=== PATIENT | male | born 1965 | race Caucasian/White ===

== ENCOUNTER → 2017-12-21 11:18 | Outpatient (CLI) | payer OTHER, SELFPAY ==
[2017-12-21 12:04] LABS: Hematocrit 49.9 % (40-54); Hemoglobin 17.1 g/dl (13.0-16.5); Mean Corp Hgb Conc 34.3 g/gl (32-36); Mean Corpuscular Volume 99.2 fL (80-94); Mean Platelet Vol. 9.4 fl (6.2-12.0); Platelet Count 270 K/mm3 (150-450); RBC Distribution Width CV 13.1 % (11.6-14.6); RBC Distribution Width SD 47.6 fl (35.1-43.9); Red Blood Count 5.03 M/mm3 (4.6-6.2)
[2017-12-21 12:05] LABS: Scan Indicated on CBC? Y/N NO
[2017-12-21 12:17] LABS: Anion Gap 12 (5-15); BUN 9 mg/dL (7-18); BUN/Creat Ratio 13.9 RATIO (10-20); Chloride 100 mmol/L (98-107); Creatinine, Serum 0.65 mg/dL (0.70-1.30); EST Glomerular Filtration Rate 137 mL/min (>60); Est Glom Filt Rate - Afr Amer 166 mL/min (>60); Glucose 64 mg/dL (74-106); Potassium 4.2 mmol/L (3.5-5.1); Sodium Level 135 mmol/L (136-145)
== END ==
PROVIDERS: Family Provider Family Medicine; PCP Family Medicine; Visit Provider Nurse Practitioner Adult Health
DX: Z01.818 Encounter for other preprocedural examination (principal)
CPT/HCPCS: 36415; 80048; 85027; 93005

== ENCOUNTER 2018-05-30 16:09 | Emergency (ER) | payer OTHER, SELFPAY ==
[2018-05-30 16:10] VITALS: BP 163/93; PULSE 99; RESP 18; TEMP 36.6; O2SAT 96; BMI 23.7
--- NOTE | 2018-05-30 16:21 | RAD_ITS ---
STUDY: X-RAY CHEST REASON FOR EXAM: Male, 52 years old. Short of breath. Cough. TECHNIQUE: Frontal and lateral views of the chest. COMPARISON: None. FINDINGS: The lungs are hyperexpanded. There are coarsened interstitial markings suggestive of mild chronic fibrosis. No gross focal infiltrates. No gross effusions. Normal size heart. Normal mediastinum and hussein. Normal visualized pulmonary arteries. Normal visualized aortic arch and descending thoracic aorta. Normal visualized thoracic spine. Normal visualized ribs, clavicles, and shoulders. There is no demonstrated abnormality of the visualized soft tissue structures of the upper abdomen. RAD/Chest PA and Lateral IMPRESSION: COPD. Probable mild fibrosis. No definite acute chest disease. Electronically Signed: Allen Lopez MD at 20:18 EST , Service support ,
--- NOTE | 2018-05-30 16:21 | EKG12_ITS ---
Test Reason : SOB Blood Pressure : / mmHG Vent. Rate : 096 BPM Atrial Rate : 096 BPM P-R Int : 134 ms QRS Dur : 092 ms QT Int : 358 ms P-R-T Axes : 068 076 068 degrees QTc Int : 452 ms Normal sinus rhythm Normal ECG Confirmed by DIONY LOWERY, HOLLY ([id number]), art editor ELIDA PALACIOS ([id number] on 06/02/2018 8:13:55 AM Referred By: PARAMJIT Confirmed By:HOLLY VORA MD
--- NOTE | 2018-05-30 16:25 | ED.VISSUMM ---
- ER Visit Summary Date of Service: 05/30/18 Chief Complaint: Shortness of breath and cough History of Present Illness: The patient is a 52 M who is shortness of breath and cough. Started 3 days ago. He states he is shortness of breath is worse with exertion and better with rest. He does not wear home oxygen. He has no history of COPD or asthma. His cough is nonproductive. He does smoke. He denies any chest pain or fevers. Is been trying Mucinex at home without any relief. Physical Examination: Vital signs reviewed. HEENT exam unremarkable. Heart is regular rate and rhythm. Lungs have diffuse expiratory wheezing with crackles bilaterally. Abdomen soft and nontender. Extremities reveal no edema. No skin rashes. Neurologic exam normal. Test Results: Patient was given a DuoNeb and 2 albuterol treatments. EKG was sinus rhythm with no ST changes. Heme globin 17.3. Sodium 130. Troponin normal. Chest x-ray per my interpretation reveals a right lower lobe infiltrate. Patient will be treated with a azithromycin and albuterol for home. He feels much better upon repeat evaluation. He will follow-up with his PCP Emergency Department Course and Treatment: [] Treatment Plan: [] Disposition: Discharge Impression: Community-acquired pneumonia This note was generated with [employer] dictation software. It may contain incorrect words, spelling, and punctuation that were not noted in review of the chart prior to signing ED Disposition - Plan for ED Patient: Chief Complaint: Shortness of Breath Referrals: Perry Page MD [Primary Care Provider] -
[2018-05-30] MEDS: Albuterol 2.5 MG/3 ML VIAL.NEB. INHALATION ×2 (16:26)
[2018-05-30] MEDS: Ipratropium/Albuterol Sulfate 3 ML AMPUL.NEB INHALATION (16:26)
[2018-05-30 16:30] VITALS: PULSE 99; RESP 22; O2SAT 95
[2018-05-30 16:37] VITALS: O2SAT 98
[2018-05-30 16:54] LABS: Absolute Lymphocyte Count 1.14 X10^3/ul (0.83-4.51); Absolute Neutrophil Count 6.6 X10^3/uL (2.0-7.7); Basophil# 0.01 X10^3/uL; Basophil% 0.1 % (0-1); Eosinophil# 0.08 X10^3/uL; Eosinophils% 0.9 % (0-5); Hematocrit 50.6 % (40-54); Hemoglobin 17.3 g/dl (13.0-16.5); Lymphocyte # 1.14 X10^3/ul (4.0); Lymphocyte % 13.1 % (19-41); Mean Corp Hgb Conc 34.2 g/gl (32-36); Mean Corpuscular Hgb 33.3 pg (27.0-32.0); Mean Corpuscular Volume 97.5 fL (80-94); Mean Platelet Vol. 9.7 fl (6.2-12.0); Monocyte# 0.85 X10^3/uL; Monocyte% 9.7 % (0-10); Neutrophil # 6.63 X10^3/uL (2.7-7.7); Neutrophil % 76.1 % (47-70); Platelet Count 217 K/mm3 (150-450); RBC Distribution Width CV 13.3 % (11.6-14.6); RBC Distribution Width SD 47.7 fl (35.1-43.9); Red Blood Count 5.19 M/mm3 (4.6-6.2); White Blood Count 8.7 K/mm3 (4.4-11.0)
[2018-05-30 17:09] LABS: Anion Gap 7 (5-15); BUN 7 mg/dL (7-18); BUN/Creat Ratio 11.2 RATIO (10-20); Calcium,Total 8.1 mg/dL (8.5-10.1); Chloride 97 mmol/L (98-107); Creatinine, Serum 0.62 mg/dL (0.70-1.30); EST Glomerular Filtration Rate 142 mL/min (>60); Est Glom Filt Rate - Afr Amer 172 mL/min (>60); Estimated Creatinine Clearance 140.64 ml/min; Glucose 92 mg/dL (74-106); Potassium 3.8 mmol/L (3.5-5.1); Sodium Level 130 mmol/L (136-145)
[2018-05-30 17:10] LABS: POSITIVE COUNT NO; POSITIVE DIFFERENTIAL NO; POSITIVE MORPHOLOGY NO
--- NOTE | 2018-05-30 18:03 | ED.DEP ---
ED Disposition - Plan for ED Patient: Disposition: Home or Assisted Living Chief Complaint: Shortness of Breath Instructions: ED Pneumonia Adult Prescriptions: Albuterol Inhaler [Ventolin Hfa] 1 - 2 puff INHALATION Q4H PRN PRN #1 inhaler PRN Reason: Wheezing Azithromycin [Zithromax] 250 mg PO DAILY #4 tab Referrals: Perry Page MD [Primary Care Provider] -
[2018-05-30 18:07] VITALS: BP 132/76; PULSE 99; RESP 18; O2SAT 96
[2018-05-30 18:10] VITALS: RESP 16
[2018-05-30] MEDS: Azithromycin 250 MG Tablet 500 MG PO (18:10)
== END 2018-05-30 18:14 | disposition home or self-care (01) ==
PROVIDERS: Emergency Provider Emergency Medicine; Family Provider Family Medicine; PCP Family Medicine
DX: J18.9 Pneumonia, unspecified organism (principal); F17.200 Nicotine dependence, unspecified, uncomplicated
CPT/HCPCS: 71046; 80048; 84484; 85025; 93005; 94640; 99284

== ENCOUNTER 2023-03-23 09:51 | Emergency (ER) | payer OTHER, SELFPAY ==
[2023-03-23 09:52] VITALS: BP 160/76; PULSE 54; RESP 18; TEMP 36.6; O2SAT 98; BMI 23.2
--- NOTE | 2023-03-23 10:01 | EDS_ITS ---
HPI History of Present Illness Chief Complaint: Lower Extremity Injury Informant: patient Occured/Mechanism Mechanism/Context: Yes fall Onset/Context/Timing Onset: Yesterday Narrative Narrative: Patient present secondary left ankle injury. Patient states he was walking on uneven ground yesterday with some new shoes when he fell injuring his left ankle. He was able to get in his home to his chair last evening. He states last evening he was able to flex and extend both ankles but today is not able to move his left ankle and cannot bear weight. He denies pain in the knee or hip. He is not on blood thinners. He denies any other injury. [facility] Medical History (Updated 03/23/23 @ 11:[address] Prabha Mckeon MD) Neuropathy Home Medications hydrocodone-acetaminophen 5-325mg 5mg-325mg 1 tab PO Q6H PRN PRN Pain 3 days #10 TABLETS 03/23/23 [Rx Last Taken Unknown] Allergy/AdvReac Type Severity Reaction Status Date / Time No Known Allergies Allergy Verified 03/23/23 09:52 Surgical History (Updated 03/23/23 @ 10:[address] Prabha Mckeon MD) History of appendectomy History of hydrocelectomy Social History Smoking Status: Current every day smoker tobacco type: cigarettes ROS ROS ED Constitutional Constitutional ED: Denies chills or fever(s) Eyes Eyes: Denies discharge from eye(s) ENT ENT ED: Denies discharge from eye(s), rhinorrhea or sore throat Cardiovascular Cardiovascular: Denies chest pain or palpitations Respiratory/Chest Respiratory/Chest: Denies cough or dyspnea Gastrointestinal Gastrointestinal: Denies abdominal pain, nausea or vomiting Genitourinary Genitourinary ED: Denies dysuria Musculoskeletal Musculoskeletal: Reports extremity pain; Denies back pain Integumentary Denies Abrasions or rash Neurologic Neurologic: Reports paresthesias and other Details: Chronic neuropathy bilateral lower extremities. ; Denies headache(s) or weakness Psychiatric Psychiatric: Denies anxiety or depression Allergic/Immunologic Allergic/Immunologic ED: Denies lip swelling or urticaria EXAM Physical Exam Const Vital Signs: 03/23/23 09:52 03/23/23 10:52 03/23/23 11:00 Temperature 97.9 F Temperature Source Temporal Pulse Rate 54 L 83 Pulse Rate [1 (Initial Baseline)] 86 Pulse Rate [2] 85 Respiratory Rate 18 16 Respiratory Rate [1 (Initial Baseline)] 18 Respiratory Rate [2] 22 H Blood Pressure 160/76 H 160/78 H Blood Pressure [1 (Initial Baseline)] 163/87 H Blood Pressure [2] 143/75 H Blood Pressure Mean 104 Pulse Ox 98 100 Oxygen Delivery Method Nasal Cannula Oxygen Delivery Method [1 (Initial Baseline)] Nasal Cannula Oxygen Delivery Method [2] Nasal Cannula Oxygen Flow Rate (L/min) 2 Oxygen Flow Rate (L/min) [1 (Initial Baseline)] 2 Oxygen Flow Rate (L/min) [2] 4 03/23/23 11:20 Temperature Temperature Source Pulse Rate Pulse Rate [1 (Initial Baseline)] Pulse Rate [2] Respiratory Rate Respiratory Rate [1 (Initial Baseline)] Respiratory Rate [2] Blood Pressure Blood Pressure [1 (Initial Baseline)] Blood Pressure [2] Blood Pressure Mean Pulse Ox Oxygen Delivery Method Room Air Oxygen Delivery Method [1 (Initial Baseline)] Oxygen Delivery Method [2] Oxygen Flow Rate (L/min) Oxygen Flow Rate (L/min) [1 (Initial Baseline)] Oxygen Flow Rate (L/min) [2] Positive well nourished and well developed General Appearance ED: well developed HEENT Reports moist mucous membranes Chest Wall inspection of chest normal and palpation of chest normal Resp normal respiratory effort and clear to auscultation bilaterally Cardio regular rate and regular rhythm GI non-tender Extremity Extremity Narrative: Edema with mild ecchymosis noted to the left ankle. Good distal pulses. Good sensation with light touch. No open wounds noted. Neuro oriented x3 Neuro Narrative: Decreased range of motion left ankle secondary to pain/edema. Psych mental status grossly normal MDM MDM MDM Narrative Medical decision making narrative: Patient did take ibuprofen this morning and admits to 3 alcoholic beverages. He denies any other injury. Left ankle x-rays will be obtained to evaluate for fracture, dislocation. Ankle x-rays reveal distal fibula fracture with dislocation per my interpretation. Radiology interpretation reviewed. Patient consented for procedural sedation. I did discuss with him that given his significant degree of swelling I am unsure that we will get much of a reduction. Patient received 50 mg of IV propofol with good sedation. Traction was performed and patient placed in a posterior splint with sugar-tong. Following splint application he has good sensation and cap refill distally. Repeat ankle x-rays per my interpretation reveal some improvement in positioning. Radiology interpretation is reviewed and agrees. Patient discussed with Dr. Da Silva, on-call for foot and ankle. He wishes to see the patient in the office this afternoon to discuss surgical repair. Patient be given a prescription for Oark and crutches and/or walker. Patient does feel that he can get around okay at home. Return instructions provided. Radiography Diagnostic Testing: Clinical Impression(s) from Imaging Studies Ankle X-Ray 03/23/23 10:05 IMPRESSION: Oblique fracture of the distal fibula, with up to 1.1 cm lateral displacement. Avulsion fractures of the distal tip of the medial malleolus, with lateral displacement of the osseous fragments. Approximately 1.2 cm lateral subluxation of the talus with respect to the distal tibia. Soft tissue swelling around the ankle. Electronically Signed: Daniel Bae MD at 10:17 EST Reading Location ID and State: [id number] / [employer] , Service support , Ankle X-Ray 03/23/23 11:13 IMPRESSION: New fiberglass cast, status post reduction. Oblique fracture of the distal fibula, now with up to 0.7 cm lateral displacement (previously 1.1 cm lateral displacement). Persistent avulsion fractures of the distal tip of the medial malleolus, with lateral displacement of the osseous fragments. Now approximately 0.7 cm lateral subluxation of the talus with respect to the distal tibia (previously 1.2 cm). Electronically Signed: Daniel Bae MD at 11:30 EST , Procedures Procedural Sedation 1 (Initial Baseline): Consent Signed: Yes Any Problems With Anesthesia: No You/Your family experience fever (hyperthermia) w/anesthesia: No Sedation medication: Propofol Dose: 50 Route: IV Total Moderate Sedation Units: 10 Maliampati Score: Class I ASA Classification: II Discharge Plan Triage Chief Complaint: Lower Extremity Injury ED Provider: Prabha Mckeon Dx/Rx/DC Orders Clinical Impression: Ankle fracture, left Instructions: ED Ankle Fracture Prescriptions: New hydrocodone-acetaminophen 5-325 mg tablet 1 tab PO Q6H PRN PRN (Reason: Pain) 3 Days Qty: 10 0RF Primary Care Provider: Perry Page Referrals: Haroon Da Silva DPM [Med Staff - Active Staff] - 1 Day Perry Page MD [Primary Care Provider] - Activity Restrictions/Additional Instructions: Dr. Da Silva would like to see you in the office this afternoon. Please call his office when you leave here for an appointment time. Disposition Disposition: Home, Self Care
--- NOTE | 2023-03-23 10:05 | RAD_ITS ---
STUDY: X-RAY - LEFT ANKLE REASON FOR EXAM: Male, 57 years old. Injury. TECHNIQUE: 3 views of the left ankle. COMPARISON: None. FINDINGS: There is an oblique fracture of the distal fibula, with up to 1.1 cm lateral displacement. There are avulsion fractures of the distal tip of the medial malleolus, with lateral displacement of the osseous fragments. There is approximately 1.2 cm lateral subluxation of the talus with respect to the distal tibia. Normal visualized talus and calcaneus. There is an os trigonum. The visualized subtalar, talonavicular, calcaneocuboid and tarsal articulations are normal. There is soft tissue swelling around the ankle. RAD/Ankle min 3 Views IMPRESSION: Oblique fracture of the distal fibula, with up to 1.1 cm lateral displacement. Avulsion fractures of the distal tip of the medial malleolus, with lateral displacement of the osseous fragments. Approximately 1.2 cm lateral subluxation of the talus with respect to the distal tibia. Soft tissue swelling around the ankle. Electronically Signed: Daniel Bae MD at 10:17 EST ,
[2023-03-23 10:52] VITALS: BP 160/78; PULSE 83; RESP 16; O2SAT 100
[2023-03-23 11:00] VITALS: BP 143/75; BP 163/87; PULSE 85; PULSE 86; RESP 18; RESP 22; O2SAT 100
[2023-03-23 11:10] VITALS: BP 137/104; O2SAT 100
[2023-03-23] MEDS: Propofol 200 MG/20 ML Vial IV BOLUS (11:12)
--- NOTE | 2023-03-23 11:13 | RAD_ITS ---
STUDY: X-RAY - LEFT ANKLE, 03/23/2023, 11:15 AM REASON FOR EXAM: Male, 57 years old. Post reduction. TECHNIQUE: 3 views of the left ankle. COMPARISON: Left ankle radiographs dated 03/23/2023, 10:04 AM. FINDINGS: There is a new fiberglass cast surrounding the left ankle. Again seen is an oblique fracture of the distal fibula, now with up to 0.7 cm lateral displacement (previously 1.1 cm lateral displacement). There are persistent avulsion fractures of the distal tip of the medial malleolus, with lateral displacement of the osseous fragments. There is now approximately 0.7 cm lateral subluxation of the talus with respect to the distal tibia (previously 1.2 cm). Normal visualized talus and calcaneus. There is an os trigonum. The visualized subtalar, talonavicular, calcaneocuboid and tarsal articulations are normal. There is persistent soft tissue swelling around the ankle. RAD/Ankle min 3 Views IMPRESSION: New fiberglass cast, status post reduction. Oblique fracture of the distal fibula, now with up to 0.7 cm lateral displacement (previously 1.1 cm lateral displacement). Persistent avulsion fractures of the distal tip of the medial malleolus, with lateral displacement of the osseous fragments. Now approximately 0.7 cm lateral subluxation of the talus with respect to the distal tibia (previously 1.2 cm). Electronically Signed: Daniel Bae MD at 11:30 EST ,
[2023-03-23 11:15] VITALS: BP 152/84; O2SAT 100
[2023-03-23 11:20] VITALS: BP 151/80; O2SAT 100
== END 2023-03-23 12:21 | disposition home or self-care (01) ==
PROVIDERS: Emergency Provider Emergency Medicine; PCP Family Medicine; Visit Provider Emergency Medicine
DX: S82.62XA Displaced fracture of lateral malleolus of left fibula, initial encounter for closed fracture (principal); Y93.01 Activity, walking, marching and hiking; W19.XXXA Unspecified fall, initial encounter; F17.210 Nicotine dependence, cigarettes, uncomplicated
CPT/HCPCS: 27788; 73610; 99152; 99285; A4216

== ENCOUNTER → 2023-03-26 | Outpatient (CLI) | payer OTHER, SELFPAY ==
--- NOTE | 2023-03-26 16:29 | RAD_ITS ---
INDICATION: pre-op screening EXAMINATION/TECHNIQUE: X-RAY - XR Chest 2 Views COMPARISON: FINDINGS: LINES/DEVICES: None. LUNGS: No consolidation, edema or effusion. No pneumothorax. MEDIASTINUM AND CARDIOVASCULAR STRUCTURES: Cardiac silhouette not enlarged. Central airways and mediastinal contour are unremarkable. BONES AND SOFT TISSUES: Unremarkable. RAD/Chest PA and Lateral IMPRESSION: No radiographic evidence of acute cardiopulmonary disease. Electronically Signed: Smooth Mccall DO at 20:10 EST Reading Location ID and State: [facility] / [place] Tel [phone], Service support ,
[2023-03-26 17:28] LABS: Absolute Lymphocyte Count 1.65 X10^3/uL (0.83-4.51); Basophil# 0.07 X10^3/uL; Basophil% 0.9 % (0-1); Eosinophil# 0.17 X10^3/uL; Eosinophils% 2.2 % (0-5); Hematocrit 47.9 % (40-54); Hemoglobin 16.5 g/dL (13.0-16.5); Lymphocyte # 1.65 X10^3/ul (0.83-4.51); Lymphocyte % 21.7 % (19-41); Mean Corp Hgb Conc 34.4 g/dL (32-36); Mean Corpuscular Hgb 33.7 pg (27.0-32.0); Mean Platelet Vol. 9.5 fl (6.2-12.0); Monocyte# 0.68 X10^3/uL; Monocyte% 8.9 % (0-10); NRBC Flagged by Analyzer 0 % (0-5); Neutrophil # 5.02 X10^3/uL (2.7-7.7); Platelet Count 296 K/mm3 (150-450); RBC Distribution Width SD 46.5 fl (35.1-43.9); Red Blood Count 4.89 M/mm3 (4.6-6.2); White Blood Count 7.6 K/mm3 (4.4-11.0)
[2023-03-26 17:36] LABS: ALB/GLOB Ratio 0.6 RATIO (0.9-2.4); AST(SGOT) 22 U/L (15-37); Alanine Aminotransfer ALT/SGPT 21 U/L (16-61); Albumin, Serum 3.1 g/dL (3.2-5.0); Alkaline Phosphatase 89 U/L (45-117); Anion Gap 8 (5-15); BUN 7 mg/dL (7-18); BUN/Creat Ratio 10.7 RATIO (10-20); Calcium,Total 8.5 mg/dL (8.5-10.1); Chloride 98 mmol/L (98-107); Creatinine, Serum 0.65 mg/dL (0.70-1.30); EST Glomerular Filtration Rate 133 mL/min (>60); Est Glom Filt Rate - Afr Amer 161 mL/min (>60); Glucose 71 mg/dL (74-106); Potassium 4.2 mmol/L (3.5-5.1); Protein, Total 8.1 g/dL (6.4-8.2); Sodium Level 132 mmol/L (136-145)
== END | disposition home or self-care (01) ==
PROVIDERS: PCP Family Medicine; Referring Provider Family Medicine; Visit Provider Family Medicine
DX: Z01.818 Encounter for other preprocedural examination (principal)
CPT/HCPCS: 36415; 71046; 80053; 85025

== ENCOUNTER 2023-04-01 11:24 | Day surgery (SDC) | payer OTHER, SELFPAY ==
[2023-04-01] MEDS: Lactated Ringers 1,000 ML 15 ML IV (11:55)
[2023-04-01 11:57] VITALS: BP 160/79; PULSE 86; RESP 18; TEMP 36.3; O2SAT 100; BMI 19.8
[2023-04-01] MEDS: Cefazolin 2 GM in 0.9% Normal Saline (100mL Bag) 100 ML IV (13:31)
--- NOTE | 2023-04-01 13:56 | RAD_ITS ---
PROCEDURE: ORIF of the lateral malleolar fracture. DATE OF EXAMINATION: April 01, 2023. INDICATION: Male, 57 years old. ORIF of lateral malleolar fracture. FLUOROSCOPY TIME (if supplied): (94.9 seconds) minutes/seconds. 3.72 mGy. 5 fluoroscopic images were obtained. RAD/Ankle min 3 Views IMPRESSION: Intraoperative imaging provided for ORIF of the distal fibular fracture. There is good alignment. Electronically Signed: Luisito Taylor MD at 15:34 EST ,
[2023-04-01 15:45] VITALS: BP 114/58; BP 160/79; PULSE 77; RESP 18; TEMP 36.4; O2SAT 96
[2023-04-01 15:59] VITALS: BP 142/71; BP 160/79; PULSE 70; RESP 18; O2SAT 98
--- NOTE | 2023-04-01 16:05 | OP.PCM_ITS ---
Problems Associated Problem List Diagnoses (1) Displaced fracture of lateral malleolus of left fibula: (2) Non-pressure chronic ulcer of other part of left foot with fat layer exposed: Report of Operation Date of Procedure: 04/01/23 Pre-Operative Diagnosis: 1) Left lateral malleolus fracture, closed, displaced 2) left full-thickness foot foot wound secondary to hemorrhagic fracture bullous Post-Operative Diagnosis: Same Surgery/Procedure Performed:: 1) open reduction internal fixation left distal fibular fracture 2) left dorsal foot wound debridement and wound bed preparation for graft 3) left foot skin substitute application 4) application of splint left lower EXTR Surgeon: Haroon Da Silva product representative: None (Eloina CotoPVonda, PGY 3) Type of Anesthesia: General Special Medications: Patient preoperatively received popliteal block Specimen's removed: No specimens Drains: None Estimated Blood Loss (mL): Minimal Description of Procedure: Patient brought back the operating room placed complete in supine position on operating room table. Patient induced under general anesthesia. Well-padded left thigh tourniquet applied. Left lower extremity positioned to knock out any external rotation of the hip bump on blankets. Left lower extremity was then scrubbed prepped and draped using typical aseptic fashion. Procedure #1 open reduction internal fixation left distal fibular fracture: Using palpation fluoroscopic imaging the distal fibula was identified and a incision was marked along the central aspect of the fibula was made full- thickness down to level of bone linearly using a #15 blade without incident any bleeders were identified and cauterized. All neurovascular structures were identified and protected with blunt retraction. Deep fascia and periosteum was identified at this time along with the oblique distal fibular fracture running from distal anterior proximal posterior. Deep fascial periosteal incision made linearly with a 15 blade and the periosteum deep fascia was debrided off of the fracture sites using combination of sharp dissection with pickups 15 blade and a leroy periosteal elevator. The fracture site was then curetted to remove any interpositional tissue and hematoma and then flushed with copious amounts normal sterile saline. And then reduced with a bone reduction forcep reduction was confirmed using AP and lateral imaging fluoroscopically. Next a 3 5 solid screw was placed using AO technique from proximal to distal across the fracture site using a lag technique. Bone reduction forceps were then released and fluoroscopic imaging taken to confirm adequate reduction and placement of screw. Next a lateral locking plate was applied over the distal fibula to allow for additional stabilization rotational forces. Combination of 3 5 locking and nonlocking screws were placed along the distal and proximal holes using manufactures guidelines. Again fluoroscopic imaging was used throughout the case to confirm adequate reduction. Site was flushed with copious amounts normal sterile saline tourniquet was let down total tourniquet time was noted to be 67 minutes. Deep periosteal closure was performed using running interlocking 2-0 Vicryl. Subcutaneous closure performed with simple interrupted buried 3-0 Vicryl. Skin closure performed with stephanie. Procedure #2 wound bed preparation for graft application left dorsal foot: There is noted to be a full-thickness fracture bolus to the dorsal left foot. Predebridement debridement this measured approximately 4.4 x 5.6 cm. The bullous was debrided with combination of pickups 15 blade as well as bone curette. Postdebridement the wound demonstrated clean 100% granular base measuring approximately 4.5 x 5.8 x 0.3 cm. This wound was full-thickness. Wound was flushed with copious amount of sterile saline and prepped prepared for graft application. Procedure #3 application of skin substitute graft to left dorsal foot: A 4 x 4 centimeter BioSkin graft was applied to the dorsal left foot wound and dressed with Adaptic and Steri-Strips to stabilize the wound: The lateral ankle incision was dressed with Betadine Adaptic and then overlying 4 x 4's Kerlix. Procedure #4 application of AO splint to left lower extremity: 2 layers of cast padding were wrapped over the dry sterile dressing from the base of the metatarsal heads to proximal otherwise portion of the calf followed by two 4 inch Ru bandages with 50% overlap from the basement the digits to proximal calf. Followed by additional cast padding followed by an AO splint with 3 layers of 5 x 30 splint material wrapped in a U fashion followed by a sugar-tong 3 layer 5 x 30 plaster splint. Overlying 6 inch Ru was applied. Patient was then transferred to PACU vital signs stable and vascular status intact all digits for further monitoring prior to discharge. Patient tolerated procedure and anesthesia well in apparent satisfactory condition. No complications Findings dorsal foot wound which was debrided and had graft applied no sign of infection. There is anatomic reduction of the distal fibular fracture with intact mortise post-ORIF. Admit VTE Documentation VTE Present on Admission: Yes VTE Pharm Prophylaxis ordered?: Yes
[2023-04-01 16:15] VITALS: BP 134/69; BP 160/79; PULSE 88; RESP 18; TEMP 36.6; O2SAT 100
[2023-04-01 16:47] VITALS: BP 160/79
== END 2023-04-01 17:14 | disposition home or self-care (01) ==
LOC: SDC 11:26 → AC 11:27
PROVIDERS: PCP Family Medicine; Referring Provider Podiatrist; Visit Provider Podiatrist
PROC: (CPT 27792; principal; 2023-04-01 12:40)
DX: S82.62XA Displaced fracture of lateral malleolus of left fibula, initial encounter for closed fracture (principal); L97.522 Non-pressure chronic ulcer of other part of left foot with fat layer exposed; L13.9 Bullous disorder, unspecified; J45.909 Unspecified asthma, uncomplicated; M10.9 Gout, unspecified; F17.210 Nicotine dependence, cigarettes, uncomplicated; Z79.82 Long term (current) use of aspirin; Z79.899 Other long term (current) drug therapy
CPT/HCPCS: 27792; 11012; 15271; 64445; 01480; 73610; 76000; C1713; J7120; J2405

== ENCOUNTER 2023-04-16 12:50 | Outpatient (CLI) | payer OTHER, SELFPAY | END 2023-04-16 23:59 | disposition home or self-care (01) | PROVIDERS: PCP Family Medicine; Referring Provider Podiatrist; Visit Provider Podiatrist | DX: L97.323 Non-pressure chronic ulcer of left ankle with necrosis of muscle (principal) | CPT/HCPCS: 87070; 87075; 87077; 87186; 87205 ==

== ENCOUNTER → 2023-05-12 | Outpatient (CLI) | payer OTHER, SELFPAY ==
--- NOTE | 2023-05-12 07:56 | ART_ITS ---
Reason For Study: PVD Procedure A bilateral lower extremity continuous wave Doppler with analog waveform analysis,segmental pressures,and ankle brachial indexes without exercise. Left Segmental Pressures Left brachial= 157mmHg. Left thigh = 207mmHg. Left calf = 149mmHg. Left posterior tibial artery = 143mmHg. Left dorsalis pedis artery = 156mmHg. Left digit = 41 mmHg. The left posterior tibial artery waveforms are biphasic. The left dorsalis pedis waveforms are biphasic. Right Segmental Pressures Right brachial= 170mmHg. Right thigh = 154mmHg. Right calf = 157mmHg. Right posterior tibial artery = 157mmHg. Right dorsalis pedis artery = 145mmHg. Right digit = 93 mmHg. The right posterior tibial artery waveforms are triphasic. The right dorsalis pedis waveforms are triphasic. Indices The right ankle brachial index by the posterior tibial artery is 0.92. The right ankle brachial index by the dorsalis pedis is 0.85. The right digital-brachial index is 0.55. The left ankle brachial index by the posterior tibial artery is 0.84. The left ankle brachial index by the dorsalis pedis is 0.92. The left digital-brachial index is 0.24. VL/Lower Ext Art Exam w/o Exercis Interpretation Summary Right LIZET 0.92, mild arterial insufficiency. Doppler/PVR waveforms and segmenta l pressures reveal [id number] femoral disease Left LIZET 0.92, mild arterial insufficiency. Doppler/PVR waveforms and segmental pressures reveal distal SFA/popliteal disease Ordering Physician: Haroon Da Silva Referring Physician: Franck Page Performed By: Michael Peres RVT
== END | disposition home or self-care (01) ==
PROVIDERS: PCP Family Medicine; Referring Provider Podiatrist; Visit Provider Podiatrist
DX: I73.9 Peripheral vascular disease, unspecified (principal)
CPT/HCPCS: 93923

== ENCOUNTER → 2023-05-18 | Outpatient (CLI) | payer OTHER, SELFPAY ==
--- NOTE | 2023-05-18 11:07 | RAD_ITS ---
STUDY: X-RAY - LEFT ANKLE REASON FOR EXAM: Male, 57 years old. Left lateral leg ulcer TECHNIQUE: 3 view(s) of the ankle. COMPARISON: Comparison is made with prior study in March 23, 2023. FINDINGS: The patient is status post open reduction and internal fixation of the distal fibular fracture. There is good alignment of the fracture. The fracture is healed. Old avulsion fracture of the medial malleolus. Asymmetry of the ankle mortise. Normal visualized talus and calcaneus. The visualized subtalar, talonavicular, calcaneocuboid and tarsal articulations are normal. There is evidence of a soft tissue defect overlying the lateral malleolus most likely representing an ulceration. RAD/Ankle min 3 Views IMPRESSION: Status post ORIF of the distal fibular fracture with healing. Persistent asymmetry of the ankle mortise and the most fractured medial malleolus. Soft tissue ulceration overlying the lateral malleolus. Electronically Signed: Luisito Taylor MD at 15:01 EST ,
== END | disposition home or self-care (01) ==
LOC: MTRAD 10:57
PROVIDERS: PCP Family Medicine; Referring Provider Podiatrist; Visit Provider Podiatrist
DX: L97.322 Non-pressure chronic ulcer of left ankle with fat layer exposed (principal)
CPT/HCPCS: 73610

== ENCOUNTER 2023-06-01 09:30 | Outpatient (RCR) | payer OTHER, SELFPAY ==
[2023-05-18 09:37] VITALS: BP 159/73; PULSE 91; RESP 18; TEMP 36.6
--- NOTE | 2023-05-18 10:13 | PCM.WC.PN ---
History of Present Illness Date of Service: 05/18/23 History of Wound: Patient presents follow-up left lateral ankle wound. Patient had ORIF of left ankle fracture on 04/01/2023 subsequently developed a surgical site infection with wound dehiscence. Patient denies constitutional symptoms and is off antibiotics and notes improvement with wound VAC therapy via home health care. patient has no other complaints. Objective Data Objective Data Vital Signs: Vital Signs Temp Pulse Resp BP O2 Del Method 97.8 F 91 18 159/73 H Room Air 05/18/23 09:37 05/18/23 09:37 05/18/23 09:37 05/18/23 09:37 05/18/23 09:37 Oxygen Delivery Method Room Air Physical Exam Narrative Neurovascular status unchanged Full-thickness wound left lateral ankle stable clean granular base no signs of infection. No deep probing undermining. Pre and postdebridement measurements documented nursing notes. Clean skin edges noted. No exposed tendon bone or hardware. Ankle joint range of motion full to left lower extremity, no deformity. Muscular strength full to bilateral lower extremity compartments. Const alert and oriented x3 Debridement Note Debridement Note Post-Debridement Measurements and Additional Note: Post-Debridement Measurements/Treatment WC - Nurse 1 - General Ulcer Assessment Start: 05/18/23 09:35 Freq: Status: Active Protocol: LISA Activity Type Activity Date Activity User E-sign Co-sign Detail Recorded Client Recorded Date Recorded By Document 05/18/23 09:37 MT Desktop 05/18/23 09:53 MT 05/18/23 09:37 WC - Today's Visit Information Type of service Initial Visit Arrival Mode Ambulatory Safety Precautions NA Vital Signs Temperature (97.8 F-99.1 F) 97.8 F Temperature Source Temporal Pulse Rate (60-100) 91 Pulse Location Monitor Respiratory Rate (12-18) 18 Respiratory rate source Observation Oxygen Delivery Method Room Air Blood Pressure (90/60-120/80) 159/73 H Blood Pressure Mean (mm Hg) 101 Source Monitor Position Sitting Blood Pressure Location Left Arm History Since Last Visit- (Skip if this is Patient's initial visit) Left Footwear Custom Shoe Right Footwear Regular Shoe Pain Scale: 0-10 Numeric Is Patient Pain Free? No - Nurse 1 - General Ulcer Measurement Start: 05/18/23 09:35 Freq: Status: Active Protocol: Activity Type Activity Date Activity User E-sign Co-sign Detail Recorded Client Recorded Date Recorded By Document 05/18/23 09:37 MT Desktop 05/18/23 09:53 MT 05/18/23 09:37 Wound Center Nurse 1 #1 Left lateral Ankle -Current Size (cm) - Length 8.5 -Current Size (cm) - Width 1.9 -Current Size (cm) - Depth 0.2 -Total Square Cm 16.15 -Date of Last Picture (Recall this 05/18/23 field) -Photo Taken Yes -Epithelialization Medium 34-66% -Tunneling No -Undermining/Tunneling No -Circular Undermining No -Exudate Amt Medium -Exudate Type Serosanguineous -Wound Margin Flat & Intact -Granulation Amt Large (67-100%) -Granulation Quality Red -Slough/Fibrin No -Texture (Venessa-wound Skin Appearance) Assessed -Moisture (Venessa-wound Skin Appearance) Assessed -Color (Venessa-wound Skin Appearance) Assessed -Temperature (Venessa-wound Skin No Abnormality Appearance) (Pt Warm) -Tenderness on Palpation (Venessa-wound No Skin Appearance) -Ulcer Cleansing Soap and Water -Foul Odor after Cleansing No -Anesthetic Used 4% Lidocaine Solution Lower Limb Edema Present NA WC - Nurse 2 - General Ulcer CM Notes Start: 05/18/23 09:35 Freq: Status: Active Protocol: Activity Type Activity Date Activity User E-sign Co-sign Detail Recorded Client Recorded Date Recorded By Document 05/18/23 10:07 Laptop 05/18/23 10:12 05/18/23 10:07 Wound Center Nurse 2 #1 Left lateral Ankle -Time 10:08 -Correct Patient Yes -Correct Side, Site, Position Yes -Correct Procedure Yes -Procedure Performed Yes -Type of Procedure Debridement -Clinical Debridement Subcutaneous -Tissue Removed Subcutaneous -Post Debridement (cm) - Length 8.3 -Post Debridement (cm) - Width 3.0 -Post Debridement (cm) - Depth 0.2 -Total Square (Post) (cm) 24.90 -Area of Debridement (cm) - Length 8.3 -Area of Debridement (cm) - Width 3.0 -Total Square (Area) (cm) 24.90 -Tunneling No -Undermining/Tunneling No -Circular Undermining No -Wound/Ulcer Outcome Not Healed -Ulcer Cleansing Rinsed/ Irrigated with Saline -Foul Odor after Cleansing No -Bioengineered Tissue No -Bleeding Controlled with Pressure -Treatment Response Procedure Tolerated Well -Offloading No -Debridement - Subq, 1st 20sq cm Yes -Debridement, SubQ, ea addt'l 20sq cm 1 or part thereof Pain Scale: 0-10 Numeric Is Patient Pain Free? Yes Assessment/Plan Assessment/Plan (1) Non-pressure chronic ulcer of left ankle with fat layer exposed: CODE(S): L97.322 - Non-pressure chronic ulcer of left ankle with fat layer exposed PLAN: Exam performed Patient has alcoholic neuropathy, smokes pack per day with peripheral arterial disease -patient has something smoking cessation and alcohol cessation. Recommended community support through AA. Patient underwent ORIF left ankle fracture on 04/01/2023, developed surgical site dehiscence and infection. Patient was treated with p.o. antibiotics and infection resolved. Wound is improving today with wound VAC application and offloading via walker and a cast boot. Today left lower extremity wound was debrided excisionally down to including level of subcutaneous tissue of all nonviable tissue using a 5 mm dermal curette. Was flushed with copious amounts normal sterile saline. Hemostasis obtained with light compression. No anesthesia due to neuropathy. Patient tolerated procedure well. Pre and postdebridement measurements documented nursing notes. Patient will continue wound VAC dressing changes 2-3 times per week. Soap and water wash will be performed to left lateral ankle wound with dressing changes. Arterial studies were reviewed. Mild PAD with regards to LIZET bilaterally. Left TBI was 0.24. Will refer to vascular surgery for additional opinion; however, patient's wound is significantly improved at this time. follow-up in 1 week. Will plan for epifix grafting. (2) Displaced fracture of lateral malleolus of left fibula: CODE(S): S82.62XA - Displaced fracture of lateral malleolus of left fibula, initial encounter for closed fracture QUALIFIERS: Encounter type: sequela Fracture type: closed Qualified Code(s): S82.62XS - Displaced fracture of lateral malleolus of left fibula, sequela (3) Peripheral vascular disease, unspecified: CODE(S): I73.9 - Peripheral vascular disease, unspecified
[2023-05-25 09:41] VITALS: BP 150/90; PULSE 86; RESP 18; TEMP 35.4
--- NOTE | 2023-05-25 09:52 | PCM.WC.PN ---
History of Present Illness Date of Service: 05/25/23 History of Wound: Patient presents follow-up left lateral ankle wound. Patient had ORIF of left ankle fracture on 04/01/2023 subsequently developed a surgical site infection with wound dehiscence. Patient denies constitutional symptoms and is off antibiotics and notes improvement with wound VAC therapy via home health care. patient has no other complaints. Objective Data Objective Data Vital Signs: Vital Signs Temp Pulse Resp BP O2 Del Method 95.7 F L 86 18 150/90 H Room Air 05/25/23 09:41 05/25/23 09:41 05/25/23 09:41 05/25/23 09:41 05/18/23 09:37 Oxygen Delivery Method Room Air Physical Exam Narrative Neurovascular status unchanged Full-thickness wound left lateral ankle stable clean granular base no signs of infection. No deep probing undermining. Pre and postdebridement measurements documented nursing notes. Clean skin edges noted. No exposed tendon bone or hardware. Ankle joint range of motion full to left lower extremity, no deformity. Muscular strength full to bilateral lower extremity compartments. 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 ) Arrival Mode Ambulatory Ambulatory Patient Identification Verified (Name & Yes ) Patient Requires Transmission-Based No Precautions Safety Precautions NA Vital Signs Temperature (97.8 F-99.1 F) 97.8 F 95.7 F L Temperature Source Temporal Temporal Pulse Rate (60-100) 91 86 Pulse Location Monitor Monitor Respiratory Rate (12-18) 18 18 Respiratory rate source Observation Observation Oxygen Delivery Method Room Air Blood Pressure (90/60-120/80) 159/73 H 150/90 H Blood Pressure Mean (mm Hg) 101 110 Source Monitor Monitor Position Sitting Semi-Fowlers Blood Pressure Location Left Arm Left Arm History Since Last Visit- (Skip if this is Patient's initial visit) Have you changed medications since your No last visit? Any new allergies or adverse reactions No Had a fall/change in ADL's that may No increase risk of falls Signs or symptoms of abuse and/or No neglect since last visit Have you been in the hospital since your No last visit? Has dressing in place as prescribed Yes Has compression in place as prescribed Yes Has offloadiing in place as prescribed N/A Experienced any changes in pain level or No management Left Footwear Custom Shoe Surgical Shoe with pressure relief insole Right Footwear Regular Shoe Regular Shoe Pain Scale: 0-10 Numeric Is Patient Pain Free? No Yes WC - Nurse 1 - General Ulcer Measurement Start: 05/18/23 09:35 Freq: Status: Active Protocol: Activity Type Activity Date Activity User E-sign Co-sign Detail Recorded Client Recorded Date Recorded By Document 05/18/23 09:37 [place] Desktop 05/18/23 09:53 MT Document 05/25/23 09:41 Laptop 05/25/23 09:43 05/18/23 05/25/23 09:37 09:41 Wound Center Nurse 1 #1 Left lateral Ankle -Combined with other wound No -Current Size (cm) - Length 8.5 7.7 -Current Size (cm) - Width 1.9 1.4 -Current Size (cm) - Depth 0.2 0.2 -Total Square Cm 16.15 10.78 -Date of Last Picture (Recall this 05/18/23 field) -Photo Taken Yes No -Epithelialization Medium 34-66% Medium 34-66% -Tunneling No No -Undermining/Tunneling No No -Circular Undermining No No -Exudate Amt Medium Medium -Exudate Type Serosanguineous Serosanguineous -Wound Margin Flat & Intact Flat & Intact -Granulation Amt Large (67-100%) Large (67-100%) -Granulation Quality Red Red -Slough/Fibrin No Yes -Necrosis Amt Small (1-33%) -Necrotic Tissue Type Adherent Slough -Structure Exposed N/A -Texture (Venessa-wound Skin Appearance) Assessed Assessed, Localized Edema ,Scarring -Moisture (Venessa-wound Skin Appearance) Assessed Assessed,Dry/ Scaly -Color (Venessa-wound Skin Appearance) Assessed Assessed -Temperature (Venessa-wound Skin No Abnormality No Abnormality Appearance) (Pt Warm) (Pt Warm) -Tenderness on Palpation (Venessa-wound No No Skin Appearance) -Ulcer Cleansing Soap and Water Wound Cleanser -Foul Odor after Cleansing No No -Anesthetic Used 4% Lidocaine Solution Lower Limb Edema Present NA Yes Left Calf (cm) 41 Left Ankle (cm) 26.5 - Nurse 2 - General Ulcer CM Notes Start: 05/18/23 09:35 Freq: Status: Active Protocol: Activity Type Activity Date Activity User E-sign Co-sign Detail Recorded Client Recorded Date Recorded By Document 05/18/23 10:07 Laptop 05/18/23 10:12 Document 05/25/23 09:47 Laptop 05/25/23 09:52 05/18/23 05/25/23 10:07 09:47 Wound Center Nurse 2 #1 Left lateral Ankle -Time 10:08 09:51 -Correct Patient Yes Yes -Correct Side, Site, Position Yes Yes -Correct Procedure Yes Yes -Procedure Performed Yes Yes -Type of Procedure Debridement Debridement -Clinical Debridement Subcutaneous Subcutaneous -Tissue Removed Subcutaneous Subcutaneous -Post Debridement (cm) - Length 8.3 7.8 -Post Debridement (cm) - Width 3.0 1.5 -Post Debridement (cm) - Depth 0.2 0.2 -Total Square (Post) (cm) 24.90 11.70 -Area of Debridement (cm) - Length 8.3 7.8 -Area of Debridement (cm) - Width 3.0 1.5 -Total Square (Area) (cm) 24.90 11.70 -Tunneling No No -Undermining/Tunneling No No -Circular Undermining No No -Wound/Ulcer Outcome Not Healed Not Healed -Ulcer Cleansing Rinsed/ Rinsed/ Irrigated with Irrigated with Saline Saline -Foul Odor after Cleansing No No -Bioengineered Tissue No No -Bleeding Controlled with Pressure Pressure -Treatment Response Procedure Procedure Tolerated Well Tolerated Well -Offloading No Yes -Type of Offloading Total Contact Cast (TCC) - Left ($) -Debridement - Subq, 1st 20sq cm Yes Yes -Debridement, SubQ, ea addt'l 20sq cm 1 or part thereof Pain Scale: 0-10 Numeric Is Patient Pain Free? Yes Yes - Nurse 3 - General Ulcer D/C NN Start: 05/18/23 09:35 Freq: Status: Active Protocol: Activity Type Activity Date Activity User E-sign Co-sign Detail Recorded Client Recorded Date Recorded By Document 05/18/23 10:23 RB Desktop 05/18/23 10:24 RB 05/18/23 10:23 Wound Care Center Nurse 3 #1 Left lateral Ankle -Negative Pressure Wound Therapy Continue -Setting (mmHg) 125 -Negative Pressure is Continuous -NPWT Application Charge NPWT & Debridement (nc ) Treatment Response Procedure Tolerated Well Pain Scale: 0-10 Numeric Is Patient Pain Free? Yes WC - Visit Discharge Discharge Condition Stable Ambulatory Status Ambulatory, Walker Transportation Private Auto Medication Reconcilliation completed & No provided to patient/care provider Clinical Summary of Care Provided Yes Assessment/Plan Assessment/Plan (1) Non-pressure chronic ulcer of left ankle with fat layer exposed: CODE(S): L97.322 - Non-pressure chronic ulcer of left ankle with fat layer exposed PLAN: Exam performed Patient has alcoholic neuropathy, smokes pack per day with peripheral arterial disease -patient has something smoking cessation and alcohol cessation. Recommended community support through . Patient underwent ORIF left ankle fracture on 04/01/2023, developed surgical site dehiscence and infection. Patient was treated with p.o. antibiotics and infection resolved. Wound is improving today with wound VAC application and offloading via walker and a cast boot assisted by walker Today radiographs were reviewed and demonstrate some syndesmotic widening with medial clear space noted. Due to current wound complication, arterial status. No surgical plan at current. Will plan for more aggressive offloading. Will plan for AFO upon healing if required. There appears to be syndesmotic instability at this time. Will plan for total contact cast currently. Due to patient's offloading and home status patient was transition to partial weightbearing in cast boot assisted by walker. Will consider fixing there is reestablished blood flow to the area and for return to function upon wound healing. Again due to patient's risk factors though, and AFO would likely be indicated. Left ankle wound was debrided excisionally down to including level of subcutaneous tissue of all nonviable tissue using a 5 mm dermal curette. Was flushed with copious amounts normal sterile saline. Hemostasis obtained with light compression. No anesthesia due to neuropathy. Patient tolerated procedure well. Pre and postdebridement measurements documented nursing notes. 2-day left lower extremity EpiFix 4 x 4.5 cm, 11 billing units, graft was applied directly to the wound site. Entire graft used, no waste. Graft was stabilized with overlying Adaptic and Steri-Strips. Today total contact cast applied to left lower extremity to offload lower extremity. Follow-up weekly. (2) Displaced fracture of lateral malleolus of left fibula: CODE(S): S82.62XA - Displaced fracture of lateral malleolus of left fibula, initial encounter for closed fracture QUALIFIERS: Encounter type: sequela Fracture type: closed Qualified Code(s): S82.62XS - Displaced fracture of lateral malleolus of left fibula, sequela (3) Peripheral vascular disease, unspecified: CODE(S): I73.9 - Peripheral vascular disease, unspecified
[2023-06-01 09:45] VITALS: BP 183/73; PULSE 117; RESP 18; TEMP 35.9
--- NOTE | 2023-06-01 09:50 | PN.PCM_ITS ---
History of Present Illness Date of Service: 06/01/23 History of Wound: Patient presents follow-up left lateral ankle wound. Patient had ORIF of left ankle fracture on 04/01/2023 subsequently developed a surgical site infection with wound dehiscence. Patient denies constitutional symptoms and is off antibiotics and notes improvement with wound VAC therapy via home health care. patient has no other complaints. Subjective Subjective No GH today. Wound improving. Patient compliant with care. Patient attempting smoking cessation. Patient attempting alcohol cessation. Awaiting vascular surgery evaluation. No other complaints. N Objective Data Objective Data Vital Signs: Vital Signs Temp Pulse Resp BP O2 Del Method 96.7 F L 117 H 18 183/73 H Room Air 06/01/23 09:45 06/01/23 09:45 06/01/23 09:45 06/01/23 09:45 05/18/23 09:37 Oxygen Delivery Method Room Air Physical Exam Narrative Neurovascular status unchanged Full-thickness wound left lateral ankle stable clean granular base no signs of infection. No deep probing undermining. Pre and postdebridement measurements documented nursing notes. Clean skin edges noted. No exposed tendon bone or hardware. Ankle joint range of motion full to left lower extremity, no deformity. Muscular strength full to bilateral lower extremity compartments. Const alert and oriented x3 Debridement Note Debridement Note Post-Debridement Measurements and Additional Note: Post-Debridement Measurements/Treatment - Nurse 1 - General Ulcer Assessment Start: 05/18/23 09:35 Freq: Status: Active Protocol: .LOWEXT Activity Type Activity Date Activity User E-sign Co-sign Detail Recorded Client Recorded Date Recorded By Document 05/18/23 09:37 TX Desktop 05/18/23 09:53 MT Document 05/25/23 09:41 Laptop 05/25/23 09:43 Document 06/01/23 09:45 RB Desktop 06/01/23 09:48 RB 05/18/23 05/25/23 06/01/23 09:37 09:41 09:45 - Today's Visit Information Type of service Initial Visit Follow-up Visit Follow-up Visit (Physician/NIGHT TIME BABYSITTER (Physician/NIGHT TIME BABYSITTER ) ) Arrival Mode Ambulatory Ambulatory Ambulatory Transfer Assistance None Patient Identification Verified (Name & Yes Yes ) Patient Requires Transmission-Based No No Precautions Safety Precautions NA Vital Signs Temperature (97.8 F-99.1 F) 97.8 F 95.7 F L 96.7 F L Temperature Source Temporal Temporal Temporal Pulse Rate (60-100) 91 86 117 H Pulse Location Monitor Monitor Monitor Respiratory Rate (12-18) 18 18 18 Respiratory rate source Observation Observation Observation Oxygen Delivery Method Room Air Blood Pressure (90/60-120/80) 159/73 H 150/90 H 183/73 H Blood Pressure Mean (mm Hg) 101 110 109 Source Monitor Monitor Monitor Position Sitting Semi-Fowlers Semi-Fowlers Blood Pressure Location Left Arm Left Arm Left Arm History Since Last Visit- (Skip if this is Patient's initial visit) Have you changed medications since your No No last visit? Any new allergies or adverse reactions No No Had a fall/change in ADL's that may No No increase risk of falls Signs or symptoms of abuse and/or No No neglect since last visit Have you been in the hospital since your No No last visit? Has dressing in place as prescribed Yes Yes Has compression in place as prescribed Yes No Has offloadiing in place as prescribed N/A Yes Experienced any changes in pain level or No No management Left Footwear Custom Shoe Surgical Shoe with pressure relief insole Right Footwear Regular Shoe Regular Shoe Pain Scale: 0-10 Numeric Is Patient Pain Free? No Yes Yes WC - Nurse 1 - General Ulcer Measurement Start: 05/18/23 09:35 Freq: Status: Active Protocol: Activity Type Activity Date Activity User E-sign Co-sign Detail Recorded Client Recorded Date Recorded By Document 05/18/23 09:37 MT Desktop 05/18/23 09:53 TX Document 05/25/23 09:41 JF Laptop 05/25/23 09:43 Document 06/01/23 09:45 RB Desktop 06/01/23 09:48 RB 05/18/23 05/25/23 06/01/23 09:37 09:41 09:45 Wound Center Nurse 1 #1 Left lateral Ankle -Combined with other wound No No -Current Size (cm) - Length 8.5 7.7 7 -Current Size (cm) - Width 1.9 1.4 1.4 -Current Size (cm) - Depth 0.2 0.2 0.4 -Total Square Cm 16.15 10.78 9.8 -Date of Last Picture (Recall this 05/18/23 field) -Photo Taken Yes No -Epithelialization Medium 34-66% Medium 34-66% -Tunneling No No No -Undermining/Tunneling No No No -Circular Undermining No No No -Exudate Amt Medium Medium Medium -Exudate Type Serosanguineous Serosanguineous Serosanguineous -Wound Margin Flat & Intact Flat & Intact Thickened & Rolled Under -Granulation Amt Large (67-100%) Large (67-100%) Large (67-100%) -Granulation Quality [facility] -Slough/Fibrin No Yes Yes -Necrosis Amt Small (1-33%) Medium (34-66%) -Necrotic Tissue Type Adherent Slough Adherent Slough -Structure Exposed N/A N/A -Texture (Venessa-wound Skin Appearance) Assessed Assessed, Assessed Localized Edema ,Scarring -Moisture (Venessa-wound Skin Appearance) Assessed Assessed,Dry/ Assessed Scaly -Color (Venessa-wound Skin Appearance) Assessed Assessed Assessed -Temperature (Venessa-wound Skin No Abnormality No Abnormality No Abnormality Appearance) (Pt Warm) (Pt Warm) (Pt Warm) -Tenderness on Palpation (Venessa-wound No No No Skin Appearance) -Ulcer Cleansing Soap and Water Wound Cleanser Wound Cleanser -Foul Odor after Cleansing No No No -Anesthetic Used 4% Lidocaine 5% Lidocaine Solution Gel Lower Limb Edema Present NA Yes Yes Left Calf (cm) 41 38 Left Ankle (cm) 26.5 28.5 WC - Nurse 2 - General Ulcer CM Notes Start: 05/18/23 09:35 Freq: Status: Active Protocol: Activity Type Activity Date Activity User E-sign Co-sign Detail Recorded Client Recorded Date Recorded By Document 05/18/23 10:07 Laptop 05/18/23 10:12 Document 05/25/23 09:47 Laptop 05/25/23 09:52 Edit Result 05/25/23 09:47 (1) [id number] 05/25/23 10:42 (1) #1 Left lateral Ankle - Bioengineered Tissue No => Yes - Type of Bioengineered Tissue => Epifix Mesh - Expiration Date => 01/02/28 - Product Lot Number => [id number] - Percent Used => 100 - Lot number of Saline Used => [id number] - Debridement - Subq, 1st 20sq cm Yes => No - Apply Skin Sub - 1st 25 sq cm - Legs => 1 - Epifix Mesh (per sq cm) => 11 05/18/23 05/25/23 10:07 09:47 Wound Center Nurse 2 #1 Left lateral Ankle -Time 10:08 09:51 -Correct Patient Yes Yes -Correct Side, Site, Position Yes Yes -Correct Procedure Yes Yes -Procedure Performed Yes Yes -Type of Procedure Debridement Debridement -Clinical Debridement Subcutaneous Subcutaneous -Tissue Removed Subcutaneous Subcutaneous -Post Debridement (cm) - Length 8.3 7.8 -Post Debridement (cm) - Width 3.0 1.5 -Post Debridement (cm) - Depth 0.2 0.2 -Total Square (Post) (cm) 24.90 11.70 -Area of Debridement (cm) - Length 8.3 7.8 -Area of Debridement (cm) - Width 3.0 1.5 -Total Square (Area) (cm) 24.90 11.70 -Tunneling No No -Undermining/Tunneling No No -Circular Undermining No No -Wound/Ulcer Outcome Not Healed Not Healed -Ulcer Cleansing Rinsed/ Rinsed/ Irrigated with Irrigated with Saline Saline -Foul Odor after Cleansing No No -Bioengineered Tissue No Yes -Type of Bioengineered Tissue Epifix Mesh -Expiration Date 01/02/28 -Product Lot Number [id number] -Percent Used 100 -Lot number of Saline Used [id number] -Bleeding Controlled with Pressure Pressure -Treatment Response Procedure Procedure Tolerated Well Tolerated Well -Offloading No Yes -Type of Offloading Total Contact Cast (TCC) - Left ($) -Debridement - Subq, 1st 20sq cm Yes No -Debridement, SubQ, ea addt'l 20sq cm 1 or part thereof -Apply Skin Sub - 1st 25 sq cm - Legs 1 -Epifix Mesh (per sq cm) 11 Pain Scale: 0-10 Numeric Is Patient Pain Free? Yes Yes WC - Nurse 3 - General Ulcer D/C NN Start: 05/18/23 09:35 Freq: Status: Active Protocol: Activity Type Activity Date Activity User E-sign Co-sign Detail Recorded Client Recorded Date Recorded By Document 05/18/23 10:23 RB Desktop 05/18/23 10:24 RB Document 05/25/23 10:18 RB Desktop 05/25/23 10:20 RB 05/18/23 05/25/23 10:23 10:18 Wound Care Center Nurse 3 #1 Left lateral Ankle -Negative Pressure Wound Therapy Continue -Setting (mmHg) 125 -Negative Pressure is Continuous -Primary Dressing Applied Optilok 6.5x10 -Other Dressing primary TCC applied -NPWT Application Charge NPWT & Debridement (nc ) -Optilok 6.5x10 1 Treatment Response Procedure Procedure Tolerated Well Tolerated Well Pain Scale: 0-10 Numeric Is Patient Pain Free? Yes Yes Teaching: Wound Center Offload: Mattress, Cushion, Reposition -Person Taught Patient -Teaching Method Discussion -Response to teaching Verbalize understanding WC - Visit Discharge Discharge Condition Stable Stable Ambulatory Status Ambulatory, Ambulatory Walker Transportation Private Auto Private Auto Medication Reconcilliation completed & No No provided to patient/care provider Clinical Summary of Care Provided Yes Yes Assessment/Plan Assessment/Plan (1) Non-pressure chronic ulcer of left ankle with fat layer exposed: CODE(S): L97.322 - Non-pressure chronic ulcer of left ankle with fat layer exposed PLAN: Exam performed Patient has alcoholic neuropathy, smokes pack per day with peripheral arterial disease -patient has something smoking cessation and alcohol cessation. Recommended community support through . Patient underwent ORIF left ankle fracture on 04/01/2023, developed surgical site dehiscence and infection. Patient was treated with p.o. antibiotics and infection resolved. Wound is improving today with wound VAC application and offloading via walker and a cast boot assisted by walker radiographs were reviewed and demonstrate some syndesmotic widening with medial clear space noted. Due to current wound complication, arterial status. No surgical plan at current. Will plan for AFO upon healing if required. There appears to be syndesmotic instability at this time. Will plan for total contact cast currently. Due to patient's offloading and home status patient was transition to partial weightbearing in cast boot assisted by walker. Will consider fixing if there is re-established blood flow to the area and for return to function upon wound healing and poor return to function in custom AFO. Again due to patient's risk factors though, and AFO would likely be indicated. Left ankle wound was debrided excisionally down to including level of subcutaneous tissue of all nonviable tissue using a 5 mm dermal curette. Was flushed with copious amounts normal sterile saline. Hemostasis obtained with light compression. No anesthesia due to neuropathy. Patient tolerated procedure well. Pre and postdebridement measurements documented nursing notes. left lower extremity lateral ankle wound - an EpiFix graft was applied (4 x 4.5 cm), 11 billing units, graft was applied directly to the wound site. Entire graft used, no waste. Graft was stabilized with overlying Adaptic and Steri- Strips. Today total contact cast applied to left lower extremity to offload lower extremity. Follow-up weekly. (2) Displaced fracture of lateral malleolus of left fibula: CODE(S): S82.62XA - Displaced fracture of lateral malleolus of left fibula, initial encounter for closed fracture QUALIFIERS: Encounter type: sequela Fracture type: closed Qualified Code(s): S82.62XS - Displaced fracture of lateral malleolus of left fibula, sequela (3) Peripheral vascular disease, unspecified: CODE(S): I73.9 - Peripheral vascular disease, unspecified
== END 2023-06-02 23:59 | disposition home or self-care (01) ==
LOC: WC 09:30
PROVIDERS: PCP Family Medicine; Referring Provider Podiatrist; Visit Provider Podiatrist
DX: L97.322 Non-pressure chronic ulcer of left ankle with fat layer exposed (principal); I73.9 Peripheral vascular disease, unspecified; T81.31XA Disruption of external operation (surgical) wound, not elsewhere classified, initial encounter; Y83.8 Other surgical procedures as the cause of abnormal reaction of the patient, or of later complication, without mention of misadventure at the time of the procedure; S82.62XS Displaced fracture of lateral malleolus of left fibula, sequela; Z79.82 Long term (current) use of aspirin; Z79.899 Other long term (current) drug therapy
CPT/HCPCS: 11042; 11045; 15271; 29445; 99214; Q4186; G0463

== ENCOUNTER 2023-06-29 09:30 | Outpatient (RCR) | payer OTHER, SELFPAY ==
[2023-06-03 00:57] VITALS: BP 183/73; PULSE 117; RESP 18; TEMP 35.9
[2023-06-08 09:33] VITALS: BP 159/84; PULSE 95; RESP 20; TEMP 35.9
--- NOTE | 2023-06-08 10:09 | PCM.WC.PN ---
History of Present Illness Date of Service: 06/08/23 History of Wound: Patient presents follow-up left lateral ankle wound. Patient had ORIF of left ankle fracture on 04/01/2023 subsequently developed a surgical site infection with wound dehiscence. Patient denies constitutional symptoms and is off antibiotics and notes improvement with wound VAC therapy via home health care. patient has no other complaints. Objective Data Objective Data Vital Signs: Vital Signs Temp Pulse Resp BP 96.6 F L 95 20 H 159/84 H 06/08/23 09:33 06/08/23 09:33 06/08/23 09:33 06/08/23 09:33 Physical Exam Narrative Neurovascular status unchanged Full-thickness wound left lateral ankle stable clean granular base no signs of infection. No deep probing undermining. Pre and postdebridement measurements documented nursing notes. Clean skin edges noted. No exposed tendon bone or hardware. Ankle joint range of motion full to left lower extremity, no deformity. Muscular strength full to bilateral lower extremity compartments. Const alert and oriented x3 Debridement Note Debridement Note Post-Debridement Measurements and Additional Note: Post-Debridement Measurements/Treatment - Nurse 1 - General Ulcer Assessment Start: 06/08/23 09:33 Freq: Status: Active Protocol: WC.LOWEXT Activity Type Activity Date Activity User E-sign Co-sign Detail Recorded Client Recorded Date Recorded By Document 06/08/23 09:33 Desktop 06/08/23 09:44 DL 06/08/23 09:33 - Today's Visit Information Type of service Follow-up Visit (Physician/SEED CLEANING MANAGER ) Arrival Mode Ambulatory Transfer Assistance None Patient Identification Verified (Name & Yes ) Patient Requires Transmission-Based No Precautions Vital Signs Temperature (97.8 F-99.1 F) 96.6 F L Temperature Source Temporal Pulse Rate (60-100) 95 Pulse Location Monitor Respiratory Rate (12-18) 20 H Respiratory rate source Observation Blood Pressure (90/60-120/80) 159/84 H Blood Pressure Mean (mm Hg) 109 Source Monitor History Since Last Visit- (Skip if this is Patient's initial visit) Have you changed medications since your No last visit? Any new allergies or adverse reactions No Signs or symptoms of abuse and/or No neglect since last visit Have you been in the hospital since your No last visit? Has dressing in place as prescribed Yes Has compression in place as prescribed N/A Has offloadiing in place as prescribed Yes Experienced any changes in pain level or No management Left Footwear Total Contact Cast Pain Scale: 0-10 Numeric Is Patient Pain Free? Yes - Nurse 1 - General Ulcer Measurement Start: 06/08/23 09:33 Freq: Status: Active Protocol: Activity Type Activity Date Activity User E-sign Co-sign Detail Recorded Client Recorded Date Recorded By Document 06/08/23 09:33 DL Desktop 06/08/23 09:44 DL 06/08/23 09:33 Wound Center Nurse 1 #1 Left lateral Ankle -Current Size (cm) - Length 6.1 -Current Size (cm) - Width 1 -Current Size (cm) - Depth 0.1 -Total Square Cm 6.1 -Exudate Amt Medium -Exudate Type Serosanguineous -Wound Margin Distinct, Outline Attached -Granulation Amt Medium (34-66%) -Granulation Quality Red -Necrosis Amt Small (1-33%) -Structure Exposed N/A -Texture (Venessa-wound Skin Appearance) Scarring -Moisture (Venessa-wound Skin Appearance) No Abnormality -Color (Venessa-wound Skin Appearance) Hemosiderin Staining -Temperature (Venessa-wound Skin No Abnormality Appearance) (Pt Warm) -Tenderness on Palpation (Venessa-wound No Skin Appearance) -Ulcer Cleansing Soap and Water -Foul Odor after Cleansing No -Anesthetic Used 5% Lidocaine Gel - Nurse 2 - General Ulcer CM Notes Start: 06/08/23 09:33 Freq: Status: Active Protocol: Activity Type Activity Date Activity User E-sign Co-sign Detail Recorded Client Recorded Date Recorded By Document 06/08/23 10:03 Laptop 06/08/23 10:07 06/08/23 10:03 Wound Center Nurse 2 -Time 10:05 -Correct Patient Yes -Correct Side, Site, Position Yes -Correct Procedure Yes -Procedure Performed Yes -Type of Procedure Debridement -Clinical Debridement Subcutaneous -Tissue Removed Subcutaneous -Post Debridement (cm) - Length 7.0 -Post Debridement (cm) - Width 0.8 -Post Debridement (cm) - Depth 0.4 -Total Square (Post) (cm) 5.60 -Area of Debridement (cm) - Length 7.0 -Area of Debridement (cm) - Width 0.8 -Total Square (Area) (cm) 5.60 -Tunneling No -Undermining/Tunneling No -Circular Undermining No -Wound/Ulcer Outcome Not Healed -Ulcer Cleansing Rinsed/ Irrigated with Saline -Foul Odor after Cleansing No -Bioengineered Tissue Yes -Type of Bioengineered Tissue Epifix Mesh -Expiration Date 01/02/28 -Product Lot Number [id number] -Percent Used 100 -Lot number of Saline Used [id number] -Bleeding Controlled with Pressure -Treatment Response Procedure Tolerated Well -Offloading Yes -Type of Offloading Total Contact Cast (TCC) - Left ($) -Debridement - Subq, 1st 20sq cm No -Apply Skin Sub - 1st 25 sq cm - Legs 1 -Epifix Mesh (per sq cm) 11 Pain Scale: 0-10 Numeric Is Patient Pain Free? Yes Assessment/Plan Assessment/Plan (1) Non-pressure chronic ulcer of left ankle with fat layer exposed: CODE(S): L97.322 - Non-pressure chronic ulcer of left ankle with fat layer exposed PLAN: Exam performed Patient has alcoholic neuropathy, smokes pack per day with peripheral arterial disease -patient has something smoking cessation and alcohol cessation. Recommended community support through . Patient underwent ORIF left ankle fracture on 04/01/2023, developed surgical site dehiscence and infection. Patient was treated with p.o. antibiotics and infection resolved. Wound is improving today with wound VAC application and offloading via walker and a cast boot assisted by walker radiographs demonstrate some syndesmotic widening with medial clear space noted. Due to current wound complication, arterial status. No surgical plan at current. Will plan for AFO upon healing if required. There appears to be syndesmotic instability at this time. Will plan for total contact cast currently. Due to patient's offloading and home status patient was transition to partial weightbearing in cast boot assisted by walker. Will consider fixing if there is re-established blood flow to the area and for return to function upon wound healing and poor return to function in custom AFO. Again due to patient's risk factors though, and AFO would likely be indicated. Left ankle wound was debrided excisionally down to including level of subcutaneous tissue of all nonviable tissue using a 5 mm dermal curette. Was flushed with copious amounts normal sterile saline. Hemostasis obtained with light compression. No anesthesia due to neuropathy. Patient tolerated procedure well. Pre and postdebridement measurements documented nursing notes. left lower extremity lateral ankle wound - an EpiFix graft was applied (4 x 4.5 cm), 11 billing units, graft was applied directly to the wound site. Entire graft used, no waste. Graft was stabilized with overlying Adaptic and Steri-Strips. Today total contact cast applied to left lower extremity to offload lower extremity. Follow-up weekly. (2) Displaced fracture of lateral malleolus of left fibula: CODE(S): S82.62XA - Displaced fracture of lateral malleolus of left fibula, initial encounter for closed fracture QUALIFIERS: Encounter type: sequela Fracture type: closed Qualified Code(s): S82.62XS - Displaced fracture of lateral malleolus of left fibula, sequela (3) Peripheral vascular disease, unspecified: CODE(S): I73.9 - Peripheral vascular disease, unspecified
[2023-06-15 09:27] VITALS: BP 150/76; PULSE 88; RESP 16
--- NOTE | 2023-06-15 10:22 | PN.PCM_ITS ---
History of Present Illness Date of Service: 06/15/23 History of Wound: Patient presents follow-up left lateral ankle wound. Patient had ORIF of left ankle fracture on 04/01/2023 subsequently developed a surgical site infection with wound dehiscence. Patient denies constitutional symptoms and is off antibiotics and notes improvement with wound VAC therapy via home health care. patient has no other complaints. Objective Data Objective Data Vital Signs: Vital Signs Temp Pulse Resp BP O2 Del Method 96.6 F L 88 16 150/76 H Room Air 06/08/23 09:33 06/15/23 09:27 06/15/23 09:27 06/15/23 09:27 06/15/23 09:27 Oxygen Delivery Method Room Air Physical Exam Narrative Neurovascular status unchanged Full-thickness wound left lateral ankle stable clean granular base no signs of infection. No deep probing undermining. Pre and postdebridement measurements documented nursing notes. Clean skin edges noted. No exposed tendon bone or hardware. Ankle joint range of motion full to left lower extremity, no deformity. Muscular strength full to bilateral lower extremity compartments. Const alert and oriented x3 Debridement Note Debridement Note Post-Debridement Measurements and Additional Note: Post-Debridement Measurements/Treatment - Nurse 1 - General Ulcer Assessment Start: 06/08/23 09:33 Freq: Status: Active Protocol: LISA Activity Type Activity Date Activity User E-sign Co-sign Detail Recorded Client Recorded Date Recorded By Document 06/08/23 09:33 DL Desktop 06/08/23 09:44 DL Document 06/15/23 09:27 BMF Desktop 06/15/23 09:40 BMF 06/08/23 06/15/23 09:33 09:27 - Today's Visit Information Type of service Follow-up Visit Follow-up Visit (Physician/MACHINE CLOTH MEASURER (Physician/MACHINE CLOTH MEASURER ) ) Arrival Mode Ambulatory Ambulatory Transfer Assistance None None Patient Identification Verified (Name & Yes Yes ) Patient Requires Transmission-Based No No Precautions Vital Signs Temperature (97.8 F-99.1 F) 96.6 F L Temperature Source Temporal Pulse Rate (60-100) 95 88 Pulse Location Monitor Monitor Respiratory Rate (12-18) 20 H 16 Respiratory rate source Observation Observation Oxygen Delivery Method Room Air Blood Pressure (90/60-120/80) 159/84 H 150/76 H Blood Pressure Mean (mm Hg) 109 100 Source Monitor Monitor Position Sitting Blood Pressure Location Left Arm History Since Last Visit- (Skip if this is Patient's initial visit) Have you changed medications since your No No last visit? Any new allergies or adverse reactions No No Had a fall/change in ADL's that may No increase risk of falls Signs or symptoms of abuse and/or No No neglect since last visit Have you been in the hospital since your No No last visit? Has dressing in place as prescribed Yes Yes Has compression in place as prescribed N/A Has offloadiing in place as prescribed Yes Yes Experienced any changes in pain level or No No management Left Footwear Total Contact Total Contact Cast Cast Right Footwear Regular Shoe Pain Scale: 0-10 Numeric Is Patient Pain Free? Yes Yes WC - Nurse 1 - General Ulcer Measurement Start: 06/08/23 09:33 Freq: Status: Active Protocol: Activity Type Activity Date Activity User E-sign Co-sign Detail Recorded Client Recorded Date Recorded By Document 06/08/23 09:33 DL Desktop 06/08/23 09:44 DL Document 06/15/23 09:27 BMF Desktop 06/15/23 09:40 BMF 06/08/23 06/15/23 09:33 09:27 Wound Center Nurse 1 #1 Left lateral Ankle -Combined with other wound No -Current Size (cm) - Length 6.1 6.6 -Current Size (cm) - Width 1 1 -Current Size (cm) - Depth 0.1 0.7 -Total Square Cm 6.1 6.6 -Date of Last Picture (Recall this 06/15/23 field) -Photo Taken Yes -Epithelialization None Present -Tunneling No -Undermining/Tunneling No -Circular Undermining No -Exudate Amt Medium Medium -Exudate Type Serosanguineous Serosanguineous -Wound Margin Distinct, Thickened Outline Attached -Granulation Amt Medium (34-66%) Small (1-33%) -Granulation Quality Red Red -Slough/Fibrin Yes -Necrosis Amt Small (1-33%) Large (67-100%) -Necrotic Tissue Type Adherent Slough -Structure Exposed N/A -Texture (Venessa-wound Skin Appearance) Scarring Assessed, Scarring -Moisture (Venessa-wound Skin Appearance) No Abnormality Assessed -Color (Venessa-wound Skin Appearance) Hemosiderin Assessed Staining -Temperature (Venessa-wound Skin No Abnormality No Abnormality Appearance) (Pt Warm) (Pt Warm) -Tenderness on Palpation (Venessa-wound No No Skin Appearance) -Ulcer Cleansing Soap and Water Soap and Water -Foul Odor after Cleansing No No -Anesthetic Used 5% Lidocaine 4% Lidocaine Gel Solution Left Calf (cm) 39 Left Ankle (cm) 26.8 WC - Nurse 2 - General Ulcer CM Notes Start: 06/08/23 09:33 Freq: Status: Active Protocol: Activity Type Activity Date Activity User E-sign Co-sign Detail Recorded Client Recorded Date Recorded By Document 06/08/23 10:03 Laptop 06/08/23 10:07 Document 06/15/23 09:57 Laptop 06/15/23 10:06 06/08/23 06/15/23 10:03 09:57 Wound Center Nurse 2 #1 Left lateral Ankle -Time 10:05 10:01 -Correct Patient Yes Yes -Correct Side, Site, Position Yes Yes -Correct Procedure Yes Yes -Procedure Performed Yes Yes -Type of Procedure Debridement Debridement -Clinical Debridement Subcutaneous Subcutaneous -Tissue Removed Subcutaneous Subcutaneous -Post Debridement (cm) - Length 7.0 6.6 -Post Debridement (cm) - Width 0.8 1.1 -Post Debridement (cm) - Depth 0.4 0.7 -Total Square (Post) (cm) 5.60 7.26 -Area of Debridement (cm) - Length 7.0 6.6 -Area of Debridement (cm) - Width 0.8 1.1 -Total Square (Area) (cm) 5.60 7.26 -Tunneling No No -Undermining/Tunneling No No -Circular Undermining No No -Wound/Ulcer Outcome Not Healed Not Healed -Ulcer Cleansing Rinsed/ Rinsed/ Irrigated with Irrigated with Saline Saline -Foul Odor after Cleansing No No -Bioengineered Tissue Yes Yes -Type of Bioengineered Tissue Epifix Mesh Epifix Mesh -Expiration Date 01/02/28 01/02/28 -Product Lot Number [id number] -Percent Used 100 100 -Lot number of Saline Used [id number] -Bleeding Controlled with Pressure Pressure -Treatment Response Procedure Procedure Tolerated Well Tolerated Well -Offloading Yes No -Type of Offloading Total Contact Cast (TCC) - Left ($) -Debridement - Subq, 1st 20sq cm No No -Apply Skin Sub - 1st 25 sq cm - Legs 1 1 -Epifix Mesh (per sq cm) 11 11 Pain Scale: 0-10 Numeric Is Patient Pain Free? Yes Yes - Nurse 3 - General Ulcer D/C NN Start: 06/08/23 09:33 Freq: Status: Active Protocol: Activity Type Activity Date Activity User E-sign Co-sign Detail Recorded Client Recorded Date Recorded By Document 06/08/23 10:44 DL [id number] 06/08/23 10:47 DL Document 06/15/23 10:15 BMF Desktop 06/15/23 10:16 BMF 06/08/23 06/15/23 10:44 10:15 Wound Care Center Nurse 3 #1 Left lateral Ankle -Primary Dressing Applied Optilok 8x12 -Other Dressing Epimesh EPI -Primary Dressing Covered/Secured with Dry Gauze & Roll Gauze, Secured with Tape -Other Covering TCC ABD -Optilok 8x12 1 Left -Multi-Layered Wrap Application Multi-Layer Comp - Left ($) Treatment Response Procedure Procedure Tolerated Well Tolerated Well Pain Scale: 0-10 Numeric Is Patient Pain Free? Yes Yes WC - Visit Discharge Discharge Condition Stable Stable Ambulatory Status Ambulatory Ambulatory Transportation Private Auto Private Auto Notes: Epimesh applied per TCC casting system applied, Cast applied per Assessment/Plan Assessment/Plan (1) Non-pressure chronic ulcer of left ankle with fat layer exposed: CODE(S): L97.322 - Non-pressure chronic ulcer of left ankle with fat layer exposed PLAN: Exam performed Patient has alcoholic neuropathy, smokes pack per day with peripheral arterial disease -patient has something smoking cessation and alcohol cessation. Recommended community support through . Patient underwent ORIF left ankle fracture on 04/01/2023, developed surgical site dehiscence and infection. Patient was treated with p.o. antibiotics and infection resolved. Wound is improving today with wound VAC application and offloading via walker and a cast boot assisted by walker radiographs demonstrate some syndesmotic widening with medial clear space noted . Due to current wound complication, arterial status. No surgical plan at current. Will plan for AFO upon healing if required. There appears to be syndesmotic instability at this time. Will plan for total contact cast currently. Due to patient's offloading and home status patient was transition to partial weightbearing in cast boot assisted by walker. Will consider fixing if there is re-established blood flow to the area and for return to function upon wound healing and poor return to function in custom AFO. Again due to patient's risk factors though, and AFO would likely be indicated. Left ankle wound was debrided excisionally down to including level of subcutaneous tissue of all nonviable tissue using a 5 mm dermal curette. Was flushed with copious amounts normal sterile saline. Hemostasis obtained with light compression. No anesthesia due to neuropathy. Patient tolerated procedure well. Pre and postdebridement measurements documented nursing notes. left lower extremity lateral ankle wound - an EpiFix graft was applied (4 x 4.5 cm), 11 billing units, graft was applied directly to the wound site. Entire graft used, no waste. Graft was stabilized with overlying Adaptic and Steri- Strips. Today total contact cast applied to left lower extremity to offload lower extremity. Follow-up weekly. (2) Displaced fracture of lateral malleolus of left fibula: CODE(S): S82.62XA - Displaced fracture of lateral malleolus of left fibula, initial encounter for closed fracture QUALIFIERS: Encounter type: sequela Fracture type: closed Quali fied Code(s): S82.62XS - Displaced fracture of lateral malleolus of left fibula, sequela (3) Peripheral vascular disease, unspecified: CODE(S): I73.9 - Peripheral vascular disease, unspecified
[2023-06-22 09:31] VITALS: BP 166/80; PULSE 90; RESP 20; TEMP 35.9
--- NOTE | 2023-06-22 09:50 | PN.PCM_ITS ---
History of Present Illness Date of Service: 06/22/23 History of Wound: Patient presents follow-up left lateral ankle wound. Patient had ORIF of left ankle fracture on 04/01/2023 subsequently developed a surgical site infection with wound dehiscence. Patient denies constitutional symptoms and is off antibiotics and notes improvement with wound VAC therapy via home health care. patient has no other complaints. Objective Data Objective Data Vital Signs: Vital Signs Temp Pulse Resp BP O2 Del Method 96.7 F L 90 20 H 166/80 H Room Air 06/22/23 09:31 06/22/23 09:31 06/22/23 09:31 06/22/23 09:31 06/15/23 09:27 Oxygen Delivery Method Room Air Physical Exam Narrative Neurovascular status unchanged Full-thickness wound left lateral ankle stable clean granular base no signs of infection. No deep probing undermining. Pre and postdebridement measurements documented nursing notes. Clean skin edges noted. No exposed tendon bone or hardware. Ankle joint range of motion full to left lower extremity, no deformity. Muscular strength full to bilateral lower extremity compartments. Const alert and oriented x3 Debridement Note Debridement Note Post-Debridement Measurements and Additional Note: Post-Debridement Measurements/Treatment - Nurse 1 - General Ulcer Assessment Start: 06/08/23 09:33 Freq: Status: Active Protocol: LISA Activity Type Activity Date Activity User E-sign Co-sign Detail Recorded Client Recorded Date Recorded By Document 06/08/23 09:33 DL Desktop 06/08/23 09:44 DL Document 06/15/23 09:27 BMF Desktop 06/15/23 09:40 BMF Document 06/22/23 09:31 DL Desktop 06/22/23 09:36 DL 06/08/23 06/15/23 06/22/23 09:33 09:27 09:31 - Today's Visit Information Type of service Follow-up Visit Follow-up Visit Follow-up Visit (Physician/X RAY INSPECTOR (Physician/X RAY INSPECTOR (Physician/X RAY INSPECTOR ) ) ) Arrival Mode Ambulatory Ambulatory Ambulatory Transfer Assistance None None None Patient Identification Verified (Name & Yes Yes Yes ) Patient Requires Transmission-Based No No No Precautions Vital Signs Temperature (97.8 F-99.1 F) 96.6 F L 96.7 F L Temperature Source Temporal Temporal Pulse Rate (60-100) 95 88 90 Pulse Location Monitor Monitor Monitor Respiratory Rate (12-18) 20 H 16 20 H Respiratory rate source Observation Observation Observation Oxygen Delivery Method Room Air Blood Pressure (90/60-120/80) 159/84 H 150/76 H 166/80 H Blood Pressure Mean (mm Hg) 109 100 108 Source Monitor Monitor Monitor Position Sitting Blood Pressure Location Left Arm History Since Last Visit- (Skip if this is Patient's initial visit) Have you changed medications since your No No No last visit? Any new allergies or adverse reactions No No No Had a fall/change in ADL's that may No No increase risk of falls Signs or symptoms of abuse and/or No No No neglect since last visit Have you been in the hospital since your No No No last visit? Has dressing in place as prescribed Yes Yes Yes Has compression in place as prescribed N/A Yes Has offloadiing in place as prescribed Yes Yes Yes Experienced any changes in pain level or No No No management Left Footwear Total Contact Total Contact Surgical Shoe Cast Cast with pressure relief insole Right Footwear Regular Shoe Regular Shoe Pain Scale: 0-10 Numeric Is Patient Pain Free? Yes Yes Yes WC - Nurse 1 - General Ulcer Measurement Start: 06/08/23 09:33 Freq: Status: Active Protocol: Activity Type Activity Date Activity User E-sign Co-sign Detail Recorded Client Recorded Date Recorded By Document 06/08/23 09:33 DL Desktop 06/08/23 09:44 DL Document 06/15/23 09:27 [facility] Desktop 06/15/23 09:40 BMF Document 06/22/23 09:31 DL Desktop 06/22/23 09:36 DL 06/08/23 06/15/23 06/22/23 09:33 09:27 09:31 Wound Center Nurse 1 #1 Left lateral Ankle -Combined with other wound No -Current Size (cm) - Length 6.1 6.6 5.5 -Current Size (cm) - Width 1 1 1 -Current Size (cm) - Depth 0.1 0.7 0.2 -Total Square Cm 6.1 6.6 5.5 -Date of Last Picture (Recall this 06/15/23 field) -Photo Taken Yes -Epithelialization None Present -Tunneling No -Undermining/Tunneling No -Circular Undermining No -Exudate Amt Medium Medium Medium -Exudate Type Serosanguineous Serosanguineous Serosanguineous -Wound Margin Distinct, Thickened Distinct, Outline Outline Attached Attached -Granulation Amt Medium (34-66%) Small (1-33%) Medium (34-66%) -Granulation Quality [place] -Slough/Fibrin Yes -Necrosis Amt Small (1-33%) Large (67-100%) Medium (34-66%) -Necrotic Tissue Type Adherent Slough Adherent Slough -Structure Exposed N/A N/A -Texture (Venessa-wound Skin Appearance) Scarring Assessed, Localized Edema Scarring ,Scarring -Moisture (Venessa-wound Skin Appearance) No Abnormality Assessed Dry/Scaly -Color (Venessa-wound Skin Appearance) Hemosiderin Assessed Hemosiderin Staining Staining -Temperature (Venessa-wound Skin No Abnormality No Abnormality No Abnormality Appearance) (Pt Warm) (Pt Warm) (Pt Warm) -Tenderness on Palpation (Venessa-wound No No No Skin Appearance) -Ulcer Cleansing Soap and Water Soap and Water Soap and Water -Foul Odor after Cleansing No No No -Anesthetic Used 5% Lidocaine 4% Lidocaine 5% Lidocaine Gel Solution Gel Lower Limb Edema Present Yes Left Calf (cm) 39 35.5 Left Ankle (cm) 26.8 25.6 WC - Nurse 2 - General Ulcer CM Notes Start: 06/08/23 09:33 Freq: Status: Active Protocol: Activity Type Activity Date Activity User E-sign Co-sign Detail Recorded Client Recorded Date Recorded By Document 06/08/23 10:03 Laptop 06/08/23 10:07 Document 06/15/23 09:57 Laptop 06/15/23 10:06 Document 06/22/23 09:48 Laptop 06/22/23 09:49 06/08/23 06/15/23 06/22/23 10:03 09:57 09:48 Wound Center Nurse 2 #1 Left lateral Ankle -Time 10:05 10:01 09:48 -Correct Patient Yes Yes Yes -Correct Side, Site, Position Yes Yes Yes -Correct Procedure Yes Yes Yes -Procedure Performed Yes Yes Yes -Type of Procedure Debridement Debridement Debridement -Clinical Debridement Subcutaneous Subcutaneous Subcutaneous -Tissue Removed Subcutaneous Subcutaneous Subcutaneous -Post Debridement (cm) - Length 7.0 6.6 6.1 -Post Debridement (cm) - Width 0.8 1.1 0.5 -Post Debridement (cm) - Depth 0.4 0.7 0.3 -Total Square (Post) (cm) 5.60 7.26 3.05 -Area of Debridement (cm) - Length 7.0 6.6 6.1 -Area of Debridement (cm) - Width 0.8 1.1 0.5 -Total Square (Area) (cm) 5.60 7.26 3.05 -Tunneling No No No -Undermining/Tunneling No No No -Circular Undermining No No No -Wound/Ulcer Outcome Not Healed Not Healed Not Healed -Ulcer Cleansing Rinsed/ Rinsed/ Rinsed/ Irrigated with Irrigated with Irrigated with Saline Saline Saline -Foul Odor after Cleansing No No No -Bioengineered Tissue Yes Yes Yes -Type of Bioengineered Tissue Epifix Mesh Epifix Mesh Epifix Mesh -Expiration Date 01/02/28 01/02/28 02/01/28 -Product Lot Number [id number] -Percent Used 100 100 100 -Lot number of Saline Used [id number] -Bleeding Controlled with Pressure Pressure Pressure -Treatment Response Procedure Procedure Procedure Tolerated Well Tolerated Well Tolerated Well -Offloading Yes No No -Type of Offloading Total Contact Cast (TCC) - Left ($) -Debridement - Subq, 1st 20sq cm No No No -Apply Skin Sub - 1st 25 sq cm - Legs 1 1 1 -Epifix Mesh (per sq cm) 11 11 11 Pain Scale: 0-10 Numeric Is Patient Pain Free? Yes Yes Yes WC - Nurse 3 - General Ulcer D/C NN Start: 06/08/23 09:33 Freq: Status: Active Protocol: Activity Type Activity Date Activity User E-sign Co-sign Detail Recorded Client Recorded Date Recorded By Document 06/08/23 10:44 DL [id number] 06/08/23 10:47 DL Document 06/15/23 10:15 [facility] Desktop 06/15/23 10:16 [facility] 06/08/23 06/15/23 10:44 10:15 Wound Care Center Nurse 3 #1 Left lateral Ankle -Primary Dressing Applied Optilok 8x12 -Other Dressing Epimesh EPI -Primary Dressing Covered/Secured with Dry Gauze & Roll Gauze, Secured with Tape -Other Covering TCC ABD -Optilok 8x12 1 Left -Multi-Layered Wrap Application Multi-Layer Comp - Left ($) Treatment Response Procedure Procedure Tolerated Well Tolerated Well Pain Scale: 0-10 Numeric Is Patient Pain Free? Yes Yes WC - Visit Discharge Discharge Condition Stable Stable Ambulatory Status Ambulatory Ambulatory Transportation Private Auto Private Auto Notes: Epimesh applied per TCC casting system applied, Cast applied per Assessment/Plan Assessment/Plan (1) Non-pressure chronic ulcer of left ankle with fat layer exposed: CODE(S): L97.322 - Non-pressure chronic ulcer of left ankle with fat layer exposed PLAN: Exam performed Patient has alcoholic neuropathy, smokes pack per day with peripheral arterial disease -patient has something smoking cessation and alcohol cessation. Recommended community support through . Patient underwent ORIF left ankle fracture on 04/01/2023, developed surgical sit e dehiscence and infection. Patient was treated with p.o. antibiotics and infection resolved. Wound is improving today with wound VAC application and offloading via walker and a cast boot assisted by walker radiographs demonstrate some syndesmotic widening with medial clear space noted . Due to current wound complication, arterial status. No surgical plan at current. Will plan for AFO upon wound healing. There appears to be syndesmotic instability at this time. Consider surgical intervention to restabilize ankle if there is further instability, bracing failure and re- established blood flow. Patient following with vascular surgery - awaiting CTA Left ankle wound was debrided excisionally down to including level of subcutaneous tissue of all nonviable tissue using a 5 mm dermal curette. Was flushed with copious amounts normal sterile saline. Hemostasis obtained with light compression. No anesthesia due to neuropathy. Patient tolerated procedure well. Pre and postdebridement measurements documented nursing notes. left lower extremity lateral ankle wound - an EpiFix graft was applied (4 x 4.5 cm), 11 billing units, graft was applied directly to the wound site. Entire graft used, no waste. Graft was stabilized with overlying Adaptic and Steri- Strips. Follow-up weekly. Wound improved today (06/22/23) (2) Displaced fracture of lateral malleolus of left fibula: CODE(S): S82.62XA - Displaced fracture of lateral malleolus of left fibula, initial encounter for closed fracture QUALIFIERS: Encounter type: sequela Fracture type: closed Qualified Code(s): S82.62XS - Displaced fracture of lateral malleolus of left fibula, sequela (3) Peripheral vascular disease, unspecified: CODE(S): I73.9 - Peripheral vascular disease, unspecified
[2023-06-29 09:27] VITALS: BP 147/63; PULSE 94; RESP 18; TEMP 36.1
--- NOTE | 2023-06-29 09:48 | PN.PCM_ITS ---
History of Present Illness Date of Service: 06/29/23 History of Wound: Patient presents follow-up left lateral ankle wound. Patient had ORIF of left ankle fracture on 04/01/2023 subsequently developed a surgical site infection with wound dehiscence. Patient denies constitutional symptoms and is off antibiotics and notes improvement with wound VAC therapy via home health care. patient has no other complaints. Objective Data Objective Data Vital Signs: Vital Signs Temp Pulse Resp BP O2 Del Method 96.9 F L 94 18 147/63 H Room Air 06/29/23 09:27 06/29/23 09:27 06/29/23 09:27 06/29/23 09:27 06/29/23 09:27 Oxygen Delivery Method Room Air Physical Exam Narrative Neurovascular status unchanged Full-thickness wound left lateral ankle stable clean granular base no signs of infection. No deep probing undermining. Pre and postdebridement measurements documented nursing notes. Clean skin edges noted. No exposed tendon bone or hardware. Ankle joint range of motion full to left lower extremity, no deformity. Muscular strength full to bilateral lower extremity compartments. Const alert and oriented x3 Debridement Note Debridement Note Post-Debridement Measurements and Additional Note: Post-Debridement Measurements/Treatment - Nurse 1 - General Ulcer Assessment Start: 06/08/23 09:33 Freq: Status: Active Protocol: [email or web address] Activity Type Activity Date Activity User E-sign Co-sign Detail Recorded Client Recorded Date Recorded By Document 06/08/23 09:33 DL Desktop 06/08/23 09:44 DL Document 06/15/23 09:27 [facility] Desktop 06/15/23 09:40 F Document 06/22/23 09:31 DL Desktop 06/22/23 09:36 DL Document 06/29/23 09:27 DL Desktop 06/29/23 09:33 DL 06/08/23 06/15/23 06/22/23 09:33 09:27 09:31 - Today's Visit Information Type of service Follow-up Visit Follow-up Visit Follow-up Visit (Physician/FIELD RADIO TECHNICIAN (Physician/FIELD RADIO TECHNICIAN (Physician/FIELD RADIO TECHNICIAN ) ) ) Arrival Mode Ambulatory Ambulatory Ambulatory Transfer Assistance None None None Patient Identification Verified (Name & Yes Yes Yes ) Patient Requires Transmission-Based No No No Precautions Vital Signs Temperature (97.8 F-99.1 F) 96.6 F L 96.7 F L Temperature Source Temporal Temporal Pulse Rate (60-100) 95 88 90 Pulse Location Monitor Monitor Monitor Respiratory Rate (12-18) 20 H 16 20 H Respiratory rate source Observation Observation Observation Oxygen Delivery Method Room Air Blood Pressure (90/60-120/80) 159/84 H 150/76 H 166/80 H Blood Pressure Mean (mm Hg) 109 100 108 Source Monitor Monitor Monitor Position Sitting Blood Pressure Location Left Arm History Since Last Visit- (Skip if this is Patient's initial visit) Have you changed medications since your No No No last visit? Any new allergies or adverse reactions No No No Had a fall/change in ADL's that may No No increase risk of falls Signs or symptoms of abuse and/or No No No neglect since last visit Have you been in the hospital since your No No No last visit? Has dressing in place as prescribed Yes Yes Yes Has compression in place as prescribed N/A Yes Has offloadiing in place as prescribed Yes Yes Yes Experienced any changes in pain level or No No No management Left Footwear Total Contact Total Contact Surgical Shoe Cast Cast with pressure relief insole Right Footwear Regular Shoe Regular Shoe Pain Scale: 0-10 Numeric Is Patient Pain Free? Yes Yes Yes 06/29/23 09:27 WC - Today's Visit Information Type of service Follow-up Visit (Physician/FIELD RADIO TECHNICIAN ) Arrival Mode Ambulatory Transfer Assistance Patient Identification Verified (Name & Yes ) Patient Requires Transmission-Based Precautions Vital Signs Temperature (97.8 F-99.1 F) 96.9 F L Temperature Source Temporal Pulse Rate (60-100) 94 Pulse Location Monitor Respiratory Rate (12-18) 18 Respiratory rate source Observation Oxygen Delivery Method Room Air Blood Pressure (90/60-120/80) 147/63 H Blood Pressure Mean (mm Hg) 91 Source Monitor Position Semi-Fowlers Blood Pressure Location Left Arm History Since Last Visit- (Skip if this is Patient's initial visit) Have you changed medications since your No last visit? Any new allergies or adverse reactions No Had a fall/change in ADL's that may No increase risk of falls Signs or symptoms of abuse and/or No neglect since last visit Have you been in the hospital since your No last visit? Has dressing in place as prescribed Yes Has compression in place as prescribed Yes Has offloadiing in place as prescribed N/A Experienced any changes in pain level or No management Left Footwear Regular Shoe Right Footwear Regular Shoe Pain Scale: 0-10 Numeric Is Patient Pain Free? Yes WC - Nurse 1 - General Ulcer Measurement Start: 06/08/23 09:33 Freq: Status: Active Protocol: Activity Type Activity Date Activity User E-sign Co-sign Detail Recorded Client Recorded Date Recorded By Document 06/08/23 09:33 DL Desktop 06/08/23 09:44 DL Document 06/15/23 09:27 [facility] Desktop 06/15/23 09:40 [facility] Document 06/22/23 09:31 DL Desktop 06/22/23 09:36 DL Document 06/29/23 09:27 DL Desktop 06/29/23 09:33 DL 06/08/23 06/15/23 06/22/23 09:33 09:27 09:31 Wound Center Nurse 1 #1 Left lateral Ankle -Combined with other wound No -Current Size (cm) - Length 6.1 6.6 5.5 -Current Size (cm) - Width 1 1 1 -Current Size (cm) - Depth 0.1 0.7 0.2 -Total Square Cm 6.1 6.6 5.5 -Date of Last Picture (Recall this 06/15/23 field) -Photo Taken Yes -Epithelialization None Present -Tunneling No -Undermining/Tunneling No -Circular Undermining No -Exudate Amt Medium Medium Medium -Exudate Type Serosanguineous Serosanguineous Serosanguineous -Wound Margin Distinct, Thickened Distinct, Outline Outline Attached Attached -Granulation Amt Medium (34-66%) Small (1-33%) Medium (34-66%) -Granulation Quality Red Red [place] -Slough/Fibrin Yes -Necrosis Amt Small (1-33%) Large (67-100%) Medium (34-66%) -Necrotic Tissue Type Adherent Slough Adherent Slough -Structure Exposed N/A N/A -Texture (Venessa-wound Skin Appearance) Scarring Assessed, Localized Edema Scarring ,Scarring -Moisture (Venessa-wound Skin Appearance) No Abnormality Assessed Dry/Scaly -Color (Venessa-wound Skin Appearance) Hemosiderin Assessed Hemosiderin Staining Staining -Temperature (Venessa-wound Skin No Abnormality No Abnormality No Abnormality Appearance) (Pt Warm) (Pt Warm) (Pt Warm) -Tenderness on Palpation (Venessa-wound No No No Skin Appearance) -Ulcer Cleansing Soap and Water Soap and Water Soap and Water -Foul Odor after Cleansing No No No -Anesthetic Used 5% Lidocaine 4% Lidocaine 5% Lidocaine Gel Solution Gel Lower Limb Edema Present Yes Left Calf (cm) 39 35.5 Left Ankle (cm) 26.8 25.6 06/29/23 09:27 Wound Center Nurse 1 #1 Left lateral Ankle -Combined with other wound -Current Size (cm) - Length 4 -Current Size (cm) - Width 0.2 -Current Size (cm) - Depth 0.1 -Total Square Cm 0.8 -Date of Last Picture (Recall this field) -Photo Taken -Epithelialization -Tunneling -Undermining/Tunneling -Circular Undermining -Exudate Amt Small -Exudate Type Serosanguineous -Wound Margin Distinct, Outline Attached -Granulation Amt Large (67-100%) -Granulation Quality Red -Slough/Fibrin -Necrosis Amt -Necrotic Tissue Type -Structure Exposed -Texture (Venessa-wound Skin Appearance) Assessed -Moisture (Venessa-wound Skin Appearance) Assessed -Color (Venessa-wound Skin Appearance) Assessed -Temperature (Venessa-wound Skin No Abnormality Appearance) (Pt Warm) -Tenderness on Palpation (Venessa-wound Skin Appearance) -Ulcer Cleansing Soap and Water -Foul Odor after Cleansing No -Anesthetic Used 5% Lidocaine Gel Lower Limb Edema Present Left Calf (cm) Left Ankle (cm) WC - Nurse 2 - General Ulcer CM Notes Start: 06/08/23 09:33 Freq: Status: Active Protocol: Activity Type Activity Date Activity User E-sign Co-sign Detail Recorded Client Recorded Date Recorded By Document 06/08/23 10:03 Laptop 06/08/23 10:07 Document 06/15/23 09:57 Laptop 06/15/23 10:06 Document 06/22/23 09:48 Laptop 06/22/23 09:49 Document 06/29/23 09:44 Laptop 06/29/23 09:46 06/08/23 06/15/23 06/22/23 10:03 09:57 09:48 Wound Center Nurse 2 #1 Left lateral Ankle -Time 10:05 10:01 09:48 -Correct Patient Yes Yes Yes -Correct Side, Site, Position Yes Yes Yes -Correct Procedure Yes Yes Yes -Procedure Performed Yes Yes Yes -Type of Procedure Debridement Debridement Debridement -Clinical Debridement Subcutaneous Subcutaneous Subcutaneous -Tissue Removed Subcutaneous Subcutaneous Subcutaneous -Post Debridement (cm) - Length 7.0 6.6 6.1 -Post Debridement (cm) - Width 0.8 1.1 0.5 -Post Debridement (cm) - Depth 0.4 0.7 0.3 -Total Square (Post) (cm) 5.60 7.26 3.05 -Area of Debridement (cm) - Length 7.0 6.6 6.1 -Area of Debridement (cm) - Width 0.8 1.1 0.5 -Total Square (Area) (cm) 5.60 7.26 3.05 -Tunneling No No No -Undermining/Tunneling No No No -Circular Undermining No No No -Wound/Ulcer Outcome Not Healed Not Healed Not Healed -Ulcer Cleansing Rinsed/ Rinsed/ Rinsed/ Irrigated with Irrigated with Irrigated with Saline Saline Saline -Foul Odor after Cleansing No No No -Bioengineered Tissue Yes Yes Yes -Type of Bioengineered Tissue Epifix Mesh Epifix Mesh Epifix Mesh -Expiration Date 01/02/28 01/02/28 02/01/28 -Product Lot Number [id number] -Percent Used 100 100 100 -Lot number of Saline Used [id number] -Bleeding Controlled with Pressure Pressure Pressure -Treatment Response Procedure Procedure Procedure Tolerated Well Tolerated Well Tolerated Well -Offloading Yes No No -Type of Offloading Total Contact Cast (TCC) - Left ($) -Debridement - Subq, 1st 20sq cm No No No -Apply Skin Sub - 1st 25 sq cm - Legs 1 1 1 -Epifix (per sq cm) -Epifix Mesh (per sq cm) 11 11 11 Pain Scale: 0-10 Numeric Is Patient Pain Free? Yes Yes Yes 06/29/23 09:44 Wound Center Nurse 2 #1 Left lateral Ankle -Time -Correct Patient Yes -Correct Side, Site, Position Yes -Correct Procedure Yes -Procedure Performed Yes -Type of Procedure Debridement -Clinical Debridement Subcutaneous -Tissue Removed Subcutaneous -Post Debridement (cm) - Length 5.0 -Post Debridement (cm) - Width 0.4 -Post Debridement (cm) - Depth 0.3 -Total Square (Post) (cm) 2.00 -Area of Debridement (cm) - Length 5.0 -Area of Debridement (cm) - Width 0.4 -Total Square (Area) (cm) 2.00 -Tunneling No -Undermining/Tunneling No -Circular Undermining No -Wound/Ulcer Outcome Not Healed -Ulcer Cleansing Rinsed/ Irrigated with Saline -Foul Odor after Cleansing No -Bioengineered Tissue Yes -Type of Bioengineered Tissue Epifix -Expiration Date 03/03/28 -Product Lot Number [id number] -Percent Used 100 -Lot number of Saline Used [id number] -Bleeding Controlled with Pressure -Treatment Response Procedure Tolerated Well -Offloading No -Type of Offloading -Debridement - Subq, 1st 20sq cm No -Apply Skin Sub - 1st 25 sq cm - Legs 1 -Epifix (per sq cm) 4 -Epifix Mesh (per sq cm) Pain Scale: 0-10 Numeric Is Patient Pain Free? Yes WC - Nurse 3 - General Ulcer D/C NN Start: 06/08/23 09:33 Freq: Status: Active Protocol: Activity Type Activity Date Activity User E-sign Co-sign Detail Recorded Client Recorded Date Recorded By Document 06/08/23 10:44 DL [id number] 06/08/23 10:47 DL Document 06/15/23 10:15 F Desktop 06/15/23 10:16 [facility] Document 06/22/23 09:52 DL Desktop 06/22/23 09:59 DL 06/08/23 06/15/23 06/22/23 10:44 10:15 09:52 Wound Care Center Nurse 3 #1 Left lateral Ankle -Foul Odor after Cleansing No -Primary Dressing Applied Optilok 8x12 Optilok 6.5x10 -Other Dressing Epimesh EPI epimesh -Primary Dressing Covered/Secured with Dry Gauze & Dry Gauze & Roll Gauze, Roll Gauze, Secured with Secured with Tape Tape -Other Covering TCC ABD -Optilok 6.5x10 1 -Optilok 8x12 1 Left -Multi-Layered Wrap Application Multi-Layer Multi-Layer Comp - Left ($) Comp - Left ($) Treatment Response Procedure Procedure Procedure Tolerated Well Tolerated Well Tolerated Well Pain Scale: 0-10 Numeric Is Patient Pain Free? Yes Yes Yes WC - Visit Discharge Discharge Condition Stable Stable Stable Ambulatory Status Ambulatory Ambulatory Ambulatory Transportation Private Auto Private Auto Private Auto Notes: Epimesh applied per TCC casting system applied, Cast applied per Assessment/Plan Assessment/Plan (1) Non-pressure chronic ulcer of left ankle with fat layer exposed: CODE(S): L97.322 - Non-pressure chronic ulcer of left ankle with fat layer exposed PLAN: Exam performed Patient has alcoholic neuropathy, smokes pack per day with peripheral arterial disease -patient has something smoking cessation and alcohol cessation. Recommended community support through . Patient underwent ORIF left ankle fracture on 04/01/2023, developed surgical site dehiscence and infection. Patient was treated with p.o. antibiotics and infection resolved. Wound is improving today with wound VAC application and offloading via walker and a cast boot assisted by walker radiographs demonstrate some syndesmotic widening with medial clear space noted . Due to current wound complication, arterial status. No surgical plan at current. Will plan for AFO upon wound healing. Patient following with vascular surgery - awaiting CTA Left ankle wound was debrided excisionally down to including level of subcutaneous tissue of all nonviable tissue using a 5 mm dermal curette. Was flushed with copious amounts normal sterile saline. Hemostasis obtained with light compression. No anesthesia due to neuropathy. Patient tolerated procedure well. Pre and postdebridement measurements documented nursing notes. left lower extremity lateral ankle wound - an EpiFix graft was applied (4 x 4.5 cm), 11 billing units, graft was applied directly to the wound site. Entire graft used, no waste. Graft was stabilized with overlying Adaptic and Steri- Strips. Follow-up weekly. Wound improved today (06/29/23 - nearly healed) (2) Displaced fracture of lateral malleolus of left fibula: CODE(S): S82.62XA - Displaced fracture of lateral malleolus of left fibula, initial encounter for closed fracture QUALIFIERS: Encounter type: sequela Fracture type: closed Qualified Code(s): S82.62XS - Displaced fracture of lateral malleolus of left fibula, sequela (3) Peripheral vascular disease, unspecified: CODE(S): I73.9 - Peripheral vascular disease, unspecified
--- NOTE | 2023-07-09 12:21 | WC ---
2.13.24 LT LAT ANKLE
== END 2023-07-01 23:59 | disposition home or self-care (01) ==
LOC: WC 09:30
PROVIDERS: PCP Family Medicine; Referring Provider Podiatrist; Visit Provider Podiatrist
DX: L97.322 Non-pressure chronic ulcer of left ankle with fat layer exposed (principal); G62.1 Alcoholic polyneuropathy; I73.9 Peripheral vascular disease, unspecified; T81.31XA Disruption of external operation (surgical) wound, not elsewhere classified, initial encounter; Y83.8 Other surgical procedures as the cause of abnormal reaction of the patient, or of later complication, without mention of misadventure at the time of the procedure; S82.62XS Displaced fracture of lateral malleolus of left fibula, sequela; F17.200 Nicotine dependence, unspecified, uncomplicated; Z79.899 Other long term (current) drug therapy
CPT/HCPCS: 15271; 29445; 29581; Q4186

== ENCOUNTER → 2023-07-08 | Outpatient (CLI) | payer OTHER, SELFPAY ==
--- NOTE | 2023-07-08 08:17 | CT_ITS ---
HISTORY: PAD. Nonhealing wound LLE. TECHNIQUE: Axial CT angiography multi-detector data acquisition was obtained from the abdomen and pelvis to the bilateral lower extremities following intravenous administration of 100 mL Isovue-370. Axial images and MIP images were reconstructed from the axial data set. Post-processing of the angiographic images was performed, with multiplanar reformation and 3D reconstruction. Individualized dose optimization techniques were used for this CT. 1200 images. COMPARISON: None. Descriptors of Narrowing: None (0%) Mild (< 50%) Moderate (50-70%) Severe (70-90%) Subtotal/Total Occlusion (90-100%) Non-Evaluable (technically non-diagnostic) FINDINGS: LOWER CHEST: Lung bases clear. 2.2 x 5.4 cm sebaceous cyst in the right lower anterior chest wall. BOWEL: Bowel nondilated. Appendectomy. No pericolonic inflammation. PERITONEUM: No significant ascites. LIVER: No enhancing mass. GALLBLADDER: Gallbladder present. SPLEEN: Nonenlarged. Calcified granuloma. PANCREAS/KIDNEYS/ADRENAL GLANDS: No focal lesions. PELVIC ORGANS: Unremarkable. OSSEOUS STRUCTURES: Degenerative change. ABDOMINAL AORTA: Mild atherosclerosis without aneurysm or dissection flap. CELIAC AXIS: Mild atherosclerosis without significant stenosis. SUPERIOR MESENTERIC ARTERY: No demonstrated narrowing. INFERIOR MESENTERIC ARTERY: No occlusion. RENAL ARTERIES: Mild calcified plaque at the origin of the single right renal artery. Patent single left renal artery. COMMON ILIAC ARTERIES: Mild calcified plaque bilaterally. EXTERNAL ILIAC ARTERIES: No significant stenosis of the left or right external iliac artery. INTERNAL ILIAC ARTERIES: Moderate calcified plaque bilaterally. RIGHT LOWER EXTREMITY: Degenerative changes of the osseous structures. Mild soft tissue swelling of the ankle extending into the foot. RIGHT COMMON/DEEP FEMORAL ARTERIES: No significant stenosis. RIGHT SUPERFICIAL FEMORAL ARTERY: Calcified plaque with 50-60% stenosis mid. RIGHT POPLITEAL ARTERY: 60-70% stenosis. RIGHT 3 VESSEL RUNOFF: Calcified plaque at the tibioperoneal trunk. Patent anterior tibial, posterior tibial, and peroneal arteries with flow into the ankle and foot. LEFT LOWER EXTREMITY: Cortical plate and screw fixation of the distal fibula. Postoperative, posttraumatic, and degenerative changes of the ankle. Moderate subcutaneous edema of the ankle extending into the foot without rim-enhancing fluid collection. LEFT COMMON/DEEP FEMORAL ARTERIES: Mild calcified plaque without significant stenosis. LEFT SUPERFICIAL FEMORAL ARTERY: Calcified plaque with less than 50% stenosis. LEFT POPLITEAL ARTERY: Mild calcified plaque with less than 50% stenosis. LEFT 3 VESSEL RUNOFF: Calcified plaque at the tibioperoneal trunk and origin of the peroneal artery. Patent anterior tibial artery with flow into the ankle and foot. Mild calcified plaque in the proximal posterior tibial artery. Patent proximal to distal posterior tibial artery with moderate narrowing and diminished flow at the ankle but reconstitution of flow in the foot. Patent peroneal artery. CT/CTA Abd w/Runoff W/WO Contrast IMPRESSION: Moderate stenosis of the right superficial femoral and popliteal arteries. Patent right three-vessel runoff. Moderate narrowing and diminished flow of the left posterior tibial artery at the ankle with reconstitution of flow in the foot. Subcutaneous edema of the ankle and foot, left greater than right. Postoperative, posttraumatic, degenerative changes of the right ankle. Electronically Signed: Wendy Paez MD at 9:20 EST ,
--- OUTSIDE RECORDS SUMMARY | 2023-07-08 08:39 | XMS RPT_ITS | CCD ---
Author Name Unknown Address [address] [place] [address] Organization [facility] Care Team Providers Care Healthcare Or Medical Name Role Phone Perry Page MD Primary Care Provider [phone] Medications Completed/Discontinued Medications Medication Drug Class(es) Dates Sig (Normalized) Sig (Original) [id number] 200 actuat albuterol 0.09 mg/actuat metered dose inhaler (2 sources) beta2-Adrenergic Agonist Start: 04-02-2021 take 1-2 puff(s) by inhalation every four hours as needed VENTOLIN HFA 90 mcg/actuation inhaler INHALE 1-2 puffs EVERY 4 HOURS NEEDED 18 g 4 04/02/2021 Active Problems Active Problems Problem Classification Problem Date Documented Da te Episodic/Chronic Chronic obstructive pulmonary disease and bronchiectasis (2 sources) Chronic obstructive lung disease; Translations: [Chronic obstructive pulmonary disease, unspecified] Onset: 05-01-2021 05-01-2021 Chronic Other male genital disorders (2 sources) Male erectile dysfunction, unspecified; Translations: [Impotence of organic origin] Onset: 06-18-2017 12-17-2017 Chronic Substance-related disorders (2 sources) Smoker; Translations: [Nicotine dependence, unspecified, uncomplicated] Onset: 05-20-2016 04-12-2019 Chronic Past or Other Problems Problem Classification Problem Date Documented Date Episodic/Chronic Genitourinary symptoms and ill-defined conditions (2 sources) Microscopic hematuria; Translations: [Other microscopic hematuria] Onset: 06-22-2017 06-22-2017 Episodic Malaise and fatigue (2 sources) Asthenia; Translations: [Weakness] Onset: 05-20-2016 05-20-2016 Episodic Other acquired deformities (2 sources) Deformity of foot; Translations: [Unspecified acquired deformity of right lower leg] Onset: 05-20-2016 12-17-2017 Episodic Other connective tissue disease (2 sources) Muscle atrophy; Translations: [Muscle wasting and atrophy, not elsewhere classified, multiple sites] Onset: 05-20-2016 12-17-2017 Episodic Other connective tissue disease (2 sources) H/O: gout; Translations: [Personal history of other diseases of the musculoskeletal system and connective tissue] Onset: 06-18-2017 12-17-2017 Episodic Other male genital disorders (2 sources) Disorder of male genital organ; Translations: [Hydrocele, unspecified] Onset: 06-22-2017 12-17-2017 Episodic Other male genital disorders (2 sources) Spermatocele; Translations: [Spermatocele of epididymis, unspecified] Onset: 06-22-2017 12-17-2017 Episodic Other screening for suspected conditions (not mental disorders or infectious disease) (4 sources) Patient encounter status; Translations: [Encounter for screening for diabetes mellitus] Onset: 12-17-2017 12-17-2017 Episodic Screening and history of mental health and substance abuse codes (2 sources) Current drinker; Translations: [Encounter for screening examination for other mental health and behavioral disorders] Onset: 05-20-2016 05-20-2016 Episodic Encounters Encounter Date Encounter Type Care Provider Facility Start: 03-29-2023 Chart abstracting Perry walsh MD Work Phone: [facility] [place] Procedures Date Procedure Procedure Detail Performing Clinician Start: 12-17-2017 Colonoscopy Perry walsh MD Work Phone: Start: 06-18-2017 Adult depression scr eening assessment Perry Page MD Work Phone: Start: 05-20-2016 Lipid 1996 panel - S laura or Plasma Perry Page MD Work Phone: Plan of Treatment Date Care Activity Detail Author Start: 12-18-2027 Urine microalbumin profile [facility] Start: 05-03-2022 Depression Assessment Depression Ass essment [facility] Start: 05-01-2022 ANNUAL PCP TEAM LIQUID LOADER ROB DISEASE VISIT ANNUAL PCP TEAM CHRONIC DISEASE VISIT [facility] Start: 05-30-2021 DIABETES SCREEN DIABETES SCREEN [facility] Start: 05-30-2021 Diabetes Screening Diabetes Screenin g [facility] Start: 05-20-2021 Lipid 1996 panel - S laura or Plasma Lipid Screening [facility] Start: 05-20-2021 LIPID SCREEN LIPID SCREEN [facility] Start: 12-17-2018 Colonoscopy COLONOSCOPY [facility] Start: 12-17-2018 COLORECTAL CANCER SCREENING COLORECTAL CANCER SCREENING [facility] Start: 08-06-2018 PROSTATE CANCER SCRE ENING DISCUSSION PROSTATE CANCER SCREENING DISCUSSION [facility] Start: 06-18-2018 Adult depression scr eening assessment DEPRESSION SCREENING [facility] Start: 08-06-2013 SHINGRIX VACCINE (1 of 2) SHINGRIX V ACCINE (1 of 2) [facility] Start: 08-06-2008 COLOGUARD (FIT-DNA) COLOGUARD (FIT-D NA) [facility] Start: 08-06-[address] COLONOGRAPHY [facility] Start: 08-06-2008 FECAL OCCULT BLOOD FECAL OCCULT BLOO D [facility] Start: 08-06-2008 SIGMOIDOSCOPY SIGMOIDOSCOPY [facility] Start: 08-06-1993 Zoledronic acid therapy Alpha- 1 Antitrypsin Deficiency Screening [facility] Start: 08-06-1981 HEPATITIS C SCREENING HEPATITIS C SC REENING [facility] Start: 08-06-1969 PNEUMOCOCCAL (1 - PCV) PNEUMOCOCCAL (1 - PCV) [facility] Start: 08-06-1969 Pneumococcal vaccination Pneum ococcal Vaccine (1 - PCV) [facility] Start: 02-06-1964 COVID-19 VACCINE (#1) COVID-19 VACCI NE (#1) [facility] Immunizations Immunization Date Immunization Notes Care Provider Fa jayyty 12-17-2017 tetanus toxoid, redu moraima diphtheria toxoid, and acellular pertussis vaccine, adsorbed Perry Page MD Work Phone: [facility] Social History Date Type Detail Facility Start: 05-20-2016 End: 06-18-2017 Tobacco smoking status NHIS Smokes tobacco daily [facility] Work Phone: History of tobacco use Cigarette Smoker C [facility] Work Phone: Start: 05-20-2016 End: 04-07-2020 Cigarettes smoked current (pack per day) - Reported 0.3 [facility] Start: 05-20-2016 End: 06-18-2017 Tobacco use and exposure Smokeless tobacco non-user [facility] Work Phone: Start: 05-01-2021 Alcohol intake Current drinke r of alcohol (finding) [facility] Start: 05-20-2016 History SDOH Alcohol Comment at supper daily; sometimes more on social events [facility] Start: 1965 Sex Assigned At Not on file [facility] Start: 04-07-2020 End: 05-01-2021 Tobacco use panel [facility] National Score (1-10 0), lower number is lower risk Not on file [facility] Progress note 05-19-2023 Note Date & Type Note Facility 05-19-2023 Note HNO ID: [id number] Author: KENDRA CASTRO LPN Service: ? Author Type: LICENSED NURSE Type: Progress Notes Filed: 05/19/2023 09:33 Note Text: Scan on 05/18/2023 3:10 PM by Amauri Jamison PA-C: X-ray [facility] Progress note 05-12-2023 Note Date & Type Note Facility 05-12-2023 Note HNO ID: [id number] Author: KENDRA CASTRO LPN Service: ? Author Type: LICENSED NURSE Type: Progress Notes Filed: 05/12/2023 13:47 Note Text: Scan on 05/12/2023 12:34 PM by Amauri Jamison PA-C: Ultrasound [facility] Progress note 04-19-2023 Note Date & Type Note Facility 04-19-2023 Note HNO ID: [id number] Author: Rafia Camargo LPN Service: ? Author Type: ? Type: Progress Notes Filed: 04/19/2023 4:31 PM Note Text: Scan on 04/18/2023 10:08 AM by Amauri Jamison PA-C: Microbiology Scan on 04/18/2023 7:11 AM by Amauri Jamison PA-C: Microbiology Scan on 04/17/2023 3:07 PM by Amauri Jamison PA-C: Microbiology Scan on 04/17/2023 10:35 AM by Amauri Jamison PA-C: Microbiology [facility] Progress note 04-02-2023 Note Date & Type Note Facility 04-02-2023 Note HNO ID: [id number] Author: Kendra Castro LPN Service: ? Author Type: ? Type: Progress Notes Filed: 04/02/2023 5:09 PM Note Text: Scan on 04/01/2023 3:56 PM by ProviderAmauri PA-C: X-ray Scan on 04/01/2023 4:20 PM by ProviderAmauri PA-C: Miscellaneous Procedures [facility] Progress note 03-29-2023 Note Date & Type Note Facility 03-29-2023 Note HNO ID: [id number] Author: Rafia Camargo LPN Service: ? Author Type: ? Type: Progress Notes Filed: 03/29/2023 11:20 AM Note Text: Scan on 03/26/2023 6:12 PM by ProviderAmauri PA-C: Chemistry Scan on 03/26/2023 5:38 PM by ProviderAmauri PA-C: Hematology Scan on 03/26/2023 8:13 PM by Provider External, PA-C: X-ray [facility] History of Present illness Narrative 03-29-2023 Rafia Camargo LPN - 03/29/2023 11:20 AM EST Note Date & Type Note Facility 03-29-2023 History of Presen t illness Narrative Scan on 03/26/2023 6:12 PM by ProviderAmauri PAJerryC: Chemistry Scan on 03/26/2023 5:38 PM by ProviderAmauri PA-C: Hematology Scan on 03/26/2023 8:13 PM by ProviderAmauri PA-C: X-ray documented in this encounter [facility] Note 11-04-2021 Telephone Encounter - Shanon Montesinos Pss - 11/04/2021 3:37 PM EDTTelephone Encounter - Allyssa Tadeo - 10/31/2021 9:38 AM EDTTelephone Encounter - Urban Olsen - 10/30/2021 8:35 AM EDT Note Date & Type Note Facility 11-04-2021 Miscellaneous Notes 2nd attempt left VM Patient was at work will need to call on a Wednesday, Patient also needs a 6 mo follow up scheduled with Dr. Page or Dixon Tadeo PSS Patient due for screening colonoscopy . Patient is not appropriate for open access. Please schedule office consult Urban Olsen documented in this encounter [facility] Summary Purpose Family History No Family History Records Found Advance Directives No Advanced Directives Records Found Additional Source Comments Source Comments (unrecognize d section and content) In the event this informatio n is protected by the Federal Confidentiality of Alcohol and Drug Abuse Patient Records regulations: The Federal rules restrict any use of the information to criminally investigate or prosecute any alcohol or drug abuse patient.[facility] the event this information is protected by the Federal Confidentiality of Alcohol and Drug Abuse Patient Records regulations: The Federal rules restrict any use of the information to criminally investigate or prosecute any alcohol or drug abuse patient.[facility] Reason for Visit (unrecogniz ed section and content) Reason Comments Outside [id number] Ordered Care Teams (unrecognized sec tion and content) Healthcare Or Medical Relationship Specialty Start Date End Date Perry Page MD [address] [place] [address] PCP - General Family Medicine 06/18/17 (unrecognized sect ion and content) No Status Records Found INFORMATION SOURCE (unrecogn ized section and content) FOR RECORDS PERTAINING TO PATIENTS WHO ARE OR HAVE BEEN ENROLLED IN A CHEMICAL DEPENDENCY/SUBSTANCEABUSE PROGRAM, SOME INFORMATION MAY BE OMITTED. This clinical summary was aggregated from multiple sources. Caution should be exercised in using it in the provision of clinical care. This summary normalizes information from multiple sources, and as a consequence, information in this document may materially change the coding, format and clinical context of patient data. In addition, data may be omitted in some cases. CLINICAL DECISIONS SHOULD BE BASED ON THE PRIMARY CLINICAL RECORDS. [email or web address] provides no warranty or guarantee of the accuracy or completeness of information in this document.
== END | disposition home or self-care (01) ==
LOC: CT 08:17
PROVIDERS: PCP Family Medicine; Referring Provider Physician Assistant; Visit Provider Physician Assistant
DX: I73.9 Peripheral vascular disease, unspecified (principal); L97.322 Non-pressure chronic ulcer of left ankle with fat layer exposed; S82.62XA Displaced fracture of lateral malleolus of left fibula, initial encounter for closed fracture; X58.XXXA Exposure to other specified factors, initial encounter
CPT/HCPCS: 75635; Q9967

== ENCOUNTER → 2023-07-09 | Outpatient (CLI) | payer OTHER, SELFPAY ==
--- NOTE | 2023-07-09 10:30 | RAD_ITS ---
STUDY: X-RAY - LEFT ANKLE REASON FOR EXAM: Male, 57 years old. ULCER TECHNIQUE: 3 view(s) of the ankle. COMPARISON: None. FINDINGS: Bony structures are diffusely demineralized for stated age which may be consistent with disuse atrophy. Normal visualized distal tibia. Postop change status post open reduction internal fixation of distal fibular fracture with indwelling orthopedic hardware. There is asymmetric widening of the tibiotalar joint with small joint mice. There is narrowing of the lateral compartment of the tibiotalar joint Normal visualized talus. Probable old posttraumatic changes of the calcaneus and degenerative changes of the talocalcaneal joint The visualized subtalar, talonavicular, calcaneocuboid and tarsal articulations are normal. Diffuse soft tissue swelling overlying the lateral malleolus. RAD/Ankle min 3 Views IMPRESSION: Old posttraumatic and surgical changes. Soft tissue swelling overlying the lateral malleolus. No definitive evidence for acute osteomyelitis This may be further assessed with MRI or three-phase bone scan if clinically warranted Electronically Signed: Perry Martinez MD at 16:23 EST ,
--- OUTSIDE RECORDS SUMMARY | 2023-07-09 10:53 | XMS RPT_ITS | CCD ---
Author Name Unknown Address [address] [place] [address] Organization [facility] Care Team Providers Care Office Machine Mechanic Name Role Phone Perry Page MD Primary Care Provider [phone] Medications Completed/Discontinued Medications Medication Drug Class(es) Dates Sig (Normalized) Sig (Original) [id number] 200 actuat albuterol 0.09 mg/actuat metered dose [...] Perry walsh MD Work Phone: [facility] [place] Procedures Date Procedure Procedure Detail Performing Clinician Start: 12-17-2017 Colonoscopy Perry walsh MD Work Phone: Start: 06-18-2017 Adult depression scr eening assessment Perry Page MD Work Phone: Start: 05-20-2016 Lipid 1996 panel - S laura or Plasma Perry Page MD Work Phone: Plan of Treatment Date Care Activity Detail Author Start: 12-18-2027 Urine microalbumin profile [facility] Start: 05-03-2022 Depression Assessment Depression Ass essment [facility] Start: 05-01-2022 ANNUAL PCP TEAM MAINTENANCE ENGINEER ROB DISEASE VISIT ANNUAL PCP TEAM CHRONIC DISEASE VISIT [facility] Start: 05-30-2021 DIABETES SCREEN DIABETES SCREEN [facility] Start: 05-30-2021 Diabetes Screening Diabetes Screenin g [facility] Start: 05-20-2021 Lipid 1996 panel - S laura or Plasma Lipid Screening [facility] Start: 05-20-2021 LIPID SCREEN LIPID SCREEN [facility] Start: 12-17-2018 Colonoscopy COLONOSCOPY [facility] Start: 12-17-2018 COLORECTAL CANCER SCREENING COLORECTAL CANCER SCREENING [facility] Start: 08-06-2018 PROSTATE CANCER SCRE ENING DISCUSSION PROSTATE CANCER SCREENING DISCUSSION [facility] Start: 06-18-2018 Adult depression scr eening assessment DEPRESSION SCREENING [facility] Start: 08-06-2013 SHINGRIX VACCINE (1 of 2) SHINGRIX V ACCINE (1 of 2) [facility] Start: 08-06-2008 COLOGUARD (FIT-DNA) COLOGUARD (FIT-D NA) [facility] Start: 08-06-[address] COLONOGRAPHY [facility] Start: 08-06-2008 FECAL OCCULT BLOOD FECAL OCCULT BLOO D [facility] Start: 08-06-2008 SIGMOIDOSCOPY SIGMOIDOSCOPY [facility] Start: 08-06-1993 Zoledronic acid therapy Alpha- 1 Antitrypsin Deficiency Screening [facility] Start: 08-06-1981 HEPATITIS C SCREENING HEPATITIS C SC REENING [facility] Start: 08-06-1969 PNEUMOCOCCAL (1 - PCV) PNEUMOCOCCAL (1 - PCV) [facility] Start: 08-06-1969 Pneumococcal vaccination Pneum ococcal Vaccine (1 - PCV) [facility] Start: 02-06-1964 COVID-19 VACCINE (#1) COVID-19 VACCI NE (#1) [facility] Immunizations Immunization Date Immunization Notes Care Provider Fa jayyty 12-17-2017 tetanus toxoid, redu moraima diphtheria toxoid, and acellular pertussis vaccine, adsorbed Perry Page MD Work Phone: [facility] Social History Date Type Detail Facility Start: 05-20-2016 End: 06-18-2017 Tobacco smoking status NHIS Smokes tobacco daily [facility] Work Phone: History of tobacco use Cigarette Smoker C [facility] Work Phone: Start: 05-20-2016 End: 04-07-2020 Cigarettes smoked current (pack per day) - Reported 0.3 [facility] Start: 05-20-2016 End: 06-18-2017 Tobacco use and exposure Smokeless tobacco non-user [facility] Work Phone: Start: 05-01-2021 Alcohol intake Current drinke r of alcohol (finding) [facility] Start: 05-20-2016 History SDOH Alcohol Comment at supper daily; sometimes more on social events [facility] Start: 1965 Sex Assigned At Not on file [facility] Start: 04-07-2020 End: 05-01-2021 Tobacco use panel [facility] National Score (1-10 0), lower number is lower risk Not on file [facility] Progress note 05-19-2023 Note Date & Type Note Facility 05-19-2023 Note HNO ID: [id number] Author: KENDRA CASTRO LPN Service: ? Author Type: LICENSED NURSE Type: Progress Notes Filed: 05/19/2023 09:33 Note Text: Scan on 05/18/2023 3:10 PM by Amauri Jamison PA-C: X-ray [facility] Progress note 05-12-2023 Note Date & Type Note Facility 05-12-2023 Note HNO ID: [id number] Author: KENDRA CASTRO LPN Service: ? Author Type: LICENSED NURSE Type: Progress Notes Filed: 05/12/2023 13:47 Note Text: Scan on 05/12/2023 12:34 PM by Amauri Jamison PA-C: Ultrasound [facility] Progress note 04-19-2023 Note Date & Type Note Facility 04-19-2023 Note HNO ID: [id number] Author: Rafia Camargo LPN Service: ? Author Type: ? Type: Progress Notes Filed: 04/19/2023 4:31 PM Note Text: Scan on 04/18/2023 10:08 AM by Amauri Jamison PA-C: Microbiology Scan on 04/18/2023 7:11 AM by Amauri Jamison PA-C: Microbiology Scan on 04/17/2023 3:07 PM by Amauri Jamison PA-C: Microbiology Scan on 04/17/2023 10:35 AM by Amauri Jamison PA-C: Microbiology [facility] Progress note 04-02-2023 Note Date & Type Note Facility 04-02-2023 Note HNO ID: [id number] Author: Kendra Castro LPN Service: ? Author Type: ? Type: Progress Notes Filed: 04/02/2023 5:09 PM Note Text: Scan on 04/01/2023 3:56 PM by ProviderAmauri PA-C: X-ray Scan on 04/01/2023 4:20 PM by ProviderAmauri PA-C: Miscellaneous Procedures [facility] Progress note 03-29-2023 Note Date & Type Note Facility 03-29-2023 Note HNO ID: [id number] Author: Rafia Camargo LPN Service: ? Author Type: ? Type: Progress Notes Filed: 03/29/2023 11:20 AM Note Text: Scan on 03/26/2023 6:12 PM by ProviderAmauri PA-C: Chemistry Scan on 03/26/2023 5:38 PM by ProviderAmauri PA-C: Hematology Scan on 03/26/2023 8:13 PM by Provider External, PA-C: X-ray [facility] History of Present illness Narrative 03-29-2023 Rafia Camargo LPN - 03/29/2023 11:20 AM EST Note Date & Type Note Facility 03-29-2023 History of Presen t illness Narrative Scan on 03/26/2023 6:12 PM by ProviderAmauri PAJerryC: Chemistry Scan on 03/26/2023 5:38 PM by ProviderAmauri PA-C: Hematology Scan on 03/26/2023 8:13 PM by ProviderAmauri PA-C: X-ray documented in this encounter [facility] Note 11-04-2021 Telephone Encounter - Shanon Montesinos [...] consult Urban Olsen documented in this encounter [facility] Summary Purpose Family History No Family History [...] or prosecute any alcohol or drug abuse patient.[facility] the event this information is protected by the Federal Confidentiality of Alcohol and Drug Abuse Patient Records regulations: The Federal rules restrict any use of the information to criminally investigate or prosecute any alcohol or drug abuse patient.[facility] Reason for Visit (unrecogniz ed section and content) Reason Comments Outside [id number] Ordered Care Teams (unrecognized sec tion and content) Office Machine Mechanic Relationship Specialty Start Date End Date Perry Page MD [address] [place] [address] PCP - General Family Medicine 06/18/17 (unrecognized [...] BE BASED ON THE PRIMARY CLINICAL RECORDS. [employer] provides no warranty or guarantee of the accuracy or completeness of information in this document.
== END | disposition home or self-care (01) ==
LOC: MTRAD 10:27
PROVIDERS: PCP Family Medicine; Referring Provider Podiatrist; Visit Provider Podiatrist
DX: L97.322 Non-pressure chronic ulcer of left ankle with fat layer exposed (principal)
CPT/HCPCS: 73610

== ENCOUNTER 2023-07-16 10:44 | Emergency (ER) | payer OTHER, SELFPAY ==
[2023-07-16 10:45] VITALS: BP 171/75; PULSE 100; RESP 18; TEMP 35.4; O2SAT 100; BMI 26.9
--- NOTE | 2023-07-16 11:35 | EX.ED.DYSGE1 ---
HPI History of Present Illness Chief Complaint: Abn Labs Narrative Narrative: 57-year-old male presenting for dilation of outpatient duplex and positive DVT. Patient is unsure where his DVT is. He states he was sent to the ER from ultrasound due to the DVT. Patient has recent history of surgery on the left ankle and foot by Dr. Da Silva. Patient recently had displaced fracture of the lateral malleolus. Patient has had debridement of this as well. [facility] Medical History Alcohol use Arthritis Asthma Chronic cough History of edema Lung infection Neuropathy Smoker Walker as ambulation aid Home Medications ibuprofen 400 mg tablet 400 mg PO DAILY 06/16/23 [History Last Taken Unknown] apixaban 5 mg (74 tabs) tablets in a dose pack (EliquSportsBeep DVT-PE Treat 30D Start) 5 mg PO BID #74 tabs 07/16/23 [Rx Last Taken Unknown] omeprazole 40 mg capsule,delayed release 40 mg PO DAILY #60 caps 07/16/23 [Rx Last Taken Unknown] Allergy/AdvReac Type Severity Reaction Status Date / Time No Known Allergies Allergy Verified 07/16/23 10:47 Family History Other Asthma COPD (chronic obstructive pulmonary disease) CVA (cerebral vascular accident) Diabetes Hypertension Myocardial infarction Surgical History History of appendectomy History of hydrocelectomy Social History Smoking Status: Current every day smoker tobacco type: cigarettes ROS ROS ED Constitutional Constitutional ED: Denies chills, fever(s) or sweats Eyes Eyes: Denies blurry vision or change in vision ENT ENT ED: Denies ear pain or sore throat Cardiovascular Cardiovascular: Denies chest pain, palpitations or racing heartbeat Respiratory/Chest Respiratory/Chest: Denies cough, dyspnea or sputum Gastrointestinal Gastrointestinal: Denies abdominal pain, constipation, diarrhea, nausea or vomiting Genitourinary Genitourinary ED: Denies dysuria, hematuria or urinary frequency Musculoskeletal Musculoskeletal: Reports other Details: Left leg swelling ; Denies arthralgias, myalgias or neck pain Integumentary Denies abscess, Abrasions or rash Neurologic Neurologic: Denies headache(s), paresthesias or weakness Psychiatric Psychiatric: Denies anxiety, depression, suicidal ideation or suicidal thoughts Endocrine Endocrinology: Denies polydipsia or polyuria EXAM Physical Exam Const Vital Signs: 07/16/23 10:45 07/16/23 10:54 07/16/23 12:45 Temperature 95.7 F L Temperature Source Temporal Pulse Rate 100 100 Respiratory Rate 18 16 Respiratory Effort Normal Respiratory Pattern Normal Blood Pressure 171/75 H 170/68 H Blood Pressure Mean 107 102 Pulse Ox 100 98 Oxygen Delivery Method Room Air Room Air Positive well nourished General Appearance ED: NAD HEENT Reports moist mucous membranes Eyes PERRL and EOMs intact bilaterally Resp normal respiratory effort Cardio regular rate and regular rhythm Extremity Extremity Narrative: Walking boot in place. Dressings clean dry and intact. Mild lower extremity edema. Neuro oriented x3 Psych mental status grossly normal MDM MDM MDM Narrative Medical decision making narrative: Patient presenting with DVT. This is in the solea's region. No other DVT is identified. Physical exam notable for some swelling. Patient has recent surgery and nonhealing pressure ulcer. He follows with Dr. Omalley and Dr. Da Silva. Discussed the case with Dr. Pablo who is on-call he recommended patient placed on Eliquis for DVT. We also discussed that the patient is admittedly an alcoholic and drinks regularly. We discussed precautions for this as well. I spoke with the patient at length regarding his alcoholism and the risk for GI bleed on Eliquis if he continues to drink. He also was counseled against NSAIDs while he is on Eliquis. Patient was given all precautions necessary. He states he will take the Eliquis.. Patient will limit his alcohol, tobacco use. Patient will be put on omeprazole 40 mg p.o. daily as well. Return precautions discussed. Impression: 1. Left soleal DVT 2. history of EtOH abuse Lab Data Attestation: I reviewed the patient's lab results. Discharge Plan Triage Chief Complaint: Abn Labs ED Provider: Matt Loyola Dx/Rx/DC Orders Clinical Impression: DVT (deep venous thrombosis) Instructions: ED Deep Vein Thrombosis (DVT) Prescriptions: New omeprazole 40 mg capsule,delayed release(DR/EC) 40 mg PO DAILY Qty: 60 0RF Eliquis DVT-PE Treat 30D Start 5 mg (74 tabs) tablets,dose pack 5 mg PO BID Qty: 74 0RF Rx Instructions: 10 mg p.o. twice daily x 1 week then 5 mg p.o. twice daily Primary Care Provider: Perry Page Referrals: Haroon Da Silva DPM [Med Staff - Active Staff] - 3-5 Days Pasquale Omalley MD [Med Staff - Active Staff] - 3-5 Days Perry Page MD [Primary Care Provider] - Disposition Disposition: Home, Self Care
[2023-07-16 12:45] VITALS: BP 170/68; PULSE 100; RESP 16; O2SAT 98
[2023-07-16] MEDS: APIXABAN 5 MG TABLET 10 MG PO (12:55)
[2023-07-16 12:57] VITALS: BP 170/68; PULSE 100; RESP 118; TEMP 36.6; O2SAT 98
--- OUTSIDE RECORDS SUMMARY | 2023-07-16 15:19 | XMS RPT_ITS | CCD ---
Author Name Unknown Address [address] [place] [address] Organization [facility] Care Team Providers Care Agricultural Service Technician Name Role Phone Perry Page MD Primary Care Provider [phone] Medications Completed/Discontinued Medications Medication Drug Class(es) Dates Sig (Normalized) Sig (Original) [id number] 200 actuat albuterol 0.09 mg/actuat metered dose inhaler (4 sources) beta2-Adrenergic Agonist Start: 04-02-2021 take 1-2 puff(s) by inhalation every four hours as needed VENTOLIN HFA 90 mcg/actuation inhaler INHALE 1-2 puffs EVERY 4 HOURS NEEDED 18 g 4 04/02/2021 Active Problems Active Problems Problem Classification Problem Date Documented Da te Episodic/Chronic Chronic obstructive pulmonary disease and bronchiectasis (4 sources) Chronic obstructive lung disease; Translations: [Chronic obstructive pulmonary disease, unspecified] Onset: 05-01-2021 05-01-2021 Chronic Other male genital disorders (4 sources) Male erectile dysfunction, unspecified; Translations: [Impotence of organic origin] Onset: 06-18-2017 12-17-2017 Chronic Substance-related disorders (4 sources) Smoker; Translations: [Nicotine dependence, unspecified, uncomplicated] Onset: 05-20-2016 04-12-2019 Chronic Past or Other Problems Problem Classification Problem Date Documented Date Episodic/Chronic Genitourinary symptoms and ill-defined conditions (4 sources) Microscopic hematuria; Translations: [Other microscopic hematuria] Onset: 06-22-2017 06-22-2017 Episodic Malaise and fatigue (4 sources) Asthenia; Translations: [Weakness] Onset: 05-20-2016 05-20-2016 Episodic Other acquired deformities (4 sources) Deformity of foot; Translations: [Unspecified acquired deformity of right lower leg] Onset: 05-20-2016 12-17-2017 Episodic Other connective tissue disease (4 sources) Muscle atrophy; Translations: [Muscle wasting and atrophy, not elsewhere classified, multiple sites] Onset: 05-20-2016 12-17-2017 Episodic Other connective tissue disease (4 sources) H/O: gout; Translations: [Personal history of other diseases of the musculoskeletal system and connective tissue] Onset: 06-18-2017 12-17-2017 Episodic Other male genital disorders (4 sources) Disorder of male genital organ; Translations: [Hydrocele, unspecified] Onset: 06-22-2017 12-17-2017 Episodic Other male genital disorders (4 sources) Spermatocele; Translations: [Spermatocele of epididymis, unspecified] Onset: 06-22-2017 12-17-2017 Episodic Other screening for suspected conditions (not mental disorders or infectious disease) (8 sources) Patient encounter status; Translations: [Encounter for screening for diabetes mellitus] Onset: 12-17-2017 12-17-2017 Episodic Screening and history of mental health and substance abuse codes (4 sources) Current drinker; Translations: [Encounter for screening examination for other mental health and behavioral disorders] Onset: 05-20-2016 05-20-2016 Episodic Encounters Encounter Date Encounter Type Care Provider Facility Start: 07-13-2023 Chart abstracting Perry walsh MD Work Phone: [facility] Procedures Date Procedure Procedure Detail Performing Clinician Start: 12-17-2017 Colonoscopy Perry walsh MD Work Phone: Start: 06-18-2017 Adult depression scr eening assessment Perry Page MD Work Phone: Start: 05-20-2016 Lipid 1996 panel - S laura or Plasma Perry Page MD Work Phone: Plan of Treatment Date Care Activity Detail Author Start: 12-18-2027 Urine microalbumin profile [facility] Start: 05-03-2023 Depression Assessment Depression Ass essment [facility] Start: 01-01-2023 Covid-19 Vaccine ( season) Covid-19 Vaccine () [facility] Start: 05-03-2022 Depression Assessment Depression Ass essment [facility] Start: 05-01-2022 ANNUAL PCP TEAM FUR BLENDER ROB DISEASE VISIT ANNUAL PCP TEAM CHRONIC DISEASE VISIT [facility] Start: 05-30-2021 [facility]CRE[facility] Start: 05-30-2021 Diabetes Screening Diabetes Screenin g [facility] Start: 05-20-2021 Lipid 1996 panel - S laura or Plasma Lipid Screening [facility] Start: 05-20-2021 Lipid panel Lipid Screening [facility] Start: 05-20-2021 LIPID SCREEN LIPID SCREEN [facility] Start: 12-17-2018 Colonoscopy COLONOSCOPY [facility] Start: 12-17-2018 COLORECTAL CANCER SCREENING COLORECTAL CANCER SCREENING [facility] Start: 12-17-2018 Screening for malign ant neoplasm of colon [facility] Start: 08-06-2018 PROSTATE CANCER SCRE ENING DISCUSSION PROSTATE CANCER SCREENING DISCUSSION [facility] Start: 08-06-2018 Prostate specific an tigen measurement Prostate Cancer Screening Discussion [facility] Start: 06-18-2018 Adult depression scr eening assessment DEPRESSION SCREENING [facility] Start: 08-06-2013 SHINGRIX VACCINE (1 of 2) SHINGRIX V ACCINE (1 of 2) [facility] Start: 08-06-2008 COLOGUARD (FIT-DNA) COLOGUARD (FIT-D NA) [facility] Start: 08-06-[address] COLONOGRAPHY [facility] Start: 08-06-2008 FECAL OCCULT BLOOD FECAL OCCULT BLOO D [facility] Start: 08-06-2008 Screening for malign ant neoplasm of colon [facility] Start: 08-06-2008 SIGMOIDOSCOPY SIGMOIDOSCOPY [facility] Start: 08-06-1993 Zoledronic acid therapy Alpha- 1 Antitrypsin Deficiency Screening [facility] Start: 08-06-1981 HEPATITIS C SCREENING HEPATITIS C [facility] Start: 08-06-1981 Hepatitis C screening Hepatitis C [facility] Start: 08-06-1969 PNEUMOCOCCAL (1 - PCV) PNEUMOCOCCAL (1 - PCV) [facility] Start: 08-06-1969 Pneumococcal vaccination [facility] Start: 02-06-1964 COVID-19 VACCINE (#1) COVID-19 VACCI NE (#1) [facility] Immunizations Immunization Date Immunization Notes Care Provider Fa oliver 12-17-2017 tetanus toxoid, redu moraima diphtheria toxoid, and acellular pertussis vaccine, adsorbed Perry Page MD Work Phone: [facility] Social History Date Type Detail Facility Start: 05-20-2016 End: 06-18-2017 Tobacco smoking status NHIS Smokes tobacco daily [facility] Work Phone: History of tobacco use Cigarette Smoker C [facility] Work Phone: Start: 05-20-2016 End: 04-07-2020 Cigarettes smoked current (pack per day) - Reported 0.3 [facility] Start: 05-20-2016 End: 06-18-2017 Tobacco use and exposure Smokeless tobacco non-user [facility] Work Phone: Start: 05-01-2021 Alcohol intake Current drinke r of alcohol (finding) [facility] Start: 05-20-2016 History SDOH Alcohol Comment at supper daily; sometimes more on social events [facility] Start: 1965 Sex Assigned At Not on file [facility] Start: 04-07-2020 End: 05-01-2021 Tobacco use panel [facility] National Score (1-10 0), lower number is lower risk Not on file [facility] Clinical Notes 11-04-2021 to 07-13-2023 Sonny Camargo LPN - 07/13/2023 2:41 PM Kendra Gunter LPN - 07/09/2023 12:12 PM Sonny Greenberg LPN - 03/29/2023 11:20 AM ESTTelephone Encounter - Shanon Montesinos [facility] - 11/04/2021 3:37 PM EDT Note Date & Type Note Facility 07-13-2023 Note HNO ID: [id number] Author: SONNY CAMARGO LPN Service: ? Author Type: LICENSED NURSE Type: Progress Notes Filed: 07/13/2023 14:41 Note Text: Scan on 07/10/2023 4:27 PM by ProviderAmauri PA-C: X-ray [facility] 07-13-2023 History of Presen t illness Narrative Scan on 07/10/2023 4:27 PM by ProviderAmauri PA-C: X-ray documented in this encounter [facility] 07-09-2023 Note HNO ID: [id number] Author: KENDRA CASTRO LPN Service: ? Author Type: LICENSED NURSE Type: Progress Notes Filed: 07/09/2023 12:14 Note Text: Scan on 07/09/2023 9:25 AM by Amauri Jamison PA-C: CT Scan [facility] 07-09-2023 History of Presen t illness Narrative Scan on 07/09/2023 9:25 AM by Amauri Jamison PA-C: CT Scan documented in this encounter [facility] 05-19-2023 Note HNO ID: [id number] Author: KENDRA CASTRO LPN Service: ? Author Type: LICENSED NURSE Type: Progress Notes Filed: 05/19/2023 09:33 Note Text: Scan on 05/18/2023 3:10 PM by Amauri Jamison PA-C: X-ray [facility] 05-12-2023 Note HNO ID: [id number] Author: KENDRA CASTRO LPN Service: ? Author Type: LICENSED NURSE Type: Progress Notes Filed: 05/12/2023 13:47 Note Text: Scan on 05/12/2023 12:34 PM by Amauri Jamison PA-C: Ultrasound [facility] 04-19-2023 Note HNO ID: [id number] Author: Sonny Camargo LPN Service: ? Author Type: ? Type: Progress Notes Filed: 04/19/2023 4:31 PM Note Text: Scan on 04/18/2023 10:08 AM by Amauri Jamison PA-C: Microbiology Scan on 04/18/2023 7:11 AM by Amauri Jamison PAJerryC: Microbiology Scan on 04/17/2023 3:07 PM by Amauri Jamison PA-C: Microbiology Scan on 04/17/2023 10:35 AM by Amauri Jamison PA-C: Microbiology [facility] 04-02-2023 Note HNO ID: [id number] Author: Kendra Castro LPN Service: ? Author Type: ? Type: Progress Notes Filed: 04/02/2023 5:09 PM Note Text: Scan on 04/01/2023 3:56 PM by Provider, External, PA-C: X-ray Scan on 04/01/2023 4:20 PM by Provider, External, PA-C: Miscellaneous Procedures [facility] 03-29-2023 Note HNO ID: [id number] Author: Sonny Camargo LPN Service: ? Author Type: ? Type: Progress Notes Filed: 03/29/2023 11:20 AM Note Text: Scan on 03/26/2023 6:12 PM by Provider, External, PA-C: Chemistry Scan on 03/26/2023 5:38 PM by Provider, External, PA-C: Hematology Scan on 03/26/2023 8:13 PM by Provider, External, PA-C: X-ray [facility] 03-29-2023 History of Presen t illness Narrative Scan on 03/26/2023 6:12 PM by Provider, External, PA-C: Chemistry Scan on 03/26/2023 5:38 PM by Provider, External, PA-C: Hematology Scan on 03/26/2023 8:13 PM by Provider, External, PA-C: X-ray documented in this encounter [facility] 11-04-2021 Miscellaneous Notes 2nd attempt left VM Patient was at work will need to call on a Wednesday, Patient also needs a 6 mo follow up scheduled with Dr. Page or Dixon Tadeo PSS Patient due for screening colonoscopy . Patient is not appropriate for open access. Please schedule office consult Urban Olsen documented in this encounter [facility] Summary Purpose Family History No Family [...] or prosecute any alcohol or drug abuse patient.[facility] the event this information is protected by the Federal Confidentiality of Alcohol and Drug Abuse Patient Records regulations: The Federal rules restrict any use of the information to criminally investigate or prosecute any alcohol or drug abuse patient.[facility] the event this information is protected by the Federal Confidentiality of Alcohol and Drug Abuse Patient Records regulations: The Federal rules restrict any use of the information to criminally investigate or prosecute any alcohol or drug abuse patient.[facility] the event this information is protected by the Federal Confidentiality of Alcohol and Drug Abuse Patient Records regulations: The Federal rules restrict any use of the information to criminally investigate or prosecute any alcohol or drug abuse patient.[facility] Reason for Visit (unrecogniz ed section and content) Reason Comments Outside [id number] Ordered Reason Comments Outside Imaging Reason Comments outside imaging Care Teams (unrecognized sec tion and content) Agricultural Service Technician Relationship Specialty Start Date End Date Perry Page MD [address] [place] [address] PCP - General Family Medicine 06/18/17 (unrecognized [...] BE BASED ON THE PRIMARY CLINICAL RECORDS. [facility]. provides no warranty or guarantee of the accuracy or completeness of information in this document.
== END 2023-07-16 12:58 | disposition home or self-care (01) ==
PROVIDERS: Emergency Provider Student in an Organized Health Care Education/Training Program; PCP Family Medicine; Visit Provider Student in an Organized Health Care Education/Training Program
DX: I82.462 Acute embolism and thrombosis of left calf muscular vein (principal); F10.20 Alcohol dependence, uncomplicated; F17.210 Nicotine dependence, cigarettes, uncomplicated; Y90.9 Presence of alcohol in blood, level not specified
CPT/HCPCS: 99282

== ENCOUNTER 2023-07-27 09:30 | Outpatient (RCR) | payer OTHER, SELFPAY ==
[2023-07-02 00:19] VITALS: BP 147/63; PULSE 94; RESP 18; TEMP 36.1
[2023-07-06 09:38] VITALS: BP 156/84; PULSE 86; RESP 18; TEMP 36.1
--- NOTE | 2023-07-06 10:11 | PN.PCM_ITS ---
History of Present Illness Date of Service: 07/06/23 History of Wound: Patient presents follow-up left lateral ankle wound. Patient had ORIF of left ankle fracture on 04/01/2023 subsequently developed a surgical site infection with wound dehiscence. Patient denies constitutional symptoms and is off antibiotics and notes improvement with wound VAC therapy via home health care. patient has no other complaints. Objective Data Objective Data Vital Signs: Vital Signs Temp Pulse Resp BP O2 Del Method 96.9 F L 86 18 156/84 H Room Air 07/06/23 09:38 07/06/23 09:38 07/06/23 09:38 07/06/23 09:38 07/06/23 09:38 Oxygen Delivery Method Room Air Physical Exam Narrative Neurovascular status unchanged Full-thickness wound left lateral ankle stable clean granular base no signs of infection. No deep probing undermining. Pre and postdebridement measurements documented nursing notes. Clean skin edges noted. No exposed tendon bone or hardware. Ankle joint range of motion full to left lower extremity, no deformity. Muscular strength full to bilateral lower extremity compartments. Const alert and oriented x3 Debridement Note Debridement Note Post-Debridement Measurements and Additional Note: Post-Debridement Measurements/Treatment - Nurse 1 - General Ulcer Assessment Start: 07/06/23 09:38 Freq: Status: Active Protocol: LISA Activity Type Activity Date Activity User E-sign Co-sign Detail Recorded Client Recorded Date Recorded By Document 07/06/23 09:38 KW Desktop 07/06/23 09:47 KW 07/06/23 09:38 - Today's Visit Information Type of service Initial Visit Arrival Mode Ambulatory Patient Identification Verified (Name & Yes ) Vital Signs Temperature (97.8 F-99.1 F) 96.9 F L Temperature Source Temporal Pulse Rate (60-100) 86 Pulse Location Monitor Respiratory Rate (12-18) 18 Respiratory rate source Observation Oxygen Delivery Method Room Air Blood Pressure (90/60-120/80) 156/84 H Blood Pressure Mean (mm Hg) 108 Source Monitor Position Semi-Fowlers Blood Pressure Location Left Arm History Since Last Visit- (Skip if this is Patient's initial visit) Have you changed medications since your No last visit? Any new allergies or adverse reactions No Had a fall/change in ADL's that may No increase risk of falls Signs or symptoms of abuse and/or No neglect since last visit Have you been in the hospital since your No last visit? Has dressing in place as prescribed Yes Has compression in place as prescribed Yes Has offloadiing in place as prescribed N/A Experienced any changes in pain level or No management Left Footwear Regular Shoe Right Footwear Regular Shoe Pain Scale: 0-10 Numeric Is Patient Pain Free? Yes - Nurse 1 - General Ulcer Measurement Start: 07/06/23 09:38 Freq: Status: Active Protocol: Activity Type Activity Date Activity User E-sign Co-sign Detail Recorded Client Recorded Date Recorded By Document 07/06/23 09:38 KW Desktop 07/06/23 09:47 KW 07/06/23 09:38 Wound Center Nurse 1 #1 Left lateral Ankle -Current Size (cm) - Length 4.1 -Current Size (cm) - Width 0.5 -Current Size (cm) - Depth 0.2 -Total Square Cm 2.05 -Exudate Amt Small -Exudate Type Serosanguineous -Wound Margin Thickened & Rolled Under -Texture (Venessa-wound Skin Appearance) Assessed, Scarring -Moisture (Venessa-wound Skin Appearance) Assessed,Dry/ Scaly -Color (Venessa-wound Skin Appearance) Assessed -Temperature (Venessa-wound Skin No Abnormality Appearance) (Pt Warm) -Ulcer Cleansing Soap and Water -Anesthetic Used 5% Lidocaine Gel -Wound Comment(s) SCABBED Left Calf (cm) 34.5 Left Ankle (cm) 24.5 - Nurse 2 - General Ulcer CM Notes Start: 07/06/23 09:38 Freq: Status: Active Protocol: Activity Type Activity Date Activity User E-sign Co-sign Detail Recorded Client Recorded Date Recorded By Document 07/06/23 10:09 Laptop 07/06/23 10:11 07/06/23 10:09 Wound Center Nurse 2 #1 Left lateral Ankle -Time 10:09 -Correct Patient Yes -Correct Side, Site, Position Yes -Correct Procedure Yes -Procedure Performed Yes -Type of Procedure Debridement -Clinical Debridement Subcutaneous -Tissue Removed Subcutaneous -Post Debridement (cm) - Length 0.9 -Post Debridement (cm) - Width 0.3 -Post Debridement (cm) - Depth 0.2 -Total Square (Post) (cm) 0.27 -Area of Debridement (cm) - Length 0.9 -Area of Debridement (cm) - Width 0.3 -Total Square (Area) (cm) 0.27 -Tunneling No -Undermining/Tunneling No -Circular Undermining No -Wound/Ulcer Outcome Not Healed -Ulcer Cleansing Rinsed/ Irrigated with Saline -Foul Odor after Cleansing No -Bioengineered Tissue No -Bleeding Controlled with Pressure -Treatment Response Procedure Tolerated Well -Offloading Yes -Type of Offloading Camwalker -Debridement - Subq, 1st 20sq cm Yes Pain Scale: 0-10 Numeric Is Patient Pain Free? Yes Assessment/Plan Assessment/Plan (1) Non-pressure chronic ulcer of left ankle with fat layer exposed: CODE(S): L97.322 - Non-pressure chronic ulcer of left ankle with fat layer exposed PLAN: Exam performed Patient has alcoholic neuropathy, smokes pack per day with peripheral arterial disease -patient has something smoking cessation and alcohol cessation. Recommended community support through . Patient underwent ORIF left ankle fracture on 04/01/2023, developed surgical site dehiscence and infection. Patient was treated with p.o. antibiotics and infection resolved. Wound is improving today with wound VAC application and offloading via walker and a cast boot assisted by walker radiographs demonstrate some syndesmotic widening with medial clear space noted . Patient following with vascular surgery - awaiting CTA on of this week. 07/08/2023. Left ankle wound was debrided exciPatient has 2 long-term options moving forward. Due to instability of left ankle. Patient either requires additional surgery to restabilize syndesmosis to left ankle. Otherwise patient defers surgery or arterial status is not restored we will plan for long-term custom ankle-foot orthoses. Left lateral ankle wound was excisionally debrided down to and including level of subcutaneous tissue of all nonviable tissue using a 5 mm dermal curette. Was flushed with copious amounts normal sterile saline. Hemostasis obtained with light compression. No anesthesia due to neuropathy. Patient tolerated procedure well. Pre and postdebridement measurements documented nursing notes. Wound improved today. Will discontinue EpiFix grafting. Switch to hydrogel and daily dressing with Tubigrip application. Follow-up in 1 week. (2) Displaced fracture of lateral malleolus of left fibula: CODE(S): S82.62XA - Displaced fracture of lateral malleolus of left f ibula, initial encounter for closed fracture QUALIFIERS: Encounter type: sequela Fracture type: closed Qualified Code(s): S82.62XS - Displaced fracture of lateral malleolus of left fibula, sequela (3) Peripheral vascular disease, unspecified: CODE(S): I73.9 - Peripheral vascular disease, unspecified
[2023-07-13 09:33] VITALS: BP 174/70; PULSE 89; RESP 18; TEMP 36.1
--- NOTE | 2023-07-13 09:55 | PCM.WC.PN ---
History of Present Illness Date of Service: 07/13/23 History of Wound: Patient presents follow-up left lateral ankle wound. Patient had ORIF of left ankle fracture on 04/01/2023 subsequently developed a surgical site infection with wound dehiscence. Patient denies constitutional symptoms and is off antibiotics and notes improvement with wound VAC therapy via home health care. patient has no other complaints. Objective Data Objective Data Vital Signs: Vital Signs Temp Pulse Resp BP O2 Del Method 96.9 F L 89 18 174/70 H Room Air 07/13/23 09:33 07/13/23 09:33 07/13/23 09:33 07/13/23 09:33 07/13/23 09:33 Oxygen Delivery Method Room Air Physical Exam Narrative Neurovascular status unchanged Full-thickness wound left lateral ankle stable clean granular base no signs of infection. No deep probing undermining. Pre and postdebridement measurements documented nursing notes. Clean skin edges noted. No exposed tendon bone or hardware. Ankle joint range of motion full to left lower extremity, no deformity. Muscular strength full to bilateral lower extremity compartments. Const alert and oriented x3 Debridement Note Debridement Note Post-Debridement Measurements and Additional Note: Post-Debridement Measurements/Treatment - Nurse 1 - General Ulcer Assessment Start: 07/06/23 09:38 Freq: Status: Active Protocol: LISA Activity Type Activity Date Activity User E-sign Co-sign Detail Recorded Client Recorded Date Recorded By Document 07/06/23 09:38 KW Desktop 07/06/23 09:47 KW Document 07/13/23 09:33 KW Desktop 07/13/23 09:43 KW 07/06/23 07/13/23 09:38 09:33 - Today's Visit Information Type of service Initial Visit Follow-up Visit (Physician/[employer] ) Arrival Mode Ambulatory Ambulatory Patient Identification Verified (Name & Yes Yes ) Vital Signs Temperature (97.8 F-99.1 F) 96.9 F L 96.9 F L Temperature Source Temporal Temporal Pulse Rate (60-100) 86 89 Pulse Location Monitor Monitor Respiratory Rate (12-18) 18 18 Respiratory rate source Observation Observation Oxygen Delivery Method Room Air Room Air Blood Pressure (90/60-120/80) 156/84 H 174/70 H Blood Pressure Mean (mm Hg) 108 104 Source Monitor Monitor Position Semi-Fowlers Semi-Fowlers Blood Pressure Location Left Arm Left Arm History Since Last Visit- (Skip if this is Patient's initial visit) Have you changed medications since your No No last visit? Any new allergies or adverse reactions No No Had a fall/change in ADL's that may No No increase risk of falls Signs or symptoms of abuse and/or No No neglect since last visit Have you been in the hospital since your No No last visit? Has dressing in place as prescribed Yes Yes Has compression in place as prescribed Yes Yes Has offloadiing in place as prescribed N/A Yes Experienced any changes in pain level or No No management Left Footwear Regular Shoe Surgical Shoe with pressure relief insole Right Footwear Regular Shoe Regular Shoe Pain Scale: 0-10 Numeric Is Patient Pain Free? Yes Yes WC - Nurse 1 - General Ulcer Measurement Start: 07/06/23 09:38 Freq: Status: Active Protocol: Activity Type Activity Date Activity User E-sign Co-sign Detail Recorded Client Recorded Date Recorded By Document 07/06/23 09:38 KW [employer] 07/06/23 09:47 KW Document 07/13/23 09:33 KW Desktop 07/13/23 09:43 KW 07/06/23 07/13/23 09:38 09:33 Wound Center Nurse 1 #1 Left lateral Ankle -Combined with other wound No -Current Size (cm) - Length 4.1 4.7 -Current Size (cm) - Width 0.5 0.2 -Current Size (cm) - Depth 0.2 0.2 -Total Square Cm 2.05 0.94 -Tunneling No -Undermining/Tunneling No -Exudate Amt Small Medium -Exudate Type Serosanguineous Serosanguineous -Wound Margin Thickened & Distinct, Rolled Under Outline Attached -Granulation Amt Medium (34-66%) -Granulation Quality Carlin -Slough/Fibrin Yes -Necrosis Amt Medium (34-66%) -Necrotic Tissue Type Adherent Slough -Structure Exposed N/A -Texture (Venessa-wound Skin Appearance) Assessed, Assessed, Scarring Scarring -Moisture (Venessa-wound Skin Appearance) Assessed,Dry/ Assessed Scaly -Color (Venessa-wound Skin Appearance) Assessed Assessed -Temperature (Venessa-wound Skin No Abnormality No Abnormality Appearance) (Pt Warm) (Pt Warm) -Tenderness on Palpation (Venessa-wound No Skin Appearance) -Ulcer Cleansing Soap and Water Wound Cleanser -Foul Odor after Cleansing No -Anesthetic Used 5% Lidocaine 5% Lidocaine Gel Gel -Wound Comment(s) SCABBED Lower Limb Edema Present Yes Left Calf (cm) 34.5 38.1 Left Ankle (cm) 24.5 28.2 - Nurse 2 - General Ulcer CM Notes Start: 07/06/23 09:38 Freq: Status: Active Protocol: Activity Type Activity Date Activity User E-sign Co-sign Detail Recorded Client Recorded Date Recorded By Document 07/06/23 10:09 Laptop 07/06/23 10:11 Document 07/13/23 09:49 Laptop 07/13/23 09:53 07/06/23 07/13/23 10:09 09:49 Wound Center Nurse 2 #1 Left lateral Ankle -Time 10:09 09:49 -Correct Patient Yes Yes -Correct Side, Site, Position Yes Yes -Correct Procedure Yes Yes -Procedure Performed Yes Yes -Type of Procedure Debridement Debridement -Clinical Debridement Subcutaneous Subcutaneous -Tissue Removed Subcutaneous Subcutaneous -Post Debridement (cm) - Length 0.9 0.7 -Post Debridement (cm) - Width 0.3 0.4 -Post Debridement (cm) - Depth 0.2 0.1 -Total Square (Post) (cm) 0.27 0.28 -Area of Debridement (cm) - Length 0.9 0.7 -Area of Debridement (cm) - Width 0.3 0.4 -Total Square (Area) (cm) 0.27 0.28 -Tunneling No No -Undermining/Tunneling No No -Circular Undermining No No -Wound/Ulcer Outcome Not Healed Not Healed -Ulcer Cleansing Rinsed/ Rinsed/ Irrigated with Irrigated with Saline Saline -Foul Odor after Cleansing No No -Bioengineered Tissue No No -Bleeding Controlled with Pressure Pressure -Treatment Response Procedure Procedure Tolerated Well Tolerated Well -Offloading Yes Yes -Type of Offloading Camwalker Camwalker -Debridement - Subq, 1st 20sq cm Yes Yes Pain Scale: 0-10 Numeric Is Patient Pain Free? Yes Yes - Nurse 3 - General Ulcer D/C NN Start: 07/06/23 09:38 Freq: Status: Active Protocol: Activity Type Activity Date Activity User E-sign Co-sign Detail Recorded Client Recorded Date Recorded By Document 07/06/23 10:18 Laptop 07/06/23 10:19 07/06/23 10:18 Wound Care Center Nurse 3 #1 Left lateral Ankle -Ulcer Cleansing Rinsed/ Irrigated with Saline -Foul Odor after Cleansing No -Primary Dressing Applied C Hydrogel ($) -Primary Dressing Covered/Secured with Dry Gauze, Secured with Tape Left -Tubular Bandage Double Layer -Size of Tubigrip Used Size E -Size E ($) 2 Pain Scale: 0-10 Numeric Is Patient Pain Free? Yes WC - Visit Discharge Discharge Condition Stable Ambulatory Status Ambulatory Transportation Private Auto Medication Reconcilliation completed & Yes provided to patient/care provider Clinical Summary of Care Provided Yes Assessment/Plan Assessment/Plan (1) Non-pressure chronic ulcer of left ankle with fat layer exposed: CODE(S): L97.322 - Non-pressure chronic ulcer of left ankle with fat layer exposed PLAN: Exam performed Patient has alcoholic neuropathy, smokes pack per day with peripheral arterial disease -patient has something smoking cessation and alcohol cessation. Recommended community support through . Patient underwent ORIF left ankle fracture on 04/01/2023, developed surgical site dehiscence and infection. Patient was treated with p.o. antibiotics and infection resolved. radiographs demonstrate some syndesmotic widening with medial clear space noted. Planning surgical stabilization. CTA performed, awaiting consultation with Dr. Omalley, will plan for surgical stabilization of distal tibiofibular syndesmosis Left lateral ankle wound was excisionally debrided down to and including level of subcutaneous tissue of all nonviable tissue using a 5 mm dermal curette. Was flushed with copious amounts normal sterile saline. Hemostasis obtained with light compression. No anesthesia due to neuropathy. Patient tolerated procedure well. Pre and postdebridement measurements documented nursing notes. Will plan to dispensed Jose-Co brace for left side continue hydrogel and daily dressing with Tubigrip application. Follow-up in 1 week. (2) Displaced fracture of lateral malleolus of left fibula: CODE(S): S82.62XA - Displaced fracture of lateral malleolus of left fibula, initial encounter for closed fracture QUALIFIERS: Encounter type: sequela Fracture type: closed Qualified Code(s): S82.62XS - Displaced fracture of lateral malleolus of left fibula, sequela (3) Peripheral vascular disease, unspecified: CODE(S): I73.9 - Peripheral vascular disease, unspecified
--- NOTE | 2023-07-16 08:10 | VDLE_ITS ---
Reason For Study: Left leg ulcer RIGHT LEFT CFV is compressible, spontaneous, phasic, CFV is compressible, spontaneous, phasic, competent and demonstrates normal competent, and demonstrates normal augmentation. augmentation. FV is compressible, spontaneous, phasic, FV is compressible, spontaneous, phasic, competent and demonstrates normal competent and demonstrates normal augmentation. augmentation. POP V is compressible, spontaneous, phasic, POP V is compressible, spontaneous, phasic, competent and demonstrates normal competent and demonstrates normal augmentation. augmentation. T/P Trunk is compressible. T/P Trunk is compressible. PTV is compressible. PTV is compressible. RT PerV is compressible. LT PerV is compressible. SFJ is INCOMPETENT and measures 0.67 x 0.69 Acute deep vein thrombosis is noted in the cm. Soleus V. It is dilated and NONCOMPRESSIBLE. GSV proximal thigh measures 0.29 x 0.28 cm. SFJ is INCOMPETENT and measures 0.77 x 0.72 GSV at knee measures 0.17 x 0.17 cm. cm. GSV INCOMPETENT throughout for greater than GSV proximal thigh measures 0.42 x 0.43 cm. 0.5 seconds. GSV above knee is INCOMPETENT for greater SSV proximal calf is competent and measures than 0.5 seconds. 0.17 x 0.17 cm. GSV at knee measures 0.37 x 0.34 cm. Procedure GSV below knee is competent. This is a venous duplex using B-mode, color SSV proximal calf is competent and measures flow and spectral Doppler. 0.37 x 0.40 cm. Exam performed in department. Patient was scanned in reverse Trendelenburg position during reflux assessment. A preliminary report was called and/or faxed to Dr. Da Silva and Glendy DOLL @ [place]. VL/Venous Duplex US - John Extrem Interpretation Summary Acute deep vein thrombosis is noted in the left soleus vein. Deep veins of the right lower extremity are patent and compressible segmentally . There is no evidence of right lower extremity deep vein thrombosis. The bilateral great sap henous veins appear patent and compressible segmentally. Positive for reflux in the right saphenofemoral junction, great saphenous vein throughout. Positive for reflux in the left saphenofemoral junction, great saphenous vein a yuridia the knee. Ordering Physician: Haroon Da Silva Referring Physician: Doris Conner M.D. Performed By: Ann Carpenter RVT
[2023-07-20 09:32] VITALS: BP 177/84; PULSE 87; RESP 18; TEMP 35.6
--- NOTE | 2023-07-20 10:42 | PN_ITS ---
Subjective Subjective Patient treated for deep acute DVT after receiving duplex ultrasound of positive for soleal vein DVT. Patient now on Eliquis. Patient denies constitutional symptoms. Patient denies pain. No other new complaints. Objective Data Objective Data Vital Signs: Vital Signs Temp Pulse Resp BP O2 Del Method 96.1 F L 87 18 177/84 H Room Air 07/20/23 09:32 07/20/23 09:32 07/20/23 09:32 07/20/23 09:32 07/20/23 09:32 Oxygen Delivery Method Room Air Radiography Diagnostic Testing: Radiology Impression Venous Doppler Study 07/16/23 08:10 Interpretation Summary Acute deep vein thrombosis is noted in the left soleus vein. Deep veins of the right lower extremity are patent and compressible segmentally. There is no evidence of right lower extremity deep vein thrombosis. The bilateral great saphenous veins appear patent and compressible segmentally. Positive for reflux in the right saphenofemoral junction, great saphenous vein throughout. Positive for reflux in the left saphenofemoral junction, great saphenous vein above the knee. Ordering Physician: Haroon Da Silva Referring Physician: Doris Conner M.D. Performed By: Ann Carpenter RVT Physical Exam Narrative Neurovascular status unchanged Full-thickness wound left lateral ankle stable clean granular base no signs of infection. No deep probing undermining. Pre and postdebridement measurements documented nursing notes. Clean skin edges noted. No exposed tendon bone or hardware. Ankle joint range of motion full to left lower extremity, some valgus ankle deformity. Muscular strength full to bilateral lower extremity compartments. Const alert and oriented x3 Assessment & Plan Assessment/Plan (1) Non-pressure chronic ulcer of left ankle with fat layer exposed: PLAN: Exam performed Patient on Eliquis for acute DVT. Patient has alcoholic neuropathy, smokes pack per day with peripheral arterial disease -patient has something smoking cessation and alcohol cessation. Recommended community support through . Patient underwent ORIF left ankle fracture on 04/01/2023, developed surgical site dehiscence and infection. Patient was treated with p.o. antibiotics and infection resolved. radiographs demonstrate some syndesmotic widening with medial clear space noted . Planning surgical stabilization. CTA performed, awaiting consultation with Dr. Omalley, will plan for surgical stabilization of distal tibiofibular syndesmosis Left lateral ankle wound was excisionally debrided down to and including level of subcutaneous tissue of all nonviable tissue using a 5 mm dermal curette. Was flushed with copious amounts normal sterile saline. Hemostasis obtained with light compression. No anesthesia due to neuropathy. Patient tolerated procedure well. Pre and postdebridement measurements documented nursing notes. Will plan to dispense Jose-Co brace for left side -still awaiting authorization in our office continue hydrogel and daily dressing with Tubigrip application. Follow-up in 1 week. (2) Displaced fracture of lateral malleolus of left fibula: QUALIFIERS: Encounter type: sequela Fracture type: closed Qualified Code(s): S82.62XS - Displaced fracture of lateral malleolus of left fibula, sequela (3) Peripheral vascular disease, unspecified:
[2023-07-27 09:27] VITALS: BP 170/83; PULSE 88; RESP 16; TEMP 35.6
--- NOTE | 2023-07-27 09:58 | PCM.WC.PN ---
History of Present Illness Date of Service: 07/27/23 History of Wound: Patient presents follow-up left lateral ankle wound. Patient had ORIF of left ankle fracture on 04/01/2023 subsequently developed a surgical site infection with wound dehiscence. Patient denies constitutional symptoms and is off antibiotics. No new complaints. Patient still smoking/drinking. Objective Data Objective Data Vital Signs: Vital Signs Temp Pulse Resp BP O2 Del Method 96.1 F L 88 16 170/83 H Room Air 07/27/23 09:27 07/27/23 09:27 07/27/23 09:27 07/27/23 09:27 07/27/23 09:27 Oxygen Delivery Method Room Air Physical Exam Narrative Neurovascular status unchanged Full-thickness wound left lateral ankle healed. Ankle joint range of motion full to left lower extremity, some valgus ankle deformity. Muscular strength full to bilateral lower extremity compartments. Const alert and oriented x3 Debridement Note Debridement Note Post-Debridement Measurements and Additional Note: Post-Debridement Measurements/Treatment - Nurse 1 - General Ulcer Assessment Start: 07/06/23 09:38 Freq: Status: Active Protocol: LISA Activity Type Activity Date Activity User E-sign Co-sign Detail Recorded Client Recorded Date Recorded By Document 07/06/23 09:38 KW Desktop 07/06/23 09:47 KW Document 07/13/23 09:33 KW Desktop 07/13/23 09:43 KW Document 07/20/23 09:32 KW Desktop 07/20/23 09:38 KW Document 07/27/23 09:27 KW Desktop 07/27/23 09:36 KW 07/06/23 07/13/23 07/20/23 09:38 09:33 09:32 - Today's Visit Information Type of service Initial Visit Follow-up Visit Follow-up Visit (Physician/PEST CONTROL WORKER HELPER (Physician/PEST CONTROL WORKER HELPER ) ) Arrival Mode Ambulatory Ambulatory Ambulatory Patient Identification Verified (Name & Yes Yes Yes ) Vital Signs Temperature (97.8 F-99.1 F) 96.9 F L 96.9 F L 96.1 F L Temperature Source Temporal Temporal Temporal Pulse Rate (60-100) 86 89 87 Pulse Location Monitor Monitor Monitor Respiratory Rate (12-18) 18 18 18 Respiratory rate source Observation Observation Observation Oxygen Delivery Method Room Air Room Air Room Air Blood Pressure (90/60-120/80) 156/84 H 174/70 H 177/84 H Blood Pressure Mean (mm Hg) 108 104 115 Source Monitor Monitor Monitor Position Semi-Fowlers Semi-Fowlers Semi-Fowlers Blood Pressure Location Left Arm Left Arm Left Arm History Since Last Visit- (Skip if this is Patient's initial visit) Have you changed medications since your No No No last visit? Any new allergies or adverse reactions No No No Had a fall/change in ADL's that may No No No increase risk of falls Signs or symptoms of abuse and/or No No No neglect since last visit Have you been in the hospital since your No No last visit? Has dressing in place as prescribed Yes Yes Yes Has compression in place as prescribed Yes Yes Yes Has offloadiing in place as prescribed N/A Yes Yes Experienced any changes in pain level or No No No management Left Footwear Regular Shoe Surgical Shoe Removable Cast with pressure Walker/Walking relief insole Boot Right Footwear Regular Shoe Regular Shoe Regular Shoe Pain Scale: 0-10 Numeric Is Patient Pain Free? Yes Yes Yes 07/27/23 09:27 WC - Today's Visit Information Type of service Follow-up Visit (Physician/PEST CONTROL WORKER HELPER ) Arrival Mode Ambulatory Patient Identification Verified (Name & No ) Vital Signs Temperature (97.8 F-99.1 F) 96.1 F L Temperature Source Temporal Pulse Rate (60-100) 88 Pulse Location Monitor Respiratory Rate (12-18) 16 Respiratory rate source Observation Oxygen Delivery Method Room Air Blood Pressure (90/60-120/80) 170/83 H Blood Pressure Mean (mm Hg) 112 Source Monitor Position Semi-Fowlers Blood Pressure Location Left Arm History Since Last Visit- (Skip if this is Patient's initial visit) Have you changed medications since your No last visit? Any new allergies or adverse reactions No Had a fall/change in ADL's that may No increase risk of falls Signs or symptoms of abuse and/or No neglect since last visit Have you been in the hospital since your No last visit? Has dressing in place as prescribed Yes Has compression in place as prescribed Yes Has offloadiing in place as prescribed Yes Experienced any changes in pain level or No management Left Footwear Surgical Shoe with pressure relief insole Right Footwear Regular Shoe Pain Scale: 0-10 Numeric Is Patient Pain Free? Yes - Nurse 1 - General Ulcer Measurement Start: 07/06/23 09:38 Freq: Status: Active Protocol: Activity Type Activity Date Activity User E-sign Co-sign Detail Recorded Client Recorded Date Recorded By Document 07/06/23 09:38 KW Desktop 07/06/23 09:47 KW Document 07/13/23 09:33 KW Desktop 07/13/23 09:43 KW Document 07/20/23 09:32 KW Desktop 07/20/23 09:38 KW Document 07/27/23 09:27 KW Desktop 07/27/23 09:36 KW 07/06/23 07/13/23 07/20/23 09:38 09:33 09:32 Wound Center Nurse 1 #1 Left lateral Ankle -Combined with other wound No -Current Size (cm) - Length 4.1 4.7 3 -Current Size (cm) - Width 0.5 0.2 0.3 -Current Size (cm) - Depth 0.2 0.2 0.2 -Total Square Cm 2.05 0.94 0.9 -Date of Last Picture (Recall this field) -Photo Taken -Epithelialization Large 67-100% -Tunneling No -Undermining/Tunneling No -Exudate Amt Small Medium Small -Exudate Type Serosanguineous Serosanguineous Serosanguineous -Wound Margin Thickened & Distinct, Distinct, Rolled Under Outline Outline Attached Attached -Granulation Amt Medium (34-66%) -Granulation Quality [place] -Slough/Fibrin Yes -Necrosis Amt Medium (34-66%) -Necrotic Tissue Type Adherent Slough -Structure Exposed N/A -Texture (Venessa-wound Skin Appearance) Assessed, Assessed, Assessed Scarring Scarring -Moisture (Venessa-wound Skin Appearance) Assessed,Dry/ Assessed Assessed Scaly -Color (Venessa-wound Skin Appearance) Assessed Assessed Assessed -Temperature (Venessa-wound Skin No Abnormality No Abnormality No Abnormality Appearance) (Pt Warm) (Pt Warm) (Pt Warm) -Tenderness on Palpation (Venessa-wound No Skin Appearance) -Ulcer Cleansing Soap and Water Wound Cleanser Rinsed/ Irrigated with Saline -Foul Odor after Cleansing No No -Anesthetic Used 5% Lidocaine 5% Lidocaine 5% Lidocaine Gel Gel Gel -Wound Comment(s) SCABBED Lower Limb Edema Present Yes Left Calf (cm) 34.5 38.1 Left Ankle (cm) 24.5 28.2 07/27/23 09:27 Wound Center Nurse 1 #1 Left lateral Ankle -Combined with other wound -Current Size (cm) - Length 0.1 -Current Size (cm) - Width 0.1 -Current Size (cm) - Depth 0.1 -Total Square Cm 0.01 -Date of Last Picture (Recall this 07/27/23 field) -Photo Taken Yes -Epithelialization Large 67-100% -Tunneling -Undermining/Tunneling -Exudate Amt -Exudate Type -Wound Margin -Granulation Amt -Granulation Quality -Slough/Fibrin -Necrosis Amt -Necrotic Tissue Type -Structure Exposed -Texture (Venessa-wound Skin Appearance) Assessed -Moisture (Venessa-wound Skin Appearance) Assessed -Color (Venessa-wound Skin Appearance) Assessed -Temperature (Venessa-wound Skin No Abnormality Appearance) (Pt Warm) -Tenderness on Palpation (Venessa-wound No Skin Appearance) -Ulcer Cleansing Soap and Water -Foul Odor after Cleansing -Anesthetic Used 5% Lidocaine Gel -Wound Comment(s) scabbed Lower Limb Edema Present Left Calf (cm) 35.5 Left Ankle (cm) 25 - Nurse 2 - General Ulcer CM Notes Start: 07/06/23 09:38 Freq: Status: Active Protocol: Activity Type Activity Date Activity User E-sign Co-sign Detail Recorded Client Recorded Date Recorded By Document 07/06/23 10:09 [email or web address] Laptop 07/06/23 10:11 Document 07/13/23 09:49 Laptop 07/13/23 09:53 Document 07/20/23 09:52 Laptop 07/20/23 09:56 Document 07/27/23 09:52 Desktop 07/27/23 09:54 MW 07/06/23 07/13/23 07/20/23 10:09 09:49 09:52 Wound Center Nurse 2 #1 Left lateral Ankle -Time 10:09 09:49 09:54 -Correct Patient Yes Yes Yes -Correct Side, Site, Position Yes Yes Yes -Correct Procedure Yes Yes Yes -Procedure Performed Yes Yes Yes -Type of Procedure Debridement Debridement Debridement -Clinical Debridement Subcutaneous Subcutaneous Subcutaneous -Tissue Removed Subcutaneous Subcutaneous Subcutaneous -Post Debridement (cm) - Length 0.9 0.7 6.0 -Post Debridement (cm) - Width 0.3 0.4 0.3 -Post Debridement (cm) - Depth 0.2 0.1 0.2 -Total Square (Post) (cm) 0.27 0.28 1.80 -Area of Debridement (cm) - Length 0.9 0.7 6.0 -Area of Debridement (cm) - Width 0.3 0.4 0.3 -Total Square (Area) (cm) 0.27 0.28 1.80 -Tunneling No No No -Undermining/Tunneling No No No -Circular Undermining No No No -Wound/Ulcer Outcome Not Healed Not Healed Not Healed -Ulcer Cleansing Rinsed/ Rinsed/ Rinsed/ Irrigated with Irrigated with Irrigated with Saline Saline Saline -Foul Odor after Cleansing No No No -Bioengineered Tissue No No No -Bleeding Controlled with Pressure Pressure Pressure -Treatment Response Procedure Procedure Procedure Tolerated Well Tolerated Well Tolerated Well -Offloading Yes Yes Yes -Type of Offloading Camwalker Camwalker Camwalker -Debridement - Subq, 1st 20sq cm Yes Yes Yes Pain Scale: 0-10 Numeric Is Patient Pain Free? Yes Yes Yes 07/27/23 09:52 Wound Center Nurse 2 #1 Left lateral Ankle -Time 09:52 -Correct Patient Yes -Correct Side, Site, Position Yes -Correct Procedure Yes -Procedure Performed No -Type of Procedure -Clinical Debridement -Tissue Removed -Post Debridement (cm) - Length 0 -Post Debridement (cm) - Width 0 -Post Debridement (cm) - Depth 0 -Total Square (Post) (cm) 0 -Area of Debridement (cm) - Length -Area of Debridement (cm) - Width -Total Square (Area) (cm) -Tunneling -Undermining/Tunneling -Circular Undermining -Wound/Ulcer Outcome Healed- Epithelialized -Ulcer Cleansing -Foul Odor after Cleansing -Bioengineered Tissue -Bleeding Controlled with -Treatment Response -Offloading -Type of Offloading -Debridement - Subq, 1st 20sq cm Pain Scale: 0-10 Numeric Is Patient Pain Free? Yes - Nurse 3 - General Ulcer D/C NN Start: 07/06/23 09:38 Freq: Status: Active Protocol: Activity Type Activity Date Activity User E-sign Co-sign Detail Recorded Client Recorded Date Recorded By Document 07/06/23 10:18 JF Laptop 07/06/23 10:19 JF Document 07/13/23 10:13 RB Desktop 07/13/23 10:14 RB Document 07/20/23 10:06 KW Desktop 07/20/23 10:07 KW 07/06/23 07/13/23 07/20/23 10:18 10:13 10:06 Wound Care Center Nurse 3 #1 Left lateral Ankle -Ulcer Cleansing Rinsed/ Irrigated with Saline -Foul Odor after Cleansing No -Primary Dressing Applied C Hydrogel ($) NonAdherent Contact Layer -Other Dressing hydrogel foam border -Primary Dressing Covered/Secured with Dry Gauze, Dry Gauze Secured with Tape Left -Multi-Layered Wrap Application Multi-Layer Comp - Left ($) -Tubular Bandage Double Layer Double Layer -Size of Tubigrip Used Size E Size E -Size E ($) 2 2 Treatment Response Procedure Tolerated Well Pain Scale: 0-10 Numeric Is Patient Pain Free? Yes Yes Yes WC - Visit Discharge Discharge Condition Stable Stable Stable Ambulatory Status Ambulatory Ambulatory Ambulatory Transportation Private Auto Private Auto Private Auto Medication Reconcilliation completed & Yes No No provided to patient/care provider Clinical Summary of Care Provided Yes Yes Yes Assessment/Plan Assessment/Plan (1) Non-pressure chronic ulcer of left ankle with fat layer exposed: CODE(S): L97.322 - Non-pressure chronic ulcer of left ankle with fat layer exposed PLAN: Exam performed Patient on Eliquis for acute DVT. Patient has alcoholic neuropathy, smokes pack per day with peripheral arterial disease -patient has something smoking cessation and alcohol cessation. Recommended community support through . Left lateral ankle wound is healed at current. Per vascular surgery patient is cleared for stabilization of left ankle syndesmosis, will plan for reconstruction at current. Patient will follow-up outpatient basis in my office as his wound is healed today. (2) Displaced fracture of lateral malleolus of left fibula: CODE(S): S82.62XA - Displaced fracture of lateral malleolus of left fibula, initial encounter for closed fracture QUALIFIERS: Encounter type: sequela Fracture type: closed Qualified Code(s): S82.62XS - Displaced fracture of lateral malleolus of left fibula, sequela (3) Peripheral vascular disease, unspecified: CODE(S): I73.9 - Peripheral vascular disease, unspecified
== END 2023-07-27 16:15 | disposition home or self-care (01) ==
LOC: WC 09:30
PROVIDERS: PCP Family Medicine; Referring Provider Podiatrist; Visit Provider Podiatrist
DX: T81.31XA Disruption of external operation (surgical) wound, not elsewhere classified, initial encounter (principal); L97.322 Non-pressure chronic ulcer of left ankle with fat layer exposed; I82.462 Acute embolism and thrombosis of left calf muscular vein; S82.62XS Displaced fracture of lateral malleolus of left fibula, sequela; Y83.8 Other surgical procedures as the cause of abnormal reaction of the patient, or of later complication, without mention of misadventure at the time of the procedure; I73.9 Peripheral vascular disease, unspecified; Z79.01 Long term (current) use of anticoagulants; Z79.899 Other long term (current) drug therapy
CPT/HCPCS: 11042; 29581; 93970; 99213; G0463

== ENCOUNTER → 2023-07-29 | Outpatient (CLI) | payer OTHER, SELFPAY ==
[2023-07-29 09:59] LABS: Hematocrit 45.8 % (40-54); Hemoglobin 15.6 g/dL (13.0-16.5); Mean Corp Hgb Conc 34.1 g/dL (32-36); Mean Corpuscular Hgb 32.8 pg (27.0-32.0); Mean Corpuscular Volume 96.2 fL (80-94); Mean Platelet Vol. 9.3 fl (6.2-12.0); Platelet Count 320 K/mm3 (150-450); RBC Distribution Width CV 13.5 % (11.6-14.6); RBC Distribution Width SD 48.4 fl (35.1-43.9); Red Blood Count 4.76 M/mm3 (4.6-6.2); White Blood Count 7.6 K/mm3 (4.4-11.0)
[2023-07-29 10:32] LABS: ALB/GLOB Ratio 0.5 RATIO (0.9-2.4); AST(SGOT) 17 U/L (15-37); Alanine Aminotransfer ALT/SGPT 16 U/L (16-61); Albumin, Serum 2.8 g/dL (3.2-5.0); Alkaline Phosphatase 89 U/L (45-117); Anion Gap 7 (5-15); BUN 6 mg/dL (7-18); BUN/Creat Ratio 8.8 RATIO (10-20); Calcium,Total 8.8 mg/dL (8.5-10.1); Chloride 102 mmol/L (98-107); Creatinine, Serum 0.68 mg/dL (0.70-1.30); EST Glomerular Filtration Rate 126 mL/min (>60); Est Glom Filt Rate - Afr Amer 153 mL/min (>60); Globulin 5.1 g/dL (2.2-4.2); Glucose 74 mg/dL (74-106); Potassium 3.9 mmol/L (3.5-5.1); Protein, Total 7.9 g/dL (6.4-8.2); Sodium Level 133 mmol/L (136-145)
== END | disposition home or self-care (01) ==
LOC: MFPLAB 08:38
PROVIDERS: Family Medicine; PCP Family Medicine; Visit Provider Family Medicine
DX: I82.409 Acute embolism and thrombosis of unspecified deep veins of unspecified lower extremity (principal); F10.20 Alcohol dependence, uncomplicated
CPT/HCPCS: 36415; 80053; 85027

== ENCOUNTER 2023-08-13 08:03 | Day surgery (SDC) | payer OTHER, SELFPAY ==
--- NOTE | 2023-08-13 08:30 | RAD_ITS ---
HISTORY: PAIN COMPARISON: July 09, 2023 TECHNIQUE: A total of 6 fluoroscopic images were saved without a radiologist present. FINDINGS: Images demonstrate progressive syndesmosis fixation. Total fluoroscopy time: 99.9 seconds Cumulative air kerma: [5.9 mGy RAD/Ankle 2 Views IMPRESSION: Fluoroscopic assistance for tibiofibular syndesmosis fixation. Please see operative report for additional information. Electronically Signed: Yonathan Elizadle MD at 18:05 EDT ,
[2023-08-13 08:41] VITALS: BP 169/81; PULSE 87; RESP 16; TEMP 36.8; O2SAT 100; BMI 26.6
[2023-08-13] MEDS: Lactated Ringers 1,000 ML 15 ML IV (08:50)
[2023-08-13] MEDS: Cefazolin 2 GM in 0.9% Normal Saline (100mL Bag) 100 ML IV (09:52)
[2023-08-13] MEDS: Bupivacaine Mpf 0.5% 30 ML VIAL (11:21)
[2023-08-13 11:47] VITALS: BP 145/98; BP 169/81; PULSE 81; RESP 14; TEMP 36.3; O2SAT 100
--- NOTE | 2023-08-13 11:54 | PCM.OPRPT ---
Problems Associated Problem List Diagnoses (1) Fracture of lateral malleolus of left fibula at syndesmosis: (2) Syndesmotic disruption of left ankle: (3) Painful orthopaedic hardware: Report of Operation Date of Procedure: 08/13/23 Pre-Operative Diagnosis: 1) Left Ankle Syndesmosis Disruptions 2) retained left ankle hardware Post-Operative Diagnosis: Same Surgery/Procedure Performed:: Removal left ankle screws x 2 from fibular plate Stabilization left ankle syndesmosis with application of [employer] cinch fix Application of splint left lower extremity Description of Surgical Findings:: Patient had isolated fibular fracture Andrade B ORIF in March of this year. Patient ambulated on site and due to valgus foot deformity, peripheral arterial disease, peripheral neuropathy secondary to alcoholism, noncompliance in the postoperative period patient continued to ambulate on site which caused overload of the deltoid ligament leading to ultimate rupture and rupture and failure of the tibiofibular syndesmosis with lateral displacement of the fibula relative to the tibia. Due to this decision was made to stabilize the tibia back to the fibula to allow for stable leg for ambulation. Surgeon: Haroon Da Silva thermoforming machine operator: None (glory noriega DPM) Type of Anesthesia: General Special Medications: 30cc 0.5% marcaine plain Specimen's removed: none Drains: none Estimated Blood Loss (mL): minimal Fluids Replaced: none Description of Procedure: Patient brought back the operating placed comfortably on supine position on the operating room table. Patient induced under general anesthesia. Left lower extremity had a tourniquet thigh tourniquet applied to it well-padded. Left lower extremity was scrubbed prepped and draped using typical aseptic fashion. Once cleared by anesthesia left lower extremity was elevated exsanguinated. Using fluoroscopic guidance and 6 2 of the fibula lateral fibular plate screws were identified fluoroscopically at the level of the tibiofibular syndesmosis just proximal to it. A 3 cm incision was made directly lateral to the fibular plate full-thickness down to the plate. Screws were removed x 2 to allow for application of [employer] cinch fix. The fibula and tibia were close down using [id number] bone reduction forceps. This allowed for adequate reduction of the tibiofibular syndesmosis. 2 [employer] cinch fix suture button devices were applied from lateral to medial using manufactures technique. [id number] bone reduction forceps were released and reduction was noted to be maintained. There is better alignment of the ankle mortise. Upon valgus stressing of the deltoid there is some continued deltoid insufficiency noted. Due to healing problems with initial surgery my intention was to limit any open exposure and the amount of surgical procedures done to avoid any further complications. I felt that stabilizing the tibia back to the fibula will allow the patient a stable leg to ambulate on given his neuropathy. Incisional sites were flushed with copious amounts of normal sterile saline. Incisional sites were flushed with copious amounts normal sterile saline. Tourniquet was let down. Total tourniquet time was noted to be 70 minutes. Digital sites were closed with buried interrupted 2-0 Monocryl. Skin closure performed with stephanie and nylon with a horizontal mattress technique. Incisional sites dressed with Betadine Adaptic 4 x 4's Kerlix. Well-padded AO splint with the foot and ankle held in a rectus position was applied. Patient was transported to PACU vital signs stable and vascular status intact all digits for further monitoring prior to discharge. Patient tolerated procedure and anesthesia well in apparent satisfactory condition. No complications Adequate reduction of the tibiofibular syndesmosis noted. Upon valgus stressing some deltoid insufficiency noted. If this continues to be a problem postoperatively will plan for long-term bracing as patient has significant arterial disease neuropathy smoking history alcoholism and noncompliance. Complications None Admit VTE Documentation VTE Present on Admission: Yes VTE Pharm Prophylaxis ordered?: Yes
[2023-08-13 11:55] VITALS: BP 150/74; BP 169/81; PULSE 78; RESP 16; O2SAT 99
--- NOTE | 2023-08-13 11:57 | RAD_ITS ---
STUDY: X-RAY - LEFT ANKLE REASON FOR EXAM: Male, 58 years old. Post op TECHNIQUE: 3 view(s) of the ankle. COMPARISON: Comparison is made with prior study July 09, 2023. FINDINGS: Stable appearance of the ORIF of the distal fibula. The patient is status post syndesmotic stabilization. Normal medial and lateral malleoli. Normal tibiotalar articulation and ankle mortise. Normal visualized talus and calcaneus. The visualized subtalar, talonavicular, calcaneocuboid and tarsal articulations are normal. Postoperative soft tissue changes. RAD/Ankle min 3 Views IMPRESSION: Status post syndesmotic stabilization. Postoperative soft tissue changes. Electronically Signed: Luisito Taylor MD at 12:11 EDT ,
[2023-08-13 12:00] VITALS: BP 154/82; BP 169/81; PULSE 80; RESP 16; O2SAT 98
[2023-08-13] MEDS: Ketorolac 30 MG/ML Syringe IV (12:08)
[2023-08-13 12:10] VITALS: BP 166/83; BP 169/81; PULSE 81; RESP 16; TEMP 36.8; O2SAT 99
[2023-08-13 12:34] VITALS: BP 169/81
== END 2023-08-13 12:56 | disposition home or self-care (01) ==
LOC: SDC 08:05 → AC 08:06
PROVIDERS: PCP Family Medicine; Referring Provider Podiatrist; Visit Provider Podiatrist
PROC: (CPT 27792; principal; 2023-08-13 09:15)
DX: T84.84XA Pain due to internal orthopedic prosthetic devices, implants and grafts, initial encounter (principal); I82.409 Acute embolism and thrombosis of unspecified deep veins of unspecified lower extremity; F10.20 Alcohol dependence, uncomplicated; S82.62XA Displaced fracture of lateral malleolus of left fibula, initial encounter for closed fracture; G62.9 Polyneuropathy, unspecified; Z79.01 Long term (current) use of anticoagulants; Z79.899 Other long term (current) drug therapy; F17.210 Nicotine dependence, cigarettes, uncomplicated; E87.1 Hypo-osmolality and hyponatremia; M21.00 Valgus deformity, not elsewhere classified, unspecified site; Z91.198 Patient's noncompliance with other medical treatment and regimen for other reason; Y79.2 Prosthetic and other implants, materials and accessory orthopedic devices associated with adverse incidents
CPT/HCPCS: 27792; 20690; 01480; 73600; 73610; 76000; J7120; J2405

== ENCOUNTER → 2023-08-20 | Outpatient (CLI) | payer OTHER, SELFPAY ==
--- NOTE | 2023-08-20 13:30 | RAD_ITS ---
STUDY: XR Ankle Min 3 Views REASON FOR EXAM: Male, 58 years old. ANKLE PAIN TECHNIQUE: XR Ankle Min 3 Views RIGHT COMPARISON: None. FINDINGS: Normal visualized distal tibia and fibula. Normal medial and lateral malleoli. Normal tibiotalar articulation and ankle mortise. Degenerative changes of the tarsometatarsal joints. The visualized subtalar, talonavicular, calcaneocuboid and tarsal articulations are normal. There is a plantar calcaneal spur. There is soft tissue swelling around the ankle. RAD/Ankle min 3 Views IMPRESSION: There is soft tissue swelling. Electronically Signed: Martin Del Valle MD at 17:00 EDT ,
--- NOTE | 2023-08-20 13:30 | RAD_ITS ---
INDICATION: pain EXAMINATION/TECHNIQUE: X-RAY - LEFT XR Ankle Min 3 Views 3 VIEWS COMPARISON: Prior studies dated: 05/18/2023 and 08/13/2023 FINDINGS: SOFT TISSUES: The ankle is in cast obscuring the soft tissue details. Soft tissue swelling laterally. BONES/JOINTS: Status post ORIF for fracture of the distal fibula with sideplate and screws. Skin stephanie are seen in the medial aspect of the ankle. Asymmetric widening of the medial aspect of the ankle mortise unchanged. RAD/Ankle min 3 Views IMPRESSION: No significant change since previous exam. Electronically Signed: Shayne Sage MD at 14:14 EDT ,
== END | disposition home or self-care (01) ==
LOC: MTRAD 13:26
PROVIDERS: PCP Family Medicine; Referring Provider Podiatrist; Visit Provider Podiatrist
DX: L97.322 Non-pressure chronic ulcer of left ankle with fat layer exposed (principal)
CPT/HCPCS: 73610

== ENCOUNTER 2023-08-31 09:45 | Outpatient (RCR) | payer OTHER, SELFPAY ==
[2023-08-17 09:17] VITALS: BP 164/77; PULSE 89; RESP 18; TEMP 36.6
--- NOTE | 2023-08-17 09:47 | PCM.WC.PN ---
History of Present Illness Date of Service: 08/17/23 History of Wound: Patient presents for follow-up after left ankle syndesmotic stabilization with hardware removal performed on 08/12/2014. Patient denies any fever chills chest pain calf pain shortness of breath today. Patient denies any other complaints. Patient had an AO splint with a overlying cast boot to his left lower extremity. Objective Data Objective Data Vital Signs: Vital Signs Temp Pulse Resp BP 97.9 F 89 18 164/77 H 08/17/23 09:17 08/17/23 09:17 08/17/23 09:17 08/17/23 09:17 Physical Exam Narrative Neurovascular status unchanged. Incisions to medial ankle intact and well-approximated with intact dimple. Small dehiscence noted to the lateral ankle incisional site. Dimple were removed from the site to this issue. No acute signs of infection noted. Pre and postdebridement measurements documented nursing notes. There is diffuse scarring to the venessa-incisional area as this is previous site of incisional breakdown. Some pitting edema noted to bilateral lower extremity. Deferred range of motion stressing left ankle due to 1 week postop. Const alert and oriented x3 Debridement Note Debridement Note Post-Debridement Measurements and Additional Note: Post-Debridement Measurements/Treatment WC - Nurse 1 - General Ulcer Assessment Start: 08/17/23 09:17 Freq: Status: Active Protocol: [email or web address] Activity Type Activity Date Activity User E-sign Co-sign Detail Recorded Client Recorded Date Recorded By Document 08/17/23 09:17 Desktop 08/17/23 09:38 RB 08/17/23 09:17 - Today's Visit Information Type of service Follow-up Visit (Physician/BRIM STRETCHER ) Arrival Mode Ambulatory Transfer Assistance None Patient Identification Verified (Name & Yes ) Patient Requires Transmission-Based No Precautions Vital Signs Temperature (97.8 F-99.1 F) 97.9 F Temperature Source Temporal Pulse Rate (60-100) 89 Pulse Location Monitor Respiratory Rate (12-18) 18 Respiratory rate source Observation Blood Pressure (90/60-120/80) 164/77 H Blood Pressure Mean (mm Hg) 106 Source Monitor Position Sitting Blood Pressure Location Left Arm History Since Last Visit- (Skip if this is Patient's initial visit) Have you changed medications since your Yes last visit? Any new allergies or adverse reactions No Had a fall/change in ADL's that may No increase risk of falls Signs or symptoms of abuse and/or No neglect since last visit Have you been in the hospital since your Yes last visit? Has dressing in place as prescribed Yes Has compression in place as prescribed Yes Has offloadiing in place as prescribed Yes Experienced any changes in pain level or No management Left Footwear Surgical Shoe with pressure relief insole Right Footwear Regular Shoe Pain Scale: 0-10 Numeric Is Patient Pain Free? Yes WC - Nurse 1 - General Ulcer Measurement Start: 08/17/23 09:17 Freq: Status: Active Protocol: Activity Type Activity Date Activity User E-sign Co-sign Detail Recorded Client Recorded Date Recorded By Document 08/17/23 09:17 RB Desktop 08/17/23 09:38 RB 08/17/23 09:17 Wound Center Nurse 1 3. LLE medial ankle -Combined with other wound No -Current Size (cm) - Length 0.1 -Current Size (cm) - Width 0.1 -Current Size (cm) - Depth 0.1 -Total Square Cm 0.01 -Photo Taken Yes -Tunneling No -Undermining/Tunneling No -Circular Undermining No -Exudate Amt Large -Exudate Type Serosanguineous -Wound Margin Distinct, Outline Attached -Granulation Amt Large (67-100%) -Granulation Quality [place] -Slough/Fibrin No -Necrosis Amt None Present (0 %) -Structure Exposed N/A -Texture (Venessa-wound Skin Appearance) Assessed -Moisture (Venessa-wound Skin Appearance) Assessed -Color (Venessa-wound Skin Appearance) Assessed -Temperature (Venessa-wound Skin No Abnormality Appearance) (Pt Warm) -Tenderness on Palpation (Venessa-wound No Skin Appearance) -Ulcer Cleansing Wound Cleanser -Wound Comment(s) 11 dimple intact and incision well approximated 2. LLE lateral ankle -Combined with other wound No -Current Size (cm) - Length 0.1 -Current Size (cm) - Width 0.1 -Current Size (cm) - Depth 0.1 -Total Square Cm 0.01 -Photo Taken Yes -Tunneling No -Undermining/Tunneling No -Circular Undermining No -Exudate Amt Large -Exudate Type Serosanguineous -Wound Margin Distinct, Outline Attached -Granulation Amt Large (67-100%) -Granulation Quality [place] -Slough/Fibrin No -Structure Exposed N/A -Texture (Venessa-wound Skin Appearance) Assessed -Moisture (Venessa-wound Skin Appearance) Assessed -Color (Venessa-wound Skin Appearance) Assessed -Temperature (Venessa-wound Skin No Abnormality Appearance) (Pt Warm) -Tenderness on Palpation (Venessa-wound No Skin Appearance) -Ulcer Cleansing Wound Cleanser -Foul Odor after Cleansing No -Wound Comment(s) 7 dimple, 2 sutures intact . incision well appproximated WC - Nurse 2 - General Ulcer CM Notes Start: 08/17/23 09:17 Freq: Status: Active Protocol: Activity Type Activity Date Activity User E-sign Co-sign Detail Recorded Client Recorded Date Recorded By Document 08/17/23 09:44 Laptop 08/17/23 09:47 08/17/23 09:44 Wound Center Nurse 2 3. LLE medial ankle -Time 09:44 -Correct Patient No -Correct Side, Site, Position No -Post Debridement (cm) - Length 1.7 -Post Debridement (cm) - Width 0.3 -Post Debridement (cm) - Depth 0.2 -Total Square (Post) (cm) 0.51 -Area of Debridement (cm) - Length 1.7 -Area of Debridement (cm) - Width 0.3 -Total Square (Area) (cm) 0.51 -Tunneling No -Undermining/Tunneling No -Circular Undermining No -Wound/Ulcer Outcome Not Healed -Ulcer Cleansing Rinsed/ Irrigated with Saline -Foul Odor after Cleansing No -Bioengineered Tissue No -Bleeding Controlled with Pressure -Treatment Response Procedure Tolerated Well -Offloading Yes -Type of Offloading Total Contact Cast (TCC) - Left ($) -Debridement - Subq, 1st 20sq cm Yes 2. LLE lateral ankle -Correct Patient Yes -Correct Side, Site, Position Yes -Correct Procedure Yes -Procedure Performed Yes -Type of Procedure Debridement -Clinical Debridement Subcutaneous -Tissue Removed Subcutaneous -Post Debridement (cm) - Length 1.7 -Post Debridement (cm) - Width 0.3 -Post Debridement (cm) - Depth 0.2 -Total Square (Post) (cm) 0.51 -Area of Debridement (cm) - Length 1.7 -Area of Debridement (cm) - Width 0.3 -Total Square (Area) (cm) 0.51 -Tunneling No -Undermining/Tunneling No -Circular Undermining No -Wound/Ulcer Outcome Not Healed -Ulcer Cleansing Rinsed/ Irrigated with Saline -Foul Odor after Cleansing No -Bioengineered Tissue No -Bleeding Controlled with Pressure -Treatment Response Procedure Tolerated Well -Offloading Yes -Type of Offloading Total Contact Cast (TCC) - Left ($) -Debridement - Subq, 1st 20sq cm Yes Pain Scale: 0-10 Numeric Is Patient Pain Free? Yes Assessment/Plan Assessment/Plan (1) Painful orthopaedic hardware: CODE(S): T84.84XA - Pain due to internal orthopedic prosthetic devices, implants and grafts, initial encounter PLAN: Exam performed. Radiographs ordered. Incisional site was debrided excisionally down to including level of subcutaneous tissue of all nonviable tissue using a 5 mm dermal curette. Patient tolerated procedure well. No anesthesia due to neuropathy. Pre and postdebridement measurements documented nursing notes. Hemostasis obtained with light compression. Dressed incisional sites with Betadine and Adaptic and dressed wound site with silver alginate. Total contact cast with left lower extremity held in a rectus position applied. Patient will maintain protected weightbearing total contact cast in cast boot assisted by walker. Patient is taking 5 mg Eliquis daily for acute DVT left lower extremity Patient will follow-up in 1 week. 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
--- NOTE | 2023-08-23 09:53 | WC ---
08/17/2023 LLE/LATERAL ANKLE
--- NOTE | 2023-08-23 09:54 | WC ---
08/17/2023 LLE MEDIAL ANKLE
[2023-08-24 09:34] VITALS: BP 179/99; PULSE 86; RESP 18; TEMP 36.3
--- NOTE | 2023-08-24 10:25 | PCM.WC.PN ---
History of Present Illness Date of Service: 08/24/23 History of Wound: Patient presents for follow-up after left ankle syndesmotic stabilization with hardware removal performed on 08/12/2014. Patient denies any fever chills chest pain calf pain shortness of breath today. Patient denies any other complaints. Patient had an AO splint with a overlying cast boot to his left lower extremity. Objective Data Objective Data Vital Signs: Vital Signs Temp Pulse Resp BP O2 Del Method 97.4 F L 86 18 179/99 H Room Air 08/24/23 09:34 08/24/23 09:34 08/24/23 09:34 08/24/23 09:34 08/24/23 09:34 Oxygen Delivery Method Room Air Physical Exam Narrative Neurovascular status unchanged. Incisions to medial ankle intact and well-approximated with intact dimple. Small dehiscence noted to the lateral ankle incisional site. Dimple were removed from the site to this issue. No acute signs of infection noted. Pre and postdebridement measurements documented nursing notes. There is diffuse scarring to the venessa-incisional area as this is previous site of incisional breakdown. Some pitting edema noted to bilateral lower extremity. Deferred range of motion stressing left ankle due to 1 week postop. Const alert and oriented x3 Debridement Note Debridement Note Post-Debridement Measurements and Additional Note: Post-Debridement Measurements/Treatment - Nurse 1 - General Ulcer Assessment Start: 08/17/23 09:17 Freq: Status: Active Protocol: WC.LOWEXT Activity Type Activity Date Activity User E-sign Co-sign Detail Recorded Client Recorded Date Recorded By Document 08/17/23 09:17 RB Desktop 08/17/23 09:38 RB Document 08/24/23 09:34 KW Desktop 08/24/23 09:46 KW 08/17/23 08/24/23 09:17 09:34 - Today's Visit Information Type of service Follow-up Visit Follow-up Visit (Physician/AMPOULE WASHING MACHINE OPERATOR (Physician/AMPOULE WASHING MACHINE OPERATOR ) ) Arrival Mode Ambulatory Ambulatory Transfer Assistance None Patient Identification Verified (Name & Yes Yes ) Patient Requires Transmission-Based No Precautions Vital Signs Temperature (97.8 F-99.1 F) 97.9 F 97.4 F L Temperature Source Temporal Temporal Pulse Rate (60-100) 89 86 Pulse Location Monitor Monitor Respiratory Rate (12-18) 18 18 Respiratory rate source Observation Observation Oxygen Delivery Method Room Air Blood Pressure (90/60-120/80) 164/77 H 179/99 H Blood Pressure Mean (mm Hg) 106 125 Source Monitor Monitor Position Sitting Semi-Fowlers Blood Pressure Location Left Arm Left Arm History Since Last Visit- (Skip if this is Patient's initial visit) Have you changed medications since your Yes Yes last visit? Any new allergies or adverse reactions No No Had a fall/change in ADL's that may No No increase risk of falls Signs or symptoms of abuse and/or No No neglect since last visit Have you been in the hospital since your Yes No last visit? Has dressing in place as prescribed Yes Yes Has compression in place as prescribed Yes N/A Has offloadiing in place as prescribed Yes Yes Experienced any changes in pain level or No No management Left Footwear Surgical Shoe Total Contact with pressure Cast relief insole Right Footwear Regular Shoe Regular Shoe Pain Scale: 0-10 Numeric Is Patient Pain Free? Yes Yes WC - Nurse 1 - General Ulcer Measurement Start: 08/17/23 09:17 Freq: Status: Active Protocol: Activity Type Activity Date Activity User E-sign Co-sign Detail Recorded Client Recorded Date Recorded By Document 08/17/23 09:17 RB Desktop 08/17/23 09:38 RB Document 08/24/23 09:34 KW Desktop 08/24/23 09:46 KW 08/17/23 08/24/23 09:17 09:34 Wound Center Nurse 1 3. LLE medial ankle -Combined with other wound No -Current Size (cm) - Length 0.1 -Current Size (cm) - Width 0.1 -Current Size (cm) - Depth 0.1 -Total Square Cm 0.01 -Photo Taken Yes -Tunneling No -Undermining/Tunneling No -Circular Undermining No -Exudate Amt Large Medium -Exudate Type Serosanguineous Serosanguineous -Wound Margin Distinct, Outline Attached -Granulation Amt Large (67-100%) -Granulation Quality [place] -Slough/Fibrin No -Necrosis Amt None Present (0 %) -Structure Exposed N/A -Texture (Venessa-wound Skin Appearance) Assessed Assessed -Moisture (Venessa-wound Skin Appearance) Assessed Assessed -Color (Venessa-wound Skin Appearance) Assessed Assessed -Temperature (Venessa-wound Skin No Abnormality No Abnormality Appearance) (Pt Warm) (Pt Warm) -Tenderness on Palpation (Venessa-wound No No Skin Appearance) -Ulcer Cleansing Wound Cleanser Soap and Water -Foul Odor after Cleansing No -Wound Comment(s) 11 dimple INTACT SUTURES intact and AND DIMPLE incision well approximated 2. LLE lateral ankle -Combined with other wound No -Current Size (cm) - Length 0.1 -Current Size (cm) - Width 0.1 -Current Size (cm) - Depth 0.1 -Total Square Cm 0.01 -Photo Taken Yes -Tunneling No -Undermining/Tunneling No -Circular Undermining No -Exudate Amt Large Small -Exudate Type Serosanguineous Serosanguineous -Wound Margin Distinct, Outline Attached -Granulation Amt Large (67-100%) -Granulation Quality [place] -Slough/Fibrin No -Structure Exposed N/A -Texture (Venessa-wound Skin Appearance) Assessed Assessed -Moisture (Venessa-wound Skin Appearance) Assessed Assessed -Color (Venessa-wound Skin Appearance) Assessed Assessed -Temperature (Venessa-wound Skin No Abnormality No Abnormality Appearance) (Pt Warm) (Pt Warm) -Tenderness on Palpation (Venessa-wound No No Skin Appearance) -Ulcer Cleansing Wound Cleanser Soap and Water -Foul Odor after Cleansing No No -Wound Comment(s) 7 dimple, 2 INTACT SUTURES sutures intact AND DIMPLE . incision well appproximated Left Calf (cm) 37 Left Ankle (cm) 26 WC - Nurse 2 - General Ulcer CM Notes Start: 08/17/23 09:17 Freq: Status: Active Protocol: Activity Type Activity Date Activity User E-sign Co-sign Detail Recorded Client Recorded Date Recorded By Document 08/17/23 09:44 Laptop 08/17/23 09:47 Edit Result 08/17/23 09:44 JF (1) Laptop 08/17/23 10:09 JF Document 08/24/23 10:05 JF Laptop 08/24/23 10:07 GRACIELA (1) 3. LLE medial ankle - Correct Procedure => No - Procedure Performed => No - Post Debridement (cm) - Length 1.7 => - Post Debridement (cm) - Width 0.3 => - Post Debridement (cm) - Depth 0.2 => - Total Square (Post) (cm) 0.51 => - Area of Debridement (cm) - Length 1.7 => - Area of Debridement (cm) - Width 0.3 => - Total Square (Area) (cm) 0.51 => - Offloading Yes => No - Type of Offloading Total Contact Cast => (TCC) - Left ($) => - Debridement - Subq, 1st 20sq cm Yes => 08/17/23 08/24/23 09:44 10:05 Wound Center Nurse 2 3. LLE medial ankle -Time 09:44 -Correct Patient No No -Correct Side, Site, Position No No -Correct Procedure No No -Procedure Performed No No -Post Debridement (cm) - Length 0 -Post Debridement (cm) - Width 0 -Post Debridement (cm) - Depth 0 -Total Square (Post) (cm) 0 -Area of Debridement (cm) - Length 0 -Area of Debridement (cm) - Width 0 -Total Square (Area) (cm) 0 -Tunneling No -Undermining/Tunneling No -Circular Undermining No -Wound/Ulcer Outcome Not Healed Healed- Epithelialized -Ulcer Cleansing Rinsed/ Irrigated with Saline -Foul Odor after Cleansing No -Bioengineered Tissue No -Bleeding Controlled with Pressure -Treatment Response Procedure Tolerated Well -Offloading No 2. LLE lateral ankle -Time 10:07 -Correct Patient Yes Yes -Correct Side, Site, Position Yes Yes -Correct Procedure Yes Yes -Procedure Performed Yes Yes -Type of Procedure Debridement Debridement -Clinical Debridement Subcutaneous Subcutaneous -Tissue Removed Subcutaneous Subcutaneous -Post Debridement (cm) - Length 1.7 4.0 -Post Debridement (cm) - Width 0.3 0.4 -Post Debridement (cm) - Depth 0.2 0.5 -Total Square (Post) (cm) 0.51 1.60 -Area of Debridement (cm) - Length 1.7 4.0 -Area of Debridement (cm) - Width 0.3 0.4 -Total Square (Area) (cm) 0.51 1.60 -Tunneling No No -Undermining/Tunneling No No -Circular Undermining No No -Wound/Ulcer Outcome Not Healed Not Healed -Ulcer Cleansing Rinsed/ Rinsed/ Irrigated with Irrigated with Saline Saline -Foul Odor after Cleansing No No -Bioengineered Tissue No No -Bleeding Controlled with Pressure Pressure -Treatment Response Procedure Procedure Tolerated Well Tolerated Well -Offloading Yes Yes -Type of Offloading Total Contact Total Contact Cast (TCC) - Cast (TCC) - Left ($) Left ($) -Debridement - Subq, 1st 20sq cm Yes Yes Pain Scale: 0-10 Numeric Is Patient Pain Free? Yes Yes - Nurse 3 - General Ulcer D/C NN Start: 08/17/23 09:17 Freq: Status: Active Protocol: Activity Type Activity Date Activity User E-sign Co-sign Detail Recorded Client Recorded Date Recorded By Document 08/17/23 10:26 DL Desktop 08/17/23 10:28 DL 08/17/23 10:26 Wound Care Center Nurse 3 3. LLE medial ankle -Ulcer Cleansing Soap and Water -Foul Odor after Cleansing No -Primary Dressing Applied Optilok 6.5x10, Silvercel -Other Dressing Betadine -Primary Dressing Covered/Secured with Dry Gauze & Roll Gauze -Optilok 6.5x10 1 -Silver[place] 1 2. LLE lateral ankle -Ulcer Cleansing Soap and Water -Other Dressing silvercell/ betadine/ABD -Primary Dressing Covered/Secured with Dry Gauze & Roll Gauze Left -Other TCC Treatment Response Procedure Tolerated Well Pain Scale: 0-10 Numeric Is Patient Pain Free? Yes - Visit Discharge Discharge Condition Stable Ambulatory Status Ambulatory Transportation Private Auto Notes: TCC applied to LLE today Assessment/Plan Assessment/Plan (1) Painful orthopaedic hardware: CODE(S): T84.84XA - Pain due to internal orthopedic prosthetic devices, implants and grafts, initial encounter PLAN: Exam performed. Radiographs reviewed. Some residual diastases tibiofibular joint. Deltoid insufficiency noted. Will plan for custom bracing for long-term stability and reserve TTC fusion as a salvage procedure if required. Will avoid aggressive management at current due to alcoholism, smoking status, arterial disease, compliance. Dimple removed. Medial incisions healed. Some lateral ankle incisional dehiscence noted. Incisional site was debrided excisionally down to including level of subcutaneous tissue of all nonviable tissue using a 5 mm dermal curette. Patient tolerated procedure well. No anesthesia due to neuropathy. Pre and postdebridement measurements documented nursing notes. Hemostasis obtained with light compression. Dressed incisional sites with Betadine and Adaptic and dressed wound site with silver alginate. Total contact cast with left lower extremity held in a rectus position applied. Patient will maintain protected weightbearing total contact cast in cast boot assisted by walker. Patient is taking 5 mg Eliquis daily for acute DVT left lower extremity Patient will follow-up in 1 week. 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
[2023-08-31 09:35] VITALS: BP 172/77; PULSE 85; TEMP 36.1
--- NOTE | 2023-08-31 10:27 | PN.PCM_ITS ---
History of Present Illness Date of Service: 08/31/23 History of Wound: Patient presents for follow-up after left ankle syndesmotic stabilization with hardware removal performed on 08/12/2014. Patient denies any fever chills chest pain calf pain shortness of breath today. Patient denies any other complaints. Patient had an AO splint with a overlying cast boot to his left lower extremity. Objective Data Objective Data Vital Signs: Vital Signs Temp Pulse Resp BP O2 Del Method 96.9 F L 85 18 172/77 H Room Air 08/31/23 09:35 08/31/23 09:35 08/24/23 09:34 08/31/23 09:35 08/24/23 09:34 Oxygen Delivery Method Room Air Physical Exam Narrative Neurovascular status unchanged. Incisions to medial ankle intact and well-approximated with intact dimple. Small dehiscence noted to the lateral ankle incisional site. Dimple were removed from the site to this issue. No acute signs of infection noted. Pre and postdebridement measurements documented nursing notes. There is diffuse sc arring to the venessa-incisional area as this is previous site of incisional breakdown. Some pitting edema noted to bilateral lower extremity. Deferred range of motion stressing left ankle due to 1 week postop. Const alert and oriented x3 Debridement Note Debridement Note Post-Debridement Measurements and Additional Note: Post-Debridement Measurements/Treatment - Nurse 1 - General Ulcer Assessment Start: 08/17/23 09:17 Freq: Status: Active Protocol: WC.LOWEXT Activity Type Activity Date Activity User E-sign Co-sign Detail Recorded Client Recorded Date Recorded By Document 08/17/23 09:17 RB Desktop 08/17/23 09:38 RB Document 08/24/23 09:34 KW Desktop 08/24/23 09:46 KW Document 08/31/23 09:35 DL Desktop 08/31/23 09:49 DL 08/17/23 08/24/23 08/31/23 09:17 09:34 09:35 - Today's Visit Information Type of service Follow-up Visit Follow-up Visit Follow-up Visit (Physician/LINK AND LINK KNITTING MACHINE OPERATOR (Physician/LINK AND LINK KNITTING MACHINE OPERATOR (Physician/LINK AND LINK KNITTING MACHINE OPERATOR ) ) ) Arrival Mode Ambulatory Ambulatory Ambulatory Transfer Assistance None Patient Identification Verified (Name & Yes Yes Yes ) Patient Requires Transmission-Based No Precautions Safety Precautions NA Vital Signs Temperature (97.8 F-99.1 F) 97.9 F 97.4 F L 96.9 F L Temperature Source Temporal Temporal Temporal Pulse Rate (60-100) 89 86 85 Pulse Location Monitor Monitor Monitor Respiratory Rate (12-18) 18 18 Respiratory rate source Observation Observation Oxygen Delivery Method Room Air Blood Pressure (90/60-120/80) 164/77 H 179/99 H 172/77 H Blood Pressure Mean (mm Hg) 106 125 108 Source Monitor Monitor Monitor Position Sitting Semi-Fowlers Sitting Blood Pressure Location Left Arm Left Arm Right Arm History Since Last Visit- (Skip if this is Patient's initial visit) Have you changed medications since your Yes Yes No last visit? Any new allergies or adverse reactions No No No Had a fall/change in ADL's that may No No No increase risk of falls Signs or symptoms of abuse and/or No No No neglect since last visit Have you been in the hospital since your Yes No No last visit? Has dressing in place as prescribed Yes Yes Yes Has compression in place as prescribed Yes N/A N/A Has offloadiing in place as prescribed Yes Yes Yes Experienced any changes in pain level or No No Yes management Left Footwear Surgical Shoe Total Contact Total Contact with pressure Cast Cast relief insole Right Footwear Regular Shoe Regular Shoe Regular Shoe Pain Scale: 0-10 Numeric Is Patient Pain Free? Yes Yes Yes WC - Nurse 1 - General Ulcer Measurement Start: 08/17/23 09:17 Freq: Status: Active Protocol: Activity Type Activity Date Activity User E-sign Co-sign Detail Recorded Client Recorded Date Recorded By Document 08/17/23 09:17 RB Desktop 08/17/23 09:38 RB Document 08/24/23 09:34 KW Desktop 08/24/23 09:46 KW Document 08/31/23 09:35 DL Desktop 08/31/23 09:49 DL 08/17/23 08/24/23 08/31/23 09:17 09:34 09:35 Wound Center Nurse 1 3. LLE medial ankle -Combined with other wound No -Current Size (cm) - Length 0.1 2 -Current Size (cm) - Width 0.1 1.1 -Current Size (cm) - Depth 0.1 0.1 -Total Square Cm 0.01 2.2 -Photo Taken Yes No -Tunneling No No -Undermining/Tunneling No No -Circular Undermining No No -Exudate Amt Large Medium Medium -Exudate Type Serosanguineous Serosanguineous Serosanguineous -Wound Margin Distinct, Distinct, Outline Outline Attached Attached -Granulation Amt Large (67-100%) Medium (34-66%) -Granulation Quality [place] -Slough/Fibrin No Yes -Necrosis Amt None Present (0 Medium (34-66%) %) -Necrotic Tissue Type Adherent Slough -Structure Exposed N/A -Texture (Venessa-wound Skin Appearance) Assessed Assessed Assessed, Localized Edema -Moisture (Venessa-wound Skin Appearance) Assessed Assessed Assessed,Dry/ Scaly -Color (Venessa-wound Skin Appearance) Assessed Assessed Assessed, Erythema -Temperature (Venessa-wound Skin No Abnormality No Abnormality No Abnormality Appearance) (Pt Warm) (Pt Warm) (Pt Warm) -Tenderness on Palpation (Venessa-wound No No Yes Skin Appearance) -Ulcer Cleansing Wound Cleanser Soap and Water Soap and Water -Foul Odor after Cleansing No -Anesthetic Used 5% Lidocaine Gel -Wound Comment(s) 11 dimple INTACT SUTURES intact and AND DIMPLE incision well approximated 2. LLE lateral ankle -Combined with other wound No -Current Size (cm) - Length 0.1 4.2 -Current Size (cm) - Width 0.1 0.4 -Current Size (cm) - Depth 0.1 0.4 -Total Square Cm 0.01 1.68 -Photo Taken Yes No -Tunneling No No -Undermining/Tunneling No -Circular Undermining No No -Exudate Amt Large Small Medium -Exudate Type Serosanguineous Serosanguineous Serosanguineous -Wound Margin Distinct, Distinct, Outline Outline Attached Attached -Granulation Amt Large (67-100%) Small (1-33%) -Granulation Quality [place] -Slough/Fibrin No -Necrosis Amt Large (67-100%) -Necrotic Tissue Type Adherent Slough -Structure Exposed N/A Bone -Texture (Venessa-wound Skin Appearance) Assessed Assessed Assessed, Scarring -Moisture (Venessa-wound Skin Appearance) Assessed Assessed Assessed,Dry/ Scaly -Color (Venessa-wound Skin Appearance) Assessed Assessed Assessed, Erythema -Temperature (Venessa-wound Skin No Abnormality No Abnormality No Abnormality Appearance) (Pt Warm) (Pt Warm) (Pt Warm) -Tenderness on Palpation (Venessa-wound No No Yes Skin Appearance) -Ulcer Cleansing Wound Cleanser Soap and Water Soap and Water -Foul Odor after Cleansing No No No -Anesthetic Used 5% Lidocaine Gel -Wound Comment(s) 7 dimple, 2 INTACT SUTURES sutures intact AND DIMPLE . incision well appproximated Left Calf (cm) 37 Left Ankle (cm) 26 WC - Nurse 2 - General Ulcer CM Notes Start: 08/17/23 09:17 Freq: Status: Active Protocol: Activity Type Activity Date Activity User E-sign Co-sign Detail Recorded Client Recorded Date Recorded By Document 08/17/23 09:44 Laptop 08/17/23 09:47 Edit Result 08/17/23 09:44 (1) Laptop 08/17/23 10:09 Document 08/24/23 10:05 Laptop 08/24/23 10:07 Document 08/31/23 10:23 Laptop 08/31/23 10:24 (1) 3. LLE medial ankle - Correct Procedure => No - Procedure Performed => No - Post Debridement (cm) - Length 1.7 => - Post Debridement (cm) - Width 0.3 => - Post Debridement (cm) - Depth 0.2 => - Total Square (Post) (cm) 0.51 => - Area of Debridement (cm) - Length 1.7 => - Area of Debridement (cm) - Width 0.3 => - Total Square (Area) (cm) 0.51 => - Offloading Yes => No - Type of Offloading Total Contact Cast => (TCC) - Left ($) => - Debridement - Subq, 1st 20sq cm Yes => 08/17/23 08/24/23 08/31/23 09:44 10:05 10:23 Wound Center Nurse 2 3. LLE medial ankle -Time 09:44 -Correct Patient No No No -Correct Side, Site, Position No No No -Correct Procedure No No No -Procedure Performed No No No -Post Debridement (cm) - Length 0 -Post Debridement (cm) - Width 0 -Post Debridement (cm) - Depth 0 -Total Square (Post) (cm) 0 -Area of Debridement (cm) - Length 0 -Area of Debridement (cm) - Width 0 -Total Square (Area) (cm) 0 -Tunneling No -Undermining/Tunneling No -Circular Undermining No -Wound/Ulcer Outcome Not Healed Healed- Not Healed Epithelialized -Ulcer Cleansing Rinsed/ Irrigated with Saline -Foul Odor after Cleansing No -Bioengineered Tissue No -Bleeding Controlled with Pressure -Treatment Response Procedure Tolerated Well -Offloading No 2. LLE lateral ankle -Time 10:07 10:24 -Correct Patient Yes Yes Yes -Correct Side, Site, Position Yes Yes Yes -Correct Procedure Yes Yes Yes -Procedure Performed Yes Yes Yes -Type of Procedure Debridement Debridement Debridement -Clinical Debridement Subcutaneous Subcutaneous Subcutaneous -Tissue Removed Subcutaneous Subcutaneous Subcutaneous -Post Debridement (cm) - Length 1.7 4.0 4.0 -Post Debridement (cm) - Width 0.3 0.4 0.6 -Post Debridement (cm) - Depth 0.2 0.5 0.5 -Total Square (Post) (cm) 0.51 1.60 2.40 -Area of Debridement (cm) - Length 1.7 4.0 4.0 -Area of Debridement (cm) - Width 0.3 0.4 0.6 -Total Square (Area) (cm) 0.51 1.60 2.40 -Tunneling No No No -Undermining/Tunneling No No No -Circular Undermining No No No -Wound/Ulcer Outcome Not Healed Not Healed Not Healed -Ulcer Cleansing Rinsed/ Rinsed/ Rinsed/ Irrigated with Irrigated with Irrigated with Saline Saline Saline -Foul Odor after Cleansing No No No -Bioengineered Tissue No No No -Bleeding Controlled with Pressure Pressure Pressure -Treatment Response Procedure Procedure Procedure Tolerated Well Tolerated Well Tolerated Well -Offloading Yes Yes No -Type of Offloading Total Contact Total Contact Cast (TCC) - Cast (TCC) - Left ($) Left ($) -Debridement - Subq, 1st 20sq cm Yes Yes Yes Pain Scale: 0-10 Numeric Is Patient Pain Free? Yes Yes Yes WC - Nurse 3 - General Ulcer D/C NN Start: 08/17/23 09:17 Freq: Status: Active Protocol: Activity Type Activity Date Activity User E-sign Co-sign Detail Recorded Client Recorded Date Recorded By Document 08/17/23 10:26 DL Desktop 08/17/23 10:28 DL Document 08/24/23 10:26 RB Desktop 08/24/23 10:28 RB 08/17/23 08/24/23 10:26 10:26 Wound Care Center Nurse 3 3. LLE medial ankle -Ulcer Cleansing Soap and Water -Foul Odor after Cleansing No -Primary Dressing Applied Optilok 6.5x10, Silvercel -Other Dressing Betadine -Primary Dressing Covered/Secured with Dry Gauze & Roll Gauze -Optilok 6.5x10 1 -Silvercel 1 2. LLE lateral ankle -Ulcer Cleansing Soap and Water Rinsed/ Irrigated with Saline -Primary Dressing Applied Optilok 6.5x10, Silvercel -Other Dressing silvercell/ betadine/ABD -Primary Dressing Covered/Secured with Dry Gauze & Roll Gauze -Optilok 6.5x10 1 -Silvercel 1 Left -Other TCC primary layer of TCC applied Treatment Response Procedure Procedure Tolerated Well Tolerated Well Pain Scale: 0-10 Numeric Is Patient Pain Free? Yes Yes WC - Visit Discharge Discharge Condition Stable Stable Ambulatory Status Ambulatory Ambulatory Transportation Private Auto Private Auto Medication Reconcilliation completed & No provided to patient/care provider Clinical Summary of Care Provided Yes Notes: TCC applied to LLE today Assessment/Plan Assessment/Plan (1) Painful orthopaedic hardware: CODE(S): T84.84XA - Pain due to internal orthopedic prosthetic devices, i mplants and grafts, initial encounter PLAN: Exam performed. Radiographs of left ankle re-ordered wound to left lateral ankle excisionally debrided using 3mm curette of all non- viable tissue without incident down to and including level of subcutaneous tissue. No anesthesia due to neuropathy. Hemostasis with light compression. patient tolerated procedure well. pre/post debridement measurements noted. dressed with silver alginate to lateral left ankle and 3M wrap offload with boot on left rx for short-articulated AFO ordered for left follow up in 1 week (2) Syndesmotic disruption of left ankle: CODE(S): S93.432A - Sprain of tibiofibular ligament of left ankle, initial encounter QUALIFIERS: Encounter type: subsequent encounter Qualified Code(s): S93.432D - Sprain of tibiofibular ligament of left ankle, subsequent encounter (3) Non-pressure chronic ulcer of left ankle with fat layer exposed: CODE(S): L97.322 - Non-pressure chronic ulcer of left ankle with fat layer exposed (4) Other hereditary and idiopathic neuropathies: CODE(S): G60.8 - Other hereditary and idiopathic neuropathies (5) Other specified peripheral vascular diseases: CODE(S): I73.89 - Other specified peripheral vascular diseases
== END 2023-08-31 23:59 | disposition home or self-care (01) ==
LOC: WC 09:45
PROVIDERS: PCP Family Medicine; Visit Provider Podiatrist
DX: T81.31XA Disruption of external operation (surgical) wound, not elsewhere classified, initial encounter (principal); L97.322 Non-pressure chronic ulcer of left ankle with fat layer exposed; Y83.8 Other surgical procedures as the cause of abnormal reaction of the patient, or of later complication, without mention of misadventure at the time of the procedure; S93.432S Sprain of tibiofibular ligament of left ankle, sequela; T84.84XS Pain due to internal orthopedic prosthetic devices, implants and grafts, sequela; G60.8 Other hereditary and idiopathic neuropathies; I73.89 Other specified peripheral vascular diseases; Z79.01 Long term (current) use of anticoagulants; Z79.899 Other long term (current) drug therapy
CPT/HCPCS: 11042; 29445; 29581

== ENCOUNTER → 2023-09-03 | Outpatient (CLI) | payer OTHER, SELFPAY ==
--- NOTE | 2023-09-03 15:52 | RAD_ITS ---
HISTORY: ULCER. TECHNIQUE: XR Ankle Min 3 Views. COMPARISON: 08/20/2023. FINDINGS: BONES : No acute fracture identified. Generalized osteopenia. Cortical plate and screw fixation of the distal fibula. Hardware at the medial aspect of the distal tibia. Chronic fragment at the medial malleolus. JOINTS: Chronic subluxation and asymmetric widening of the ankle mortise medially. SOFT TISSUES: Diffuse soft tissue swelling. RAD/Ankle min 3 Views IMPRESSION: No significant interval change in appearance of the left ankle. Electronically Signed: Wendy Paez MD at 13:54 EDT ,
== END | disposition home or self-care (01) ==
LOC: MTRAD 15:51
PROVIDERS: PCP Family Medicine; Referring Provider Podiatrist; Visit Provider Podiatrist
DX: L97.322 Non-pressure chronic ulcer of left ankle with fat layer exposed (principal)
CPT/HCPCS: 73610

== ENCOUNTER 2023-09-28 09:30 | Outpatient (RCR) | payer OTHER, SELFPAY ==
[2023-09-01 00:56] VITALS: BP 172/77; PULSE 85; RESP 18; TEMP 36.1
[2023-09-07 09:33] VITALS: BP 144/77; PULSE 78; RESP 18; TEMP 35.9
--- NOTE | 2023-09-07 10:33 | PCM.WC.PN ---
History of Present Illness Date of Service: 09/07/23 History of Wound: Patient presents for follow-up after left ankle syndesmotic stabilization with hardware removal performed on 08/12/2014. Patient denies any fever chills chest pain calf pain shortness of breath today. Patient denies any other complaints. Patient had an AO splint with a overlying cast boot to his left lower extremity. Objective Data Objective Data Vital Signs: Vital Signs Temp Pulse Resp BP O2 Del Method 96.7 F L 78 18 144/77 H Room Air 09/07/23 09:33 09/07/23 09:33 09/07/23 09:33 09/07/23 09:33 09/07/23 09:33 Oxygen Delivery Method Room Air Physical Exam Narrative Neurovascular status unchanged. Incisions to medial ankle intact and well-approximated with intact stephanie. Small dehiscence noted to the lateral ankle incisional site. [place] were removed from the site to this issue. No acute signs of infection noted. Pre and postdebridement measurements documented nursing notes. There is diffuse scarring to the clement-incisional area as this is previous site of incisional breakdown. Some pitting edema noted to bilateral lower extremity. Deferred range of motion stressing left ankle due to 1 week postop. Const alert and oriented x3 Debridement Note Debridement Note Post-Debridement Measurements and Additional Note: Post-Debridement Measurements/Treatment - Nurse 1 - General Ulcer Assessment Start: 09/07/23 09:33 Freq: Status: Active Protocol: WC.LOWEXT Activity Type Activity Date Activity User E-sign Co-sign Detail Recorded Client Recorded Date Recorded By Document 09/07/23 09:33 KW Desktop 09/07/23 09:42 KW 09/07/23 09:33 - Today's Visit Information Type of service Follow-up Visit (Physician/TAIL SAWYER ) Arrival Mode Ambulatory Patient Identification Verified (Name & Yes ) Vital Signs Temperature (97.8 F-99.1 F) 96.7 F L Temperature Source Temporal Pulse Rate (60-100) 78 Pulse Location Monitor Respiratory Rate (12-18) 18 Respiratory rate source Observation Oxygen Delivery Method Room Air Blood Pressure (90/60-120/80) 144/77 H Blood Pressure Mean (mm Hg) 99 Source Monitor Position Semi-Fowlers Blood Pressure Location Left Arm History Since Last Visit- (Skip if this is Patient's initial visit) Have you changed medications since your No last visit? Any new allergies or adverse reactions No Had a fall/change in ADL's that may No increase risk of falls Signs or symptoms of abuse and/or No neglect since last visit Have you been in the hospital since your No last visit? Has dressing in place as prescribed Yes Has compression in place as prescribed Yes Has offloadiing in place as prescribed N/A Experienced any changes in pain level or No management Left Footwear Regular Shoe Right Footwear Regular Shoe Pain Scale: 0-10 Numeric Is Patient Pain Free? Yes WC - Nurse 1 - General Ulcer Measurement Start: 09/07/23 09:33 Freq: Status: Active Protocol: Activity Type Activity Date Activity User E-sign Co-sign Detail Recorded Client Recorded Date Recorded By Document 09/07/23 09:33 KW Desktop 09/07/23 09:42 KW 09/07/23 09:33 Wound Center Nurse 1 3. LLE medial ankle -Current Size (cm) - Length 0.1 -Current Size (cm) - Width 0.1 -Current Size (cm) - Depth 0.1 -Total Square Cm 0.01 -Texture (Clement-wound Skin Appearance) Assessed -Moisture (Clement-wound Skin Appearance) Assessed -Color (Clement-wound Skin Appearance) Assessed -Ulcer Cleansing Soap and Water -Anesthetic Used 5% Lidocaine Gel -Wound Comment(s) SCABBED 2. LLE lateral ankle -Current Size (cm) - Length 3.2 -Current Size (cm) - Width 0.2 -Current Size (cm) - Depth 0.2 -Total Square Cm 0.64 -Wound Margin Thickened & Rolled Under -Granulation Quality Pale,[place] -Texture (Clement-wound Skin Appearance) Assessed -Moisture (Clement-wound Skin Appearance) Assessed, Maceration -Color (Clement-wound Skin Appearance) Assessed -Temperature (Clement-wound Skin No Abnormality Appearance) (Pt Warm) -Ulcer Cleansing Soap and Water -Foul Odor after Cleansing No -Anesthetic Used 5% Lidocaine Gel Right Calf (cm) 36 Right Ankle (cm) 24.5 WC - Nurse 2 - General Ulcer CM Notes Start: 09/07/23 09:33 Freq: Status: Active Protocol: Activity Type Activity Date Activity User E-sign Co-sign Detail Recorded Client Recorded Date Recorded By Document 09/07/23 10:02 JF Laptop 09/07/23 10:05 JF 09/07/23 10:02 Wound Center Nurse 2 3. LLE medial ankle -Time 10:02 -Correct Patient No -Correct Side, Site, Position No -Correct Procedure No -Procedure Performed No -Tunneling No -Undermining/Tunneling No -Circular Undermining No -Wound/Ulcer Outcome Healed- Epithelialized -Ulcer Cleansing Rinsed/ Irrigated with Saline -Foul Odor after Cleansing No -Bioengineered Tissue No -Bleeding Controlled with Pressure -Treatment Response Procedure Tolerated Well -Offloading No -Debridement - Subq, 1st 20sq cm Yes 2. LLE lateral ankle -Time 10:04 -Correct Patient Yes -Correct Side, Site, Position Yes -Correct Procedure Yes -Procedure Performed Yes -Type of Procedure Debridement -Clinical Debridement Subcutaneous -Tissue Removed Subcutaneous -Post Debridement (cm) - Length 4.0 -Post Debridement (cm) - Width 0.4 -Post Debridement (cm) - Depth 0.4 -Total Square (Post) (cm) 1.60 -Area of Debridement (cm) - Length 4.0 -Area of Debridement (cm) - Width 0.4 -Total Square (Area) (cm) 1.60 -Tunneling No -Undermining/Tunneling No -Circular Undermining No -Wound/Ulcer Outcome Not Healed -Ulcer Cleansing Rinsed/ Irrigated with Saline -Foul Odor after Cleansing No -Bioengineered Tissue No -Bleeding Controlled with Pressure -Treatment Response Procedure Tolerated Well -Offloading No -Debridement - Subq, 1st 20sq cm Yes Pain Scale: 0-10 Numeric Is Patient Pain Free? Yes WC - Nurse 3 - General Ulcer D/C NN Start: 09/07/23 09:33 Freq: Status: Active Protocol: Activity Type Activity Date Activity User E-sign Co-sign Detail Recorded Client Recorded Date Recorded By Document 09/07/23 10:10 KW Desktop 09/07/23 10:11 KW 09/07/23 10:10 Wound Care Center Nurse 3 2. LLE lateral ankle -Primary Dressing Applied Silvercel -Primary Dressing Covered/Secured with Dry Gauze & Roll Gauze, Secured with Tape -Silvercel 1 Right -Tubular Bandage Double Layer -Size of Tubigrip Used Size F -Size F ($) 2 -Other USED HCS BRAND Pain Scale: 0-10 Numeric Is Patient Pain Free? Yes WC - Visit Discharge Discharge Condition Stable Ambulatory Status Ambulatory Transportation Private Auto Medication Reconcilliation completed & No provided to patient/care provider Clinical Summary of Care Provided Yes Assessment/Plan Assessment/Plan (1) Painful orthopaedic hardware: CODE(S): T84.84XA - Pain due to internal orthopedic prosthetic devices, implants and grafts, initial encounter PLAN: Exam performed. Radiographs reviewed with patient. Patient has no pain has been ambulating in a cast boot at current. I have ordered patient a short articulated AFO for which she gets fitted next week. wound to left lateral ankle excisionally debrided using 3mm curette of all non-viable tissue without incident down to and including level of subcutaneous tissue. No anesthesia due to neuropathy. Hemostasis with light compression. patient tolerated procedure well. pre/post debridement measurements noted. dressed with silver alginate and Tubigrip. Patient will perform self dressing changes. follow up in 1 week Due to residual deformity and neuropathy status patient will require long-term bracing. If there is any additional breakdown or concern for brace ability of the ankle will plan for TTC fusion via intramedullary nailing. 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
[2023-09-14 09:37] VITALS: BP 183/90; PULSE 87; RESP 16; TEMP 35.9
--- NOTE | 2023-09-14 10:20 | PCM.PROGNOTE ---
Subjective Subjective patient presents today with increased swelling he is taking his eliquis but states he has been inconsistent with use of his tubigrip and elevating limb denies chest pain, calf pain or shortness of breath Objective Data Objective Data Vital Signs: Vital Signs Temp Pulse Resp BP O2 Del Method 96.6 F L 87 16 183/90 H Room Air 09/14/23 09:37 09/14/23 09:37 09/14/23 09:37 09/14/23 09:37 09/07/23 09:33 Oxygen Delivery Method Room Air Physical Exam Narrative Neurovascular status unchanged. Incisions to medial ankle intact and well-approximated with intact stephanie. Small dehiscence noted to the lateral ankle incisional site. [place] were removed from the site to this issue. No acute signs of infection noted. Pre and postdebridement measurements documented nursing notes. There is diffuse scarring to the clement-incisional area as this is previous site of incisional breakdown. Some pitting edema noted to bilateral lower extremity. Deferred range of motion stressing left ankle due to 1 week postop. Const alert and oriented x3 Assessment & Plan Assessment/Plan (1) Painful orthopaedic hardware: PLAN: Exam performed. Radiographs reviewed with patient. Patient has no pain has been ambulating in a cast boot at current. I have ordered patient a short articulated AFO for which she gets fitted next week. wound to left lateral ankle excisionally debrided using 3mm curette of all non-viable tissue without incident down to and including level of subcutaneous tissue. No anesthesia due to neuropathy. Hemostasis with light compression. patient tolerated procedure well. pre/post debridement measurements noted. dressed with silver alginate and Tubigrip. Patient will perform self dressing changes. follow up in 1 week Due to residual deformity and neuropathy status patient will require long-term bracing. If there is any additional breakdown or concern for brace ability of the ankle will plan for TTC fusion via intramedullary nailing. (2) Syndesmotic disruption of left ankle: QUALIFIERS: Encounter type: subsequent encounter Qualified Code(s): S93.432D - Sprain of tibiofibular ligament of left ankle, subsequent encounter (3) Non-pressure chronic ulcer of left ankle with fat layer exposed: (4) Other hereditary and idiopathic neuropathies: (5) Other specified peripheral vascular diseases:
[2023-09-28 09:40] VITALS: BP 156/75; PULSE 77; RESP 18; TEMP 36.1
--- NOTE | 2023-09-28 09:56 | PCM.WC.PN ---
History of Present Illness Date of Service: 09/28/23 History of Wound: Patient presents for follow-up after left ankle syndesmotic stabilization with hardware removal performed on 08/12/2014. Patient denies any fever chills chest pain calf pain shortness of breath today. Patient denies any other complaints. Patient had an AO splint with a overlying cast boot to his left lower extremity. Objective Data Objective Data Vital Signs: Vital Signs Temp Pulse Resp BP O2 Del Method 96.9 F L 77 18 156/75 H Room Air 09/28/23 09:40 09/28/23 09:40 09/28/23 09:40 09/28/23 09:40 09/28/23 09:40 Oxygen Delivery Method Room Air Physical Exam Narrative Neurovascular status unchanged. Incisions to medial ankle intact and well-approximated with intact dimple. Small dehiscence noted to the lateral ankle incisional site. Dimple were removed from the site to this issue. No acute signs of infection noted. Pre and postdebridement measurements documented nursing notes. There is diffuse scarring to the venessa-incisional area as this is previous site of incisional breakdown. Some pitting edema noted to bilateral lower extremity. Deferred range of motion stressing left ankle due to 1 week postop. Const alert and oriented x3 Debridement Note Debridement Note Post-Debridement Measurements and Additional Note: Post-Debridement Measurements/Treatment - Nurse 1 - General Ulcer Assessment Start: 09/07/23 09:33 Freq: Status: Active Protocol: WC.LOWEXT Activity Type Activity Date Activity User E-sign Co-sign Detail Recorded Client Recorded Date Recorded By Document 09/07/23 09:33 KW Desktop 09/07/23 09:42 KW Document 09/14/23 09:37 [id number] 09/14/23 09:41 JF Document 09/28/23 09:40 KW wound center 09/28/23 09:46 KW 09/07/23 09/14/23 09/28/23 09:33 09:37 09:40 - Today's Visit Information Type of service Follow-up Visit Follow-up Visit Follow-up Visit (Physician/WELDING ESTIMATOR (Physician/WELDING ESTIMATOR (Physician/WELDING ESTIMATOR ) ) ) Arrival Mode Ambulatory Ambulatory Ambulatory Patient Identification Verified (Name & Yes Yes ) Patient Requires Transmission-Based No Precautions Vital Signs Temperature (97.8 F-99.1 F) 96.7 F L 96.6 F L 96.9 F L Temperature Source Temporal Temporal Temporal Pulse Rate (60-100) 78 87 77 Pulse Location Monitor Monitor Monitor Respiratory Rate (12-18) 18 16 18 Respiratory rate source Observation Observation Observation Oxygen Delivery Method Room Air Room Air Blood Pressure (90/60-120/80) 144/77 H 183/90 H 156/75 H Blood Pressure Mean (mm Hg) 99 121 102 Source Monitor Monitor Monitor Position Semi-Fowlers Sitting Semi-Fowlers Blood Pressure Location Left Arm Right Arm Left Arm History Since Last Visit- (Skip if this is Patient's initial visit) Have you changed medications since your No No No last visit? Any new allergies or adverse reactions No No No Had a fall/change in ADL's that may No No No increase risk of falls Signs or symptoms of abuse and/or No No No neglect since last visit Have you been in the hospital since your No No No last visit? Has dressing in place as prescribed Yes Yes Yes Has compression in place as prescribed Yes No Yes Has offloadiing in place as prescribed N/A N/A Experienced any changes in pain level or No No management Left Footwear Regular Shoe Regular Shoe Regular Shoe Right Footwear Regular Shoe Regular Shoe Regular Shoe Pain Scale: 0-10 Numeric Is Patient Pain Free? Yes Yes Yes WC - Nurse 1 - General Ulcer Measurement Start: 09/07/23 09:33 Freq: Status: Active Protocol: Activity Type Activity Date Activity User E-sign Co-sign Detail Recorded Client Recorded Date Recorded By Document 09/07/23 09:33 KW Desktop 09/07/23 09:42 KW Document 09/14/23 09:37 [id number] 09/14/23 09:41 Document 09/28/23 09:40 KW wound center 09/28/23 09:46 KW 09/07/23 09/14/23 09/28/23 09:33 09:37 09:40 Wound Center Nurse 1 3. LLE medial ankle -Current Size (cm) - Length 0.1 -Current Size (cm) - Width 0.1 -Current Size (cm) - Depth 0.1 -Total Square Cm 0.01 -Texture (Venessa-wound Skin Appearance) Assessed -Moisture (Venessa-wound Skin Appearance) Assessed -Color (Venessa-wound Skin Appearance) Assessed -Ulcer Cleansing Soap and Water -Anesthetic Used 5% Lidocaine Gel -Wound Comment(s) SCABBED 2. LLE lateral ankle -Current Size (cm) - Length 3.2 3.4 4 -Current Size (cm) - Width 0.2 0.3 0.4 -Current Size (cm) - Depth 0.2 0.4 -Total Square Cm 0.64 1.02 1.6 -Photo Taken No -Exudate Amt Small Medium -Exudate Type Serosanguineous Yellow/Green -Wound Margin Thickened & Distinct, Thickened Rolled Under Outline Attached -Granulation Amt Small (1-33%) -Granulation Quality Pale,[place] Red [place] -Slough/Fibrin Yes -Necrosis Amt Large (67-100%) Large (67-100%) -Necrotic Tissue Type Adherent Slough Adherent Slough -Texture (Venessa-wound Skin Appearance) Assessed Assessed, Assessed Localized Edema -Moisture (Venessa-wound Skin Appearance) Assessed, Assessed Assessed, Maceration Maceration -Color (Venessa-wound Skin Appearance) Assessed Assessed Assessed -Temperature (Venessa-wound Skin No Abnormality No Abnormality No Abnormality Appearance) (Pt Warm) (Pt Warm) (Pt Warm) -Tenderness on Palpation (Venessa-wound No No Skin Appearance) -Ulcer Cleansing Soap and Water Rinsed/ Soap and Water Irrigated with Saline -Foul Odor after Cleansing No No -Anesthetic Used 5% Lidocaine 5% Lidocaine 5% Lidocaine Gel Gel Gel Right Calf (cm) 36 Right Ankle (cm) 24.5 Left Calf (cm) 36.8 39 Left Ankle (cm) 31.7 30 WC - Nurse 2 - General Ulcer CM Notes Start: 09/07/23 09:33 Freq: Status: Active Protocol: Activity Type Activity Date Activity User E-sign Co-sign Detail Recorded Client Recorded Date Recorded By Document 09/07/23 10:02 GRACIELA Laptop 09/07/23 10:05 JF Edit Result 09/07/23 10:02 GRACIELA (1) [id number] 09/13/23 08:04 JF Document 09/14/23 09:45 [place] [id number] 09/14/23 09:47 DS Document 09/28/23 09:50 JF [id number] 09/28/23 09:56 GRACIELA (1) 3. LLE medial ankle - Debridement - Subq, 1st 20sq cm Yes => No 09/07/23 09/14/23 09/28/23 10:02 09:45 09:50 Wound Center Nurse 2 3. LLE medial ankle -Time 10:02 -Correct Patient No -Correct Side, Site, Position No -Correct Procedure No -Procedure Performed No -Tunneling No -Undermining/Tunneling No -Circular Undermining No -Wound/Ulcer Outcome Healed- Epithelialized -Ulcer Cleansing Rinsed/ Irrigated with Saline -Foul Odor after Cleansing No -Bioengineered Tissue No -Bleeding Controlled with Pressure -Treatment Response Procedure Tolerated Well -Offloading No -Debridement - Subq, 1st 20sq cm No 2. LLE lateral ankle -Time 10:04 09:45 09:50 -Correct Patient Yes Yes Yes -Correct Side, Site, Position Yes Yes Yes -Correct Procedure Yes Yes Yes -Procedure Performed Yes Yes Yes -Type of Procedure Debridement Debridement Debridement -Clinical Debridement Subcutaneous Subcutaneous Subcutaneous -Tissue Removed Subcutaneous Subcutaneous Subcutaneous -Post Debridement (cm) - Length 4.0 3.5 3.1 -Post Debridement (cm) - Width 0.4 0.4 0.4 -Post Debridement (cm) - Depth 0.4 0.4 0.4 -Total Square (Post) (cm) 1.60 1.40 1.24 -Area of Debridement (cm) - Length 4.0 3.1 -Area of Debridement (cm) - Width 0.4 0.4 0.4 -Total Square (Area) (cm) 1.60 1.24 -Tunneling No No No -Undermining/Tunneling No No No -Circular Undermining No No No -Wound/Ulcer Outcome Not Healed Not Healed Not Healed -Ulcer Cleansing Rinsed/ Rinsed/ Rinsed/ Irrigated with Irrigated with Irrigated with Saline Saline Saline -Foul Odor after Cleansing No No -Bioengineered Tissue No No -Bleeding Controlled with Pressure Pressure Pressure -Treatment Response Procedure Procedure Procedure Tolerated Well Tolerated Well Tolerated Well -Offloading No No -Debridement - Subq, 1st 20sq cm Yes Yes Yes Pain Scale: 0-10 Numeric Is Patient Pain Free? Yes Yes Yes WC - Nurse 3 - General Ulcer D/C NN Start: 09/07/23 09:33 Freq: Status: Active Protocol: Activity Type Activity Date Activity User E-sign Co-sign Detail Recorded Client Recorded Date Recorded By Document 09/07/23 10:10 KW Desktop 09/07/23 10:11 KW Document 09/14/23 09:54 KW [id number] 09/14/23 09:57 KW 09/07/23 09/14/23 10:10 09:54 Wound Care Center Nurse 3 2. LLE lateral ankle -Ulcer Cleansing Rinsed/ Irrigated with Saline -Primary Dressing Applied Silvercel Aquacel AG 4x4 -Primary Dressing Covered/Secured with Dry Gauze & Dry Gauze Roll Gauze, Secured with Tape -Aquacel AG 4x4 1 -Silvercel 1 Left -Multi-Layered Wrap Application Multi-Layer Comp - Left ($) -Tubular Bandage Double Layer -Size of Tubigrip Used Size E -Size E ($) 2 -Other TUBIGRIP DOUBLE FOR LATER IN WEEK Right -Tubular Bandage Double Layer -Size of Tubigrip Used Size F -Size F ($) 2 -Other USED HCS BRAND Treatment Response Procedure Tolerated Well Pain Scale: 0-10 Numeric Is Patient Pain Free? Yes Yes WC - Visit Discharge Discharge Condition Stable Stable Ambulatory Status Ambulatory Ambulatory Transportation Private Auto Private Auto Medication Reconcilliation completed & No No provided to patient/care provider Clinical Summary of Care Provided Yes Yes Assessment/Plan Assessment/Plan (1) Painful orthopaedic hardware: CODE(S): T84.84XA - Pain due to internal orthopedic prosthetic devices, implants and grafts, initial encounter PLAN: Exam performed. Radiographs reviewed with patient. Patient has no pain has been ambulating in a cast boot at current. I have ordered patient a short articulated AFO for which she gets fitted next week. wound to left lateral ankle excisionally debrided using 3mm curette of all non-viable tissue without incident down to and including level of subcutaneous tissue. No anesthesia due to neuropathy. Hemostasis with light compression. patient tolerated procedure well. pre/post debridement measurements noted. dressed with silver alginate and Tubigrip. Patient will perform self dressing changes. follow up in 1 week wound cultured today, due to increased drainage Due to residual deformity and neuropathy status patient will require long-term bracing. If there is any additional breakdown or concern for brace ability of the ankle will plan for TTC fusion via intramedullary nailing. 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
== END 2023-10-01 23:59 | disposition home or self-care (01) ==
LOC: WC 09:30
PROVIDERS: PCP Family Medicine; Referring Provider Family Medicine; Visit Provider Podiatrist
DX: T81.31XA Disruption of external operation (surgical) wound, not elsewhere classified, initial encounter (principal); L97.322 Non-pressure chronic ulcer of left ankle with fat layer exposed; T84.84XA Pain due to internal orthopedic prosthetic devices, implants and grafts, initial encounter; Y79.2 Prosthetic and other implants, materials and accessory orthopedic devices associated with adverse incidents; R60.9 Edema, unspecified; S93.432S Sprain of tibiofibular ligament of left ankle, sequela; G60.8 Other hereditary and idiopathic neuropathies; I73.89 Other specified peripheral vascular diseases
CPT/HCPCS: 11042; 29581; 87070; 87075; 87077; 87186; 87205

== ENCOUNTER → 2023-10-12 | Outpatient (CLI) | payer OTHER, SELFPAY ==
--- NOTE | 2023-10-12 15:57 | RAD_ITS ---
INDICATION: ULCER, PAIN EXAMINATION/TECHNIQUE: X-RAY - LEFT XR Ankle Min 3 Views 3 VIEWS COMPARISON: Prior study dated: 09/03/2023 FINDINGS: SOFT TISSUES: Circumferential soft tissue swelling. No radiopaque foreign body. BONES/JOINTS: Fracture line not currently visualized. Ossification seen adjacent to the medial malleolus, unchanged.. Persistent widening of the medial clear space of the ankle mortise. Preservation of the joint space.. No sclerotic or destructive changes observed. RAD/Ankle min 3 Views IMPRESSION: Soft tissue swelling. No osseous erosion. Electronically Signed: Aidan Garnica MD at 4:47 EDT ,
== END | disposition home or self-care (01) ==
LOC: MTRAD 15:56
PROVIDERS: PCP Family Medicine; Referring Provider Podiatrist; Visit Provider Podiatrist
DX: L97.322 Non-pressure chronic ulcer of left ankle with fat layer exposed (principal)
CPT/HCPCS: 73610

== ENCOUNTER 2023-10-19 09:00 | Outpatient (RCR) | payer OTHER, SELFPAY ==
[2023-10-02 02:29] VITALS: BP 172/77; PULSE 85; RESP 18; TEMP 36.1
[2023-10-05 09:07] VITALS: BP 164/134; PULSE 76; RESP 18
--- NOTE | 2023-10-05 09:39 | PCM.WC.PN ---
History of Present Illness Date of Service: 10/05/23 History of Wound: Patient presents for follow-up after left ankle syndesmotic stabilization with hardware removal performed on 08/12/2022. Patient denies any fever chills chest pain calf pain shortness of breath today. Patient denies any other complaints. denies chest pain, calf pain, shortness of breath. no other complaints. Objective Data Objective Data Vital Signs: Vital Signs Temp Pulse Resp BP O2 Del Method 96.9 F L 76 18 164/134 H Room Air 10/02/23 02:29 10/05/23 09:07 10/05/23 09:07 10/05/23 09:07 10/05/23 09:07 Oxygen Delivery Method Room Air Physical Exam Narrative Neurovascular status unchanged. Incisions to medial ankle intact and well-approximated with intact dimple. Small dehiscence noted to the lateral ankle incisional site. Dimple were removed from the site to this issue. No acute signs of infection noted. Pre and postdebridement measurements documented nursing notes. There is diffuse scarring to the venessa-incisional area as this is previous site of incisional breakdown. Some pitting edema noted to bilateral lower extremity. Deferred range of motion stressing left ankle due to 1 week postop. Const alert and oriented x3 Debridement Note Debridement Note Post-Debridement Measurements and Additional Note: Post-Debridement Measurements/Treatment - Nurse 1 - General Ulcer Assessment Start: 10/05/23 09:06 Freq: Status: Active Protocol: WC.LOWEXT Activity Type Activity Date Activity User E-sign Co-sign Detail Recorded Client Recorded Date Recorded By Document 10/05/23 09:07 wound center 10/05/23 09:13 10/05/23 09:07 - Today's Visit Information Type of service Follow-up Visit (Physician/SUPERVISOR SHUTTLE PREPARATION ) Arrival Mode Ambulatory Patient Identification Verified (Name & Yes ) Vital Signs Pulse Rate (60-100) 76 Pulse Location Monitor Respiratory Rate (12-18) 18 Respiratory rate source Observation Oxygen Delivery Method Room Air Blood Pressure (90/60-120/80) 164/134 H Blood Pressure Mean (mm Hg) 144 Source Monitor Position Semi-Fowlers Blood Pressure Location Left Arm History Since Last Visit- (Skip if this is Patient's initial visit) Have you changed medications since your No last visit? Any new allergies or adverse reactions No Had a fall/change in ADL's that may No increase risk of falls Signs or symptoms of abuse and/or No neglect since last visit Have you been in the hospital since your No last visit? Has dressing in place as prescribed Yes Has compression in place as prescribed Yes Has offloadiing in place as prescribed N/A Experienced any changes in pain level or No management Left Footwear Regular Shoe Right Footwear Regular Shoe Pain Scale: 0-10 Numeric Is Patient Pain Free? Yes - Nurse 1 - General Ulcer Measurement Start: 10/05/23 09:06 Freq: Status: Active Protocol: Activity Type Activity Date Activity User E-sign Co-sign Detail Recorded Client Recorded Date Recorded By Document 10/05/23 09:07 KW wound center 10/05/23 09:13 10/05/23 09:07 Wound Center Nurse 1 2. LLE lateral ankle -Current Size (cm) - Length 2.8 -Current Size (cm) - Width 0.2 -Current Size (cm) - Depth 0.3 -Total Square Cm 0.56 -Exudate Amt Small -Exudate Type Serosanguineous -Wound Margin Distinct, Outline Attached -Granulation Amt Large (67-100%) -Granulation Quality [place] -Necrosis Amt Small (1-33%) -Necrotic Tissue Type Adherent Slough -Texture (Venessa-wound Skin Appearance) Assessed, Localized Edema ,Scarring -Moisture (Venessa-wound Skin Appearance) Assessed -Color (Venessa-wound Skin Appearance) Assessed -Temperature (Venessa-wound Skin No Abnormality Appearance) (Pt Warm) -Tenderness on Palpation (Venessa-wound No Skin Appearance) -Ulcer Cleansing Soap and Water -Foul Odor after Cleansing No -Anesthetic Used 5% Lidocaine Gel Left Calf (cm) 34 Left Ankle (cm) 21 - Nurse 2 - General Ulcer CM Notes Start: 10/05/23 09:06 Freq: Status: Active Protocol: Activity Type Activity Date Activity User E-sign Co-sign Detail Recorded Client Recorded Date Recorded By Document 10/05/23 09:23 JF [id number] 10/05/23 09:25 10/05/23 09:23 Wound Center Nurse 2 2. LLE lateral ankle -Time 09:23 -Correct Patient Yes -Correct Side, Site, Position Yes -Correct Procedure Yes -Procedure Performed Yes -Type of Procedure Debridement -Clinical Debridement Subcutaneous -Tissue Removed Subcutaneous -Post Debridement (cm) - Length 3.5 -Post Debridement (cm) - Width 0.4 -Post Debridement (cm) - Depth 0.1 -Total Square (Post) (cm) 1.40 -Area of Debridement (cm) - Length 3.5 -Area of Debridement (cm) - Width 0.4 -Total Square (Area) (cm) 1.40 -Tunneling No -Undermining/Tunneling No -Circular Undermining No -Wound/Ulcer Outcome Not Healed -Ulcer Cleansing Rinsed/ Irrigated with Saline -Foul Odor after Cleansing No -Bioengineered Tissue No -Bleeding Controlled with Pressure -Treatment Response Procedure Tolerated Well -Offloading No -Debridement - Subq, 1st 20sq cm Yes Pain Scale: 0-10 Numeric Is Patient Pain Free? Yes - Nurse 3 - General Ulcer D/C NN Start: 10/05/23 09:06 Freq: Status: Active Protocol: Activity Type Activity Date Activity User E-sign Co-sign Detail Recorded Client Recorded Date Recorded By Document 10/05/23 09:30 wound center 10/05/23 09:33 10/05/23 09:30 Wound Care Center Nurse 3 2. LLE lateral ankle -Ulcer Cleansing Rinsed/ Irrigated with Saline -Primary Dressing Applied Silvercel -Other Dressing ABD -Primary Dressing Covered/Secured with Dry Gauze & Roll Gauze, Secured with Tape -Silvercel 1 Left -Multi-Layered Wrap Application Multi-Layer Comp - Left ($) Pain Scale: 0-10 Numeric Is Patient Pain Free? Yes - Visit Discharge Discharge Condition Stable Ambulatory Status Ambulatory Transportation Private Auto Medication Reconcilliation completed & No provided to patient/care provider Clinical Summary of Care Provided Yes Notes: Alexia Agrawal assisted with dressing change Assessment/Plan Assessment/Plan (1) Painful orthopaedic hardware: CODE(S): T84.84XA - Pain due to internal orthopedic prosthetic devices, implants and grafts, initial encounter PLAN: Exam performed. Radiographs reviewed with patient. Patient has no pain has been ambulating in a cast boot at current. I have ordered patient a short articulated AFO for which she gets fitted next week. wound to left lateral ankle excisionally debrided using 3mm curette of all non-viable tissue without incident down to and including level of subcutaneous tissue. No anesthesia due to neuropathy. Hemostasis with light compression. patient tolerated procedure well. pre/post debridement measurements noted. dressed with silver alginate and Tubigrip. Patient will perform self dressing changes. follow up in 1 week wound cultured today, due to increased drainage Due to residual deformity and neuropathy status patient will require long-term bracing. If there is any additional breakdown or concern for brace ability of the ankle will plan for TTC fusion via intramedullary nailing. 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
[2023-10-12 09:12] VITALS: BP 164/81; PULSE 77; RESP 16; TEMP 36.3
--- NOTE | 2023-10-12 09:34 | PCM.WC.PN ---
History of Present Illness Date of Service: 10/12/23 History of Wound: Patient presents for follow-up after left ankle syndesmotic stabilization with hardware removal performed on 08/12/2022. Patient denies any fever chills chest pain calf pain shortness of breath today. Patient denies any other complaints. denies chest pain, calf pain, shortness of breath. no other complaints. Objective Data Objective Data Vital Signs: Vital Signs Temp Pulse Resp BP O2 Del Method 97.3 F L 77 16 164/81 H Room Air 10/12/23 09:12 10/12/23 09:12 10/12/23 09:12 10/12/23 09:12 10/12/23 09:12 Oxygen Delivery Method Room Air Physical Exam Narrative Neurovascular status unchanged. Incisions to medial ankle intact and well-approximated with intact stephanie. Small dehiscence noted to the lateral ankle incisional site. No acute signs of infection noted. Pre and postdebridement measurements documented nursing notes. There is diffuse scarring to the venessa-incisional area as this is previous site of incisional breakdown. Residual valgus deformity left ankle, mild. Full left ankle range of motion. Minimal subtalar joint range of motion. No pain to surgical sites due to neuropathy. Muscular strength full to bilateral lower extremity compartments. No gross instability noted to deltoid or lateral ankle ligaments at current. Const alert and oriented x3 Debridement Note Debridement Note Post-Debridement Measurements and Additional Note: Post-Debridement Measurements/Treatment - Nurse 1 - General Ulcer Assessment Start: 10/05/23 09:06 Freq: Status: Active Protocol: JOLIE.[email or web address] Activity Type Activity Date Activity User E-sign Co-sign Detail Recorded Client Recorded Date Recorded By Document 10/05/23 09:07 KW wound center 10/05/23 09:13 KW Document 10/12/23 09:12 KW wound center 10/12/23 09:18 KW 10/05/23 10/12/23 09:07 09:12 - Today's Visit Information Type of service Follow-up Visit Follow-up Visit (Physician/LADIES LOCKER ROOM ATTENDANT (Physician/LADIES LOCKER ROOM ATTENDANT ) ) Arrival Mode Ambulatory Ambulatory Patient Identification Verified (Name & Yes Yes ) Vital Signs Temperature (97.8 F-99.1 F) 97.3 F L Temperature Source Temporal Pulse Rate (60-100) 76 77 Pulse Location Monitor Monitor Respiratory Rate (12-18) 18 16 Respiratory rate source Observation Observation Oxygen Delivery Method Room Air Room Air Blood Pressure (90/60-120/80) 164/134 H 164/81 H Blood Pressure Mean (mm Hg) 144 108 Source Monitor Monitor Position Semi-Fowlers Semi-Fowlers Blood Pressure Location Left Arm Left Arm History Since Last Visit- (Skip if this is Patient's initial visit) Have you changed medications since your No No last visit? Any new allergies or adverse reactions No No Had a fall/change in ADL's that may No No increase risk of falls Signs or symptoms of abuse and/or No No neglect since last visit Have you been in the hospital since your No No last visit? Has dressing in place as prescribed Yes Yes Has compression in place as prescribed Yes Yes Has offloadiing in place as prescribed N/A N/A Experienced any changes in pain level or No No management Left Footwear Regular Shoe Regular Shoe Right Footwear Regular Shoe Regular Shoe Pain Scale: 0-10 Numeric Is Patient Pain Free? Yes Yes WC - Nurse 1 - General Ulcer Measurement Start: 10/05/23 09:06 Freq: Status: Active Protocol: Activity Type Activity Date Activity User E-sign Co-sign Detail Recorded Client Recorded Date Recorded By Document 10/05/23 09:07 wound center 10/05/23 09:13 KW Document 10/12/23 09:12 wound center 10/12/23 09:18 KW 10/05/23 10/12/23 09:07 09:12 Wound Center Nurse 1 2. LLE lateral ankle -Current Size (cm) - Length 2.8 4 -Current Size (cm) - Width 0.2 0.2 -Current Size (cm) - Depth 0.3 0.3 -Total Square Cm 0.56 0.8 -Exudate Amt Small Small -Exudate Type Serosanguineous Serosanguineous -Wound Margin Distinct, Thickened & Outline Rolled Under Attached -Granulation Amt Large (67-100%) Large (67-100%) -Granulation Quality Conrad Red -Necrosis Amt Small (1-33%) Small (1-33%) -Necrotic Tissue Type Adherent Slough Adherent Slough -Texture (Venessa-wound Skin Appearance) Assessed, Assessed Localized Edema ,Scarring -Moisture (Venessa-wound Skin Appearance) Assessed -Color (Venessa-wound Skin Appearance) Assessed No Abnormality, Assessed -Temperature (Venessa-wound Skin No Abnormality No Abnormality Appearance) (Pt Warm) (Pt Warm) -Tenderness on Palpation (Venessa-wound No No Skin Appearance) -Ulcer Cleansing Soap and Water Soap and Water -Foul Odor after Cleansing No No -Anesthetic Used 5% Lidocaine 5% Lidocaine Gel Gel Left Calf (cm) 34 33 Left Ankle (cm) 21 26.5 WC - Nurse 2 - General Ulcer CM Notes Start: 10/05/23 09:06 Freq: Status: Active Protocol: Activity Type Activity Date Activity User E-sign Co-sign Detail Recorded Client Recorded Date Recorded By Document 10/05/23 09:23 JF [id number] 10/05/23 09:25 JF Document 10/12/23 09:25 [id number] [id number] 10/12/23 09:28 10/05/23 10/12/23 09:23 09:25 Wound Center Nurse 2 2. LLE lateral ankle -Time 09: 09:27 -Correct Patient Yes Yes -Correct Side, Site, Position Yes Yes -Correct Procedure Yes Yes -Procedure Performed Yes Yes -Type of Procedure Debridement Debridement -Clinical Debridement Subcutaneous Subcutaneous -Tissue Removed Subcutaneous Subcutaneous -Post Debridement (cm) - Length 3.5 3.1 -Post Debridement (cm) - Width 0.4 0.3 -Post Debridement (cm) - Depth 0.1 0.2 -Total Square (Post) (cm) 1.40 0.93 -Area of Debridement (cm) - Length 3.5 3.1 -Area of Debridement (cm) - Width 0.4 0.3 -Total Square (Area) (cm) 1.40 0.93 -Tunneling No No -Undermining/Tunneling No No -Circular Undermining No No -Wound/Ulcer Outcome Not Healed Not Healed -Ulcer Cleansing Rinsed/ Rinsed/ Irrigated with Irrigated with Saline Saline -Foul Odor after Cleansing No No -Bioengineered Tissue No No -Bleeding Controlled with Pressure Pressure -Treatment Response Procedure Procedure Tolerated Well Tolerated Well -Offloading No No -Debridement - Subq, 1st 20sq cm Yes Yes Pain Scale: 0-10 Numeric Is Patient Pain Free? Yes Yes WC - Nurse 3 - General Ulcer D/C NN Start: 10/05/23 09:06 Freq: Status: Active Protocol: Activity Type Activity Date Activity User E-sign Co-sign Detail Recorded Client Recorded Date Recorded By Document 10/05/23 09:30 KW wound center 10/05/23 09:33 KW 10/05/23 09:30 Wound Care Center Nurse 3 2. LLE lateral ankle -Ulcer Cleansing Rinsed/ Irrigated with Saline -Primary Dressing Applied Silvercel -Other Dressing ABD -Primary Dressing Covered/Secured with Dry Gauze & Roll Gauze, Secured with Tape -Silvercel 1 Left -Multi-Layered Wrap Application Multi-Layer Comp - Left ($) Pain Scale: 0-10 Numeric Is Patient Pain Free? Yes WC - Visit Discharge Discharge Condition Stable Ambulatory Status Ambulatory Transportation Private Auto Medication Reconcilliation completed & No provided to patient/care provider Clinical Summary of Care Provided Yes Notes: Alexia Agrawal assisted with dressing change Assessment/Plan Assessment/Plan (1) Painful orthopaedic hardware: CODE(S): T84.84XA - Pain due to internal orthopedic prosthetic devices, implants and grafts, initial encounter PLAN: Exam performed. Patient awaiting new radiographs of the left ankle, did not receive last week. Patient states he just did not get in to get the x-rays done. Patient has no pain and has been ambulating in a cast boot at current. I have ordered patient a short articulated AFO - patient fitted, awaiting dispensing patient has returned to work in normal shoe gear without functional limitation wound to left lateral ankle excisionally debrided using 3mm curette of all non-viable tissue without incident down to and including level of subcutaneous tissue. No anesthesia due to neuropathy. Hemostasis with light compression. patient tolerated procedure well. pre/post debridement measurements documented nursing notes. dressed with silver alginate, dry sterile dressing and 3M compression wrap. Due to residual deformity and alcoholic neuropathy status - patient will require long-term bracing. If there is any additional breakdown or concern for brace ability of the ankle will plan for TTC fusion via intramedullary nailing. 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
[2023-10-19 09:00] VITALS: BP 170/90; PULSE 76; RESP 18
--- NOTE | 2023-10-19 09:31 | PN.PCM_ITS ---
History of Present Illness Date of Service: 10/19/23 History of Wound: Patient presents for follow-up after left ankle syndesmotic stabilization with hardware removal performed on 08/12/2022. Patient denies any fever chills chest pain calf pain shortness of breath today. Patient denies any other complaints. denies chest pain, calf pain, shortness of breath. no other complaints. Objective Data Objective Data Vital Signs: Vital Signs Temp Pulse Resp BP O2 Del Method 97.3 F L 76 18 170/90 H Room Air 10/12/23 09:12 10/19/23 09:00 10/19/23 09:00 10/19/23 09:00 10/19/23 09:00 Oxygen Delivery Method Room Air Physical Exam Narrative Neurovascular status unchanged. Lateral ankle and dehiscence healed today. Residual valgus deformity left ankle. This correlates with the contralateral limb. Full left ankle range of motion to dorsiflexion and plantarflexion without pain. Some crepitus noted with range of motion. Full left ankle range of motion. Minimal subtalar joint range of motion. No pain to surgical sites due to neuropathy. Muscular strength full to bilateral lower extremity compartments. No gross instability noted to deltoid or lateral ankle ligaments at current. Const alert and oriented x3 Debridement Note Debridement Note Post-Debridement Measurements and Additional Note: Post-Debridement Measurements/Treatment - Nurse 1 - General Ulcer Assessment Start: 10/05/23 09:06 Freq: Status: Active Protocol: WC.LOWEXT Activity Type Activity Date Activity User E-sign Co-sign Detail Recorded Client Recorded Date Recorded By Document 10/05/23 09:07 KW wound center 10/05/23 09:13 KW Document 10/12/23 09:12 KW wound center 10/12/23 09:18 KW Document 10/19/23 09:00 KW g 10/19/23 09:07 KW 10/05/23 10/12/23 10/19/23 09:07 09:12 09:00 - Today's Visit Information Type of service Follow-up Visit Follow-up Visit Follow-up Visit (Physician/CRANBERRY GROWER (Physician/CRANBERRY GROWER (Physician/CRANBERRY GROWER ) ) ) Arrival Mode Ambulatory Ambulatory Ambulatory Patient Identification Verified (Name & Yes Yes Yes ) Vital Signs Temperature (97.8 F-99.1 F) 97.3 F L Temperature Source Temporal Pulse Rate (60-100) 76 77 76 Pulse Location Monitor Monitor Monitor Respiratory Rate (12-18) 18 16 18 Respiratory rate source Observation Observation Observation Oxygen Delivery Method Room Air Room Air Room Air Blood Pressure (90/60-120/80) 164/134 H 164/81 H 170/90 H Blood Pressure Mean (mm Hg) 144 108 116 Source Monitor Monitor Monitor Position Semi-Fowlers Semi-Fowlers Sitting Blood Pressure Location Left Arm Left Arm Left Arm History Since Last Visit- (Skip if this is Patient's initial visit) Have you changed medications since your No No No last visit? Any new allergies or adverse reactions No No No Had a fall/change in ADL's that may No No No increase risk of falls Signs or symptoms of abuse and/or No No No neglect since last visit Have you been in the hospital since your No No No last visit? Has dressing in place as prescribed Yes Yes No Has compression in place as prescribed Yes Yes Yes Has offloadiing in place as prescribed N/A N/A Yes Experienced any changes in pain level or No No Yes management Left Footwear Regular Shoe Regular Shoe Regular Shoe Right Footwear Regular Shoe Regular Shoe Regular Shoe Pain Scale: 0-10 Numeric Is Patient Pain Free? Yes Yes Yes WC - Nurse 1 - General Ulcer Measurement Start: 10/05/23 09:06 Freq: Status: Active Protocol: Activity Type Activity Date Activity User E-sign Co-sign Detail Recorded Client Recorded Date Recorded By Document 10/05/23 09:07 KW wound center 10/05/23 09:13 KW Document 10/12/23 09:12 KW wound center 10/12/23 09:18 KW Document 10/19/23 09:00 KW g 10/19/23 09:07 KW 10/05/23 10/12/23 10/19/23 09:07 09:12 09:00 Wound Center Nurse 1 2. LLE lateral ankle -Current Size (cm) - Length 2.8 4 2.9 -Current Size (cm) - Width 0.2 0.2 0.1 -Current Size (cm) - Depth 0.3 0.3 0.2 -Total Square Cm 0.56 0.8 0.29 -Date of Last Picture (Recall this 10/19/23 field) -Exudate Amt Small Small None Present -Exudate Type Serosanguineous Serosanguineous -Wound Margin Distinct, Thickened & Outline Rolled Under Attached -Granulation Amt Large (67-100%) Large (67-100%) -Granulation Quality [place] Red -Necrosis Amt Small (1-33%) Small (1-33%) -Necrotic Tissue Type Adherent Slough Adherent Slough -Texture (Venessa-wound Skin Appearance) Assessed, Assessed Assessed Localized Edema ,Scarring -Moisture (Venessa-wound Skin Appearance) Assessed Assessed -Color (Venessa-wound Skin Appearance) Assessed No Abnormality, Assessed Assessed -Temperature (Venessa-wound Skin No Abnormality No Abnormality No Abnormality Appearance) (Pt Warm) (Pt Warm) (Pt Warm) -Tenderness on Palpation (Venessa-wound No No Skin Appearance) -Ulcer Cleansing Soap and Water Soap and Water Soap and Water -Foul Odor after Cleansing No No No -Anesthetic Used 5% Lidocaine 5% Lidocaine 5% Lidocaine Gel Gel Gel Right Calf (cm) 33 Right Ankle (cm) 27.5 Left Calf (cm) 34 33 Left Ankle (cm) 21 26.5 WC - Nurse 2 - General Ulcer CM Notes Start: 10/05/23 09:06 Freq: Status: Active Protocol: Activity Type Activity Date Activity User E-sign Co-sign Detail Recorded Client Recorded Date Recorded By Document 10/05/23 09:23 JF [id number] 10/05/23 09:25 Document 10/12/23 09:25 [id number] [id number] 10/12/23 09:28 Document 10/19/23 09:20 [id number] [id number] 10/19/23 09:21 10/05/23 10/12/23 10/19/23 09:23 09:25 09:20 Wound Center Nurse 2 2. LLE lateral ankle -Time 09: 09:27 -Correct Patient Yes Yes No -Correct Side, Site, Position Yes Yes No -Correct Procedure Yes Yes No -Procedure Performed Yes Yes No -Type of Procedure Debridement Debridement -Clinical Debridement Subcutaneous Subcutaneous -Tissue Removed Subcutaneous Subcutaneous -Post Debridement (cm) - Length 3.5 3.1 0 -Post Debridement (cm) - Width 0.4 0.3 0 -Post Debridement (cm) - Depth 0.1 0.2 0 -Total Square (Post) (cm) 1.40 0.93 0 -Area of Debridement (cm) - Length 3.5 3.1 0 -Area of Debridement (cm) - Width 0.4 0.3 0 -Total Square (Area) (cm) 1.40 0.93 0 -Tunneling No No -Undermining/Tunneling No No -Circular Undermining No No -Wound/Ulcer Outcome Not Healed Not Healed Healed- Epithelialized -Ulcer Cleansing Rinsed/ Rinsed/ Irrigated with Irrigated with Saline Saline -Foul Odor after Cleansing No No -Bioengineered Tissue No No -Bleeding Controlled with Pressure Pressure -Treatment Response Procedure Procedure Tolerated Well Tolerated Well -Offloading No No -Debridement - Subq, 1st 20sq cm Yes Yes Pain Scale: 0-10 Numeric Is Patient Pain Free? Yes Yes Yes - Nurse 3 - General Ulcer D/C NN Start: 10/05/23 09:06 Freq: Status: Active Protocol: Activity Type Activity Date Activity User E-sign Co-sign Detail Recorded Client Recorded Date Recorded By Document 10/05/23 09:30 KW wound center 10/05/23 09:33 KW Document 10/12/23 09:41 [id number] 10/12/23 09:41 JF Document 10/19/23 09:29 RB wound 10/19/23 09:30 RB 10/05/23 10/12/23 10/19/23 09:30 09:41 09:29 Wound Care Center Nurse 3 2. LLE lateral ankle -Ulcer Cleansing Rinsed/ Rinsed/ Irrigated with Irrigated with Saline Saline -Foul Odor after Cleansing No -Primary Dressing Applied Silvercel -Other Dressing ABD silvercel -Primary Dressing Covered/Secured with Dry Gauze & Roll Gauze, Secured with Tape -Other Covering abd pad -Silvercel 1 Left -Multi-Layered Wrap Application Multi-Layer Multi-Layer Comp - Left ($) Comp - Left ($) -Tubular Bandage Double Layer -Size of Tubigrip Used Size D -Size D ($) 2 Treatment Response Procedure Tolerated Well Pain Scale: 0-10 Numeric Is Patient Pain Free? Yes Yes Yes Teaching: Wound Center Compression Wraps & Stockings -Person Taught Patient -Teaching Method Discussion, Demonstration -Response to teaching Verbalize understanding WC - Visit Discharge Discharge Condition Stable Stable Stable Ambulatory Status Ambulatory Ambulatory Ambulatory Transportation Private Auto Private Auto Private Auto Medication Reconcilliation completed & No Yes No provided to patient/care provider Clinical Summary of Care Provided Yes Yes Yes Notes: Alexia Agrawal assisted with dressing change Assessment/Plan Assessment/Plan (1) Painful orthopaedic hardware: CODE(S): T84.84XA - Pain due to internal orthopedic prosthetic devices, implants and grafts, initial encounter PLAN: Exam performed. X-rays demonstrate no further breakdown left ankle. There is obvious deltoid insufficiency with medial clear space noted. Due neuropathy, arterial status, splint smoking status, noncompliance will plan for long-term custom bracing. Patient is awaiting custom brace per [email or web address]. At current patient is wearing a lace up ankle brace to bilateral lower extremity. Will likely plan for custom AFO on the right lower extremity due to severe flatfoot deformity as well. At current patient is having no issue ambulating and is returned to work. Patient's left lateral ankle incisional wound is healed. Patient will follow-up in 1 month for repeat x-rays and examination of his custom ankle-foot orthoses (2) Syndesmotic disruption of left ankle: CODE(S): S93.432A - Sprain of tibiofibular ligament of left ankle, initial encounter QUALIFIERS: Encounter type: subsequent encounter Qualified Code(s): S93.432D - Sprain of tibiofibular ligament of left ankle, subsequent encounter (3) Non-pressure chronic ulcer of left ankle with fat layer exposed: CODE(S): L97.322 - Non-pressure chronic ulcer of left ankle with fat layer exposed (4) Other hereditary and idiopathic neuropathies: CODE(S): G60.8 - Other hereditary and idiopathic neuropathies (5) Other specified peripheral vascular diseases: CODE(S): I73.89 - Other specified peripheral vascular diseases
--- NOTE | 2023-10-22 11:40 | WC ---
10/19/23 LT LAT ANKLE
== END 2023-10-21 10:10 | disposition home or self-care (01) ==
LOC: WC 09:00
PROVIDERS: PCP Family Medicine; Referring Provider Family Medicine; Visit Provider Podiatrist
DX: T84.84XA Pain due to internal orthopedic prosthetic devices, implants and grafts, initial encounter (principal); L97.322 Non-pressure chronic ulcer of left ankle with fat layer exposed; T81.31XA Disruption of external operation (surgical) wound, not elsewhere classified, initial encounter; Y83.8 Other surgical procedures as the cause of abnormal reaction of the patient, or of later complication, without mention of misadventure at the time of the procedure; I73.89 Other specified peripheral vascular diseases; G60.8 Other hereditary and idiopathic neuropathies; Z79.01 Long term (current) use of anticoagulants; Z79.899 Other long term (current) drug therapy
CPT/HCPCS: 11042; 29581; 99213; G0463

== ENCOUNTER → 2023-11-18 | Outpatient (CLI) | payer OTHER, SELFPAY | END | disposition home or self-care (01) | PROVIDERS: PCP Family Medicine; Visit Provider Podiatrist | DX: L97.222 Non-pressure chronic ulcer of left calf with fat layer exposed (principal) | CPT/HCPCS: 87070; 87075; 87077; 87186; 87205 ==

== ENCOUNTER → 2023-11-18 | Outpatient (CLI) | payer OTHER, SELFPAY | END | disposition home or self-care (01) | LOC: LABSPEC 21:18 | PROVIDERS: PCP Family Medicine; Visit Provider Podiatrist | DX: L97.222 Non-pressure chronic ulcer of left calf with fat layer exposed (principal) ==

== ENCOUNTER → 2023-12-17 | Outpatient (CLI) | payer OTHER, SELFPAY ==
--- NOTE | 2023-12-17 09:28 | VDLE_ITS ---
Reason For Study: LLE Swelling RIGHT LEFT CFV is compressible, spontaneous, phasic, GSV is normal. competent and demonstrates normal CFV is compressible, spontaneous, phasic, augmentation. competent, and demonstrates normal Procedure augmentation. This is a venous duplex using B-mode, color FV is compressible, spontaneous, phasic, flow and spectral Doppler. competent and demonstrates normal Exam performed in department. augmentation. The exam was diagnostic. POP V is compressible, spontaneous, phasic, A preliminary report was called and/or faxed competent and demonstrates normal to [facility] PA. augmentation. T/P Trunk is compressible. PTV is compressible. LT PerV is compressible. Acute deep vein thrombosis is noted in the Soleal V. It is dilated and NONCOMPRESSIBLE. VL/Venous Duplex US, Unilateral Interpretation Summary Acute deep vein thrombosis is noted in the left soleus vein. Ordering Physician: Dora Tyson Referring Physician: Dora Tyson Performed By: Michael Peres RVT
== END | disposition home or self-care (01) ==
LOC: CVS 09:28
PROVIDERS: PCP Family Medicine; Referring Provider Physician Assistant; Visit Provider Physician Assistant
DX: I82.462 Acute embolism and thrombosis of left calf muscular vein (principal); Z86.718 Personal history of other venous thrombosis and embolism
CPT/HCPCS: 93971

== ENCOUNTER → 2023-12-28 | Outpatient (CLI) | payer OTHER, SELFPAY ==
--- NOTE | 2023-12-28 07:54 | ART_ITS ---
Reason For Study: PVD Procedure A bilateral lower extremity continuous wave Doppler with analog waveform analysis and ankle brachial indexes. Left Segmental Pressures Left brachial= 167mmHg. Left posterior tibial artery = 177mmHg. Left dorsalis pedis artery = 178mmHg. Left digit = 103 mmHg. The left posterior tibial artery waveforms are triphasic. The left dorsalis pedis waveforms are triphasic. Right Segmental Pressures Right brachial= 160mmHg. Right posterior tibial artery = 155mmHg. Right dorsalis pedis artery = 160mmHg. Right digit = 94 mmHg. The right posterior tibial artery waveforms are triphasic. The right dorsalis pedis waveforms are triphasic. Indices The right ankle brachial index by the posterior tibial artery is 0.93. The right ankle brachial index by the dorsalis pedis is 0.96. The right digital-brachial index is 0.56. The left ankle brachial index by the posterior tibial artery is 1.06. The left ankle brachial index by the dorsalis pedis is 1.07. The left digital-brachial index is 0.62. VL/Ankle Brachial Index Interpretation Summary Right LIZET 0.96, mild arterial insufficiency. Doppler/PVR waveforms of the right leg normal at rest. Left LIZET 1.07, normal. Doppler/PVR waveforms of the left leg normal at rest. TB I diminished, pedal/digit disease vs spasm Ordering Physician: Haroon Da Silva Referring Physician: Perry Page Performed By: Michael Peres, RVMonty
--- NOTE | 2023-12-28 10:47 | VDLE_ITS ---
Reason For Study: Soleal V dvt 12/17/2023 RIGHT LEFT CFV is compressible, spontaneous, phasic, GSV is normal. competent and demonstrates normal CFV is compressible, spontaneous, phasic, augmentation. competent, and demonstrates normal Procedure augmentation. This is a venous duplex using B-mode, color FV is compressible, spontaneous, phasic, flow and spectral Doppler. competent and demonstrates normal Exam performed in department. augmentation. A preliminary report was called and/or faxed POP V is compressible, spontaneous, phasic, to Dora Tyson @ 11:20 am. competent and demonstrates normal augmentation. T/P Trunk is compressible. PTV is compressible. LT PerV is compressible. Acute deep vein thrombosis is noted in the left soleus vein. VL/Venous Duplex US, Unilateral Interpretation Summary Acute deep vein thrombosis is noted in the left soleus vein. Negative for propa gation. Ordering Physician: Dora Tyson Referring Physician: Haroon Da Silva; Perry Page Performed By: Kamilla Sinclair, RANDALL, RVT
== END | disposition home or self-care (01) ==
PROVIDERS: PCP Family Medicine; Referring Provider Podiatrist; Visit Provider Podiatrist
DX: I73.89 Other specified peripheral vascular diseases (principal); I82.462 Acute embolism and thrombosis of left calf muscular vein
CPT/HCPCS: 93922; 93923; 93971

== ENCOUNTER → 2025-02-27 | Outpatient (CLI) | payer OTHER, SELFPAY | END | disposition home or self-care (01) | PROVIDERS: PCP Family Medicine; Referring Provider Podiatrist Foot & Ankle Surgery; Visit Provider Podiatrist Foot & Ankle Surgery | DX: L97.329 Non-pressure chronic ulcer of left ankle with unspecified severity (principal) | CPT/HCPCS: 87070; 87075; 87077; 87186; 87205 ==

== ENCOUNTER 2025-04-16 08:16 | Emergency (ER) | payer OTHER, SELFPAY ==
[2025-04-16 08:16] VITALS: BP 171/82; PULSE 78; RESP 30; TEMP 37.1; O2SAT 96
--- NOTE | 2025-04-16 08:34 | ED.VIS.DYS ---
HPI History of Present Illness Chief Complaint: Cold Sx Detail of Chief Complaint: Cough and shortness of breath Informant: patient Narrative Narrative: Patient presents with cough and shortness of breath that started 1 week ago. Today complaining of a lot of exertional dyspnea. His employer had an inhaler that he had not received recently and he tried using it a couple times without much relief. Patient does have history of asthma. He has had a mild cough but nonproductive currently. He said a lot of congestion. Denies fever. Patient denies recent travel or surgery. Patient not anticoagulated currently. Really does not see a primary care physician. [facility] Medical History (Updated 04/16/25 @ 10:[address] Stephanie Bustamante, DO) Wears glasses Alcohol use Arthritis Walker as ambulation aid Lung infection Asthma Smoker Chronic cough History of edema Neuropathy Home Medications ?Medication ?Instructions ?Recorded ?Last Taken ?Type doxycycline monohydrate 100 mg 100 mg PO BID #20 CAPSULES 04/16/25 Unknown Rx capsule prednisone 20 mg tablet 20 mg PO BID #10 tabs 04/16/25 Unknown Rx Allergy/AdvReac Type Severity Reaction Status Date / Time No Known Allergies Allergy Verified 04/16/25 08:17 Family History Other Asthma COPD (chronic obstructive pulmonary disease) CVA (cerebral vascular accident) Diabetes Hypertension Myocardial infarction Surgical History History of hydrocelectomy History of appendectomy Social History Smoking Status: Current every day smoker tobacco type: cigarettes ROS ROS ED Review of Systems ROS Unobtainable: other Constitutional Constitutional ED: Reports lethargy; Denies chills, fever(s), sweats or weight loss Eyes Eyes: Denies blurry vision, change in vision or diplopia ENT ENT ED: Denies rhinorrhea or sore throat Cardiovascular Cardiovascular: Denies chest pain, orthopnea or racing heartbeat Respiratory/Chest Respiratory/Chest: Reports cough, dyspnea and dyspnea on exertion; Denies orthopnea or sputum Gastrointestinal Gastrointestinal: Denies abdominal pain, diarrhea, nausea or vomiting Genitourinary Genitourinary ED: Denies dysuria, hematuria or urinary frequency Musculoskeletal Musculoskeletal: Denies arthralgias, back pain, myalgias or neck pain Integumentary Denies abscess, Abrasions or rash Neurologic Neurologic: Denies headache(s) or weakness Psychiatric Psychiatric: Denies anxiety, depression or suicidal thoughts Endocrine Endocrinology: Denies polydipsia, polyphagia or polyuria Hematologic/Lymphatic Hematologic/Lymphatic: Denies easy bleeding, easy bruising or lymphadenopathy Allergic/Immunologic Allergic/Immunologic ED: Denies mouth swelling, tongue swelling or urticaria EXAM Physical Exam Const Vital Signs: 04/16/25 08:16 04/16/25 08:58 04/16/25 08:58 Temperature 98.7 F Temperature Source Oral Pulse Rate 78 77 Respiratory Rate 30 H 18 Respiratory Effort Respiratory Pattern Blood Pressure 171/82 H Blood Pressure Mean 111 Pulse Ox 96 96 Oxygen Delivery Method Room Air 04/16/25 09:03 Temperature Temperature Source Pulse Rate Respiratory Rate Respiratory Effort Normal Non-Labored Respiratory Pattern Normal Blood Pressure Blood Pressure Mean Pulse Ox Oxygen Delivery Method Positive well nourished and well developed General Appearance ED: well developed and NAD HEENT Reports TM's clear and moist mucous membranes normocephalic and atraumatic; Negative for trauma or tenderness Tympanic Membrane ED: Yes TM's clear Eyes PERRL and EOMs intact bilaterally General Eye ED: Negative for pale conjunctiva or scleral icterus Neck no lymphadenopathy, supple and no JVD General: Negative for tenderness Chest Wall inspection of chest normal and palpation of chest normal Chest: Negative for tenderness Resp normal respiratory effort and clear to auscultation bilaterally Resp Narrative: Diminished breath sounds bilaterally with expiratory wheezes. Mild tachypnea. No accessory muscle use or retractions Effort and Inspection: Negative for respiratory distress or pain with movement Auscultation: wheezes and diminished lung sounds; Negative for rhonchi Cardio regular rate, regular rhythm, S1 normal heart sound, S2 normal heart sound and no murmurs Peripheral Pulses: pulses 2+ throughout GI normal to inspection, nondistended, normoactive bowel sounds, soft to palpation, non-tender, non-distended and no masses Back/Spine no CVA tenderness and no thoracic nor lumbar tenderness Extremity normal to inspection General Extremety ED: Negative for edema General Extremity: Negative for edema Neuro oriented x3, CN's II-XII intact bilaterally, no sensory deficits noted and gait normal Sensorium / Orientation: awake, alert, oriented to person, oriented to place and oriented to time Motor Exam: strength 5/5 throughout and strength abnormal Psych mental status grossly normal Skin no rashes or lesions noted and no wounds MDM MDM MDM Narrative Medical decision making narrative: Patient presents with illness for about a week with congestion and cough. Wheezing on exam. Patient is a smoker. Clinically looks well. He was given DuoNeb aerosol and albuterol aerosols as well as prednisone. He felt markedly improved after treatment. COVID flu and RSV testing was negative. At this point suspect likely asthmatic bronchitis. Will treat with prednisone as well as albuterol inhaler and doxycycline. Recommended follow-up with primary care physician within the next 5 to 7 days. Vies to return if increasing shortness of breath or condition should worsen anyway Lab Data Attestation: I reviewed the patient's lab results. Radiography Diagnostic Testing: Clinical Impression(s) from Imaging Studies Chest X-Ray 04/16/25 09:10 IMPRESSION: Lungs are hyperinflated with chronic lung disease and probable emphysematous changes as well. Increased density of the right lower lobe base is seen, with differential diagnosis including pneumonitis and atelectasis. Probable small right pleural effusion, as well, which would favor the former. No left pleural effusion is seen. No pneumothorax is evident. The cardiomediastinal silhouette is stable, without evidence of cardiomegaly. No interval osseous change is noted. Reading Location: [place] [id number] 1 view chest x-ray obtained interpreted myself as no evidence of infiltrate or pneumothorax or acute disease process. Radiology felt there was increased density right lower lobe base with differential including pneumonitis and atelectasis. Also probably small right pleural effusion. Discharge Plan Triage Chief Complaint: Cold Sx ED Provider: Stephanie Bustamante Dx/Rx/DC Orders Clinical Impression: Asthmatic bronchitis Instructions: ED Bronchitis with Wheezing (Adult) Prescriptions: New doxycycline monohydrate 100 mg capsule 100 mg PO BID Qty: 20 0RF prednisone 20 mg tablet 20 mg PO BID Qty: 10 0RF Primary Care Provider: Care Physician,No Primary Referrals: Perry Page MD [Non-Staff, Family Practice] Cristiano Galeana MD [Med Staff - Active Staff, Family Practice] - 3-5 Days Print Language: Scottish Disposition Disposition: Home, Self Care
[2025-04-16] MEDS: Albuterol 2.5 MG/3 ML VIAL.NEB. INHALATION ×2 (08:55)
[2025-04-16 08:58] VITALS: PULSE 77; RESP 18; O2SAT 96
[2025-04-16 09:02] VITALS: BMI 27.3
--- NOTE | 2025-04-16 09:10 | RAD_ITS ---
PROCEDURE: CHEST PA AND LATERAL 04/16/2025 REASON FOR EXAM: DYSPNEA TECHNIQUE: Procedure Code: RADCXR Modality: DX Procedure: CHEST PA AND LATERAL COMPARISON: Chest x-ray of 03/26/2023. RAD/Chest PA and Lateral IMPRESSION: Lungs are hyperinflated with chronic lung disease and probable emphysematous ch anges as well. Increased density of the right lower lobe base is seen, with differential diagn osis including pneumonitis and atelectasis. Probable small right pleural effusion, as well, which would favor the former. No left pleural effusion is seen. No pneumothorax is evident. The cardiomediastinal silhouette is stable, without evidence of cardiomegaly. No interval osseous change is noted. Reading Location: [place] [id number]
[2025-04-16 10:54] VITALS: BP 148/70; PULSE 83; RESP 16; TEMP 36.7; O2SAT 99
[2025-04-16] MEDS: Albuterol Sulfate 8 gm Inhaler (60 puffs) 4 PUFF INHALATION (10:55)
== END 2025-04-16 10:57 | disposition home or self-care (01) ==
PROVIDERS: Emergency Provider Emergency Medicine; Visit Provider Emergency Medicine
DX: J45.909 Unspecified asthma, uncomplicated (principal); R06.02 Shortness of breath; R05.9 Cough, unspecified; Z90.49 Acquired absence of other specified parts of digestive tract; F17.210 Nicotine dependence, cigarettes, uncomplicated
CPT/HCPCS: 71046; 87631; 94640; 99282

== ENCOUNTER → 2025-04-24 | Outpatient (CLI) | payer OTHER, SELFPAY ==
--- OUTSIDE RECORDS SUMMARY | 2025-04-24 18:12 | XMS RPT_ITS | CCD ---
Author Organization [facility] CliniSyfl Care Team Providers Care Interventional Sale Consultant Name Role Phone Natasha Dubon MD Primary Care Provider Dr. Natasha Dubon Primary Care Provider Dr. Pasquale Omalley Attending Provider 1([facility])[address] Haroon Da Silva Referring Provider Dr. Natasha Dubon Referring Provider 1([facility])[phone] SHAMIR Tyson Attending Provider 1([facility])00 10 Natasha Dubon MD Primary Care Provider 1([facility] )[phone] Dr. Natasha Dubon Primary Care Provider Dr. Pasquale Omalley Attending Provider 1([facility])[address] Haroon Da Silva Referring Provider Dr. Natasha Dubon Referring Provider 1([facility])[phone] SHAMIR Tyson Attending Provider 1([facility])57 10 Natasha Dubon MD Primary Care Provider 1([facility] )[phone] Dr. Natasha Dubon Primary Care Provider Dr. Pasquale Omalley Attending Provider 1([facility])[address] Haroon Da Silva Referring Provider Natasha Dubon MD Primary Care Provider Brice Friend Attending Unavailable Natasha Dubon Primary Care Unavailable Brice Friend Referring Unavailable Medications Current Medications Medication Drug Class(es) Dates Sig (Normalized) Sig (Original) [id number] 200 actuat albuterol 0.09 mg/actuat metered dose inhaler (20 sources) beta2-Adrenergic Agonist Start: 04-02-2021 take 1-2 puff(s) by inhalation every four hours as needed VENTOLIN HFA 90 mcg/actuation inhaler INHALE 1-2 puffs EVERY 4 HOURS NEEDED 18 g 4 04/02/2021 Active Start: 05-30-2018 End: 03-23-2023 take 1 puff(s) by inhalation every four hours as needed Albuterol Sulfate Discontinued 1 - 2 PUFF INHALATION EVERY 4 HOURS NEEDED May 30, 2018 1:00am March 23, 2023 11:41am Start: 05-30-2018 End: 03-23-2023 take 1 puff(s) by inhalation every four hours as needed Albuterol Sulfate Discontinued 1 - 2 PUFF INHALATION EVERY 4 HOURS NEEDED May 30, 2018 12:00am March 23, 2023 10:41am Comment on above: INHALE 1-2 puffs NAKUL RY 4 HOURS NEEDED amoxicillin 875 mg / clavulanate 125 mg oral tablet (4 sources) Penicillin-class Antibacterial Start: 4 take 1 tablet by mouth twice daily Amoxicillin-Pot Clavulanate Active 1 TABLET PO TWICE A DAY August 13, 2023 12:00am apixaban 5 mg oral tablet (20 sources) Factor Xa Inhibitor Start: 4 take 1 tablet by mouth twice daily Apixaban (Eliquis) 5 mg tablet Active 5 MG PO TWICE A DAY July 22, 2023 12:00am Start: 07-16-2023 End: 08-04-2023 take 2 tablets by mouth twice daily, then take 1 tablet by mouth twice daily Apixaban (Eliquis Dvt-Pe Treat 30d Start) 5 mg (74 tabs) tablets,dose pack Discontinued 5 MG PO TWICE A DAY July 16, 2023 12:00am August 04, 2023 2:09pm 10 mg p.o. twice daily x 1 week then 5 mg p.o. twice daily Comment on above: Take by mouth two ti mes a day. Per specialist. ibuprofen 400 mg oral tablet (10 sources) Nonsteroidal Anti-inflammatory Drug Start: 4 take 400 mg by mouth once daily Ibuprofen Active 400 MG PO DAILY June 16, 2023 1:00am omeprazole 40 mg delayed release oral capsule (20 sources) Proton Pump Inhibitor Start: 4 take 1 capsule by mouth once daily omeprazole (PRILOSEC) 40 mg capsule Take 1 capsule by mouth once daily. 07/19/2023 Active Comment on above: Take 1 capsule by [facility] once daily. oxyCODONE hydrochloride 5 mg oral tablet (18 sources) Opioid Agonist Start: take 5 mg by mouth every six hours Oxycodone Active 5 MG PO EVERY 6 HOURS 28 7 August 13, 2023 Start: 04-01-2023 End: 06-16-2023 take 5 mg by mouth every six hours Oxycodone Discontinued 5 MG PO EVERY 6 HOURS 42 7 April 01, 2023 June 16, 2023 11:12am Completed/Discontinued Medications Medication Drug Class(es) Dates Sig (Normalized) Sig (Original) acetaminophen 325 mg / HYDROcodone bitartrate 5 mg oral tablet (16 sources) Opioid Agonist Start: 03-23-2023 End: 04-01-2023 take 1 tablet by mouth every six hours as needed Hydrocodone-Acetam inophen Discontinued 1 TABLET PO EVERY 6 HOURS NEEDED 10 March 23, 2023 April 01, 2023 4:43pm aspirin 81 mg delayed release oral tablet (14 sources) Platelet Aggregation Inhibitor, Nonsteroidal Anti-inflammatory Drug Start: 04-01-2023 End: 07-16-2023 take 162 mg by mouth once daily Aspirin Discontinued 162 MG PO DAILY April 01, 2023 1:00am July 16, 2023 10:57am azithromycin 250 mg oral tablet (16 sources) Macrolide Antimicrobial Start: 05-30-2018 End: 03-23-2023 take 250 mg by mouth once daily Azithromycin Discontinued 250 MG PO DAILY May 30, 2018 1:00am March 23, 2023 11:41am docusate sodium 100 mg oral capsule (14 sources) Start: 04-01-2023 End: 06-16-2023 take 100 mg by mouth twice daily Docusate Sodium Discontinued 100 MG PO TWICE A DAY April 01, 2023 1:00am June 16, 2023 11:12am Problems Active Problems Problem Classification Problem Date Documented Da te Episodic/Chronic Alcohol-related disorders (13 sources) Alcoholism; Translations: [Alcohol dependence, uncomplicated] Onset: 07-19-2023 07-19-2023 Chronic Chronic obstructive pulmonary disease and bronchiectasis (17 sources) Chronic obstructive lung disease; Translations: [Chronic obstructive pulmonary disease, unspecified] Onset: 05-01-2021 05-01-2021 Chronic Chronic ulcer of skin (20 sources) Non-pressure chronic ulcer of other part of left foot with fat layer exposed; Translations: [Non-pressure chronic ulcer of other part of left foot with fat layer exposed] Onset: 03-05-2025 04-01-2023 Chronic Complication of device; implant or graft (12 sources) Pain; Translations: [Pain due to internal orthopedic prosthetic devices, implants and grafts, initial encounter] 08-13-2023 Episodic Fracture of lower limb (20 sources) Fracture of ankle; Translations: [Other fracture of left lower leg, initial encounter for closed fracture] 03-23-2023 Episodic Other circulatory disease (4 sources) Other specified peripheral vascular diseases; Translations: [Other specified peripheral vascular diseases] 08-24-2023 Chronic Other male genital disorders (17 sources) Male erectile dysfunction, unspecified; Translations: [Impotence of organic origin] Onset: 06-18-2017 12-17-2017 Chronic Other nervous system disorders (3 sources) Neuropathy; Translations: [Other hereditary and idiopathic neuropathies] 08-17-2023 Chronic Other nervous system disorders (4 sources) Other hereditary and idiopathic neuropathies; Translations: [Other specified idiopathic peripheral neuropathy] 08-24-2023 Chronic Other nervous system disorders (14 sources) Acute postoperative pain; Translations: [Other acute postprocedural pain] 04-01-2023 Episodic Peripheral and visceral atherosclerosis (20 sources) Peripheral vascular disease; Translations: [Peripheral vascular disease, unspecified] 05-18-2023 Chronic Sprains and strains (12 sources) Lesion of ligaments of the ankle region; Translations: [Sprain of tibiofibular ligament of left ankle, initial encounter] 08-13-2023 Episodic Substance-related disorders (17 sources) Smoker; Translations: [Nicotine dependence, unspecified, uncomplicated] Onset: 05-20-2016 04-12-2019 Chronic Past or Other Problems Problem Classification Problem Date Documented Da te Episodic/Chronic Genitourinary symptoms and ill-defined conditions (17 sources) Microscopic hematuria; Translations: [Other microscopic hematuria] Onset: 06-22-2017 06-22-2017 Episodic Malaise and fatigue (17 sources) Asthenia; Translations: [Weakness] Onset: 05-20-2016 05-20-2016 Episodic Other acquired deformities (17 sources) Deformity of foot; Translations: [Unspecified acquired deformity of right lower leg] Onset: 05-20-2016 12-17-2017 Episodic Other connective tissue disease (17 sources) Muscle atrophy; Translations: [Muscle wasting and atrophy, not elsewhere classified, multiple sites] Onset: 05-20-2016 12-17-2017 Episodic Other connective tissue disease (17 sources) H/O: gout; Translations: [Personal history of other diseases of the musculoskeletal system and connective tissue] Onset: 06-18-2017 12-17-2017 Episodic Other male genital disorders (17 sources) Disorder of male genital organ; Translations: [Hydrocele, unspecified] Onset: 06-22-2017 12-17-2017 Episodic Other male genital disorders (17 sources) Spermatocele; Translations: [Spermatocele of epididymis, unspecified] Onset: 06-22-2017 12-17-2017 Episodic Other screening for suspected conditions (not mental disorders or infectious disease) (20 sources) Patient encounter status; Translations: [Encounter for screening for diabetes mellitus] Onset: 12-17-2017 12-17-2017 Episodic Phlebitis; thrombophlebitis and thromboembolism (20 sources) Deep venous thrombosis; Translations: [Acute embolism and thrombosis of unspecified deep veins of unspecified lower extremity] Onset: 07-19-2023 07-16-2023 Episodic Screening and history of mental health and substance abuse codes (17 sources) Current drinker; Translations: [Encounter for screening examination for other mental health and behavioral disorders] Onset: 05-20-2016 05-20-2016 Episodic Results Test Name Value Interpretation Reference Range Facility Culture, Anaerobic Any [facility] dimitri 03-04-2025 CUAN TIBIAL LEFT ANKLE LEFT ANKLE Studies have confirmed that Anaerobic Gram Positive Cocci are routinely SUSCEPTABLE to Penicillin and generally susceptible to Beta-lactams and Beta-lactamase inhibitors, Cephalosporins, Carbapenems and Metronidazole. They are showing increased RESISTANCE to Clindamycin Anaerobic cocci Normal [facility] Comment on above: Performed By: #### M 100.2000, M100.3000, M100.4001 #### [facility] [address] [place], [address] Wound Cultureon 03-03-2025 WC FIBULAR LEFT ANKLE LEFT ANKLE Staphylococcus pseudintermediu Amount Growth 1+ Staphylococcus pseudintermediu: REACTION Doxycycline Islt ANUSHA <=0.5 Clindamycin Islt ANUSHA 0.25 S Clindamycin.induced Susc Islt NEG Erythromycin Islt ANUSHA <=0.25 S Gentamicin Islt ANUSHA <=0.5 S Linezolid Islt ANUSHA 2 S Oxacillin Susc Islt <=0.25 S Tetracycline Islt ANUSHA <=1 S TMP SMX Islt ANUSHA <=10 S Vancomycin Islt ANUSHA 1 S Normal [facility] Comment on above: Performed By: #### M 100.2000, M100.3000, M100.4001 #### [facility] [address] [place], [address] Gram Stainon 02-28-2025 GS FIBULAR LEFT ANKLE LEFT ANKLE Gram Stain No organisms seen Normal [facility] Comment on above: Performed By: #### M 100.2000, M100.3000, M100.4001 #### [facility] [address] [place], [address] CNCOon 11-22-2023 CNCO Letter Text Normal [facility] Basophil percentageOrdered B y: Aleksandar Reno on 07-29-2023 Bilirubin [Mass/Vol] 0.30 mg/dL 0.20-1.00 [facility] Comment on above: For patients on eltr ombopag therapy, use of Dimension [place] TBIL is not recommended. Chloride [Moles/Vol] 102 mmol/L 98-107 [facility] Glucose [Mass/Vol] 74 mg/dL 74-106 [facility] Hemoglobin (Bld) [Mass/Vol] 15.6 g/dL 13.0-16.5 [facility] Potassium [Moles/Vol] 3.9 mmol/L 3.5-5.1 [facility] Protein [Mass/Vol] 7.9 g/dL 6.4-8.2 [facility] Sodium [Moles/Vol] 133 mmol/L 136-145 [facility] WBC (Bld) [#/Vol] 7.6 10*3/uL 4.4-11.0 [facility] Determination of erythrocyte mean corpuscular volume (MCV)Ordered By: Aleksandar Reno on 07-29-2023 MCV (RBC) [Entitic vol] 96.2 fL 80-94 [facility] Erythrocyte distribution wid th ratioOrdered By: Aleksandar Reno on 07-29-2023 Erythrocyte distribution width (RBC) [Ratio] 13.5 % 11.6-14.6 [facility] Erythrocyte distribution wid th standard deviationOrdered By: Aleksandar Reno on 07-29-2023 Erythrocyte distribution width (RBC) [Entitic vol] 48.4 fL 35.1-43.9 [facility] Hematocrit Auto (Bld) [Volum e fraction]Ordered By: Aleksandar Reno on 07-29-2023 Hematocrit (Bld) [Volume fraction] 45.8 % 40-54 [facility] - Chemistry and C hemistry - challengeOrdered By: Aleksandar Reno on 07-29-2023 Albumin/Globulin [Mass ratio] 0.5 {ratio} 0.9-2.4 [facility] ALP [Catalytic activity/Vol] 89 U/L 45-117 [facility] ALT [Catalytic activity/Vol] 16 U/L 16-61 [facility] CO2 [Moles/Vol] 24.0 mmol/L 21.0-32.0 [facility] Globulin (S) [Mass/Vol] 5.1 g/dL 2.2-4.2 [facility] Urea nitrogen/Creatinine [Mass ratio] 8.8 mg/mg 10-20 [facility] - Hematology and Cell countsOrdered By: Aleksandar Reno on 07-29-2023 MCH (RBC) [Entitic mass] 32.8 pg 27.0-32.0 [facility] MCHC (RBC) [Mass/Vol] 34.1 g/dL 32-36 [facility] Platelet mean volume (Bld) [Entitic vol] 9.3 fL 6.2-12.0 [facility] Platelets (Bld) [#/Vol] 320 10*3/uL 150-450 [facility] No Panel InformationOrdered By: Aleksandar Reno on 07-29-2023 Estimated GFR (MDRD) Amer 153 mL/min >60 [facility] Comment on above: GFR Calc Estimated GFR (MDRD) Non-Af Amer 126 mL/min >60 [facility] Comment on above: Non- GFR Calc RBC Auto (Bld) [#/Vol]Ordere d By: Aleksandar Reno on 07-29-2023 RBC (Bld) [#/Vol] 4.76 10*6/uL 4.6-6.2 [facility] Serum or plasma calcium liza urement (mass/volume)Ordered By: Aleksandar Reno on 07-29-2023 Calcium [Mass/Vol] 8.8 mg/dL 8.5-10.1 [facility] Serum or plasma creatinine m easurement (mass/volume)Ordered By: Aleksandar Reno on 07-29-2023 Creatinine [Mass/Vol] 0.68 mg/dL 0.70-1.30 [facility] Comment on above: The validity of the calculated GFR & GFRAA in patients over 70 years has not been determined. Clinical correlation is essential. Serum or plasma urea nitroge n measurement (mass/volume)Ordered By: Aleksandar Reno on 07-29-2023 Urea nitrogen [Mass/Vol] 6 mg/dL 7-18 [facility] Thin prep Papanicolaou smear with manual screeningOrdered By: Aleksandar Reno on 07-29-2023 Thin prep Papanicolaou smear with manual screening 2.8 g/dL 3.2-5.0 [facility] Thin prep Papanicolaou smear with manual screening 17 U/L 15-37 [facility] Thin prep Papanicolaou smear with manual screening 7 5-15 [facility] Anaerobic cultureOrdered By: Haroon Da Silva on 04-16-2023 Bacteria identified Anaer cx Nom (Unsp spec) No anaerobic bacteria isolated. [facility] Bacteria identified Anaer cx Nom (Unsp spec) No anaerobic bacteria isolated. [facility] Bacteria identified Cx Nom ( Wound)Ordered By: Harono Da Silva on 04-16-2023 Wound Culture Enterobacter cloacae complex [facility] Wound Culture Enterobacter cloacae complex [facility] Gram stain for investigation of transfusion reactionOrdered By: Haroon Da Silva on 04-16-2023 Microscopic observation Gram stain Nom (Unsp spec) [facility] Microscopic observation Gram stain Nom (Unsp spec) [facility] Absolute lymphocyte countOrd ered By: Doris Conner on 03-26-2023 Lymphocytes Auto (Unsp spec) [#/Vol] 1.65 10*3/uL 0.83-4.51 [facility] Basophil percentageOrdered B y: Doris Conner on 03-26-2023 Basophils/100 WBC (Bld) 0.9 % 0-1 [facility] Bilirubin [Mass/Vol] 0.60 mg/dL 0.20-1.00 [facility] Comment on above: For patients on eltr ombopag therapy, use of Dimension [place] TBIL is not recommended. Chloride [Moles/Vol] 98 mmol/L 98-107 [facility] Eosinophils/100 WBC (Bld) 2.2 % 0-5 [facility] Glucose [Mass/Vol] 71 mg/dL 74-106 [facility] Neutrophils (Bld) [#/Vol] 5.0 10*3/uL 2.0-7.7 [facility] Neutrophils/100 WBC (Bld) 66.0 % 47-70 [facility] Potassium [Moles/Vol] 4.2 mmol/L 3.5-5.1 [facility] Protein [Mass/Vol] 8.1 g/dL 6.4-8.2 [facility] Sodium [Moles/Vol] 132 mmol/L 136-145 [facility] WBC (Bld) [#/Vol] 7.6 10*3/uL 4.4-11.0 [facility] Blood erythrocytes count (nu mber/volume)Ordered By: Doris Conner on 03-26-2023 RBC (Bld) [#/Vol] 4.89 10*6/uL 4.6-6.2 [facility] Blood hemoglobin measurement (mass/volume)Ordered By: Doris Conner on 03-26-2023 Hemoglobin (Bld) [Mass/Vol] 16.5 g/dL 13.0-16.5 [facility] Blood lymphocytes/100 leukoc ytesOrdered By: Doris Conner on 03-26-2023 Lymphocytes/100 WBC (Bld) 21.7 % 19-41 [facility] Blood monocytes/100 leukocyt esOrdered By: Doris Conner on 03-26-2023 Monocytes/100 WBC (Bld) 8.9 % 0-10 [facility] Blood platelet mean volumeOr dered By: Doris Conner on 03-26-2023 Platelet mean volume (Bld) [Entitic vol] 9.5 fL 6.2-12.0 [facility] Determination of erythrocyte mean corpuscular volume (MCV)Ordered By: Doris Conner on 03-26-2023 MCV (RBC) [Entitic vol] 98.0 fL 80-94 [facility] Hematocrit Auto (Bld) [Volum e fraction]Ordered By: Doris Conner on 03-26-2023 Hematocrit (Bld) [Volume fraction] 47.9 % 40-54 [facility] - Chemistry and C hemistry - challengeOrdered By: Doris Conner on 03-26-2023 ALP [Catalytic activity/Vol] 89 U/L 45-117 [facility] ALT [Catalytic activity/Vol] 21 U/L 16-61 [facility] CO2 [Moles/Vol] 26.0 mmol/L 21.0-32.0 [facility] Globulin (S) [Mass/Vol] 5.0 g/dL 2.2-4.2 [facility] Urea nitrogen/Creatinine [Mass ratio] 10.7 mg/mg 10-20 [facility] - Hematology and Cell countsOrdered By: Doris Conner on 03-26-2023 Erythrocyte distribution width (RBC) [Entitic vol] 46.5 fL 35.1-43.9 [facility] Erythrocyte distribution width (RBC) [Ratio] 13.0 % 11.6-14.6 [facility] Immature granulocytes/100 WBC (Bld) 0.300 % 0.0-0.9 [facility] Comment on above: IG% - Immature Granu locytes (promyelocytes, myelocytes and metamyelocytes) > 1% indicates that a LEFT SHIFT is Present. MCH (RBC) [Entitic mass] 33.7 pg 27.0-32.0 [facility] Nucleated RBC/100 WBC (Bld) [Ratio] 0 % 0-5 [facility]) [Mass/Vol]Or dered By: Doris Conner on 03-26-2023 MCHC (RBC) [Mass/Vol] 34.4 g/dL 32-36 [facility] No Panel InformationOrdered By: Doris Conner on 03-26-2023 Estimated GFR (MDRD) Amer 161 mL/min >60 [facility] Comment on above: GFR Calc Estimated GFR (MDRD) Non-Af Amer 133 mL/min >60 [facility] Comment on above: Non- GFR Calc Platelets bldOrdered By: Doris Conner on 03-26-2023 Platelets (Bld) [#/Vol] 296 10*3/uL 150-450 [facility] Serum or plasma albumin liza urement (mass/volume)Ordered By: Doris Conner on 03-26-2023 Albumin [Mass/Vol] 3.1 g/dL 3.2-5.0 [facility] Serum or plasma albumin/glob ulin mass ratioOrdered By: Doris Conner on 03-26-2023 Albumin/Globulin [Mass ratio] 0.6 {ratio} 0.9-2.4 [facility] Serum or plasma calcium liza urement (mass/volume)Ordered By: Doris Conner on 03-26-2023 Calcium [Mass/Vol] 8.5 mg/dL 8.5-10.1 [facility] Serum or plasma creatinine m easurement (mass/volume)Ordered By: Doris Conner on 03-26-2023 Creatinine [Mass/Vol] 0.65 mg/dL 0.70-1.30 [facility] Comment on above: The validity of the calculated GFR & GFRAA in patients over 70 years has not been determined. Clinical correlation is essential. Serum or plasma urea nitroge n measurement (mass/volume)Ordered By: Doris Conner on 03-26-2023 Urea nitrogen [Mass/Vol] 7 mg/dL 7-18 [facility] Thin prep Papanicolaou smear with manual screeningOrdered By: Doris Conner on 03-26-2023 Thin prep Papanicolaou smear with manual screening 22 U/L 15-37 [facility] Thin prep Papanicolaou smear with manual screening 8 5-15 [facility] Vital Signs Date Time Vital Sign Value Performing Clinician Mireya noely 09-07-2023 09:33-0400 Body temperature 96.7 [degF] Dr. Natasha Dubon Work Phone: [facility] 09-07-2023 09:33-0400 Diastolic blood pressure 77 mm[Hg] Dr. Natasha Dubon Work Phone: [facility] 09-07-2023 09:33-0400 Heart rate 78 /min Dr. Natasha Dubon Work Phone: [facility] 09-07-2023 09:33-0400 Respiratory rate 18 /min Dr. Natasha Dubon Work Phone: [facility] 09-07-2023 09:33-0400 Systolic blood pressure 144 mm[Hg] Dr. Natasha Dubon Work Phone: [phone] [place] [address] 08-31-2023 09:35-0400 Body temperature 96.9 [degF] Dr. Natasha Dubon Work Phone: [phone] [place] [address] 08-31-2023 09:35-0400 Diastolic blood pressure 77 mm[Hg] Dr. Natasha Dubon Work Phone: [phone] [place] [address] 08-31-2023 09:35-0400 Heart rate 85 /min Dr. Natasha Dubon Work Phone: [facility] 08-31-2023 09:35-0400 Systolic blood pressure 172 mm[Hg] Dr. Natasha Dubon Work Phone: [facility] 08-24-2023 09:34-0400 Body temperature 97.4 [degF] Dr. Natasha Dubon Work Phone: [facility] 08-24-2023 09:34-0400 Diastolic blood pressure 99 mm[Hg] Dr. Natasha Dubon Work Phone: [facility] 08-24-2023 09:34-0400 Heart rate 86 /min Dr. Natasha Dubon Work Phone: [facility] 08-24-2023 09:34-0400 Respiratory rate 18 /min Dr. Natasha Dubon Work Phone: [phone] [place] [address] 08-24-2023 09:34-0400 Systolic blood pressure 179 mm[Hg] Dr. Natasha Dubon Work Phone: [phone] [place] [address] 08-13-2023 12:10-0400 Body temperature 98.2 [degF] Dr. Natasha Dubon Work Phone: [phone] [place] [address] 08-13-2023 12:10-0400 Diastolic blood pressure 83 mm[Hg] Dr. Natasha Dubon Work Phone: [phone] [place] [address] 08-13-2023 12:10-0400 Heart rate 81 /min Dr. Natasha Dubon Work Phone: [phone] [place] [address] 08-13-2023 12:10-0400 Respiratory rate 16 /min Dr. Natasha Dubon Work Phone: [phone] [place] [address] 08-13-2023 12:10-0400 SaO2% (BldA) [Mass fraction] 99 % Dr. Natasha Dubon Work Phone: 3(336)191-220045 [place] [address] 08-13-2023 12:10-0400 Systolic blood pressure 166 mm[Hg] Dr. Natasha Dubon Work Phone: 1(884)486-442545 [place] [address] 08-13-2023 08:41-0400 Body height 177.[address] Natasha Dubon Work Phone: 9(822)814-203945 [place] [address] 08-13-2023 08:41-0400 Body mass index (BMI) [Ratio] 26.6 kg/m2 Dr. Natasha Dubon Work Phone: 3(941)073-650745 [place] [address] 08-13-2023 08:41-0400 Body weight 84.[address] Natasha Dubon Work Phone: [facility] 07-27-2023 09:27-0400 Body temperature 96.1 [degF] Dr. Natasha Dubon Work Phone: [facility] 07-27-2023 09:27-0400 Diastolic blood pressure 83 mm[Hg] Dr. Natasha Dubon Work Phone: 3(946)120-827345 [place] [address] 07-27-2023 09:27-0400 Heart rate 88 /min Dr. Natasha Dubon Work Phone: [facility] 07-27-2023 09:27-0400 Respiratory rate 16 /min Dr. Natasha Dubon Work Phone: [facility] 07-27-2023 09:27-0400 Systolic blood pressure 170 mm[Hg] Dr. Natasha Dubon Work Phone: 7(261)081-784363 [place] [address] 07-22-2023 14:41-0400 Body temperature 97.7 [degF] Dr. Natasha Dubon Work Phone: 9(079)065-816563 [place] [address] 07-22-2023 14:41-0400 Body weight 84.[address] Natasha Dubon Work Phone: 1(243)984-768845 [place] [address] 07-22-2023 14:41-0400 Diastolic blood pressure 80 mm[Hg] Dr. Natasha Dubon Work Phone: 2(107)688-278963 [place] [address] 07-22-2023 14:41-0400 Heart rate 93 /min Dr. Natasha Dubon Work Phone: 6(534)726-215745 [place] [address] 07-22-2023 14:41-0400 Respiratory rate 16 /min Dr. Natasha Dubon Work Phone: 5(220)743-801945 [place] [address] 07-22-2023 14:41-0400 SaO2% (BldA) [Mass fraction] 100 % Dr. Natasha Dubon Work Phone: 0(177)970-535745 [place] [address] 07-22-2023 14:41-0400 Systolic blood pressure 157 mm[Hg] Dr. Natasha Dubon Work Phone: 6(576)426-898445 [place] [address] 07-16-2023 12:57-0400 Body temperature 97.9 [degF] Dr. Natasha Dubon Work Phone: 4(768)988-621045 [place] [address] 07-16-2023 12:57-0400 Diastolic blood pressure 68 mm[Hg] Dr. Natasha Dubon Work Phone: 0(020)581-525845 [place] [address] 07-16-2023 12:57-0400 Heart rate 100 /min Dr. Natasha Dubon Work Phone: 4(089)979-222845 [place] [address] 07-16-2023 12:57-0400 Respiratory rate 118 /min Dr. Natasha Dubon Work Phone: 6(136)463-206663 [place] [address] 07-16-2023 12:57-0400 SaO2% (BldA) [Mass fraction] 98 % Dr. Natasha Dubon Work Phone: 7(919)833-881263 [place] [address] 07-16-2023 12:57-0400 Systolic blood pressure 170 mm[Hg] Dr. Natasha Dubon Work Phone: 9(149)963-084263 [place] [address] 07-16-2023 10:45-0400 Body height 177.[address] Natasha Dubon Work Phone: 8(860)340-397963 [place] [address] 07-16-2023 10:45-0400 Body mass index (BMI) [Ratio] 26.9 kg/m2 Dr. Natasha Dubon Work Phone: 3(456)657-458863 [place] [address] 07-16-2023 10:45-0400 Body weight 84.[address] Natasha Dubon Work Phone: 7(519)116-363163 [place] [address] 07-13-2023 09:33-0400 Body temperature 96.9 [degF] Dr. Natasha Dubon Work Phone: 2(611)791-064445 [place] [address] 07-13-2023 09:33-0400 Diastolic blood pressure 70 mm[Hg] Dr. Natasha Dubon Work Phone: 7(098)755-841545 [place] [address] 07-13-2023 09:33-0400 Heart rate 89 /min Dr. Natasha Dubon Work Phone: 9(300)906-592545 [place] [address] 07-13-2023 09:33-0400 Respiratory rate 18 /min Dr. Natasha Dubon Work Phone: 0(586)702-275045 [place] [address] 07-13-2023 09:33-0400 Systolic blood pressure 174 mm[Hg] Dr. Natasha Dubon Work Phone: 8(894)646-806363 [place] [address] 06-29-2023 09:27-0500 Body temperature 96.9 [degF] Dr. Natasha uDbon Work Phone: 5(285)807-279163 [place] [address] 06-29-2023 09:27-0500 Diastolic blood pressure 63 mm[Hg] Dr. Natasha Dubon Work Phone: 1(445)645-078063 [place] [address] 06-29-2023 09:27-0500 Heart rate 94 /min Dr. Natasha Dubon Work Phone: 0(153)032-467863 [place] [address] 06-29-2023 09:27-0500 Respiratory rate 18 /min Dr. Natasha Dubon Work Phone: 6(830)879-703963 [place] [address] 06-29-2023 09:27-0500 Systolic blood pressure 147 mm[Hg] Dr. Natasha Dubon Work Phone: 5(467)133-572963 [place] [address] 06-16-2023 10:08-0500 Body temperature 98.2 [degF] Dr. Natasha Dubon Work Phone: 6(569)435-370063 [place] [address] 06-16-2023 10:08-0500 Body weight 83.[address] Natasha Dubon Work Phone: 6(655)796-154263 [place] [address] 06-16-2023 10:08-0500 Diastolic blood pressure 76 mm[Hg] Dr. Natasha Dubon Work Phone: 1(602)317-999063 [place] [address] 06-16-2023 10:08-0500 Heart rate 94 /min Dr. Natasha Dubon Work Phone: 3(176)617-324263 [place] [address] 06-16-2023 10:08-0500 SaO2% (BldA) [Mass fraction] 99 % Dr. Natasha Dubon Work Phone: 8(159)739-296663 [place] [address] 06-16-2023 10:08-0500 Systolic blood pressure 156 mm[Hg] Dr. Natasha Dubon Work Phone: 7(618)503-985363 [place] [address] 06-01-2023 09:45-0500 Body temperature 96.7 [degF] Dr. Natasha Dubon Work Phone: 3(721)643-283763 [place] [address] 06-01-2023 09:45-0500 Diastolic blood pressure 73 mm[Hg] Dr. Natasha Dubon Work Phone: [facility] 06-01-2023 09:45-0500 Heart rate 117 /min Dr. Natasha Dubon Work Phone: [facility] 06-01-2023 09:45-0500 Respiratory rate 18 /min Dr. Natasha Dubon Work Phone: [facility] 06-01-2023 09:45-0500 Systolic blood pressure 183 mm[Hg] Dr. Natasha Dubon Work Phone: 5(477)786-219445 [place] [address] 05-18-2023 09:37-0500 Body temperature 97.8 [degF] Dr. Natasha Dubon Work Phone: [facility] 05-18-2023 09:37-0500 Diastolic blood pressure 73 mm[Hg] Dr. Natasha Dubon Work Phone: 2(876)933-339845 [place] [address] 05-18-2023 09:37-0500 Heart rate 91 /min Dr. Natasha Dubon Work Phone: 2(310)673-146145 [place] [address] 05-18-2023 09:37-0500 Respiratory rate 18 /min Dr. Natasha Dubon Work Phone: [facility] 05-18-2023 09:37-0500 Systolic blood pressure 159 mm[Hg] Dr. Natasha Dubon Work Phone: [facility] 04-01-2023 16:15-0500 Body temperature 98 [degF] [facility] 04-01-2023 16:15-0500 Diastolic blood pressure 69 mm[Hg] [facility] 04-01-2023 16:15-0500 Heart rate 88 /min [facility] 04-01-2023 16:15-0500 Respiratory rate 18 /min [facility] 04-01-2023 16:15-0500 SaO2% (BldA) [Mass fraction] 100 % [facility] 04-01-2023 16:15-0500 Systolic blood pressure 134 mm[Hg] [facility] 04-01-2023 11:57-0500 Body height 185.42 cm [facility] 04-01-2023 11:57-0500 Body mass index (BMI) [Ratio] 19.8 kg/m2 [facility] 04-01-2023 11:57-0500 Body weight 68.03 kg [facility] 03-23-2023 11:00-0500 Diastolic blood pressure 75 mm[Hg] [facility] 03-23-2023 11:00-0500 Heart rate 85 /min [facility] 03-23-2023 11:00-0500 Inhaled oxygen flow rate 4 L/min [facility] 03-23-2023 11:00-0500 Respiratory rate 22 /min [facility] 03-23-2023 11:00-0500 Systolic blood pressure 143 mm[Hg] [facility] 03-23-2023 10:52-0500 SaO2% (BldA) [Mass fraction] 100 % [facility] 03-23-2023 09:52-0500 Body height 185.42 cm [facility] 03-23-2023 09:52-0500 Body mass index (BMI) [Ratio] 23.2 kg/m2 [facility] 03-23-2023 09:52-0500 Body temperature 97.9 [degF] [facility] 03-23-2023 09:52-0500 Body weight 79.9 kg [facility] Encounters Encounter Date Encounter Type Care Provider Facility Start: 02-27-2025 End: 02-27-2025 ambulatory [facility] Facility:[facility] Start: 12-29-2023 End: 12-29-2023 Chart abstracting Natasha Dubon MD Work Phone: [facility] [place] Comment on above: Outside Imaging Start: 12-28-2023 End: 12-28-2023 Chart abstracting Thomas Mcrae MA [facility] Comment on above: Results (Outside res ults - [facility] [place] ) Start: 11-22-2023 Chart abstracting Thomas Mcrae MA [facility] Comment on above: Results, Lab ([facility] ) Start: 10-14-2023 Chart abstracting Natasha walsh MD Work Phone: [facility] Comment on above: Ext / XRay Start: 10-04-2023 Chart abstracting Thomas Mcrae MA [facility] Comment on above: Results (Lab ) Start: 10-01-2023 Chart abstracting Natasha walsh MD Work Phone: [facility] [place] Comment on above: Ext / Labs Start: 09-30-2023 Chart abstracting Natasha walsh MD Work Phone: [facility] [place] Comment on above: Outside [facility] Ordered Start: 09-07-[address] Chris Dubon Work Phone: [facility] Work Phone: Start: 09-06-2023 Chart abstracting Natasha walsh MD Work Phone: [facility] [place] Comment on above: Outside Image Start: 09-03-2023 End: 09-03-[address] Natasha Dubon Work Phone: [facility] Work Phone: Start: 09-03-2023 End: 09-03-[address] Natasha Dubon Work Phone: [facility] Work Phone: Start: 08-31-2023 End: 08-31-[address] Natasha Dubon Work Phone: [facility] Work Phone: Start: 08-31-2023 End: 08-31-[address] Natasha Dubon Work Phone: [facility] Work Phone: Start: 08-24-[address] Chris Dubon Work Phone: [facility] Work Phone: Start: 08-23-2023 Chart abstracting Natasha walsh MD Work Phone: [facility] Comment on above: Ext / Xrays Start: 08-20-2023 End: 08-20-[address] Natasha Dubon Work Phone: [facility] Work Phone: Start: 08-20-2023 End: 08-20-[address] Natasha Dubon Work Phone: [facility] Work Phone: Start: 08-16-2023 Chart abstracting Natasha walsh MD Work Phone: [facility] Comment on above: Ext / Op Report & XR ays\ Results ([facility] ) Start: 08-13-2023 End: 08-13-2023 Admission to same day surgery center Dr. Natasha Dubon Work Phone: [facility] Start: 08-13-2023 End: 08-13-[address] Natasha Dubon Work Phone: [facility] Work Phone: Start: 07-29-2023 End: 07-29-[address] Natasha Dubon Work Phone: [facility] Work Phone: Start: 07-29-2023 End: 07-29-[address] Natasha Dubon Work Phone: [facility] Start: 07-27-2023 End: 07-27-[address] Natasha Dubon Work Phone: [facility] Work Phone: Start: 07-27-2023 End: 07-27-[address] Natasha Dubon Work Phone: [facility] Work Phone: Start: 07-22-2023 End: 07-22-[address] Natasha Dubon Work Phone: [facility] Work Phone: Start: 07-19-2023 Chart abstracting Natasha walsh MD Work Phone: [facility] Comment on above: ER Summary (Imaging) Start: 07-16-2023 End: 07-16-2023 Emergency department patient visit Dr. Natasha Dubon Work Phone: [facility]Emergency Department Work Phone: Start: 07-16-2023 Non-patient / Non-visit Dr. Sylvester Dubon Work Phone: [facility] Start: 07-16-[address] [facility] Work Phone: Start: 07-13-2023 Chart abstracting Natasha walsh MD Work Phone: [facility] Comment on above: outside imaging Start: 07-13-[address] Chris Dub[facility] Work Phone: Start: 07-09-2023 Chart abstracting Natasha walsh MD Work Phone: [facility] Comment on above: Outside Imaging Start: 07-09-2023 End: 07-09-[address] Natasha Dubon Work Phone: [facility] Work Phone: Start: 07-09-2023 End: 07-09-[address] Natasha Dubon Work Phone: [facility] Work Phone: Start: 07-08-2023 End: 07-08-[address] Natasha Dubon Work Phone: [facility] Work Phone: Start: 07-08-2023 End: 07-08-[address] Natasha Dubon Work Phone: [facility] Work Phone: Start: 06-29-2023 End: 07-01-[address] Natasha Dubon Work Phone: [facility] Work Phone: Start: 06-29-2023 End: 07-01-[address] Nat[facility] Dub[facility] Work Phone: Start: 06-16-2023 End: 06-16-[address] Natasha Dubon Work Phone: [facility] Work Phone: Start: 06-01-2023 End: 06-02-[address] Natasha Dub[facility] [place] [place] Work Phone: Start: 05-18-2023 End: 05-18-[address] Natasha Dubon Work Phone: [facility] Work Phone: Start: 05-18-2023 End: 05-18-[address] Natasha Dubon Work Phone: [facility] Work Phone: Start: 05-18-[address] Chris Dubon Work [facility] Work Phone: Start: 05-12-2023 Non-patient / Non-visit Dr. Sylvester Dubon Work Phone: [facility] Start: 05-12-2023 End: 05-12-[address] Natasha Dubon Work Phone: [facility] Work Phone: Start: 05-12-2023 End: 05-12-[address] Natasha Dubon Work Phone: [facility] Work Phone: Start: 04-16-2023 End: 04-16-2023 ambulatory [facility] Work Phone: Start: 04-16-2023 End: 04-16-2023 Patient encounter procedure [facility]-Laboratory, Specimen Work Phone: Start: 04-01-2023 End: 04-01-2023 Admission to same day surgery center [facility] Start: 04-01-2023 End: 04-01-2023 ambulatory [facility] Work Phone: Start: 03-29-2023 Chart abstracting Natasha walsh MD Work Phone: [facility] [place] Comment on above: Outside [facility] Ordered Start: 03-26-2023 End: 03-26-2023 ambulatory [facility] Work Phone: Start: 03-26-2023 End: 03-26-2023 Patient encounter procedure [facility] [place] Work Phone: Start: 03-23-2023 End: 03-23-2023 Emergency department patient visit [facility]Emer[facility] Work Phone: Start: 10-30-2021 Telephone encounter Natasha Dubon MD Work Phone: General Surgery Comment on above: Outpatient [place] [facility] Start: 05-01-2021 Patient encounter status Chris Dubon MD Work Phone: [facility] Work Phone: Procedures Date Procedure Procedure Detail Performing Clinician Start: 09-03-[address] Daquan Dubon Work Phone: Start: 08-20-[address] Daquan uDbon Work Phone: Start: 08-13-[address] Daquan Dubon Work Phone: Start: 08-13-[address] Natasha Dubon Work Phone: Start: 08-13-2023 Fluoroscopic guidance Danette Dubon Work Phone: Start: 08-13-[address] Daquan Dubon Work Phone: Start: 07-09-[address] Daquan Dubon Work Phone: Start: 07-08-2023 CT of abdominal aort a with contrast Dr. Natasha Dubon Work Phone: Start: 05-18-[address] Daquan Dubon Work Phone: Start: 04-16-2023 Anaerobic microbial culture Start: 04-16-2023 Investigation of transfusion reaction Start: 04-16-2023 Microbial culture, routine Start: 04-01-2023 Fluoroscopic guidance Start: 04-01-2023 Radiography of ankle Start: 04-01-2023 Open reduction with internal fixation Start: 03-26-2023 Plain chest X-ray Start: 03-23-2023 Radiography of ankle Start: 03-23-2023 Radiography of ankle Start: 12-17-2017 [facility] Natasha walsh MD Work Phone: Start: 06-18-2017 Adult depression scr eening assessment Natasha Dubon MD Work Phone: Start: 05-20-2016 Lipid 1996 panel - S laura or Plasma Natasha Dubon MD Work Phone: Plan of Treatment Date Care Activity Detail Author Start: 12-18-2027 Urine microalbumin profile [facility] Start: 08-13-2023 Anes open proc bones lower leg/ankle/foot nos ANESTH LOWER LEG BONE SURG [facility] Start: 08-13-2023 Application uniplane external fixation system APPL UNIPLN UNI EXT FIXJ SYS [facility] Start: 08-13-2023 Open tx distal fibular fracture lat malleolus TREATMENT OF ANKLE FRACTURE [facility] Start: 08-13-2023 Catheterization of vein [facility] Start: 08-13-2023 Neurovascular assessment [facility] Start: 08-13-2023 Patient discharge [facility] Start: 08-13-2023 Procedure discontinued [facility] Start: 08-13-2023 Vital signs measurements [facility] Start: 08-13-2023 [facility] Start: 08-13-2023 Radiography of ankle Ankle 2 Views [facility] Start: 08-13-2023 XR Ankle 2 Views [facility] Start: 2023 RSV Vaccine (1 - 1-dose 60+ series) RSV Vaccine (1 - 1-dose 60+ series) [facility] Start: 07-16-2023 [facility] Start: 05-03-2023 Behavioral Health Screening Behavioral Health Screening [facility] Start: 05-03-2023 Depression Assessment Depression Assessment [facility] Start: 04-01-2023 Patient discharge [facility] Start: 04-01-2023 Anes open proc bones lower leg/ankle/foot nos ANESTH LOWER LEG BONE SURG [facility] Start: 04-01-2023 Anibal skn sub grft t/a/l area/100sq cm /<1st 25 SKIN SUB GRAFT TRNK/ARM/LEG [facility] Start: 04-01-2023 Dbrdmt fx&/dislc subq t/m/f bone CHRISTINE SKIN BONE AT FX SITE [facility] Start: 04-01-2023 Injection aa&/strd sciatic nerve NJX AA&/STRD SCIATIC NRV IMG [facility] Start: 04-01-2023 Open tx distal fibular fracture lat malleolus TREATMENT OF ANKLE FRACTURE [facility] Start: 03-23-2023 Cltx dstl fibular fx lat malls w/manj TREATMENT OF ANKLE FRACTURE [facility] Start: 03-23-2023 [facility] Start: 01-01-2023 Covid-19 Vaccine ( season) Covid-19 Vaccine () [facility] Start: 05-03-2022 Depression Assessment Depression Assessment [facility] Start: 05-01-2022 ANNUAL PCP TEAM CHRONIC DISEASE VISIT ANNUAL PCP TEAM CHRONIC DISEASE VISIT [facility] Start: 05-30-2021 DIABETES SCREEN DIABETES SCREEN [facility] Start: 05-30-2021 Diabetes Screening Diabetes Screening [facility] Start: 05-20-2021 Lipid 1996 panel - Serum or Plasma Lipid Screening [facility] Start: 05-20-2021 Lipid panel Lipid Screening [facility] Start: 05-20-2021 LIPID SCREEN LIPID SCREEN [facility] Start: 12-17-2018 Colonoscopy COLONOSCOPY [facility] Start: 12-17-2018 COLORECTAL CANCER SCREENING COLORECTAL CANCER SCREENING [facility] Start: 12-17-2018 Screening for malignant neoplasm of colon [facility] Start: 08-06-2018 PROSTATE CANCER SCREENING DISCUSSION PROSTATE CANCER SCREENING DISCUSSION [facility] Start: 08-06-2018 Prostate specific antigen measurement Prostate Cancer Screening Discussion [facility] Start: 06-18-2018 Adult depression screening assessment DEPRESSION SCREENING [facility] Start: 08-06-2013 SHINGRIX VACCINE (1 of 2) SHINGRIX VACCINE (1 of 2) [facility] Start: 08-06-2008 COLOGUARD (FIT-DNA) COLOGUARD (FIT-DNA) [facility] Start: 08-06-[address] COLONOGRAPHY [facility] Start: 08-06-2008 FECAL OCCULT BLOOD FECAL OCCULT BLOOD [facility] Start: 08-06-2008 Screening for malignant neoplasm of colon [facility] Start: 08-06-2008 SIGMOIDOSCOPY SIGMOIDOSCOPY [facility] Start: 08-06-1993 Zoledronic acid therapy Alpha-1 Antitrypsin Deficiency Screening [facility] Start: 08-06-1981 Anxiety Screening Anxiety Screening [facility] Start: 08-06-1981 Depression Screening Depression Screening [facility] Start: 08-06-1981 HEPATITIS C SCREENING HEPATITIS C SCREENING [facility] Start: 08-06-1981 Hepatitis C screening Hepatitis C Screening [facility] Start: 08-06-1969 PNEUMOCOCCAL (1 - PCV) PNEUMOCOCCAL (1 - PCV) [facility] Start: 08-06-1969 Pneumococcal vaccination [facility] Start: 02-06-1964 COVID-19 VACCINE (#1) COVID-19 VACCINE (#1) [facility] CT of abdominal aort a with contrast [facility] Patient Education [facility] Work Phone: Patient referral [facility] Work Phone: Immunizations Immunization Date Immunization Notes Care Provider Gaby boyd 12-17-2017 tetanus toxoid, redu moraima diphtheria toxoid, and acellular pertussis vaccine, adsorbed Natasha Dubon MD Work Phone: [facility] Payers Date Payer Category Payer Self-pay [id number] 2025 Unknown [id number] Unknown [id number] Social History Date Type Detail Facility Start: 05-20-2016 End: 06-18-2017 Tobacco smoking status NHIS Smokes tobacco daily [facility] Work Phone: History of tobacco use Cigarette Smoker C [facility] Work Phone: Start: 05-20-2016 End: 04-07-2020 Cigarettes smoked current (pack per day) - Reported 0.3 [facility] Start: 05-20-2016 End: 06-18-2017 Tobacco use and exposure Smokeless tobacco non-user [facility] Work Phone: Start: 05-01-2021 End: 08-16-2023 Alcohol intake Current drinker of alcohol (finding) [facility] Start: 05-20-2016 History SDOH Alcohol Comment at supper daily; sometimes more on social events [facility] Start: 1965 Sex Assigned At Not on file C [facility] Start: 03-23-2023 End: 08-04-2023 Tobacco smoking status NHIS Unknown if ever smoked [facility] Start: 1965 Sex Assigned At Male W [facility] Start: 04-07-2020 End: 05-01-2021 Tobacco use panel [facility] National Score (1-10 0), lower number is lower risk Not on file [facility] Medical Equipment Procedure Code Equipment Code Equipment Origin al Text Equipment Identifier Dates Stabilization, ankle GRAVITY SYNCHFIX FDA Start: 08-13-2023 Stabilization, ankle GRAVITY SYNCHFIX FDA Start: 08-13-2023 Stabilization, ankle GRAVITY SYNCHFIX FDA Start: 08-13-2023 Stabilization, ankle GRAVITY SYNCHFIX FDA Start: 08-13-2023 Stabilization, ankle GRAVITY SYNCHFIX FDA Start: 08-13-2023 Stabilization, ankle GRAVITY SYNCHFIX FDA Start: 08-13-2023 Stabilization, ankle GRAVITY SYNCHFIX FDA Start: 08-13-2023 Stabilization, ankle GRAVITY SYNCHFIX FDA Start: 08-13-2023 Stabilization, ankle GRAVITY SYNCHFIX FDA Start: 08-13-2023 ORIF, ankle BIOSKIN, 4CM X 4CM FDA Start : 04-01-2023 ORIF, ankle ([id number]) ()[id number] FDA Start: 04-01-2023 ORIF, ankle ([id number]) ()[id number] FDA Start: 04-01-2023 ORIF, ankle ([id number]) ()[id number] FDA Start: 04-01-2023 ORIF, ankle ([id number]) ()[id number] FDA Start: 04-01-2023 ORIF, ankle ([id number]) ()[id number] FDA Start: 04-01-2023 ORIF, ankle BIOSKIN, 4CM X 4CM FDA Start : 04-01-2023 ORIF, ankle BIOSKIN, 4CM X 4CM FDA Start : 04-01-2023 ORIF, ankle BIOSKIN, 4CM X 4CM FDA Start : 04-01-2023 ORIF, ankle BIOSKIN, 4CM X 4CM FDA Start : 04-01-2023 ORIF, ankle BIOSKIN, 4CM X 4CM FDA Start : 04-01-2023 ORIF, ankle BIOSKIN, 4CM X 4CM FDA Start : 04-01-2023 ORIF, ankle BIOSKIN, 4CM X 4CM FDA Start : 04-01-2023 ORIF, ankle BIOSKIN, 4CM X 4CM FDA Start : 04-01-2023 ORIF, ankle BIOSKIN, 4CM X 4CM FDA Start : 04-01-2023 ORIF, ankle BIOSKIN, 4CM X 4CM FDA Start : 04-01-2023 ORIF, ankle BIOSKIN, 4CM X 4CM FDA Start : 04-01-2023 ORIF, ankle BIOSKIN, 4CM X 4CM FDA Start : 04-01-2023 Goals Date Patient Goal Desired Activity /State Mental Status Date Assessment Result Facility 08-13-2023 Cognitive function Awake;Alert;Appropriat e [facility] Work Phone: 07-16-2023 Cognitive function Level Of Cons ciousness Awake;Alert;Appropriate [facility] Work Phone: 04-01-2023 Cognitive function Voice/Name [facility] Work Phone: 03-23-2023 Cognitive function Awake;Alert;A ppropriate;Follow s Commands [facility] Work Phone: Clinical Notes 11-04-2021 to 12-29-2023 Remi Castro LPN - 12/29/2023 8:00 AM Thomas Shook MA - 12/28/2023 10:31 AM Thomas Shook MA - 11/22/2023 2:29 PM Mo Pennington LPN - 10/14/2023 9:59 AM EDT Note Date & Type Note Facility 12-29-2023 Note HNO ID: [id number] Author: REMI CASTRO LPN Service: ? Author Type: LICENSED NURSE Type: Progress Notes Filed: 12/29/2023 08:00 Note Text: Scan on 12/28/2023 5:01 PM by Amauri Jamison PA-C: Ultrasound Scan on 12/28/2023 5:04 PM by Amauri Jamison PA-C: Ultrasound [facility] 12-29-2023 History of Present illness Narrative Scan on 12/28/2023 5:01 PM by Amauri Jamison PA-C: Ultrasound Scan on 12/28/2023 5:04 PM by Amauri Jamison PA-C: Ultrasound documented in this encounter [facility] 12-28-2023 Note HNO ID: [id number] Author: THOMAS MCRAE MA Service: ? Author Type: Noise Tester Type: Progress Notes Filed: 12/28/2023 10:32 Note Text: Scan on 12/27/2023 2:10 PM by Amauri Jamison PA-C: Ultrasound WC - Venous doppler. Patient has not been seen since 04/2021 for physical. Thomas Mcrae MA [facility] 12-28-2023 History of Present illness Narrative Scan on 12/27/2023 2:10 PM by Amauri Jamison PA-C: Ultrasound WC - Venous doppler. Patient has not been seen since 04/2021 for physical. Thomas Mcrae MA documented in this encounter [facility] 11-22-2023 Note HNO ID: [id number] Author: THOMAS MCRAE MA Service: ? Author Type: Noise Tester Type: Progress Notes Filed: 11/24/2023 01:11 Note Text: Scan on 11/19/2023 11:39 AM by Amauri Jamison PA-C: Miscellaneous Lab Scan on 11/19/2023 1:15 PM by Amauri Jamison PA-C: Miscellaneous Lab Scan on 11/20/2023 11:06 AM by Amauri Jamison PA-C: Chemistry Scan on 11/21/2023 9:36 AM by Amauri Jamison PA-C: Chemistry Labs from Dr. Haroon Da Silva DPM. Patient has not been seen since 04/2021 for wellness exam. Mailed letter to reach out to help schedule. Thomas Mcrae MA [facility] 11-22-2023 History of Present illness Narrative Scan on 11/19/2023 11:39 AM by Amauri Jamison PA-C: Miscellaneous Lab Scan on 11/19/2023 1:15 PM by Amauri Jamison PA-C: Miscellaneous Lab Scan on 11/20/2023 11:06 AM by Amauri Jamison PA-C: Chemistry Scan on 11/21/2023 9:36 AM by Amauri Jamison PA-C: Chemistry Labs from Dr. Haroon Da Silva DPM. Patient has not been seen since 04/2021 for wellness exam. Mailed letter to reach out to help schedule. Thomas Mcrae MA documented in this encounter [facility] 10-14-2023 Note HNO ID: [id number] Author: MO JOHNSTON LPN Service: ? Author Type: LICENSED NURSE Type: Progress Notes Filed: 10/14/2023 09:59 Note Text: Scan on 10/13/2023 4:50 AM by Amauri Jamison PA-C: X-ray Mo Johnston LPN [facility] 10-14-2023 History of Present illness Narrative Scan on 10/13/2023 4:50 AM by Amauri Jamison PA-C: X-ray Mo Johnston LPN documented in this encounter [facility] 10-04-2023 Note HNO ID: [id number] Author: THOMAS MCRAE MA Service: ? Author Type: Noise Tester Type: Progress Notes Filed: 10/04/2023 16:22 Note Text: Scan on 10/02/2023 10:35 AM by Amauri Jamison PA-C: Kevin Mcrae MA [facility] 10-04-2023 History of Present illness Narrative Scan on 10/02/2023 10:35 AM by Amauri Jamison PA-C: Kevin Mcrae MA documented in this encounter [facility] 10-01-2023 Note HNO ID: [id number] Author: MO JOHNSTON LPN Service: ? Author Type: LICENSED NURSE Type: Progress Notes Filed: 10/01/2023 12:49 Note Text: Scan on 10/01/2023 11:10 AM by Amauri Jamison PA-C: Microbiology Mo Johnston LPN [facility] 10-01-2023 History of Present illness Narrative Scan on 10/01/2023 11:10 AM by Provider, External, PA-C: Microbiology Mo Johnston LPN documented in this encounter [facility] 09-30-2023 Note HNO ID: [id number] Author: SONNY CAMARGO LPN Service: ? Author Type: LICENSED NURSE Type: Progress Notes Filed: 09/30/2023 13:13 Note Text: Scan on 09/30/2023 8:35 AM by Provider, External, PA-C: Miscellaneous Lab Scan on 09/30/2023 7:35 AM by Provider, External, PA-C: Miscellaneous Lab ScanScan on 09/29/2023 11:35 AM by Provider, External, PA-C: Miscellaneous Lab on 09/02 7:07 AM by Provider External, PA-C: Microbiology Scan on 09/29/2023 10:35 AM by Provider, External, PA-C: Miscellaneous Lab [facility] 09-30-2023 History of Present illness Narrative Scan on 09/30/2023 8:35 AM by Provider, External, PA-C: Miscellaneous Lab Scan on 09/30/2023 7:35 AM by Provider, External, PA-C: Miscellaneous Lab ScanScan on 09/29/2023 11:35 AM by Provider External, PA-C: Miscellaneous Lab on 09/02 7:07 AM by Provider, External, PA-C: Microbiology Scan on 09/29/2023 10:35 AM by Provider, External, PA-C: Miscellaneous Lab documented in this encounter [facility] 09-30-2023 Note HNO ID: [id number] Author: MO JOHNSTON LPN Service: ? Author Type: LICENSED NURSE Type: Progress Notes Filed: 09/30/2023 12:02 Note Text: Scan on 09/30/2023 8:35 AM by Provider, External, PA-C: Miscellaneous Lab Scan on 09/30/2023 7:35 AM by Amauri Jamison PA-C: Miscellaneous Lab Scan on 09/30/2023 7:07 AM by Amauri Jamison PA-C: Microbiology Mo Johnston LPN [facility] 09-30-2023 History of Present illness Narrative Scan on 09/30/2023 8:35 AM by Amauri Jamison PA-C: Miscellaneous Lab Scan on 09/30/2023 7:35 AM by Amauri Jamison PA-C: Miscellaneous Lab Scan on 09/30/2023 7:07 AM by Amauri Jamison PA-C: Microbiology Mo Johnston LPN documented in this encounter [facility] 09-06-2023 Note HNO ID: [id number] Author: SONNY CAMARGO LPN Service: ? Author Type: LICENSED NURSE Type: Progress Notes Filed: 09/06/2023 11:45 Note Text: Scan on 09/04/2023 1:57 PM by Amauri Jamison PA-C: X-ray [facility] 09-06-2023 History of Present illness Narrative Scan on 09/04/2023 1:57 PM by Amauri Jamison PA-C: X-ray documented in this encounter [facility] 08-31-2023 Progress note Note Date/Time August 31, 2023 10:29am [facility] [address] [place] [address] Progress Note - Wound Care 08/31/23 1027 MR#: [id number] Acct: [id number] Name: WERNER MCLAIN Rep #:[id number] : 1965 58 From: Haroon Da Silva DPM PCP: Dr. Natasha Dubon MD Status:REG RCR Location: History of Present Illness Date of Service: 08/31/23 History of Wound: Patient presents for follow-up after left ankle syndesmotic stabilization with hardware removal performed on 08/12/2014. Patient denies any fever chills chest pain calf pain shortness of breath today. Patient denies anyother complaints. Patient had an AO splint with a overlying cast boot to his left lower extremity. Objective Data Objective Data Vital Signs: Vital Signs Temp Pulse Resp BP O2 Del Method 96.9 F L 85 18 172/77 H Room Air 08/31/23 09:35 08/31/23 09:35 08/24/23 09:34 08/31/23 09:35 08/24/23 09:34 Oxygen Delivery Method Room Air Physical Exam Narrative Neurovascular status unchanged. Incisions to medial ankle intact and well-approximated with intact gilles. Small dehiscence noted to the lateral ankle incisional site. Gilles were removed from the site to this issue. No acute signs of infection noted. Pre and postdebridement measurements documented nursing notes. There is diffuse scarring to the clement-incisional area as this is previous site of incisional breakdown. Some pitting edema noted to bilateral lower extremity. Deferred range of motionstressing left ankle due to 1 week postop. Const alert and oriented x3 Debridement Note Debridement Note Post-Debridement Measurements and Additional Note: Post-Debridement Measurements/Treatment - Nurse 1 - General Ulcer Assessment Start: 08/17/23 09:17 Freq: Status: Active Protocol: .LOWEXT Activity Type Activity Date Activity User E-sign Co-sign Detail Recorded Client Recorded Date Recorded By Document 08/17/23 09:17 RB Desktop 08/17/23 09:38 RB Document 08/24/23 09:34 KW Desktop 08/24/23 09:46 KW Document 08/31/23 09:35 DL Desktop 08/31/23 09:49 DL 08/17/23 08/24/23 08/31/23 09:17 09:34 09:35 - Today's Visit Information Type of service Follow-up Visit Follow-up Visit Follow-up Visit (Physician/CAR REPAIR SUPERVISOR (Physician/CAR REPAIR SUPERVISOR (Physician/CAR REPAIR SUPERVISOR ) ) ) Arrival Mode Ambulatory Ambulatory Ambulatory Transfer Assistance None Patient Identification Verified (Name & Yes Yes Yes ) Patient Requires Transmission-Based No Precautions Safety Precautions NA Vital Signs Temperature (97.8 F-99.1 F) 97.9 F 97.4 F L 96.9 F L Temperature Source Temporal Temporal Temporal Pulse Rate (60-100) 89 86 85 Pulse Location Monitor Monitor Monitor Respiratory Rate (12-18) 18 18 Respiratory rate source Observation Observation Oxygen Delivery Method Room Air Blood Pressure (90/60-120/80) 164/77 H 179/99 H 172/77 H Blood Pressure Mean (mm Hg) 106 125 108 Source Monitor Monitor Monitor Position Sitting Semi-Fowlers Sitting Blood Pressure Location Left Arm Left Arm Right Arm History Since Last Visit- (Skip if this is Patient's initial visit) Have you changed medications since your Yes Yes No last visit? Any new allergies or adverse reactions No No No Had a fall/change in ADL's that may No No No increase risk of falls Signs or symptoms of abuse and/or No No No neglect since last visit Have you been in the hospital since your Yes No No last visit? Has dressing in place as prescribed Yes Yes Yes Has compression in place as prescribed Yes N/A N/A Has offloadiing in place as prescribed Yes Yes Yes Experienced any changes in pain level or No No Yes management Left Footwear Surgical Shoe Total Contact Total Contact with pressure Cast Cast relief insole Right Footwear Regular Shoe Regular Shoe Regular Shoe Pain Scale: 0-10 Numeric Is Patient Pain Free? Yes Yes Yes WC - Nurse 1 - General Ulcer Measurement Start: 08/17/23 09:17 Freq: Status: Active Protocol: Activity Type Activity Date Activity User E-sign Co-sign Detail Recorded Client Recorded Date Recorded By Document 08/17/23 09:17 RB Desktop 08/17/23 09:38 RB Document 08/24/23 09:34 KW Desktop 08/24/23 09:46 KW Document 08/31/23 09:35 DL Desktop 08/31/23 09:49 DL 08/17/23 08/24/23 08/31/23 09:17 09:34 09:35 Wound Center Nurse 1 3. LLE medial ankle -Combined with other wound No -Current Size (cm) - Length 0.1 2 -Current Size (cm) - Width 0.1 1.1 -Current Size (cm) - Depth 0.1 0.1 -Total Square Cm 0.01 2.2 -Photo Taken Yes No -Tunneling No No -Undermining/Tunneling No No -Circular Undermining No No -Exudate Amt Large Medium Medium -Exudate Type Serosanguineous Serosanguineous Serosanguineous -Wound Margin Distinct, Distinct, Outline Outline Attached Attached -Granulation Amt Large (67-100%) Medium (34-66%) -Granulation Quality [place] -Slough/Fibrin No Yes -Necrosis Amt None Present (0 Medium (34-66%) %) -Necrotic Tissue Type Adherent Slough -Structure Exposed N/A -Texture (Clement-wound Skin Appearance) Assessed Assessed Assessed, Localized Edema -Moisture (Clement-wound Skin Appearance) Assessed Assessed Assessed,Dry/ Scaly -Color (Clement-wound Skin Appearance) Assessed Assessed Assessed, Erythema -Temperature (Clement-wound Skin No Abnormality No Abnormality No Abnormality Appearance) (Pt Warm) (Pt Warm) (Pt Warm) -Tenderness on Palpation (Clement-wound No No Yes Skin Appearance) -Ulcer Cleansing Wound Cleanser Soap and Water Soap and Water -Foul Odor after Cleansing No -Anesthetic Used 5% Lidocaine Gel -Wound Comment(s) 11 gilles INTACT SUTURES intact and AND GILLES incision well approximated 2. LLE lateral ankle -Combined with other wound No -Current Size (cm) - Length 0.1 4.2 -Current Size (cm) - Width 0.1 0.4 -Current Size (cm) - Depth 0.1 0.4 -Total Square Cm 0.01 1.68 -Photo Taken Yes No -Tunneling No No -Undermining/Tunneling No -Circular Undermining No No -Exudate Amt Large Small Medium -Exudate Type Serosanguineous Serosanguineous Serosanguineous -Wound Margin Distinct, Distinct, Outline Outline Attached Attached -Granulation Amt Large (67-100%) Small (1-33%) -Granulation Quality [place]art -Slough/Fibrin No -Necrosis Amt Large (67-100%) -Necrotic Tissue Type Adherent Slough -Structure Exposed N/A Bone -Texture (Clement-wound Skin Appearance) Assessed Assessed Assessed, Scarring -Moisture (Clement-wound Skin Appearance) Assessed Assessed Assessed,Dry/ Scaly -Color (Clement-wound Skin Appearance) Assessed Assessed Assessed, Erythema -Temperature (Clement-wound Skin No Abnormality No Abnormality No Abnormality Appearance) (Pt Warm) (Pt Warm) (Pt Warm) -Tenderness on Palpation (Clement-wound No No Yes Skin Appearance) -Ulcer Cleansing Wound Cleanser Soap and Water Soap and Water -Foul Odor after Cleansing No No No -Anesthetic Used 5% Lidocaine Gel -Wound Comment(s) 7 gilles, 2 INTACT SUTURES sutures intact AND GILLES . incision well appproximated Left Calf (cm) 37 Left Ankle (cm) 26 WC - Nurse 2 - General Ulcer CM Notes Start: 08/17/23 09:17 Freq: Status: Active Protocol: Activity Type Activity Date Activity User E-sign Co-sign Detail Recorded Client Recorded Date Recorded By Document 08/17/23 09:44 Laptop 08/17/23 09:47 Edit Result 08/17/23 09:44 GRACIELA (1) Laptop 08/17/23 10:09 Document 08/24/23 10:05 JF Laptop 08/24/23 10:07 Document 08/31/23 10:23 JF Laptop 08/31/23 10:24 GRACIELA (1) 3. LLE medial ankle - Correct Procedure => No - Procedure Performed => No - Post Debridement (cm) - Length 1.7 => - Post Debridement (cm) - Width 0.3 => - Post Debridement (cm) - Depth 0.2 => - Total Square (Post) (cm) 0.51 => - Area of Debridement (cm) - Length 1.7 => - Area of Debridement (cm) - Width 0.3 => - Total Square (Area) (cm) 0.51 => - Offloading Yes => No - Type of Offloading Total Contact Cast => (TCC) - Left ($) => - Debridement - Subq, 1st 20sq cm Yes => 08/17/23 08/24/23 08/31/23 09:44 10:05 10:23 Wound Center Nurse 2 3. LLE medial ankle -Time 09:44 -Correct Patient No No No -Correct Side, Site, Position No No No -Correct Procedure No No No -Procedure Performed No No No -Post Debridement (cm) - Length 0 -Post Debridement (cm) - Width 0 -Post Debridement (cm) - Depth 0 -Total Square (Post) (cm) 0 -Area of Debridement (cm) - Length 0 -Area of Debridement (cm) - Width 0 -Total Square (Area) (cm) 0 -Tunneling No -Undermining/Tunneling No -Circular Undermining No -Wound/Ulcer Outcome Not Healed Healed- Not Healed Epithelialized -Ulcer Cleansing Rinsed/ Irrigated with Saline -Foul Odor after Cleansing No -Bioengineered Tissue No -Bleeding Controlled with Pressure -Treatment Response Procedure Tolerated Well -Offloading No 2. LLE lateral ankle -Time 10:07 10:24 -Correct Patient Yes Yes Yes -Correct Side, Site, Position Yes Yes Yes -Correct Procedure Yes Yes Yes -Procedure Performed Yes Yes Yes -Type of Procedure Debridement Debridement Debridement -Clinical Debridement Subcutaneous Subcutaneous Subcutaneous -Tissue Removed Subcutaneous Subcutaneous Subcutaneous -Post Debridement (cm) - Length 1.7 4.0 4.0 -Post Debridement (cm) - Width 0.3 0.4 0.6 -Post Debridement (cm) - Depth 0.2 0.5 0.5 -Total Square (Post) (cm) 0.51 1.60 2.40 -Area of Debridement (cm) - Length 1.7 4.0 4.0 -Area of Debridement (cm) - Width 0.3 0.4 0.6 -Total Square (Area) (cm) 0.51 1.60 2.40 -Tunneling No No No -Undermining/Tunneling No No No -Circular Undermining No No No -Wound/Ulcer Outcome Not Healed Not Healed Not Healed -Ulcer Cleansing Rinsed/ Rinsed/ Rinsed/ Irrigated with Irrigated with Irrigated with Saline Saline Saline -Foul Odor after Cleansing No No No -Bioengineered Tissue No No No -Bleeding Controlled with Pressure Pressure Pressure -Treatment Response Procedure Procedure Procedure Tolerated Well Tolerated Well Tolerated Well -Offloading Yes Yes No -Type of Offloading Total Contact Total Contact Cast (TCC) - Cast (TCC) - Left ($) Left ($) -Debridement - Subq, 1st 20sq cm Yes Yes Yes Pain Scale: 0-10 Numeric Is Patient Pain Free? Yes Yes Yes WC - Nurse 3 - General Ulcer D/C NN Start: 08/17/23 09:17 Freq: Status: Active Protocol: Activity Type Activity Date Activity User E-sign Co-sign Detail Recorded Client Recorded Date Recorded By Document 08/17/23 10:26 DL Desktop 08/17/23 10:28 DL Document 08/24/23 10:26 RB Desktop 04/23/24 10:28 RB 08/17/23 08/24/23 10:26 10:26 Wound Care Center Nurse 3 3. LLE medial ankle -Ulcer Cleansing Soap and Water -Foul Odor after Cleansing No -Primary Dressing Applied Optilok 6.5x10, Silvercel -Other Dressing Betadine -Primary Dressing Covered/Secured with Dry Gauze & Roll Gauze -Optilok 6.5x10 1 -Silvercel 1 2. LLE lateral ankle -Ulcer Cleansing Soap and Water Rinsed/ Irrigated with Saline -Primary Dressing Applied Optilok 6.5x10, Silvercel -Other Dressing silvercell/ betadine/ABD -Primary Dressing Covered/Secured with Dry Gauze & Roll Gauze -Optilok 6.5x10 1 -Silvercel 1 Left -Other TCC primary layer of TCC applied Treatment Response Procedure Procedure Tolerated Well Tolerated Well Pain Scale: 0-10 Numeric Is Patient Pain Free? Yes Yes WC - Visit Discharge Discharge Condition Stable Stable Ambulatory Status Ambulatory Ambulatory Transportation Private Auto Private Auto Medication Reconcilliation completed & No provided to patient/care provider Clinical Summary of Care Provided Yes Notes: TCC applied to LLE today Assessment/Plan Assessment/Plan (1) Painful orthopaedic hardware: CODE(S): T84.84XA - Pain due to internal orthopedic prosthetic devices, implants and grafts, initial encounter PLAN: Exam performed. Radiographs of left ankle re-ordered wound to left lateral ankle excisionally debrided using 3mm curette of all non-viable tissue without incident down to and including level of subcutaneous tissue. No anesthesia due to neuropathy. Hemostasis with light compression. patient tolerated procedure well. pre/post debridement measurements noted. dressed with silver alginate to lateral left ankle and 3M wrap offload with boot on left rx for short-articulated AFO ordered for left follow up in 1 week (2) Syndesmotic disruption of left ankle: CODE(S): S93.432A - Sprain of tibiofibular ligament of left ankle, initialencounter QUALIFIERS: Encounter type: subsequent encounter Qualified Code(s): S93.432D - Sprain of tibiofibular ligament of left ankle, subsequent encounter (3) Non-pressure chronic ulcer of left ankle with fat layer exposed: CODE(S): L97.322 - Non-pressure chronic ulcer of left ankle with fat layerexposed (4) Other hereditary and idiopathic neuropathies: CODE(S): G60.8 - Other hereditary and idiopathic neuropathies (5) Other specified peripheral vascular diseases: CODE(S): I73.89 - Other specified peripheral vascular diseases 08/31/23 1029 <Electronically signed by Haroon Da Silva DPM> Cosigner Signature (if applicable): CC: ~ Signed [facility] Work Phone: 1(638) 814-280104-23-2024 Progress note Author Haroon Da Silva [facility] August 24, 2023 10:28am Note Date/Time August 24, 2023 10: 28am [facility] [address] [place] [id number] Progress Note - Wound Care 08/24/23 1025 MR#: [id number] Acct: [id number] Name: WERNER MCLAIN Rep #:[id number] : 1965 58 From: Haroon Da Silva DPM PCP: Dr. Natasha Dubon MD Status:REG RCR Location: History of Present Illness Date of Service: 08/24/23 History of Wound: Patient presents for follow-up after left ankle syndesmotic stabilization with hardware removal performed on 08/12/2014. Patient denies any fever chills chest pain calf pain shortness of breath today. Patient denies anyother complaints. Patient had an AO splint with a overlying cast boot to his left lower extremity. Objective Data Objective Data Vital Signs: Vital Signs Temp Pulse Resp BP O2 Del Method 97.4 F L 86 18 179/99 H Room Air 08/24/23 09:34 08/24/23 09:34 08/24/23 09:34 08/24/23 09:34 08/24/23 09:34 Oxygen Delivery Method Room Air Physical Exam Narrative Neurovascular status unchanged. Incisions to medial ankle intact and well-approximated with intact gilles. Small dehiscence noted to the lateral ankle incisional site. Gilles were removed from the site to this issue. No acute signs of infection noted. Pre and postdebridement measurements documented nursing notes. There is diffuse scarring to the clement-incisional area as this is previous site of incisional breakdown. Some pitting edema noted to bilateral lower extremity. Deferred range of motionstressing left ankle due to 1 week postop. Const alert and oriented x3 Debridement Note Debridement Note Post-Debridement Measurements and Additional Note: Post-Debridement Measurements/Treatment WC - Nurse 1 - General Ulcer Assessment Start: 08/17/23 09:17 Freq: Status: Active Protocol: LISA Activity Type Activity Date Activity User E-sign Co-sign Detail Recorded Client Recorded Date Recorded By Document 08/17/23 09:17 RB Desktop 08/17/23 09:38 RB Document 08/24/23 09:34 KW Desktop 08/24/23 09:46 KW 08/17/23 08/24/23 09:17 09:34 WC - Today's Visit Information Type of service Follow-up Visit Follow-up Visit (Physician/CAR REPAIR SUPERVISOR (Physician/CAR REPAIR SUPERVISOR ) ) Arrival Mode Ambulatory Ambulatory Transfer Assistance None Patient Identification Verified (Name & Yes Yes ) Patient Requires Transmission-Based No Precautions Vital Signs Temperature (97.8 F-99.1 F) 97.9 F 97.4 F L Temperature Source Temporal Temporal Pulse Rate (60-100) 89 86 Pulse Location Monitor Monitor Respiratory Rate (12-18) 18 18 Respiratory rate source Observation Observation Oxygen Delivery Method Room Air Blood Pressure (90/60-120/80) 164/77 H 179/99 H Blood Pressure Mean (mm Hg) 106 125 Source Monitor Monitor Position Sitting Semi-Fowlers Blood Pressure Location Left Arm Left Arm History Since Last Visit- (Skip if this is Patient's initial visit) Have you changed medications since your Yes Yes last visit? Any new allergies or adverse reactions No No Had a fall/change in ADL's that may No No increase risk of falls Signs or symptoms of abuse and/or No No neglect since last visit Have you been in the hospital since your Yes No last visit? Has dressing in place as prescribed Yes Yes Has compression in place as prescribed Yes N/A Has offloadiing in place as prescribed Yes Yes Experienced any changes in pain level or No No management Left Footwear Surgical Shoe Total Contact with pressure Cast relief insole Right Footwear Regular Shoe Regular Shoe Pain Scale: 0-10 Numeric Is Patient Pain Free? Yes Yes JOLIE - Nurse 1 - General Ulcer Measurement Start: 08/17/23 09:17 Freq: Status: Active Protocol: Activity Type Activity Date Activity User E-sign Co-sign Detail Recorded Client Recorded Date Recorded By Document 08/17/23 09:17 RB Desktop 08/17/23 09:38 RB Document 08/24/23 09:34 KW Desktop 08/24/23 09:46 KW 08/17/23 08/24/23 09:17 09:34 Wound Center Nurse 1 3. LLE medial ankle -Combined with other wound No -Current Size (cm) - Length 0.1 -Current Size (cm) - Width 0.1 -Current Size (cm) - Depth 0.1 -Total Square Cm 0.01 -Photo Taken Yes -Tunneling No -Undermining/Tunneling No -Circular Undermining No -Exudate Amt Large Medium -Exudate Type Serosanguineous Serosanguineous -Wound Margin Distinct, Outline Attached -Granulation Amt Large (67-100%) -Granulation Quality [place] -Slough/Fibrin No -Necrosis Amt None Present (0 %) -Structure Exposed N/A -Texture (Clement-wound Skin Appearance) Assessed Assessed -Moisture (Clement-wound Skin Appearance) Assessed Assessed -Color (Clement-wound Skin Appearance) Assessed Assessed -Temperature (Clement-wound Skin No Abnormality No Abnormality Appearance) (Pt Warm) (Pt Warm) -Tenderness on Palpation (Clement-wound No No Skin Appearance) -Ulcer Cleansing Wound Cleanser Soap and Water -Foul Odor after Cleansing No -Wound Comment(s) 11 gilles INTACT SUTURES intact and AND GILLES incision well approximated 2. LLE lateral ankle -Combined with other wound No -Current Size (cm) - Length 0.1 -Current Size (cm) - Width 0.1 -Current Size (cm) - Depth 0.1 -Total Square Cm 0.01 -Photo Taken Yes -Tunneling No -Undermining/Tunneling No -Circular Undermining No -Exudate Amt Large Small -Exudate Type Serosanguineous Serosanguineous -Wound Margin Distinct, Outline Attached -Granulation Amt Large (67-100%) -Granulation Quality [place] -Slough/Fibrin No -Structure Exposed N/A -Texture (Clement-wound Skin Appearance) Assessed Assessed -Moisture (Clement-wound Skin Appearance) Assessed Assessed -Color (Clement-wound Skin Appearance) Assessed Assessed -Temperature (Clement-wound Skin No Abnormality No Abnormality Appearance) (Pt Warm) (Pt Warm) -Tenderness on Palpation (Clement-wound No No Skin Appearance) -Ulcer Cleansing Wound Cleanser Soap and Water -Foul Odor after Cleansing No No -Wound Comment(s) 7 gilles, 2 INTACT SUTURES sutures intact AND GILLES . incision well appproximated Left Calf (cm) 37 Left Ankle (cm) 26 WC - Nurse 2 - General Ulcer CM Notes Start: 08/17/23 09:17 Freq: Status: Active Protocol: Activity Type Activity Date Activity User E-sign Co-sign Detail Recorded Client Recorded Date Recorded By Document 08/17/23 09:44 GRACIELA Laptop 08/17/23 09:47 Edit Result 08/17/23 09:44 JF (1) Laptop 08/17/23 10:09 JF Document 08/24/23 10:05 Laptop 08/24/23 10:07 GRACIELA (1) 3. LLE medial ankle - Correct Procedure => No - Procedure Performed => No - Post Debridement (cm) - Length 1.7 => - Post Debridement (cm) - Width 0.3 => - Post Debridement (cm) - Depth 0.2 => - Total Square (Post) (cm) 0.51 => - Area of Debridement (cm) - Length 1.7 => - Area of Debridement (cm) - Width 0.3 => - Total Square (Area) (cm) 0.51 => - Offloading Yes => No - Type of Offloading Total Contact Cast => (TCC) - Left ($) => - Debridement - Subq, 1st 20sq cm Yes => 08/17/23 08/24/23 09:44 10:05 Wound Center Nurse 2 3. LLE medial ankle -Time 09:44 -Correct Patient No No -Correct Side, Site, Position No No -Correct Procedure No No -Procedure Performed No No -Post Debridement (cm) - Length 0 -Post Debridement (cm) - Width 0 -Post Debridement (cm) - Depth 0 -Total Square (Post) (cm) 0 -Area of Debridement (cm) - Length 0 -Area of Debridement (cm) - Width 0 -Total Square (Area) (cm) 0 -Tunneling No -Undermining/Tunneling No -Circular Undermining No -Wound/Ulcer Outcome Not Healed Healed- Epithelialized -Ulcer Cleansing Rinsed/ Irrigated with Saline -Foul Odor after Cleansing No -Bioengineered Tissue No -Bleeding Controlled with Pressure -Treatment Response Procedure Tolerated Well -Offloading No 2. LLE lateral ankle -Time 10:07 -Correct Patient Yes Yes -Correct Side, Site, Position Yes Yes -Correct Procedure Yes Yes -Procedure Performed Yes Yes -Type of Procedure Debridement Debridement -Clinical Debridement Subcutaneous Subcutaneous -Tissue Removed Subcutaneous Subcutaneous -Post Debridement (cm) - Length 1.7 4.0 -Post Debridement (cm) - Width 0.3 0.4 -Post Debridement (cm) - Depth 0.2 0.5 -Total Square (Post) (cm) 0.51 1.60 -Area of Debridement (cm) - Length 1.7 4.0 -Area of Debridement (cm) - Width 0.3 0.4 -Total Square (Area) (cm) 0.51 1.60 -Tunneling No No -Undermining/Tunneling No No -Circular Undermining No No -Wound/Ulcer Outcome Not Healed Not Healed -Ulcer Cleansing Rinsed/ Rinsed/ Irrigated with Irrigated with Saline Saline -Foul Odor after Cleansing No No -Bioengineered Tissue No No -Bleeding Controlled with Pressure Pressure -Treatment Response Procedure Procedure Tolerated Well Tolerated Well -Offloading Yes Yes -Type of Offloading Total Contact Total Contact Cast (TCC) - Cast (TCC) - Left ($) Left ($) -Debridement - Subq, 1st 20sq cm Yes Yes Pain Scale: 0-10 Numeric Is Patient Pain Free? Yes Yes WC - Nurse 3 - General Ulcer D/C NN Start: 08/17/23 09:17 Freq: Status: Active Protocol: Activity Type Activity Date Activity User E-sign Co-sign Detail Recorded Client Recorded Date Recorded By Document 08/17/23 10:26 DL Desktop 08/17/23 10:28 DL 08/17/23 10:26 Wound Care Center Nurse 3 3. LLE medial ankle -Ulcer Cleansing Soap and Water -Foul Odor after Cleansing No -Primary Dressing Applied Optilok 6.5x10, Silvercel -Other Dressing Betadine -Primary Dressing Covered/Secured with Dry Gauze & Roll Gauze -Optilok 6.5x10 1 -Silvercel 1 2. LLE lateral ankle -Ulcer Cleansing Soap and Water -Other Dressing silvercell/ betadine/ABD -Primary Dressing Covered/Secured with Dry Gauze & Roll Gauze Left -Other TCC Treatment Response Procedure Tolerated Well Pain Scale: 0-10 Numeric Is Patient Pain Free? Yes WC - Visit Discharge Discharge Condition Stable Ambulatory Status Ambulatory Transportation Private Auto Notes: TCC applied to LLE today Assessment/Plan Assessment/Plan (1) Painful orthopaedic hardware: CODE(S): T84.84XA - Pain due to internal orthopedic prosthetic devices, implants and grafts, initial encounter PLAN: Exam performed. Radiographs reviewed. Some residual diastases tibiofibular joint. Deltoid insufficiency noted. Will plan for custom bracing for long-term stability and reserve TTC fusion as a salvage procedure if required. Will avoid aggressive management at current due to alcoholism, smoking status, arterial disease, compliance. [place] removed. Medial incisions healed. Some lateral ankle incisional dehiscence noted. Incisional site was debrided excisionally down to including level of subcutaneous tissue of all nonviable tissue using a 5 mm dermal curette. Patient tolerated procedure well. No anesthesia due to neuropathy. Pre and postdebridement measurements documented nursing notes. Hemostasis obtained withlight compression. Dressed incisional sites with Betadine and Adaptic and dressed wound site with silver alginate. Total contact cast with left lower extremity held in a rectus position applied. Patient will maintain protected weightbearing total contact cast in cast boot assisted by walker. Patient is taking 5 mg Eliquis daily for acute DVT left lower extremity Patient will follow-up in 1 week. (2) Syndesmotic disruption of left ankle: CODE(S): S93.432A - Sprain of tibiofibular ligament of left ankle, initialencounter QUALIFIERS: Encounter type: subsequent encounter Qualified Code(s): S93.432D - Sprain of tibiofibular ligament of left ankle, subsequent encounter (3) Non-pressure chronic ulcer of left ankle with fat layer exposed: CODE(S): L97.322 - Non-pressure chronic ulcer of left ankle with fat layerexposed (4) Other hereditary and idiopathic neuropathies: CODE(S): G60.8 - Other hereditary and idiopathic neuropathies (5) Other specified peripheral vascular diseases: CODE(S): I73.89 - Other specified peripheral vascular diseases 08/24/23 1028 <Electronically signed by Haroon Da Silva DPM> Cosigner Signature (if applicable): CC: ~ Signed [facility] Work Phone: 1(402) 738-377904-22-2024 NoteHNO ID: [id number] Author: MO JOHNSTON LPN Service: ? Author Type: LICENSED NURSE Type: Progress Notes Filed: 08/23/2023 10:51 Note Text: Scan on 08/21/2023 5:36 PM by Amauri Jamison PA-C: X-ray Scan on 08/20/2023 2:19 PM by Amauri Jamison PA-C: [facility] History of Present illness Narrative* Mo Johnston LPN - 08/23/2023 10:50 AM EDT Scan on 08/21/2023 5:36 PM by Amauri Jamison PA-C: X-ray Scan on 08/20/2023 2:19 PM by Amauri Jamison PA-C: X-ray Mo Johnston LPN documented in this encounterOhio[facility] Progress note Author Haroon Da Silva [facility] August 17, 2023 9:51am Note Date/Time August 17, 2023 9:5 1am [facility] [address] [place] [id number] Progress Note - Wound Care 08/17/23 0947 MR#: [id number] Acct: [id number] Name: WERNER MCLAIN Rep #:[id number] : 1965 58 From: Haroon Da Silva DPM PCP: Dr. Natasha Dubon MD Status:REG RCR Location: History of Present Illness Date of Service: 08/17/23 History of Wound: Patient presents for follow-up after left ankle syndesmotic stabilization with hardware removal performed on 08/12/2014. Patient denies any fever chills chest pain calf pain shortness of breath today. Patient denies anyother complaints. Patient had an AO splint with a overlying cast boot to his left lower extremity. Objective Data Objective Data Vital Signs: Vital Signs Temp Pulse Resp BP 97.9 F 89 18 164/77 H 08/17/23 09:17 08/17/23 09:17 08/17/23 09:17 08/17/23 09:17 Physical Exam Narrative Neurovascular status unchanged. Incisions to medial ankle intact and well-approximated with intact gilles. Small dehiscence noted to the lateral ankle incisional site. [place] were removed from the site to this issue. No acute signs of infection noted. Pre and postdebridement measurements documented nursing notes. There is diffuse scarring to the clement-incisional area as this is previous site of incisional breakdown. Some pitting edema noted to bilateral lower extremity. Deferred range of motionstressing left ankle due to 1 week postop. Const alert and oriented x3 Debridement Note Debridement Note Post-Debridement Measurements and Additional Note: Post-Debridement Measurements/Treatment WC - Nurse 1 - General Ulcer Assessment Start: 08/17/23 09:17 Freq: Status: Active Protocol: LISA Activity Type Activity Date Activity User E-sign Co-sign Detail Recorded Client Recorded Date Recorded By Document 08/17/23 09:17 RB Desktop 08/17/23 09:38 RB 08/17/23 09:17 - Today's Visit Information Type of service Follow-up Visit (Physician/CAR REPAIR SUPERVISOR ) Arrival Mode Ambulatory Transfer Assistance None Patient Identification Verified (Name & Yes ) Patient Requires Transmission-Based No Precautions Vital Signs Temperature (97.8 F-99.1 F) 97.9 F Temperature Source Temporal Pulse Rate (60-100) 89 Pulse Location Monitor Respiratory Rate (12-18) 18 Respiratory rate source Observation Blood Pressure (90/60-120/80) 164/77 H Blood Pressure Mean (mm Hg) 106 Source Monitor Position Sitting Blood Pressure Location Left Arm History Since Last Visit- (Skip if this is Patient's initial visit) Have you changed medications since your Yes last visit? Any new allergies or adverse reactions No Had a fall/change in ADL's that may No increase risk of falls Signs or symptoms of abuse and/or No neglect since last visit Have you been in the hospital since your Yes last visit? Has dressing in place as prescribed Yes Has compression in place as prescribed Yes Has offloadiing in place as prescribed Yes Experienced any changes in pain level or No management Left Footwear Surgical Shoe with pressure relief insole Right Footwear Regular Shoe Pain Scale: 0-10 Numeric Is Patient Pain Free? Yes WC - Nurse 1 - General Ulcer Measurement Start: 08/17/23 09:17 Freq: Status: Active Protocol: Activity Type Activity Date Activity User E-sign Co-sign Detail Recorded Client Recorded Date Recorded By Document 08/17/23 09:17 RB Desktop 08/17/23 09:38 RB 08/17/23 09:17 Wound Center Nurse 1 3. LLE medial ankle -Combined with other wound No -Current Size (cm) - Length 0.1 -Current Size (cm) - Width 0.1 -Current Size (cm) - Depth 0.1 -Total Square Cm 0.01 -Photo Taken Yes -Tunneling No -Undermining/Tunneling No -Circular Undermining No -Exudate Amt Large -Exudate Type Serosanguineous -Wound Margin Distinct, Outline Attached -Granulation Amt Large (67-100%) -Granulation Quality [place] -Slough/Fibrin No -Necrosis Amt None Present (0 %) -Structure Exposed N/A -Texture (Clement-wound Skin Appearance) Assessed -Moisture (Clement-wound Skin Appearance) Assessed -Color (Clement-wound Skin Appearance) Assessed -Temperature (Clement-wound Skin No Abnormality Appearance) (Pt Warm) -Tenderness on Palpation (Clement-wound No Skin Appearance) -Ulcer Cleansing Wound Cleanser -Wound Comment(s) 11 gilles intact and incision well approximated 2. LLE lateral ankle -Combined with other wound No -Current Size (cm) - Length 0.1 -Current Size (cm) - Width 0.1 -Current Size (cm) - Depth 0.1 -Total Square Cm 0.01 -Photo Taken Yes -Tunneling No -Undermining/Tunneling No -Circular Undermining No -Exudate Amt Large -Exudate Type Serosanguineous -Wound Margin Distinct, Outline Attached -Granulation Amt Large (67-100%) -Granulation Quality [place] -Slough/Fibrin No -Structure Exposed N/A -Texture (Clement-wound Skin Appearance) Assessed -Moisture (Clement-wound Skin Appearance) Assessed -Color (Clement-wound Skin Appearance) Assessed -Temperature (Clement-wound Skin No Abnormality Appearance) (Pt Warm) -Tenderness on Palpation (Clement-wound No Skin Appearance) -Ulcer Cleansing Wound Cleanser -Foul Odor after Cleansing No -Wound Comment(s) 7 gilles, 2 sutures intact . incision well appproximated WC - Nurse 2 - General Ulcer CM Notes Start: 08/17/23 09:17 Freq: Status: Active Protocol: Activity Type Activity Date Activity User E-sign Co-sign Detail Recorded Client Recorded Date Recorded By Document 08/17/23 09:44 Laptop 08/17/23 09:47 08/17/23 09:44 Wound Center Nurse 2 3. LLE medial ankle -Time 09:44 -Correct Patient No -Correct Side, Site, Position No -Post Debridement (cm) - Length 1.7 -Post Debridement (cm) - Width 0.3 -Post Debridement (cm) - Depth 0.2 -Total Square (Post) (cm) 0.51 -Area of Debridement (cm) - Length 1.7 -Area of Debridement (cm) - Width 0.3 -Total Square (Area) (cm) 0.51 -Tunneling No -Undermining/Tunneling No -Circular Undermining No -Wound/Ulcer Outcome Not Healed -Ulcer Cleansing Rinsed/ Irrigated with Saline -Foul Odor after Cleansing No -Bioengineered Tissue No -Bleeding Controlled with Pressure -Treatment Response Procedure Tolerated Well -Offloading Yes -Type of Offloading Total Contact Cast (TCC) - Left ($) -Debridement - Subq, 1st 20sq cm Yes 2. LLE lateral ankle -Correct Patient Yes -Correct Side, Site, Position Yes -Correct Procedure Yes -Procedure Performed Yes -Type of Procedure Debridement -Clinical Debridement Subcutaneous -Tissue Removed Subcutaneous -Post Debridement (cm) - Length 1.7 -Post Debridement (cm) - Width 0.3 -Post Debridement (cm) - Depth 0.2 -Total Square (Post) (cm) 0.51 -Area of Debridement (cm) - Length 1.7 -Area of Debridement (cm) - Width 0.3 -Total Square (Area) (cm) 0.51 -Tunneling No -Undermining/Tunneling No -Circular Undermining No -Wound/Ulcer Outcome Not Healed -Ulcer Cleansing Rinsed/ Irrigated with Saline -Foul Odor after Cleansing No -Bioengineered Tissue No -Bleeding Controlled with Pressure -Treatment Response Procedure Tolerated Well -Offloading Yes -Type of Offloading Total Contact Cast (TCC) - Left ($) -Debridement - Subq, 1st 20sq cm Yes Pain Scale: 0-10 Numeric Is Patient Pain Free? Yes Assessment/Plan Assessment/Plan (1) Painful orthopaedic hardware: CODE(S): T84.84XA - Pain due to internal orthopedic prosthetic devices, implants and grafts, initial encounter PLAN: Exam performed. Radiographs ordered. Incisional site was debrided excisionally down to including level of subcutaneous tissue of all nonviable tissue using a 5 mm dermal curette. Patient tolerated procedure well. No anesthesia due to neuropathy. Pre and postdebridement measurements documented nursing notes. Hemostasis obtained withlight compression. Dressed incisional sites with Betadine and Adaptic and dressed wound site with silver alginate. Total contact cast with left lower extremity held in a rectus position applied. Patient will maintain protected weightbearing total contact cast in cast boot assisted by walker. Patient is taking 5 mg Eliquis daily for acute DVT left lower extremity Patient will follow-up in 1 week. (2) Syndesmotic disruption of left ankle: CODE(S): S93.432A - Sprain of tibiofibular ligament of left ankle, initialencounter QUALIFIERS: Encounter type: subsequent encounter Qualified Code(s): S93.432D - Sprain of tibiofibular ligament of left ankle, subsequent encounter (3) Non-pressure chronic ulcer of left ankle with fat layer exposed: CODE(S): L97.322 - Non-pressure chronic ulcer of left ankle with fat layerexposed (4) Other hereditary and idiopathic neuropathies: CODE(S): G60.8 - Other hereditary and idiopathic neuropathies (5) Other specified peripheral vascular diseases: CODE(S): I73.89 - Other specified peripheral vascular diseases 08/17/23 0951 <Electronically signed by Haroon Da Silva DPM> Cosigner Signature (if applicable): CC: ~ Signed [facility] Work Phone: 1(656) 273-148004-15-2024 NoteHNO ID: [id number] Author: THOMAS MCRAE MA Service: ? Author Type: Noise Tester Type: Progress Notes Filed: 08/16/2023 11:38 Note Text: Scan on 08/13/2023 12:16 PM by Provider, External, PA-C: Miscellaneous Clinical Documents Scan on 08/13/2023 12:20 PM by Amauri Jamison PA-C: X-ray Scan on 08/13/2023 6:11 PM by Amauri Jamison PA-C: X-ray Thomas Mcrae MA Patient has [facility] been seen since [facility]04-15-[facility] History of Present illness Narrative* Thomas Mcrae MA - 08/16/2023 11:36 AM EDT Scan on 08/13/2023 12:16 PM by Amauri Jamison PA-C: Miscellaneous Clinical Documents Scan on 08/13/2023 12:20 PM by Amauri Jamison PA-C: X-ray Scan on 08/13/2023 6:11 PM by Amauri Jamison PA-C: X-ray Thomas Mcrae MA Patient has not been seen since 04/2021 [facility]-2024 NoteHNO ID: [id number] Author: MO JOHNSTON LPN Service: ? Author Type: LICENSED NURSE Type: Progress Notes Filed: 08/16/2023 11:12 Note Text: Scan on 08/13/2023 12:16 PM by Amauri Jamison PA-C: Miscellaneous Clinical Documents Scan on 08/13/2023 12:16 PM by Amauri Jamison PA-C: Miscellaneous Clinical Documents Scan on 08/13/2023 6:11 PM by Amauri Jamison PA-C: [facility] History of Present illness Narrative* Mo Johnston LPN - 08/16/2023 11:11 AM EDT Scan on 08/13/2023 12:16 PM by Amauri Jamison PA-C: Miscellaneous Clinical Documents Scan on 08/13/2023 12:16 PM by Amauri Jamison PA-C: Miscellaneous Clinical Documents Scan on 08/13/2023 6:11 PM by Amauri Jamison PA-C: X-ray Mo Johnston LPN documented in this encounterOhio[facility]04-12-2024 Procedure [facility]03-26-2024 Progress note Author Haroon Da Silva [facility] July 27, 2023 9:59am Note Date/Time July 27, 2023 10: 00am [facility] [address] [place] [address] Progress Note - Wound Care 07/27/23957 MR#: [id number] Acct: [id number] Name: WERNER MCLAIN Rep #:[id number] : 1965 57 From: Haroon Da Silva DPM PCP: Dr. Natasha Dubon MD Status:REG RCR Location: History of Present Illness Date of Service: 07/27/23 History of Wound: Patient presents follow-up left lateral ankle wound. Patient had ORIF of left ankle fracture on 04/01/2023 subsequently developed a surgical site infection with wound dehiscence. Patient denies constitutional symptoms and is off antibiotics. No new complaints. Patient still smoking/drinking. Objective Data Objective Data Vital Signs: Vital Signs Temp Pulse Resp BP O2 Del Method 96.1 F L 88 16 170/83 H Room Air 07/27/23 09:27 07/27/23 09:27 07/27/23 09:27 07/27/23 09:27 07/27/23 09:27 Oxygen Delivery Method Room Air Physical Exam Narrative Neurovascular status unchanged Full-thickness wound left lateral ankle healed. Ankle joint range of motion full to left lower extremity, some valgus ankle deformity. Muscular strength full to bilateral lower extremity compartments. Const alert and oriented x3 Debridement Note Debridement Note Post-Debridement Measurements and Additional Note: Post-Debridement Measurements/Treatment WC - Nurse 1 - General Ulcer Assessment Start: 07/06/23 09:38 Freq: Status: Active Protocol: WC.LOWEXT Activity Type Activity Date Activity User E-sign Co-sign Detail Recorded Client Recorded Date Recorded By Document 07/06/23 09:38 KW Desktop 07/06/23 09:47 KW Document 07/13/23 09:33 KW Desktop 07/13/23 09:43 KW Document 07/20/23 09:32 KW Desktop 07/20/23 09:38 KW Document 07/27/23 09:27 KW Desktop 07/27/23 09:36 KW 07/06/23 07/13/23 07/20/23 09:38 09:33 09:32 - Today's Visit Information Type of service Initial Visit Follow-up Visit Follow-up Visit (Physician/CAR REPAIR SUPERVISOR (Physician/CAR REPAIR SUPERVISOR ) ) Arrival Mode Ambulatory Ambulatory Ambulatory Patient Identification Verified (Name & Yes Yes Yes ) Vital Signs Temperature (97.8 F-99.1 F) 96.9 F L 96.9 F L 96.1 F L Temperature Source Temporal Temporal Temporal Pulse Rate (60-100) 86 89 87 Pulse Location Monitor Monitor Monitor Respiratory Rate (12-18) 18 18 18 Respiratory rate source Observation Observation Observation Oxygen Delivery Method Room Air Room Air Room Air Blood Pressure (90/60-120/80) 156/84 H 174/70 H 177/84 H Blood Pressure Mean (mm Hg) 108 104 115 Source Monitor Monitor Monitor Position Semi-Fowlers Semi-Fowlers Semi-Fowlers Blood Pressure Location Left Arm Left Arm Left Arm History Since Last Visit- (Skip if this is Patient's initial visit) Have you changed medications since your No No No last visit? Any new allergies or adverse reactions No No No Had a fall/change in ADL's that may No No No increase risk of falls Signs or symptoms of abuse and/or No No No neglect since last visit Have you been in the hospital since your No No last visit? Has dressing in place as prescribed Yes Yes Yes Has compression in place as prescribed Yes Yes Yes Has offloadiing in place as prescribed N/A Yes Yes Experienced any changes in pain level or No No No management Left Footwear Regular Shoe Surgical Shoe Removable Cast with pressure Walker/Walking relief insole Boot Right Footwear Regular Shoe Regular Shoe Regular Shoe Pain Scale: 0-10 Numeric Is Patient Pain Free? Yes Yes Yes 07/27/23 09:27 - Today's Visit Information Type of service Follow-up Visit (Physician/CAR REPAIR SUPERVISOR ) Arrival Mode Ambulatory Patient Identification Verified (Name & No ) Vital Signs Temperature (97.8 F-99.1 F) 96.1 F L Temperature Source Temporal Pulse Rate (60-100) 88 Pulse Location Monitor Respiratory Rate (12-18) 16 Respiratory rate source Observation Oxygen Delivery Method Room Air Blood Pressure (90/60-120/80) 170/83 H Blood Pressure Mean (mm Hg) 112 Source Monitor Position Semi-Fowlers Blood Pressure Location Left Arm History Since Last Visit- (Skip if this is Patient's initial visit) Have you changed medications since your No last visit? Any new allergies or adverse reactions No Had a fall/change in ADL's that may No increase risk of falls Signs or symptoms of abuse and/or No neglect since last visit Have you been in the hospital since your No last visit? Has dressing in place as prescribed Yes Has compression in place as prescribed Yes Has offloadiing in place as prescribed Yes Experienced any changes in pain level or No management Left Footwear Surgical Shoe with pressure relief insole Right Footwear Regular Shoe Pain Scale: 0-10 Numeric Is Patient Pain Free? Yes WC - Nurse 1 - General Ulcer Measurement Start: 07/06/23 09:38 Freq: Status: Active Protocol: Activity Type Activity Date Activity User E-sign Co-sign Detail Recorded Client Recorded Date Recorded By Document 07/06/23 09:38 KW Desktop 07/06/23 09:47 KW Document 07/13/23 09:33 KW Desktop 07/13/23 09:43 KW Document 07/20/23 09:32 KW Desktop 07/20/23 09:38 KW Document 07/27/23 09:27 KW Desktop 07/27/23 09:36 KW 07/06/23 07/13/23 07/20/23 09:38 09:33 09:32 Wound Center Nurse 1 #1 Left lateral Ankle -Combined with other wound No -Current Size (cm) - Length 4.1 4.7 3 -Current Size (cm) - Width 0.5 0.2 0.3 -Current Size (cm) - Depth 0.2 0.2 0.2 -Total Square Cm 2.05 0.94 0.9 -Date of Last Picture (Recall this field) -Photo Taken -Epithelialization Large 67-100% -Tunneling No -Undermining/Tunneling No -Exudate Amt Small Medium Small -Exudate Type Serosanguineous Serosanguineous Serosanguineous -Wound Margin Thickened & Distinct, Distinct, Rolled Under Outline Outline Attached Attached -Granulation Amt Medium (34-66%) -Granulation Quality [place] -Slough/Fibrin Yes -Necrosis Amt Medium (34-66%) -Necrotic Tissue Type Adherent Slough -Structure Exposed N/A -Texture (Clement-wound Skin Appearance) Assessed, Assessed, Assessed Scarring Scarring -Moisture (Clement-wound Skin Appearance) Assessed,Dry/ Assessed Assessed Scaly -Color (Clement-wound Skin Appearance) Assessed Assessed Assessed -Temperature (Clement-wound Skin No Abnormality No Abnormality No Abnormality Appearance) (Pt Warm) (Pt Warm) (Pt Warm) -Tenderness on Palpation (Clement-wound No Skin Appearance) -Ulcer Cleansing Soap and Water Wound Cleanser Rinsed/ Irrigated with Saline -Foul Odor after Cleansing No No -Anesthetic Used 5% Lidocaine 5% Lidocaine 5% Lidocaine Gel Gel Gel -Wound Comment(s) SCABBED Lower Limb Edema Present Yes Left Calf (cm) 34.5 38.1 Left Ankle (cm) 24.5 28.2 07/27/23 09:27 Wound Center Nurse 1 #1 Left lateral Ankle -Combined with other wound -Current Size (cm) - Length 0.1 -Current Size (cm) - Width 0.1 -Current Size (cm) - Depth 0.1 -Total Square Cm 0.01 -Date of Last Picture (Recall this 07/27/23 field) -Photo Taken Yes -Epithelialization Large 67-100% -Tunneling -Undermining/Tunneling -Exudate Amt -Exudate Type -Wound Margin -Granulation Amt -Granulation Quality -Slough/Fibrin -Necrosis Amt -Necrotic Tissue Type -Structure Exposed -Texture (Clement-wound Skin Appearance) Assessed -Moisture (Clement-wound Skin Appearance) Assessed -Color (Clement-wound Skin Appearance) Assessed -Temperature (Clement-wound Skin No Abnormality Appearance) (Pt Warm) -Tenderness on Palpation (Clement-wound No Skin Appearance) -Ulcer Cleansing Soap and Water -Foul Odor after Cleansing -Anesthetic Used 5% Lidocaine Gel -Wound Comment(s) scabbed Lower Limb Edema Present Left Calf (cm) 35.5 Left Ankle (cm) 25 WC - Nurse 2 - General Ulcer CM Notes Start: 07/06/23 09:38 Freq: Status: Active Protocol: Activity Type Activity Date Activity User E-sign Co-sign Detail Recorded Client Recorded Date Recorded By Document 07/06/23 10:09 Laptop 07/06/23 10:11 Document 07/13/23 09:49 Laptop 07/13/23 09:53 Document 07/20/23 09:52 Laptop 07/20/23 09:56 Document 07/27/23 09:52 MW Desktop 07/27/23 09:54 MW 07/06/23 07/13/23 07/20/23 10:09 09:49 09:52 Wound Center Nurse 2 #1 Left lateral Ankle -Time 10:09 09:49 09:54 -Correct Patient Yes Yes Yes -Correct Side, Site, Position Yes Yes Yes -Correct Procedure Yes Yes Yes -Procedure Performed Yes Yes Yes -Type of Procedure Debridement Debridement Debridement -Clinical Debridement Subcutaneous Subcutaneous Subcutaneous -Tissue Removed Subcutaneous Subcutaneous Subcutaneous -Post Debridement (cm) - Length 0.9 0.7 6.0 -Post Debridement (cm) - Width 0.3 0.4 0.3 -Post Debridement (cm) - Depth 0.2 0.1 0.2 -Total Square (Post) (cm) 0.27 0.28 1.80 -Area of Debridement (cm) - Length 0.9 0.7 6.0 -Area of Debridement (cm) - Width 0.3 0.4 0.3 -Total Square (Area) (cm) 0.27 0.28 1.80 -Tunneling No No No -Undermining/Tunneling No No No -Circular Undermining No No No -Wound/Ulcer Outcome Not Healed Not Healed Not Healed -Ulcer Cleansing Rinsed/ Rinsed/ Rinsed/ Irrigated with Irrigated with Irrigated with Saline Saline Saline -Foul Odor after Cleansing No No No -Bioengineered Tissue No No No -Bleeding Controlled with Pressure Pressure Pressure -Treatment Response Procedure Procedure Procedure Tolerated Well Tolerated Well Tolerated Well -Offloading Yes Yes Yes -Type of Offloading Camwalker Camwalker Camwalker -Debridement - Subq, 1st 20sq cm Yes Yes Yes Pain Scale: 0-10 Numeric Is Patient Pain Free? Yes Yes Yes 07/27/23 09:52 Wound Center Nurse 2 #1 Left lateral Ankle -Time 09:52 -Correct Patient Yes -Correct Side, Site, Position Yes -Correct Procedure Yes -Procedure Performed No -Type of Procedure -Clinical Debridement -Tissue Removed -Post Debridement (cm) - Length 0 -Post Debridement (cm) - Width 0 -Post Debridement (cm) - Depth 0 -Total Square (Post) (cm) 0 -Area of Debridement (cm) - Length -Area of Debridement (cm) - Width -Total Square (Area) (cm) -Tunneling -Undermining/Tunneling -Circular Undermining -Wound/Ulcer Outcome Healed- Epithelialized -Ulcer Cleansing -Foul Odor after Cleansing -Bioengineered Tissue -Bleeding Controlled with -Treatment Response -Offloading -Type of Offloading -Debridement - Subq, 1st 20sq cm Pain Scale: 0-10 Numeric Is Patient Pain Free? Yes - Nurse 3 - General Ulcer D/C NN Start: 07/06/23 09:38 Freq: Status: Active Protocol: Activity Type Activity Date Activity User E-sign Co-sign Detail Recorded Client Recorded Date Recorded By Document 07/06/23 10:18 Laptop 07/06/23 10:19 Document 07/13/23 10:13 RB Desktop 07/13/23 10:14 RB Document 07/20/23 10:06 [employer] Desktop 07/20/23 10:07 KW 07/06/23 07/13/23 07/20/23 10:18 10:13 10:06 Wound Care Center Nurse 3 #1 Left lateral Ankle -Ulcer Cleansing Rinsed/ Irrigated with Saline -Foul Odor after Cleansing No -Primary Dressing Applied C Hydrogel ($) NonAdherent Contact Layer -Other Dressing hydrogel foam border -Primary Dressing Covered/Secured with Dry Gauze, Dry Gauze Secured with Tape Left -Multi-Layered Wrap Application Multi-Layer Comp - Left ($) -Tubular Bandage Double Layer Double Layer -Size of Tubigrip Used Size E Size E -Size E ($) 2 2 Treatment Response Procedure Tolerated Well Pain Scale: 0-10 Numeric Is Patient Pain Free? Yes Yes Yes - Visit Discharge Discharge Condition Stable Stable Stable Ambulatory Status Ambulatory Ambulatory Ambulatory Transportation Private Auto Private Auto Private Auto Medication Reconcilliation completed & Yes No No provided to patient/care provider Clinical Summary of Care Provided Yes Yes Yes Assessment/Plan Assessment/Plan (1) Non-pressure chronic ulcer of left ankle with fat layer exposed: CODE(S): L97.322 - Non-pressure chronic ulcer of left ankle with fat layerexposed PLAN: Exam performed Patient on Eliquis for acute DVT. Patient has alcoholic neuropathy, smokes pack per day with peripheral arterial disease -patient has something smoking cessation and alcohol cessation. Recommended community support through AA. Left lateral ankle wound is healed at current. Per vascular surgery patient is cleared for stabilization of left ankle syndesmosis, will plan for reconstruction at current. Patient will follow-up outpatient basis in my office as his wound is healed today. (2) Displaced fracture of lateral malleolus of left fibula: CODE(S): S82.62XA - Displaced fracture of lateral malleolus of left fibula, initial encounter for closed fracture QUALIFIERS: Encounter type: sequela Fracture type: closed Qualified Code(s): S82.62XS - Displaced fracture of lateral malleolus of left fibula, sequela (3) Peripheral vascular disease, unspecified: CODE(S): I73.9 - Peripheral vascular disease, unspecified 07/27/23 0959 <Electronically signed by Haroon Da Silva DPM> Cosigner Signature (if applicable): CC: ~ Signed [facility] Work Phone: 1(848) 537-211703-19-2024 Progress note Author Haroon Da Silva [facility] July 20, 2023 10:43am Note Date/Time July 20, 2023 10: 44am [facility] Medical Records Department [address] [place] [id number] Progress Note 07/20/23 1042 MR#: [id number] Acct: [id number] Name: WERNER MCLAIN A Rep #:[id number] : 1965 57 From: Haroon Da Silva DPM PCP: Dr. Natasha Dubon MD Status:REG RCR Location: Subjective Subjective Patient treated for deep acute DVT after receiving duplex ultrasound of positivefor soleal vein DVT. Patient now on Eliquis. Patient denies constitutional symptoms. Patient denies pain. No other new complaints. Objective Data Objective Data Vital Signs: Vital Signs Temp Pulse Resp BP O2 Del Method 96.1 F L 87 18 177/84 H Room Air 07/20/23 09:32 07/20/23 09:32 07/20/23 09:32 07/20/23 09:32 07/20/23 09:32 Oxygen Delivery Method Room Air Radiography Diagnostic Testing: Radiology Impression Venous Doppler Study 07/16/23 08:10 Interpretation Summary Acute deep vein thrombosis is noted in the left soleus vein. Deep veins of the right lower extremity are patent and compressible segmentally.There is no evidence of right lower extremity deep vein thrombosis. The bilateral great saphenous veins appear patent and compressible segmentally. Positive for reflux in the right saphenofemoral junction, great saphenous vein throughout. Positive for reflux in the left saphenofemoral junction, great saphenous vein above the knee. Ordering Physician: Haroon Da Silav Referring Physician: Doris Conner M.D. Performed By: Ann Carpenter RVT Physical Exam Narrative Neurovascular status unchanged Full-thickness wound left lateral ankle stable clean granular base no signs of infection. No deep probing undermining. Pre and postdebridement measurements documented nursing notes. Clean skin edges noted. No exposed tendon bone or hardware. Ankle joint range of motion full to left lower extremity, some valgus ankle deformity. Muscular strength full to bilateral lower extremity compartments. Const alert and oriented x3 Assessment & Plan Assessment/Plan (1) Non-pressure chronic ulcer of left ankle with fat layer exposed: PLAN: Exam performed Patient on Eliquis for acute DVT. Patient has alcoholic neuropathy, smokes pack per day with peripheral arterial disease -patient has something smoking cessation and alcohol cessation. Recommended community support through . Patient underwent ORIF left ankle fracture on 04/01/2023, developed surgical site dehiscence and infection. Patient was treated with p.o. antibiotics and infection resolved. radiographs demonstrate some syndesmotic widening with medial clear space noted. Planning surgical stabilization. CTA performed, awaiting consultation with Dr. Omalley, will plan for surgical stabilization of distal tibiofibular syndesmosis Left lateral ankle wound was excisionally debrided down to and including level of subcutaneous tissue of all nonviable tissue using a 5 mm dermal curette. Wasflushed with copious amounts normal sterile saline. Hemostasis obtained with light compression. No anesthesia due to neuropathy. Patient tolerated procedure well. Pre and postdebridement measurements documented nursing notes. Will plan to dispense Jose-Co brace for left side -still awaiting authorization in our office continue hydrogel and daily dressing with Tubigrip application. Follow-up in 1 week. (2) Displaced fracture of lateral malleolus of left fibula: QUALIFIERS: Encounter type: sequela Fracture type: closed Qualified Code(s): S82.62XS - Displaced fracture of lateral malleolus of left fibula, sequela (3) Peripheral vascular disease, unspecified: 07/20/23 1043 <Electronically signed by Haroon Da Silva DPM> Haroon Da Silva DPM Cosigner Signature (if applicable): CC: ~ Signed [facility] Work Phone: 1(313) 690-872303-18-2024 Miscellaneous Notes* Addendum Note - Natasha Dubon MD - 07/19/2023 11:22 AM EDTAddended by: NATASHA DUBON on: 07/19/2023 11:22 AM Modules accepted: [facility] documented in [facility] encounter[facility] NoteHNO ID: [id number] Author: REMI CASTRO LPN Service: ? Author Type: LICENSED NURSE Type: Progress Notes Filed: 07/19/2023 14:39 Note Text: Scan on 07/16/2023 1:03 PM by Amauri Jamison PA-C: Consultation - Emergency Medicine Scan on 07/19/2023 1:27 PM by Amauri Jamison PA-C: [facility] History of Present illness Narrative* Remi Castro LPN - 07/19/2023 11:05 AM EDT Scan on 07/16/2023 1:03 PM by Amauri Jamison PA-C: Consultation - Emergency Medicine Scan on 07/19/2023 1:27 PM by Amauri Jamison PA-C: Ultrasound documented in this encounterOhio[facility]-12-2024 NoteHNO ID: [id number] Author: SONNY CAMARGO LPN Service: ? Author Type: LICENSED NURSE Type: Progress Notes Filed: 07/13/2023 14:41 Note Text: Scan on 07/10/2023 4:27 PM by ProviderAmauri PA-C: [facility] History of Present illness Narrative* Sonny Camargo LPN - 07/13/2023 2:41 PM EDT Scan on 07/10/2023 4:27 PM by ProviderAmauri PA-C: X-ray documented in this encounterOhio[facility]03-12-2024 Progress note Author Haroon Da Silva [facility] July 13, 2023 9:57am Note Date/Time July 13, 2023 9:5 7am [facility] [address] [place] [address] Progress Note - Wound Care 07/13/23 0955 MR#: [id number] Acct: [id number] Name: WERNER MCLAIN Rep #:[id number] : 1965 57 From: Haroon Da Silva DPM PCP: Dr. Natasha Dubon MD Status:REG RCR Location: History of Present Illness Date of Service: 07/13/23 History of Wound: Patient presents follow-up left lateral ankle wound. Patient had ORIF of left ankle fracture on 04/01/2023 subsequently developed a surgical site infection with wound dehiscence. Patient denies constitutional symptoms and is off antibiotics and notes improvement with wound VAC therapy via home health care. patient has no other complaints. Objective Data Objective Data Vital Signs: Vital Signs Temp Pulse Resp BP O2 Del Method 96.9 F L 89 18 174/70 H Room Air 07/13/23 09:33 07/13/23 09:33 07/13/23 09:33 07/13/23 09:33 07/13/23 09:33 Oxygen Delivery Method Room Air Physical Exam Narrative Neurovascular status unchanged Full-thickness wound left lateral ankle stable clean granular base no signs of infection. No deep probing undermining. Pre and postdebridement measurements documented nursing notes. Clean skin edges noted. No exposed tendon bone or hardware. Ankle joint range of motion full to left lower extremity, no deformity. Muscular strength full to bilateral lower extremity compartments. Const alert and oriented x3 Debridement Note Debridement Note Post-Debridement Measurements and Additional Note: Post-Debridement Measurements/Treatment - Nurse 1 - General Ulcer Assessment Start: 07/06/23 09:38 Freq: Status: Active Protocol: WC.LOWEXT Activity Type Activity Date Activity User E-sign Co-sign Detail Recorded Client Recorded Date Recorded By Document 07/06/23 09:38 KW Desktop 07/06/23 09:47 KW Document 07/13/23 09:33 KW Desktop 07/13/23 09:43 KW 07/06/23 07/13/23 09:38 09:33 - Today's Visit Information Type of service Initial Visit Follow-up Visit (Physician/CAR REPAIR SUPERVISOR ) Arrival Mode Ambulatory Ambulatory Patient Identification Verified (Name & Yes Yes ) Vital Signs Temperature (97.8 F-99.1 F) 96.9 F L 96.9 F L Temperature Source Temporal Temporal Pulse Rate (60-100) 86 89 Pulse Location Monitor Monitor Respiratory Rate (12-18) 18 18 Respiratory rate source Observation Observation Oxygen Delivery Method Room Air Room Air Blood Pressure (90/60-120/80) 156/84 H 174/70 H Blood Pressure Mean (mm Hg) 108 104 Source Monitor Monitor Position Semi-Fowlers Semi-Fowlers Blood Pressure Location Left Arm Left Arm History Since Last Visit- (Skip if this is Patient's initial visit) Have you changed medications since your No No last visit? Any new allergies or adverse reactions No No Had a fall/change in ADL's that may No No increase risk of falls Signs or symptoms of abuse and/or No No neglect since last visit Have you been in the hospital since your No No last visit? Has dressing in place as prescribed Yes Yes Has compression in place as prescribed Yes Yes Has offloadiing in place as prescribed N/A Yes Experienced any changes in pain level or No No management Left Footwear Regular Shoe Surgical Shoe with pressure relief insole Right Footwear Regular Shoe Regular Shoe Pain Scale: 0-10 Numeric Is Patient Pain Free? Yes Yes JOLIE - Nurse 1 - General Ulcer Measurement Start: 07/06/23 09:38 Freq: Status: Active Protocol: Activity Type Activity Date Activity User E-sign Co-sign Detail Recorded Client Recorded Date Recorded By Document 07/06/23 09:38 KW Desktop 07/06/23 09:47 KW Document 07/13/23 09:33 KW Desktop 07/13/23 09:43 KW 07/06/23 07/13/23 09:38 09:33 Wound Center Nurse 1 #1 Left lateral Ankle -Combined with other wound No -Current Size (cm) - Length 4.1 4.7 -Current Size (cm) - Width 0.5 0.2 -Current Size (cm) - Depth 0.2 0.2 -Total Square Cm 2.05 0.94 -Tunneling No -Undermining/Tunneling No -Exudate Amt Small Medium -Exudate Type Serosanguineous Serosanguineous -Wound Margin Thickened & Distinct, Rolled Under Outline Attached -Granulation Amt Medium (34-66%) -Granulation Quality [place] -Slough/Fibrin Yes -Necrosis Amt Medium (34-66%) -Necrotic Tissue Type Adherent Slough -Structure Exposed N/A -Texture (Clement-wound Skin Appearance) Assessed, Assessed, Scarring Scarring -Moisture (Clement-wound Skin Appearance) Assessed,Dry/ Assessed Scaly -Color (Clement-wound Skin Appearance) Assessed Assessed -Temperature (Clement-wound Skin No Abnormality No Abnormality Appearance) (Pt Warm) (Pt Warm) -Tenderness on Palpation (Clement-wound No Skin Appearance) -Ulcer Cleansing Soap and Water Wound Cleanser -Foul Odor after Cleansing No -Anesthetic Used 5% Lidocaine 5% Lidocaine Gel Gel -Wound Comment(s) SCABBED Lower Limb Edema Present Yes Left Calf (cm) 34.5 38.1 Left Ankle (cm) 24.5 28.2 JOLIE - Nurse 2 - General Ulcer CM Notes Start: 07/06/23 09:38 Freq: Status: Active Protocol: Activity Type Activity Date Activity User E-sign Co-sign Detail Recorded Client Recorded Date Recorded By Document 07/06/23 10:09 Laptop 07/06/23 10:11 Document 07/13/23 09:49 Laptop 07/13/23 09:53 07/06/23 07/13/23 10:09 09:49 Wound Center Nurse 2 #1 Left lateral Ankle -Time 10:09 09:49 -Correct Patient Yes Yes -Correct Side, Site, Position Yes Yes -Correct Procedure Yes Yes -Procedure Performed Yes Yes -Type of Procedure Debridement Debridement -Clinical Debridement Subcutaneous Subcutaneous -Tissue Removed Subcutaneous Subcutaneous -Post Debridement (cm) - Length 0.9 0.7 -Post Debridement (cm) - Width 0.3 0.4 -Post Debridement (cm) - Depth 0.2 0.1 -Total Square (Post) (cm) 0.27 0.28 -Area of Debridement (cm) - Length 0.9 0.7 -Area of Debridement (cm) - Width 0.3 0.4 -Total Square (Area) (cm) 0.27 0.28 -Tunneling No No -Undermining/Tunneling No No -Circular Undermining No No -Wound/Ulcer Outcome Not Healed Not Healed -Ulcer Cleansing Rinsed/ Rinsed/ Irrigated with Irrigated with Saline Saline -Foul Odor after Cleansing No No -Bioengineered Tissue No No -Bleeding Controlled with Pressure Pressure -Treatment Response Procedure Procedure Tolerated Well Tolerated Well -Offloading Yes Yes -Type of Offloading Camwalker Camwalker -Debridement - Subq, 1st 20sq cm Yes Yes Pain Scale: 0-10 Numeric Is Patient Pain Free? Yes Yes - Nurse 3 - General Ulcer D/C NN Start: 07/06/23 09:38 Freq: Status: Active Protocol: Activity Type Activity Date Activity User E-sign Co-sign Detail Recorded Client Recorded Date Recorded By Document 07/06/23 10:18 Laptop 07/06/23 10:19 07/06/23 10:18 Wound Care Center Nurse 3 #1 Left lateral Ankle -Ulcer Cleansing Rinsed/ Irrigated with Saline -Foul Odor after Cleansing No -Primary Dressing Applied C Hydrogel ($) -Primary Dressing Covered/Secured with Dry Gauze, Secured with Tape Left -Tubular Bandage Double Layer -Size of Tubigrip Used Size E -Size E ($) 2 Pain Scale: 0-10 Numeric Is Patient Pain Free? Yes - Visit Discharge Discharge Condition Stable Ambulatory Status Ambulatory Transportation Private Auto Medication Reconcilliation completed & Yes provided to patient/care provider Clinical Summary of Care Provided Yes Assessment/Plan Assessment/Plan (1) Non-pressure chronic ulcer of left ankle with fat layer exposed: CODE(S): L97.322 - Non-pressure chronic ulcer of left ankle with fat layerexposed PLAN: Exam performed Patient has alcoholic neuropathy, smokes pack per day with peripheral arterial disease -patient has something smoking cessation and alcohol cessation. Recommended community support through AA. Patient underwent ORIF left ankle fracture on 04/01/2023, developed surgical site dehiscence and infection. Patient was treated with p.o. antibiotics and infection resolved. radiographs demonstrate some syndesmotic widening with medial clear space noted. Planning surgical stabilization. CTA performed, awaiting consultation with Dr. Omalley, will plan for surgical stabilization of distal tibiofibular syndesmosis Left lateral ankle wound was excisionally debrided down to and including level of subcutaneous tissue of all nonviable tissue using a 5 mm dermal curette. Wasflushed with copious amounts normal sterile saline. Hemostasis obtained with light compression. No anesthesia due to neuropathy. Patient tolerated procedure well. Pre and postdebridement measurements documented nursing notes. Will plan to dispensed Jose-Co brace for left side continue hydrogel and daily dressing with Tubigrip application. Follow-up in 1 week. (2) Displaced fracture of lateral malleolus of left fibula: CODE(S): S82.62XA - Displaced fracture of lateral malleolus of left fibula, initial encounter for closed fracture QUALIFIERS: Encounter type: sequela Fracture type: closed Qualified Code(s): S82.62XS - Displaced fracture of lateral malleolus of left fibula, sequela (3) Peripheral vascular disease, unspecified: CODE(S): I73.9 - Peripheral vascular disease, unspecified 07/13/23 0957 <Electronically signed by Haroon Da Silva DPM> Cosigner Signature (if applicable): CC: ~ Signed [facility] Work Phone: 1(134) 570-253103-08-2024 NoteHNO ID: [id number] Author: REMI CASTRO LPN Service: ? Author Type: LICENSED NURSE Type: Progress Notes Filed: 07/09/2023 12:14 Note Text: Scan on 07/09/2023 9:25 AM by Provider, External, PA-C: [facility] of Present illness Narrative* Remi Castro LPN - 07/09/2023 12:12 PM EST Scan on 07/09/2023 9:25 AM by ProviderAmauri PA-C: CT [facility] Progress note Author Haroon Da Silva [facility] July 06, 2023 10:14am Note Date/Time July 06, 2023 10:1 4am [facility] [address] [place] [id number] Progress Note - Wound Care 07/06/23 1011 MR#: [id number] Acct: [id number] Name: WERNER MCLAIN Rep #:[id number] : 1965 57 From: Haroon Da Silva DPM PCP: Dr. Natasha Dubon MD Status:REG RCR Location: History of Present Illness Date of Service: 07/06/23 History of Wound: Patient presents follow-up left lateral ankle wound. Patient had ORIF of left ankle fracture on 04/01/2023 subsequently developed a surgical site infection with wound dehiscence. Patient denies constitutional symptoms and is off antibiotics and notes improvement with wound VAC therapy via home health care. patient has no other complaints. Objective Data Objective Data Vital Signs: Vital Signs Temp Pulse Resp BP O2 Del Method 96.9 F L 86 18 156/84 H Room Air 07/06/23 09:38 07/06/23 09:38 07/06/23 09:38 07/06/23 09:38 07/06/23 09:38 Oxygen Delivery Method Room Air Physical Exam Narrative Neurovascular status unchanged Full-thickness wound left lateral ankle stable clean granular base no signs of infection. No deep probing undermining. Pre and postdebridement measurements documented nursing notes. Clean skin edges noted. No exposed tendon bone or hardware. Ankle joint range of motion full to left lower extremity, no deformity. Muscular strength full to bilateral lower extremity compartments. Const alert and oriented x3 Debridement Note Debridement Note Post-Debridement Measurements and Additional Note: Post-Debridement Measurements/Treatment JOLIE - Nurse 1 - General Ulcer Assessment Start: 07/06/23 09:38 Freq: Status: Active Protocol: LISA Activity Type Activity Date Activity User E-sign Co-sign Detail Recorded Client Recorded Date Recorded By Document 07/06/23 09:38 KW zulily 07/06/23 09:47 07/06/23 09:38 WC - Today's Visit Information Type of service Initial Visit Arrival Mode Ambulatory Patient Identification Verified (Name & Yes ) Vital Signs Temperature (97.8 F-99.1 F) 96.9 F L Temperature Source Temporal Pulse Rate (60-100) 86 Pulse Location Monitor Respiratory Rate (12-18) 18 Respiratory rate source Observation Oxygen Delivery Method Room Air Blood Pressure (90/60-120/80) 156/84 H Blood Pressure Mean (mm Hg) 108 Source Monitor Position Semi-Fowlers Blood Pressure Location Left Arm History Since Last Visit- (Skip if this is Patient's initial visit) Have you changed medications since your No last visit? Any new allergies or adverse reactions No Had a fall/change in ADL's that may No increase risk of falls Signs or symptoms of abuse and/or No neglect since last visit Have you been in the hospital since your No last visit? Has dressing in place as prescribed Yes Has compression in place as prescribed Yes Has offloadiing in place as prescribed N/A Experienced any changes in pain level or No management Left Footwear Regular Shoe Right Footwear Regular Shoe Pain Scale: 0-10 Numeric Is Patient Pain Free? Yes JOLIE - Nurse 1 - General Ulcer Measurement Start: 07/06/23 09:38 Freq: Status: Active Protocol: Activity Type Activity Date Activity User E-sign Co-sign Detail Recorded Client Recorded Date Recorded By Document 07/06/23 09:38 ANA zulily 07/06/23 09:47 07/06/23 09:38 Wound Center Nurse 1 #1 Left lateral Ankle -Current Size (cm) - Length 4.1 -Current Size (cm) - Width 0.5 -Current Size (cm) - Depth 0.2 -Total Square Cm 2.05 -Exudate Amt Small -Exudate Type Serosanguineous -Wound Margin Thickened & Rolled Under -Texture (Clement-wound Skin Appearance) Assessed, Scarring -Moisture (Clement-wound Skin Appearance) Assessed,Dry/ Scaly -Color (Clement-wound Skin Appearance) Assessed -Temperature (Clement-wound Skin No Abnormality Appearance) (Pt Warm) -Ulcer Cleansing Soap and Water -Anesthetic Used 5% Lidocaine Gel -Wound Comment(s) SCABBED Left Calf (cm) 34.5 Left Ankle (cm) 24.5 WC - Nurse 2 - General Ulcer CM Notes Start: 07/06/23 09:38 Freq: Status: Active Protocol: Activity Type Activity Date Activity User E-sign Co-sign Detail Recorded Client Recorded Date Recorded By Document 07/06/23 10:09 Laptop 07/06/23 10:11 07/06/23 10:09 Wound Center Nurse 2 #1 Left lateral Ankle -Time 10:09 -Correct Patient Yes -Correct Side, Site, Position Yes -Correct Procedure Yes -Procedure Performed Yes -Type of Procedure Debridement -Clinical Debridement Subcutaneous -Tissue Removed Subcutaneous -Post Debridement (cm) - Length 0.9 -Post Debridement (cm) - Width 0.3 -Post Debridement (cm) - Depth 0.2 -Total Square (Post) (cm) 0.27 -Area of Debridement (cm) - Length 0.9 -Area of Debridement (cm) - Width 0.3 -Total Square (Area) (cm) 0.27 -Tunneling No -Undermining/Tunneling No -Circular Undermining No -Wound/Ulcer Outcome Not Healed -Ulcer Cleansing Rinsed/ Irrigated with Saline -Foul Odor after Cleansing No -Bioengineered Tissue No -Bleeding Controlled with Pressure -Treatment Response Procedure Tolerated Well -Offloading Yes -Type of Offloading Camwalker -Debridement - Subq, 1st 20sq cm Yes Pain Scale: 0-10 Numeric Is Patient Pain Free? Yes Assessment/Plan Assessment/Plan (1) Non-pressure chronic ulcer of left ankle with fat layer exposed: CODE(S): L97.322 - Non-pressure chronic ulcer of left ankle with fat layerexposed PLAN: Exam performed Patient has alcoholic neuropathy, smokes pack per day with peripheral arterial disease -patient has something smoking cessation and alcohol cessation. Recommended community support through . Patient underwent ORIF left ankle fracture on 04/01/2023, developed surgical site dehiscence and infection. Patient was treated with p.o. antibiotics and infection resolved. Wound is improving today with wound VAC application and offloading via walker and a cast boot assisted by walker radiographs demonstrate some syndesmotic widening with medial clear space noted. Patient following with vascular surgery - awaiting CTA on of this week. 07/08/2023. Left ankle wound was debrided exciPatient has 2 long-term options moving forward. Due to instability of left ankle. Patient either requires additional surgery to restabilize syndesmosis to left ankle. Otherwise patient defers surgery or arterial status is not restored we will plan for long-term custom ankle-foot orthoses. Left lateral ankle wound was excisionally debrided down to and including level of subcutaneous tissue of all nonviable tissue using a 5 mm dermal curette. Wasflushed with copious amounts normal sterile saline. Hemostasis obtained with light compression. No anesthesia due to neuropathy. Patient tolerated procedure well. Pre and postdebridement measurements documented nursing notes. Wound improved today. Will discontinue EpiFix grafting. Switch to hydrogel anddaily dressing with Tubigrip application. Follow-up in 1 week. (2) Displaced fracture of lateral malleolus of left fibula: CODE(S): S82.62XA - Displaced fracture of lateral malleolus of left fibula, initial encounter for closed fracture QUALIFIERS: Encounter type: sequela Fracture type: closed Qualified Code(s): S82.62XS - Displaced fracture of lateral malleolus of left fibula, sequela (3) Peripheral vascular disease, unspecified: CODE(S): I73.9 - Peripheral vascular disease, unspecified 07/06/23 1014 <Electronically signed by Haroon Da Silva DPM> Cosigner Signature (if applicable): CC: ~ Signed [facility] Work Phone: 1(637) 570-268302-27-2024 Progress note Author Haroon Da Silva [facility] June 29, 2023 9:50am Note Date/Time June 29, 2023 9:50am [facility] [address] [place] [address] Progress Note - Wound Care 06/29/23 0948 MR#: [id number] Acct: [id number] Name: WERNER MCLAIN Rep #:[id number] : 1965 57 From: Haroon Da Silva DPM PCP: Dr. Natasha Dubon MD Status:REG RCR Location: WC ADDENDUM by FAVIO Da Silva on 06/29/23 at 0950 Addendum epifix graft used on this date was a 2x2cm graft 06/29/23 0950<Electronically signed by Haroon Da Silva DPM> Cosigner Signature (if applicable): cc: ~* Signed History of Present Illness Date of Service: 06/29/23 History of Wound: Patient presents follow-up left lateral ankle wound. Patient had ORIF of left ankle fracture on 04/01/2023 subsequently developed a surgical site infection with wound dehiscence. Patient denies constitutional symptoms and is off antibiotics and notes improvement with wound VAC therapy via home health care. patient has no other complaints. Objective Data Objective Data Vital Signs: Vital Signs Temp Pulse Resp BP O2 Del Method 96.9 F L 94 18 147/63 H Room Air 06/29/23 09:27 06/29/23 09:27 06/29/23 09:27 06/29/23 09:27 06/29/23 09:27 Oxygen Delivery Method Room Air Physical Exam Narrative Neurovascular status unchanged Full-thickness wound left lateral ankle stable clean granular base no signs of infection. No deep probing undermining. Pre and postdebridement measurements documented nursing notes. Clean skin edges noted. No exposed tendon bone or hardware. Ankle joint range of motion full to left lower extremity, no deformity. Muscular strength full to bilateral lower extremity compartments. Const alert and oriented x3 Debridement Note Debridement Note Post-Debridement Measurements and Additional Note: Post-Debridement Measurements/Treatment WC - Nurse 1 - General Ulcer Assessment Start: 06/08/23 09:33 Freq: Status: Active Protocol: [email or web address] Activity Type Activity Date Activity User E-sign Co-sign Detail Recorded Client Recorded Date Recorded By Document 06/08/23 09:33 DL Desktop 06/08/23 09:44 DL Document 06/15/23 09:27 BMF Desktop 06/15/23 09:40 BMF Document 06/22/23 09:31 DL Desktop 06/22/23 09:36 DL Document 06/29/23 09:27 DL Desktop 06/29/23 09:33 DL 06/08/23 06/15/23 06/22/23 09:33 09:27 09:31 [facility] Today's Visit Information Type of service Follow-up Visit Follow-up Visit Follow-up Visit (Physician/CAR REPAIR SUPERVISOR (Physician/CAR REPAIR SUPERVISOR (Physician/CAR REPAIR SUPERVISOR ) ) ) Arrival Mode Ambulatory Ambulatory Ambulatory Transfer Assistance None None None Patient Identification Verified (Name & Yes Yes Yes ) Patient Requires Transmission-Based No No No Precautions Vital Signs Temperature (97.8 F-99.1 F) 96.6 F L 96.7 F L Temperature Source Temporal Temporal Pulse Rate (60-100) 95 88 90 Pulse Location Monitor Monitor Monitor Respiratory Rate (12-18) 20 H 16 20 H Respiratory rate source Observation Observation Observation Oxygen Delivery Method Room Air Blood Pressure (90/60-120/80) 159/84 H 150/76 H 166/80 H Blood Pressure Mean (mm Hg) 109 100 108 Source Monitor Monitor Monitor Position Sitting Blood Pressure Location Left Arm History Since Last Visit- (Skip if this is Patient's initial visit) Have you changed medications since your No No No last visit? Any new allergies or adverse reactions No No No Had a fall/change in ADL's that may No No increase risk of falls Signs or symptoms of abuse and/or No No No neglect since last visit Have you been in the hospital since your No No No last visit? Has dressing in place as prescribed Yes Yes Yes Has compression in place as prescribed N/A Yes Has offloadiing in place as prescribed Yes Yes Yes Experienced any changes in pain level or No No No management Left Footwear Total Contact Total Contact Surgical Shoe Cast Cast with pressure relief insole Right Footwear Regular Shoe Regular Shoe Pain Scale: 0-10 Numeric Is Patient Pain Free? Yes Yes Yes 06/29/23 09:27 [facility] Today's Visit Information Type of service Follow-up Visit (Physician/CAR REPAIR SUPERVISOR ) Arrival Mode Ambulatory Transfer Assistance Patient Identification Verified (Name & Yes ) Patient Requires Transmission-Based Precautions Vital Signs Temperature (97.8 F-99.1 F) 96.9 F L Temperature Source Temporal Pulse Rate (60-100) 94 Pulse Location Monitor Respiratory Rate (12-18) 18 Respiratory rate source Observation Oxygen Delivery Method Room Air Blood Pressure (90/60-120/80) 147/63 H Blood Pressure Mean (mm Hg) 91 Source Monitor Position Semi-Fowlers Blood Pressure Location Left Arm History Since Last Visit- (Skip if this is Patient's initial visit) Have you changed medications since your No last visit? Any new allergies or adverse reactions No Had a fall/change in ADL's that may No increase risk of falls Signs or symptoms of abuse and/or No neglect since last visit Have you been in the hospital since your No last visit? Has dressing in place as prescribed Yes Has compression in place as prescribed Yes Has offloadiing in place as prescribed N/A Experienced any changes in pain level or No management Left Footwear Regular Shoe Right Footwear Regular Shoe Pain Scale: 0-10 Numeric Is Patient Pain Free? Yes WC - Nurse 1 - General Ulcer Measurement Start: 06/08/23 09:33 Freq: Status: Active Protocol: Activity Type Activity Date Activity User E-sign Co-sign Detail Recorded Client Recorded Date Recorded By Document 06/08/23 09:33 DL Desktop 06/08/23 09:44 DL Document 06/15/23 09:27 BMF Desktop 06/15/23 09:40 BMF Document 06/22/23 09:31 DL Desktop 06/22/23 09:36 DL Document 06/29/23 09:27 DL Desktop 06/29/23 09:33 DL 06/08/23 06/15/23 06/22/23 09:33 09:27 09:31 Wound Center Nurse 1 #1 Left lateral Ankle -Combined with other wound No -Current Size (cm) - Length 6.1 6.6 5.5 -Current Size (cm) - Width 1 1 1 -Current Size (cm) - Depth 0.1 0.7 0.2 -Total Square Cm 6.1 6.6 5.5 -Date of Last Picture (Recall this 06/15/23 field) -Photo Taken Yes -Epithelialization None Present -Tunneling No -Undermining/Tunneling No -Circular Undermining No -Exudate Amt Medium Medium Medium -Exudate Type Serosanguineous Serosanguineous Serosanguineous -Wound Margin Distinct, Thickened Distinct, Outline Outline Attached Attached -Granulation Amt Medium (34-66%) Small (1-33%) Medium (34-66%) -Granulation Quality Red Red [place] -Slough/Fibrin Yes -Necrosis Amt Small (1-33%) Large (67-100%) Medium (34-66%) -Necrotic Tissue Type Adherent Slough Adherent Slough -Structure Exposed N/A N/A -Texture (Clement-wound Skin Appearance) Scarring Assessed, Localized Edema Scarring ,Scarring -Moisture (Clement-wound Skin Appearance) No Abnormality Assessed Dry/Scaly -Color (Clement-wound Skin Appearance) Hemosiderin Assessed Hemosiderin Staining Staining -Temperature (Clement-wound Skin No Abnormality No Abnormality No Abnormality Appearance) (Pt Warm) (Pt Warm) (Pt Warm) -Tenderness on Palpation (Clement-wound No No No Skin Appearance) -Ulcer Cleansing Soap and Water Soap and Water Soap and Water -Foul Odor after Cleansing No No No -Anesthetic Used 5% Lidocaine 4% Lidocaine 5% Lidocaine Gel Solution Gel Lower Limb Edema Present Yes Left Calf (cm) 39 35.5 Left Ankle (cm) 26.8 25.6 06/29/23 09:27 Wound Center Nurse 1 #1 Left lateral Ankle -Combined with other wound -Current Size (cm) - Length 4 -Current Size (cm) - Width 0.2 -Current Size (cm) - Depth 0.1 -Total Square Cm 0.8 -Date of Last Picture (Recall this field) -Photo Taken -Epithelialization -Tunneling -Undermining/Tunneling -Circular Undermining -Exudate Amt Small -Exudate Type Serosanguineous -Wound Margin Distinct, Outline Attached -Granulation Amt Large (67-100%) -Granulation Quality Red -Slough/Fibrin -Necrosis Amt -Necrotic Tissue Type -Structure Exposed -Texture (Clement-wound Skin Appearance) Assessed -Moisture (Clement-wound Skin Appearance) Assessed -Color (Clement-wound Skin Appearance) Assessed -Temperature (Clement-wound Skin No Abnormality Appearance) (Pt Warm) -Tenderness on Palpation (Clement-wound Skin Appearance) -Ulcer Cleansing Soap and Water -Foul Odor after Cleansing No -Anesthetic Used 5% Lidocaine Gel Lower Limb Edema Present Left Calf (cm) Left Ankle (cm) WC - Nurse 2 - General Ulcer CM Notes Start: 06/08/23 09:33 Freq: Status: Active Protocol: Activity Type Activity Date Activity User E-sign Co-sign Detail Recorded Client Recorded Date Recorded By Document 06/08/23 10:03 Laptop 06/08/23 10:07 Document 06/15/23 09:57 Laptop 06/15/23 10:06 Document 06/22/23 09:48 Laptop 06/22/23 09:49 Document 06/29/23 09:44 Laptop 06/29/23 09:46 06/08/23 06/15/23 06/22/23 10:03 09:57 09:48 Wound Center Nurse 2 #1 Left lateral Ankle -Time 10:05 10:01 09:48 -Correct Patient Yes Yes Yes -Correct Side, Site, Position Yes Yes Yes -Correct Procedure Yes Yes Yes -Procedure Performed Yes Yes Yes -Type of Procedure Debridement Debridement Debridement -Clinical Debridement Subcutaneous Subcutaneous Subcutaneous -Tissue Removed Subcutaneous Subcutaneous Subcutaneous -Post Debridement (cm) - Length 7.0 6.6 6.1 -Post Debridement (cm) - Width 0.8 1.1 0.5 -Post Debridement (cm) - Depth 0.4 0.7 0.3 -Total Square (Post) (cm) 5.60 7.26 3.05 -Area of Debridement (cm) - Length 7.0 6.6 6.1 -Area of Debridement (cm) - Width 0.8 1.1 0.5 -Total Square (Area) (cm) 5.60 7.26 3.05 -Tunneling No No No -Undermining/Tunneling No No No -Circular Undermining No No No -Wound/Ulcer Outcome Not Healed Not Healed Not Healed -Ulcer Cleansing Rinsed/ Rinsed/ Rinsed/ Irrigated with Irrigated with Irrigated with Saline Saline Saline -Foul Odor after Cleansing No No No -Bioengineered Tissue Yes Yes Yes -Type of Bioengineered Tissue Epifix Mesh Epifix Mesh Epifix Mesh -Expiration Date 01/02/28 01/02/28 02/01/28 -Product Lot Number [id number] -Percent Used 100 100 100 -Lot number of Saline Used [id number] -Bleeding Controlled with Pressure Pressure Pressure -Treatment Response Procedure Procedure Procedure Tolerated Well Tolerated Well Tolerated Well -Offloading Yes No No -Type of Offloading Total Contact Cast (TCC) - Left ($) -Debridement - Subq, 1st 20sq cm No No No -Apply Skin Sub - 1st 25 sq cm - Legs 1 1 1 -Epifix (per sq cm) -Epifix Mesh (per sq cm) 11 11 11 Pain Scale: 0-10 Numeric Is Patient Pain Free? Yes Yes Yes 06/29/23 09:44 Wound Center Nurse 2 #1 Left lateral Ankle -Time -Correct Patient Yes -Correct Side, Site, Position Yes -Correct Procedure Yes -Procedure Performed Yes -Type of Procedure Debridement -Clinical Debridement Subcutaneous -Tissue Removed Subcutaneous -Post Debridement (cm) - Length 5.0 -Post Debridement (cm) - Width 0.4 -Post Debridement (cm) - Depth 0.3 -Total Square (Post) (cm) 2.00 -Area of Debridement (cm) - Length 5.0 -Area of Debridement (cm) - Width 0.4 -Total Square (Area) (cm) 2.00 -Tunneling No -Undermining/Tunneling No -Circular Undermining No -Wound/Ulcer Outcome Not Healed -Ulcer Cleansing Rinsed/ Irrigated with Saline -Foul Odor after Cleansing No -Bioengineered Tissue Yes -Type of Bioengineered Tissue Epifix -Expiration Date 03/03/28 -Product Lot Number [id number] -Percent Used 100 -Lot number of Saline Used [id number] -Bleeding Controlled with Pressure -Treatment Response Procedure Tolerated Well -Offloading No -Type of Offloading -Debridement - Subq, 1st 20sq cm No -Apply Skin Sub - 1st 25 sq cm - Legs 1 -Epifix (per sq cm) 4 -Epifix Mesh (per sq cm) Pain Scale: 0-10 Numeric Is Patient Pain Free? Yes - Nurse 3 - General Ulcer D/C NN Start: 06/08/23 09:33 Freq: Status: Active Protocol: Activity Type Activity Date Activity User E-sign Co-sign Detail Recorded Client Recorded Date Recorded By Document 06/08/23 10:44 DL [id number] 06/08/23 10:47 DL Document 06/15/23 10:15 [facility] Desktop 06/15/23 10:16 BMF Document 06/22/23 09:52 DL Desktop 06/22/23 09:59 DL 06/08/23 06/15/23 06/22/23 10:44 10:15 09:52 Wound Care Center Nurse 3 #1 Left lateral Ankle -Foul Odor after Cleansing No -Primary Dressing Applied Optilok 8x12 Optilok 6.5x10 -Other Dressing Epimesh EPI epimesh -Primary Dressing Covered/Secured with Dry Gauze & Dry Gauze & Roll Gauze, Roll Gauze, Secured with Secured with Tape Tape -Other Covering TCC ABD -Optilok 6.5x10 1 -Optilok 8x12 1 Left -Multi-Layered Wrap Application Multi-Layer Multi-Layer Comp - Left ($) Comp - Left ($) Treatment Response Procedure Procedure Procedure Tolerated Well Tolerated Well Tolerated Well Pain Scale: 0-10 Numeric Is Patient Pain Free? Yes Yes Yes WC - Visit Discharge Discharge Condition Stable Stable Stable Ambulatory Status Ambulatory Ambulatory Ambulatory Transportation Private Auto Private Auto Private Auto Notes: Epimesh applied per TCC casting system applied, Cast applied per Assessment/Plan Assessment/Plan (1) Non-pressure chronic ulcer of left ankle with fat layer exposed: CODE(S): L97.322 - Non-pressure chronic ulcer of left ankle with fat layerexposed PLAN: Exam performed Patient has alcoholic neuropathy, smokes pack per day with peripheral arterial disease -patient has something smoking cessation and alcohol cessation. Recommended community support through . Patient underwent ORIF left ankle fracture on 04/01/2023, developed surgical site dehiscence and infection. Patient was treated with p.o. antibiotics and infection resolved. Wound is improving today with wound VAC application and offloading via walker and a cast boot assisted by walker radiographs demonstrate some syndesmotic widening with medial clear space noted. Due to current wound complication, arterial status. No surgical plan at current. Will plan for AFO upon wound healing. Patient following with vascular surgery - awaiting CTA Left ankle wound was debrided excisionally down to including level of subcutaneous tissue of all nonviable tissue using a 5 mm dermal curette. Was flushed with copious amounts normal sterile saline. Hemostasis obtained with light compression. No anesthesia due to neuropathy. Patient tolerated procedure well. Pre and postdebridement measurements documented nursing notes. left lower extremity lateral ankle wound - an EpiFix graft was applied (4 x 4.5cm), 11 billing units, graft was applied directly to the wound site. Entire graft used, no waste. Graft was stabilized with overlying Adaptic and Steri-Strips. Follow-up weekly. Wound improved today (06/29/23 - nearly healed) (2) Displaced fracture of lateral malleolus of left fibula: CODE(S): S82.62XA - Displaced fracture of lateral malleolus of left fibula, initial encounter for closed fracture QUALIFIERS: Encounter type: sequela Fracture type: closed Qualified Code(s): S82.62XS - Displaced fracture of lateral malleolus of left fibula, sequela (3) Peripheral vascular disease, unspecified: CODE(S): I73.9 - Peripheral vascular disease, unspecified 06/29/23 0949 <Electronically signed by Haroon Da Silva DPM> Cosigner Signature (if applicable): CC: ~ Signed [facility] Work Phone: 1(809) 710-241402-20-2024 Progress note Author Haroon Da Silva [facility] June 22, 2023 9:53am Note Date/Time June 22, 2023 9:53am [facility] [address] [place] [id number] Progress Note - Wound Care 06/22/23 0950 MR#: [id number] Acct: [id number] Name: WERNER MCLAIN Rep #:[id number] : 1965 57 From: Haroon Da Silva DPM PCP: Dr. Natasha Dubon MD Status:REG RCR Location: History of Present Illness Date of Service: 06/22/23 History of Wound: Patient presents follow-up left lateral ankle wound. Patient had ORIF of left ankle fracture on 04/01/2023 subsequently developed a surgical site infection with wound dehiscence. Patient denies constitutional symptoms and is off antibiotics and notes improvement with wound VAC therapy via home health care. patient has no other complaints. Objective Data Objective Data Vital Signs: Vital Signs Temp Pulse Resp BP O2 Del Method 96.7 F L 90 20 H 166/80 H Room Air 06/22/23 09:31 06/22/23 09:31 06/22/23 09:31 06/22/23 09:31 06/15/23 09:27 Oxygen Delivery Method Room Air Physical Exam Narrative Neurovascular status unchanged Full-thickness wound left lateral ankle stable clean granular base no signs of infection. No deep probing undermining. Pre and postdebridement measurements documented nursing notes. Clean skin edges noted. No exposed tendon bone or hardware. Ankle joint range of motion full to left lower extremity, no deformity. Muscular strength full to bilateral lower extremity compartments. Const alert and oriented x3 Debridement Note Debridement Note Post-Debridement Measurements and Additional Note: Post-Debridement Measurements/Treatment - Nurse 1 - General Ulcer Assessment Start: 06/08/23 09:33 Freq: Status: Active Protocol: [email or web address] Activity Type Activity Date Activity User E-sign Co-sign Detail Recorded Client Recorded Date Recorded By Document 06/08/23 09:33 DL Desktop 06/08/23 09:44 DL Document 06/15/23 09:27 BMF Desktop 06/15/23 09:40 BMF Document 06/22/23 09:31 DL Desktop 06/22/23 09:36 DL 06/08/23 06/15/23 06/22/23 09:33 09:27 09:31 - Today's Visit Information Type of service Follow-up Visit Follow-up Visit Follow-up Visit (Physician/CAR REPAIR SUPERVISOR (Physician/CAR REPAIR SUPERVISOR (Physician/CAR REPAIR SUPERVISOR ) ) ) Arrival Mode Ambulatory Ambulatory Ambulatory Transfer Assistance None None None Patient Identification Verified (Name & Yes Yes Yes ) Patient Requires Transmission-Based No No No Precautions Vital Signs Temperature (97.8 F-99.1 F) 96.6 F L 96.7 F L Temperature Source Temporal Temporal Pulse Rate (60-100) 95 88 90 Pulse Location Monitor Monitor Monitor Respiratory Rate (12-18) 20 H 16 20 H Respiratory rate source Observation Observation Observation Oxygen Delivery Method Room Air Blood Pressure (90/60-120/80) 159/84 H 150/76 H 166/80 H Blood Pressure Mean (mm Hg) 109 100 108 Source Monitor Monitor Monitor Position Sitting Blood Pressure Location Left Arm History Since Last Visit- (Skip if this is Patient's initial visit) Have you changed medications since your No No No last visit? Any new allergies or adverse reactions No No No Had a fall/change in ADL's that may No No increase risk of falls Signs or symptoms of abuse and/or No No No neglect since last visit Have you been in the hospital since your No No No last visit? Has dressing in place as prescribed Yes Yes Yes Has compression in place as prescribed N/A Yes Has offloadiing in place as prescribed Yes Yes Yes Experienced any changes in pain level or No No No management Left Footwear Total Contact Total Contact Surgical Shoe Cast Cast with pressure relief insole Right Footwear Regular Shoe Regular Shoe Pain Scale: 0-10 Numeric Is Patient Pain Free? Yes Yes Yes WC - Nurse 1 - General Ulcer Measurement Start: 06/08/23 09:33 Freq: Status: Active Protocol: Activity Type Activity Date Activity User E-sign Co-sign Detail Recorded Client Recorded Date Recorded By Document 06/08/23 09:33 DL Desktop 06/08/23 09:44 DL Document 06/15/23 09:27 BMF Desktop 06/15/23 09:40 BMF Document 06/22/23 09:31 DL Desktop 06/22/23 09:36 DL 06/08/23 06/15/23 06/22/23 09:33 09:27 09:31 Wound Center Nurse 1 #1 Left lateral Ankle -Combined with other wound No -Current Size (cm) - Length 6.1 6.6 5.5 -Current Size (cm) - Width 1 1 1 -Current Size (cm) - Depth 0.1 0.7 0.2 -Total Square Cm 6.1 6.6 5.5 -Date of Last Picture (Recall this 06/15/23 field) -Photo Taken Yes -Epithelialization None Present -Tunneling No -Undermining/Tunneling No -Circular Undermining No -Exudate Amt Medium Medium Medium -Exudate Type Serosanguineous Serosanguineous Serosanguineous -Wound Margin Distinct, Thickened Distinct, Outline Outline Attached Attached -Granulation Amt Medium (34-66%) Small (1-33%) Medium (34-66%) -Granulation Quality Red Red [place] -Slough/Fibrin Yes -Necrosis Amt Small (1-33%) Large (67-100%) Medium (34-66%) -Necrotic Tissue Type Adherent Slough Adherent Slough -Structure Exposed N/A N/A -Texture (Clement-wound Skin Appearance) Scarring Assessed, Localized Edema Scarring ,Scarring -Moisture (Clement-wound Skin Appearance) No Abnormality Assessed Dry/Scaly -Color (Clement-wound Skin Appearance) Hemosiderin Assessed Hemosiderin Staining Staining -Temperature (Clement-wound Skin No Abnormality No Abnormality No Abnormality Appearance) (Pt Warm) (Pt Warm) (Pt Warm) -Tenderness on Palpation (Clement-wound No No No Skin Appearance) -Ulcer Cleansing Soap and Water Soap and Water Soap and Water -Foul Odor after Cleansing No No No -Anesthetic Used 5% Lidocaine 4% Lidocaine 5% Lidocaine Gel Solution Gel Lower Limb Edema Present Yes Left Calf (cm) 39 35.5 Left Ankle (cm) 26.8 25.6 WC - Nurse 2 - General Ulcer CM Notes Start: 06/08/23 09:33 Freq: Status: Active Protocol: Activity Type Activity Date Activity User E-sign Co-sign Detail Recorded Client Recorded Date Recorded By Document 06/08/23 10:03 [employer] Laptop 06/08/23 10:07 Document 06/15/23 09:57 Laptop 06/15/23 10:06 Document 06/22/23 09:48 Laptop 06/22/23 09:49 06/08/23 06/15/23 06/22/23 10:03 09:57 09:48 Wound Center Nurse 2 #1 Left lateral Ankle -Time 10:05 10:01 09:48 -Correct Patient Yes Yes Yes -Correct Side, Site, Position Yes Yes Yes -Correct Procedure Yes Yes Yes -Procedure Performed Yes Yes Yes -Type of Procedure Debridement Debridement Debridement -Clinical Debridement Subcutaneous Subcutaneous Subcutaneous -Tissue Removed Subcutaneous Subcutaneous Subcutaneous -Post Debridement (cm) - Length 7.0 6.6 6.1 -Post Debridement (cm) - Width 0.8 1.1 0.5 -Post Debridement (cm) - Depth 0.4 0.7 0.3 -Total Square (Post) (cm) 5.60 7.26 3.05 -Area of Debridement (cm) - Length 7.0 6.6 6.1 -Area of Debridement (cm) - Width 0.8 1.1 0.5 -Total Square (Area) (cm) 5.60 7.26 3.05 -Tunneling No No No -Undermining/Tunneling No No No -Circular Undermining No No No -Wound/Ulcer Outcome Not Healed Not Healed Not Healed -Ulcer Cleansing Rinsed/ Rinsed/ Rinsed/ Irrigated with Irrigated with Irrigated with Saline Saline Saline -Foul Odor after Cleansing No No No -Bioengineered Tissue Yes Yes Yes -Type of Bioengineered Tissue Epifix Mesh Epifix Mesh Epifix Mesh -Expiration Date 01/02/28 01/02/28 02/01/28 -Product Lot Number [id number] -Percent Used 100 100 100 -Lot number of Saline Used [id number] -Bleeding Controlled with Pressure Pressure Pressure -Treatment Response Procedure Procedure Procedure Tolerated Well Tolerated Well Tolerated Well -Offloading Yes No No -Type of Offloading Total Contact Cast (TCC) - Left ($) -Debridement - Subq, 1st 20sq cm No No No -Apply Skin Sub - 1st 25 sq cm - Legs 1 1 1 -Epifix Mesh (per sq cm) 11 11 11 Pain Scale: 0-10 Numeric Is Patient Pain Free? Yes Yes Yes - Nurse 3 - General Ulcer D/C NN Start: 06/08/23 09:33 Freq: Status: Active Protocol: Activity Type Activity Date Activity User E-sign Co-sign Detail Recorded Client Recorded Date Recorded By Document 06/08/23 10:44 DL [id number] 06/08/23 10:47 DL Document 06/15/23 10:15 [facility] Desktop 06/15/23 10:16 [facility] 06/08/23 06/15/23 10:44 10:15 Wound Care Center Nurse 3 #1 Left lateral Ankle -Primary Dressing Applied Optilok 8x12 -Other Dressing Epimesh EPI -Primary Dressing Covered/Secured with Dry Gauze & Roll Gauze, Secured with Tape -Other Covering TCC ABD -Optilok 8x12 1 Left -Multi-Layered Wrap Application Multi-Layer Comp - Left ($) Treatment Response Procedure Procedure Tolerated Well Tolerated Well Pain Scale: 0-10 Numeric Is Patient Pain Free? Yes Yes - Visit Discharge Discharge Condition Stable Stable Ambulatory Status Ambulatory Ambulatory Transportation Private Auto Private Auto Notes: Epimesh applied per TCC casting system applied, Cast applied per Assessment/Plan Assessment/Plan (1) Non-pressure chronic ulcer of left ankle with fat layer exposed: CODE(S): L97.322 - Non-pressure chronic ulcer of left ankle with fat layerexposed PLAN: Exam performed Patient has alcoholic neuropathy, smokes pack per day with peripheral arterial disease -patient has something smoking cessation and alcohol cessation. Recommended community support through AA. Patient underwent ORIF left ankle fracture on 04/01/2023, developed surgical site dehiscence and infection. Patient was treated with p.o. antibiotics and infection resolved. Wound is improving today with wound VAC application and offloading via walker and a cast boot assisted by walker radiographs demonstrate some syndesmotic widening with medial clear space noted. Due to current wound complication, arterial status. No surgical plan at current. Will plan for AFO upon wound healing. There appears to be syndesmotic instability at this time. Consider surgical intervention to restabilize ankle if there is further instability, bracing failure and re-established blood flow. Patient following with vascular surgery - awaiting CTA Left ankle wound was debrided excisionally down to including level of subcutaneous tissue of all nonviable tissue using a 5 mm dermal curette. Was flushed with copious amounts normal sterile saline. Hemostasis obtained with light compression. No anesthesia due to neuropathy. Patient tolerated procedure well. Pre and postdebridement measurements documented nursing notes. left lower extremity lateral ankle wound - an EpiFix graft was applied (4 x 4.5cm), 11 billing units, graft was applied directly to the wound site. Entire graft used, no waste. Graft was stabilized with overlying Adaptic and Steri-Strips. Follow-up weekly. Wound improved today (06/22/23) (2) Displaced fracture of lateral malleolus of left fibula: CODE(S): S82.62XA - Displaced fracture of lateral malleolus of left fibula, initial encounter for closed fracture QUALIFIERS: Encounter type: sequela Fracture type: closed Qualified Code(s): S82.62XS - Displaced fracture of lateral malleolus of left fibula, sequela (3) Peripheral vascular disease, unspecified: CODE(S): I73.9 - Peripheral vascular disease, unspecified 06/22/23 0953 <Electronically signed by Haroon Da Silva DPM> Cosigner Signature (if applicable): CC: ~ Signed [facility] Work Phone: 1(961) 221-896902-13-2024 Progress note Author Haroon Da Silva [facility] June 15, 2023 10:23am Note Date/Time June 15, 2023 10:23am [facility] [address] [place] [address] [place] [address] Progress Note - Wound Care 06/15/23 1022 MR#: [id number] Acct: [id number] Name: WERNER MCLAIN Rep #:[id number] : 1965 57 From: Haroon Da Silva DPM PCP: Dr. Natasha Dubon MD Status:REG RCR Location: History of Present Illness Date of Service: 06/15/23 History of Wound: Patient presents follow-up left lateral ankle wound. Patient had ORIF of left ankle fracture on 04/01/2023 subsequently developed a surgical site infection with wound dehiscence. Patient denies constitutional symptoms and is off antibiotics and notes improvement with wound VAC therapy via home health care. patient has no other complaints. Objective Data Objective Data Vital Signs: Vital Signs Temp Pulse Resp BP O2 Del Method 96.6 F L 88 16 150/76 H Room Air 06/08/23 09:33 06/15/23 09:27 06/15/23 09:27 06/15/23 09:27 06/15/23 09:27 Oxygen Delivery Method Room Air Physical Exam Narrative Neurovascular status unchanged Full-thickness wound left lateral ankle stable clean granular base no signs of infection. No deep probing undermining. Pre and postdebridement measurements documented nursing notes. Clean skin edges noted. No exposed tendon bone or hardware. Ankle joint range of motion full to left lower extremity, no deformity. Muscular strength full to bilateral lower extremity compartments. Const alert and oriented x3 Debridement Note Debridement Note Post-Debridement Measurements and Additional Note: Post-Debridement Measurements/Treatment - Nurse 1 - General Ulcer Assessment Start: 06/08/23 09:33 Freq: Status: Active Protocol: [email or web address] Activity Type Activity Date Activity User E-sign Co-sign Detail Recorded Client Recorded Date Recorded By Document 06/08/23 09:33 DL Desktop 06/08/23 09:44 DL Document 06/15/23 09:27 BMF Desktop 06/15/23 09:40 BMF 06/08/23 06/15/23 09:33 09:27 - Today's Visit Information Type of service Follow-up Visit Follow-up Visit (Physician/CAR REPAIR SUPERVISOR (Physician/CAR REPAIR SUPERVISOR ) ) Arrival Mode Ambulatory Ambulatory Transfer Assistance None None Patient Identification Verified (Name & Yes Yes ) Patient Requires Transmission-Based No No Precautions Vital Signs Temperature (97.8 F-99.1 F) 96.6 F L Temperature Source Temporal Pulse Rate (60-100) 95 88 Pulse Location Monitor Monitor Respiratory Rate (12-18) 20 H 16 Respiratory rate source Observation Observation Oxygen Delivery Method Room Air Blood Pressure (90/60-120/80) 159/84 H 150/76 H Blood Pressure Mean (mm Hg) 109 100 Source Monitor Monitor Position Sitting Blood Pressure Location Left Arm History Since Last Visit- (Skip if this is Patient's initial visit) Have you changed medications since your No No last visit? Any new allergies or adverse reactions No No Had a fall/change in ADL's that may No increase risk of falls Signs or symptoms of abuse and/or No No neglect since last visit Have you been in the hospital since your No No last visit? Has dressing in place as prescribed Yes Yes Has compression in place as prescribed N/A Has offloadiing in place as prescribed Yes Yes Experienced any changes in pain level or No No management Left Footwear Total Contact Total Contact Cast Cast Right Footwear Regular Shoe Pain Scale: 0-10 Numeric Is Patient Pain Free? Yes Yes WC - Nurse 1 - General Ulcer Measurement Start: 06/08/23 09:33 Freq: Status: Active Protocol: Activity Type Activity Date Activity User E-sign Co-sign Detail Recorded Client Recorded Date Recorded By Document 06/08/23 09:33 DL Desktop 06/08/23 09:44 DL Document 06/15/23 09:27 BMF Desktop 06/15/23 09:40 BMF 06/08/23 06/15/23 09:33 09:27 Wound Center Nurse 1 #1 Left lateral Ankle -Combined with other wound No -Current Size (cm) - Length 6.1 6.6 -Current Size (cm) - Width 1 1 -Current Size (cm) - Depth 0.1 0.7 -Total Square Cm 6.1 6.6 -Date of Last Picture (Recall this 06/15/23 field) -Photo Taken Yes -Epithelialization None Present -Tunneling No -Undermining/Tunneling No -Circular Undermining No -Exudate Amt Medium Medium -Exudate Type Serosanguineous Serosanguineous -Wound Margin Distinct, Thickened Outline Attached -Granulation Amt Medium (34-66%) Small (1-33%) -Granulation Quality Red Red -Slough/Fibrin Yes -Necrosis Amt Small (1-33%) Large (67-100%) -Necrotic Tissue Type Adherent Slough -Structure Exposed N/A -Texture (Clement-wound Skin Appearance) Scarring Assessed, Scarring -Moisture (Clement-wound Skin Appearance) No Abnormality Assessed -Color (Clement-wound Skin Appearance) Hemosiderin Assessed Staining -Temperature (Clement-wound Skin No Abnormality No Abnormality Appearance) (Pt Warm) (Pt Warm) -Tenderness on Palpation (Clement-wound No No Skin Appearance) -Ulcer Cleansing Soap and Water Soap and Water -Foul Odor after Cleansing No No -Anesthetic Used 5% Lidocaine 4% Lidocaine Gel Solution Left Calf (cm) 39 Left Ankle (cm) 26.8 WC - Nurse 2 - General Ulcer CM Notes Start: 06/08/23 09:33 Freq: Status: Active Protocol: Activity Type Activity Date Activity User E-sign Co-sign Detail Recorded Client Recorded Date Recorded By Document 06/08/23 10:03 [employer] Laptop 06/08/23 10:07 Document 06/15/23 09:57 Laptop 06/15/23 10:06 06/08/23 06/15/23 10:03 09:57 Wound Center Nurse 2 #1 Left lateral Ankle -Time 10:05 10:01 -Correct Patient Yes Yes -Correct Side, Site, Position Yes Yes -Correct Procedure Yes Yes -Procedure Performed Yes Yes -Type of Procedure Debridement Debridement -Clinical Debridement Subcutaneous Subcutaneous -Tissue Removed Subcutaneous Subcutaneous -Post Debridement (cm) - Length 7.0 6.6 -Post Debridement (cm) - Width 0.8 1.1 -Post Debridement (cm) - Depth 0.4 0.7 -Total Square (Post) (cm) 5.60 7.26 -Area of Debridement (cm) - Length 7.0 6.6 -Area of Debridement (cm) - Width 0.8 1.1 -Total Square (Area) (cm) 5.60 7.26 -Tunneling No No -Undermining/Tunneling No No -Circular Undermining No No -Wound/Ulcer Outcome Not Healed Not Healed -Ulcer Cleansing Rinsed/ Rinsed/ Irrigated with Irrigated with Saline Saline -Foul Odor after Cleansing No No -Bioengineered Tissue Yes Yes -Type of Bioengineered Tissue Epifix Mesh Epifix Mesh -Expiration Date 01/02/28 01/02/28 -Product Lot Number [id number] -Percent Used 100 100 -Lot number of Saline Used [id number] -Bleeding Controlled with Pressure Pressure -Treatment Response Procedure Procedure Tolerated Well Tolerated Well -Offloading Yes No -Type of Offloading Total Contact Cast (TCC) - Left ($) -Debridement - Subq, 1st 20sq cm No No -Apply Skin Sub - 1st 25 sq cm - Legs 1 1 -Epifix Mesh (per sq cm) 11 11 Pain Scale: 0-10 Numeric Is Patient Pain Free? Yes Yes - Nurse 3 - General Ulcer D/C NN Start: 06/08/23 09:33 Freq: Status: Active Protocol: Activity Type Activity Date Activity User E-sign Co-sign Detail Recorded Client Recorded Date Recorded By Document 06/08/23 10:44 DL [id number] 06/08/23 10:47 DL Document 06/15/23 10:15 [facility] Desktop 06/15/23 10:16 [facility] 06/08/23 06/15/23 10:44 10:15 Wound Care Center Nurse 3 #1 Left lateral Ankle -Primary Dressing Applied Optilok 8x12 -Other Dressing Epimesh EPI -Primary Dressing Covered/Secured with Dry Gauze & Roll Gauze, Secured with Tape -Other Covering TCC ABD -Optilok 8x12 1 Left -Multi-Layered Wrap Application Multi-Layer Comp - Left ($) Treatment Response Procedure Procedure Tolerated Well Tolerated Well Pain Scale: 0-10 Numeric Is Patient Pain Free? Yes Yes - Visit Discharge Discharge Condition Stable Stable Ambulatory Status Ambulatory Ambulatory Transportation Private Auto Private Auto Notes: Epimesh applied per TCC casting system applied, Cast applied per Assessment/Plan Assessment/Plan (1) Non-pressure chronic ulcer of left ankle with fat layer exposed: CODE(S): L97.322 - Non-pressure chronic ulcer of left ankle with fat layerexposed PLAN: Exam performed Patient has alcoholic neuropathy, smokes pack per day with peripheral arterial disease -patient has something smoking cessation and alcohol cessation. Recommended community support through . Patient underwent ORIF left ankle fracture on 04/01/2023, developed surgical site dehiscence and infection. Patient was treated with p.o. antibiotics and infection resolved. Wound is improving today with wound VAC application and offloading via walker and a cast boot assisted by walker radiographs demonstrate some syndesmotic widening with medial clear space noted. Due to current wound complication, arterial status. No surgical plan at current. Will plan for AFO upon healing if required. There appears to be syndesmotic instability at this time. Will plan for total contact cast currently. Due to patient's offloading and home status patient was transition to partial weightbearing in cast boot assisted by walker. Will consider fixing if there is re-established blood flow to the area and for return to function upon wound healing and poor return to function in custom AFO. Again due to patient's risk factors though, and AFO would likely be indicated. Left ankle wound was debrided excisionally down to including level of subcutaneous tissue of all nonviable tissue using a 5 mm dermal curette. Was flushed with copious amounts normal sterile saline. Hemostasis obtained with light compression. No anesthesia due to neuropathy. Patient tolerated procedure well. Pre and postdebridement measurements documented nursing notes. left lower extremity lateral ankle wound - an EpiFix graft was applied (4 x 4.5cm), 11 billing units, graft was applied directly to the wound site. Entire graft used, no waste. Graft was stabilized with overlying Adaptic and Steri-Strips. Today total contact cast applied to left lower extremity to offload lower extremity. Follow-up weekly. (2) Displaced fracture of lateral malleolus of left fibula: CODE(S): S82.62XA - Displaced fracture of lateral malleolus of left fibula, initial encounter for closed fracture QUALIFIERS: Encounter type: sequela Fracture type: closed Qualified Code(s): S82.62XS - Displaced fracture of lateral malleolus of left fibula, sequela (3) Peripheral vascular disease, unspecified: CODE(S): I73.9 - Peripheral vascular disease, unspecified 06/15/23 1023 <Electronically signed by Haroon Da Silva DPM> Cosigner Signature (if applicable): CC: ~ Signed [facility] Work Phone: 1(356) 131-757002-06-2024 Progress note Author Haroon Da Silva [facility] June 08, 2023 10:10am Note Date/Time June 08, 2023 1 0:10am [facility] [address] [place] [address] Progress Note - Wound Care 06/08/23 1009 MR#: [id number] Acct: [id number] Name: WERNER MCLAIN Rep #:[id number] : 1965 57 From: Haroon Da Silva DPM PCP: Dr. Natasha Dubon MD Status:REG RCR Location: History of Present Illness Date of Service: 06/08/23 History of Wound: Patient presents follow-up left lateral ankle wound. Patient had ORIF of left ankle fracture on 04/01/2023 subsequently developed a surgical site infection with wound dehiscence. Patient denies constitutional symptoms and is off antibiotics and notes improvement with wound VAC therapy via home health care. patient has no other complaints. Objective Data Objective Data Vital Signs: Vital Signs Temp Pulse Resp BP 96.6 F L 95 20 H 159/84 H 06/08/23 09:33 06/08/23 09:33 06/08/23 09:33 06/08/23 09:33 Physical Exam Narrative Neurovascular status unchanged Full-thickness wound left lateral ankle stable clean granular base no signs of infection. No deep probing undermining. Pre and postdebridement measurements documented nursing notes. Clean skin edges noted. No exposed tendon bone or hardware. Ankle joint range of motion full to left lower extremity, no deformity. Muscular strength full to bilateral lower extremity compartments. Const alert and oriented x3 Debridement Note Debridement Note Post-Debridement Measurements and Additional Note: Post-Debridement Measurements/Treatment - Nurse 1 - General Ulcer Assessment Start: 06/08/23 09:33 Freq: Status: Active Protocol: [email or web address] Activity Type Activity Date Activity User E-sign Co-sign Detail Recorded Client Recorded Date Recorded By Document 06/08/23 09:33 DL Desktop 06/08/23 09:44 DL 06/08/23 09:33 - Today's Visit Information Type of service Follow-up Visit (Physician/CAR REPAIR SUPERVISOR ) Arrival Mode Ambulatory Transfer Assistance None Patient Identification Verified (Name & Yes ) Patient Requires Transmission-Based No Precautions Vital Signs Temperature (97.8 F-99.1 F) 96.6 F L Temperature Source Temporal Pulse Rate (60-100) 95 Pulse Location Monitor Respiratory Rate (12-18) 20 H Respiratory rate source Observation Blood Pressure (90/60-120/80) 159/84 H Blood Pressure Mean (mm Hg) 109 Source Monitor History Since Last Visit- (Skip if this is Patient's initial visit) Have you changed medications since your No last visit? Any new allergies or adverse reactions No Signs or symptoms of abuse and/or No neglect since last visit Have you been in the hospital since your No last visit? Has dressing in place as prescribed Yes Has compression in place as prescribed N/A Has offloadiing in place as prescribed Yes Experienced any changes in pain level or No management Left Footwear Total Contact Cast Pain Scale: 0-10 Numeric Is Patient Pain Free? Yes - Nurse 1 - General Ulcer Measurement Start: 06/08/23 09:33 Freq: Status: Active Protocol: Activity Type Activity Date Activity User E-sign Co-sign Detail Recorded Client Recorded Date Recorded By Document 06/08/23 09:33 DL Desktop 06/08/23 09:44 DL 06/08/23 09:33 Wound Center Nurse 1 #1 Left lateral Ankle -Current Size (cm) - Length 6.1 -Current Size (cm) - Width 1 -Current Size (cm) - Depth 0.1 -Total Square Cm 6.1 -Exudate Amt Medium -Exudate Type Serosanguineous -Wound Margin Distinct, Outline Attached -Granulation Amt Medium (34-66%) -Granulation Quality Red -Necrosis Amt Small (1-33%) -Structure Exposed N/A -Texture (Clement-wound Skin Appearance) Scarring -Moisture (Clement-wound Skin Appearance) No Abnormality -Color (Clement-wound Skin Appearance) Hemosiderin Staining -Temperature (Clement-wound Skin No Abnormality Appearance) (Pt Warm) -Tenderness on Palpation (Clement-wound No Skin Appearance) -Ulcer Cleansing Soap and Water -Foul Odor after Cleansing No -Anesthetic Used 5% Lidocaine Gel - Nurse 2 - General Ulcer CM Notes Start: 06/08/23 09:33 Freq: Status: Active Protocol: Activity Type Activity Date Activity User E-sign Co-sign Detail Recorded Client Recorded Date Recorded By Document 06/08/23 10:03 Laptop 06/08/23 10:07 JF 06/08/23 10:03 Wound Center Nurse 2 -Time 10:05 -Correct Patient Yes -Correct Side, Site, Position Yes -Correct Procedure Yes -Procedure Performed Yes -Type of Procedure Debridement -Clinical Debridement Subcutaneous -Tissue Removed Subcutaneous -Post Debridement (cm) - Length 7.0 -Post Debridement (cm) - Width 0.8 -Post Debridement (cm) - Depth 0.4 -Total Square (Post) (cm) 5.60 -Area of Debridement (cm) - Length 7.0 -Area of Debridement (cm) - Width 0.8 -Total Square (Area) (cm) 5.60 -Tunneling No -Undermining/Tunneling No -Circular Undermining No -Wound/Ulcer Outcome Not Healed -Ulcer Cleansing Rinsed/ Irrigated with Saline -Foul Odor after Cleansing No -Bioengineered Tissue Yes -Type of Bioengineered Tissue Epifix Mesh -Expiration Date 01/02/28 -Product Lot Number [id number] -Percent Used 100 -Lot number of Saline Used [id number] -Bleeding Controlled with Pressure -Treatment Response Procedure Tolerated Well -Offloading Yes -Type of Offloading Total Contact Cast (TCC) - Left ($) -Debridement - Subq, 1st 20sq cm No -Apply Skin Sub - 1st 25 sq cm - Legs 1 -Epifix Mesh (per sq cm) 11 Pain Scale: 0-10 Numeric Is Patient Pain Free? Yes Assessment/Plan Assessment/Plan (1) Non-pressure chronic ulcer of left ankle with fat layer exposed: CODE(S): L97.322 - Non-pressure chronic ulcer of left ankle with fat layerexposed PLAN: Exam performed Patient has alcoholic neuropathy, smokes pack per day with peripheral arterial disease -patient has something smoking cessation and alcohol cessation. Recommended community support through . Patient underwent ORIF left ankle fracture on 04/01/2023, developed surgical site dehiscence and infection. Patient was treated with p.o. antibiotics and infection resolved. Wound is improving today with wound VAC application and offloading via walker and a cast boot assisted by walker radiographs demonstrate some syndesmotic widening with medial clear space noted. Due to current wound complication, arterial status. No surgical plan at current. Will plan for AFO upon healing if required. There appears to be syndesmotic instability at this time. Will plan for total contact cast currently. Due to patient's offloading and home status patient was transition to partial weightbearing in cast boot assisted by walker. Will consider fixing if there is re-established blood flow to the area and for return to function upon wound healing and poor return to function in custom AFO. Again due to patient'srisk factors though, and AFO would likely be indicated. Left ankle wound was debrided excisionally down to including level of subcutaneous tissue of all nonviable tissue using a 5 mm dermal curette. Was flushed with copious amounts normal sterile saline. Hemostasis obtained with light compression. No anesthesia due to neuropathy. Patient tolerated procedure well. Pre and postdebridement measurements documented nursing notes. left lower extremity lateral ankle wound - an EpiFix graft was applied (4 x 4.5cm), 11 billing units, graft was applied directly to the wound site. Entire graft used, no waste. Graft was stabilized with overlying Adaptic and Steri-Strips. Today total contact cast applied to left lower extremity to offload lower extremity. Follow-up weekly. (2) Displaced fracture of lateral malleolus of left fibula: CODE(S): S82.62XA - Displaced fracture of lateral malleolus of left fibula, initial encounter for closed fracture QUALIFIERS: Encounter type: sequela Fracture type: closed Qualified Code(s): S82.62XS - Displaced fracture of lateral malleolus of left fibula, sequela (3) Peripheral vascular disease, unspecified: CODE(S): I73.9 - Peripheral vascular disease, unspecified 06/08/23 1010 <Electronically signed by Haroon Da Silva DPM> Cosigner Signature (if applicable): CC: ~ Signed [facility] Work Phone: [phone]) 580-947901-17-2024 NoteHNO ID: [id number] Author: REMI CASTRO LPN Service: ? Author Type: LICENSED NURSE Type: Progress Notes Filed: 05/19/2023 09:33 Note Text: Scan on 05/18/2023 3:10 PM by ProviderAmauri PA-C: [facility]2024 NoteHNO ID: [id number] Author: REMI CASTRO LPN Service: ? Author Type: LICENSED NURSE Type: Progress Notes Filed: 05/12/2023 13:47 Note Text: Scan on 05/12/2023 12:34 PM by Provider, Amauri, PA-C: [facility]12-18-2023 NoteHNO ID: [id number] Author: Sonny Camargo LPN Service: ? Author Type: ? Type: Progress Notes Filed: 04/19/2023 4:31 PM Note Text: Scan on 04/18/2023 10:08 AM by Provider, External, PA-C: Microbiology Scan on 04/18/2023 7:11 AM by Provider, External, PA-C: Microbiology Scan on 04/17/2023 3:07 PM by Provider, External, PA-C: Microbiology Scan on 04/17/2023 10:35 AM by Provider, External, PA-C: [facility]Dun[facility]12-01-2023 NoteHNO ID: [id number] Author: Remi Castro LPN Service: ? Author Type: ? Type: Progress Notes Filed: 04/02/2023 5:09 PM Note Text: Scan on 04/01/2023 3:56 PM by Provider, External PA-C: X-ray Scan on 04/01/2023 4:20 PM by Provider External PA-C: Miscellaneous [facility]Dun[facility]11-30-2023 Procedure [facility]11-27-2023 NoteHNO ID: [id number] Author: Sonny Camargo LPN Service: ? Author Type: ? Type: Progress Notes Filed: 03/29/2023 11:20 AM Note Text: Scan on 03/26/2023 6:12 PM by Provider, External, PA-C: Chemistry Scan on 03/26/2023 5:38 PM by Provider External, PA-C: Hematology Scan on 03/26/2023 8:13 PM by Provider, External, PA-C: [facility]11-27-2023 History of Present illness Narrative* Sonny Camargo LPN - 03/29/2023 11:20 AM EST Scan on 03/26/2023 6:12 PM by Provider, External, PA-C: Chemistry Scan on 03/26/2023 5:38 PM by Provider, External, PA-C: Hematology Scan on 03/26/2023 8:13 PM by Provider, External, PA-C: X-ray documented in this encounterOhio[facility]-2022 Miscellaneous Notes* Telephone Encounter - Shanon Montesinos Pss - 11/04/2021 3:37 PM EDT 2nd attempt left VM * Telephone Encounter - Allyssa Tadeo - 10/31/2021 9:38 AM EDT Patient was at work will need to call on a Wednesday, Patient also needs a 6 mo follow up scheduled with Dr. Dubon or Dixon Tadeo PSS * Telephone Encounter - Urban Olsen - 10/30/2021 8:35 AM EDT Patient due for screening colonoscopy . Patient is not appropriate for open access. Please scheduleoffice consult Urban Olsen documented in this encounterOhiohealth [facility] HospitalDischarge summary Author Matt Loyola [facility] July 16, 2023 12:58pm Note Date/Time July 16, 2023 11: 36am [facility] Medical Records Department [address] [place] [id number] Emergency Department Summary 07/16/23 MR#: [id number] Acct: [id number] Name: WERNER MCLAIN Rep #:[id number] : 1965 57 From: Matt Loyola DO PCP: Dr. Natasha Dubon MD Status:REG ER Location: ED HPI History of Present Illness Chief Complaint: Abn Labs Narrative Narrative: 57-year-old male presenting for dilation of outpatient duplex and positive DVT. Patient is unsure where his DVT is. He states he was sent to the ER from ultrasound due to the DVT. Patient has recent history of surgery on the left ankle and foot by Dr. Da Silva. Patient recently had displaced fracture of the lateral malleolus. Patient has had debridement of this as well. PFSH PFS Medical History Alcohol use Arthritis Asthma Chronic cough History of edema Lung infection Neuropathy Smoker Walker as ambulation aid Home Medications ibuprofen 400 mg tablet 400 mg PO DAILY 06/16/23 [History Last Taken Unknown] apixaban 5 mg (74 tabs) tablets in a dose pack (Eliquis DVT-PE Treat 30D Start) 5 mg PO BID #74 tabs 07/16/23 [Rx Last Taken Unknown] omeprazole 40 mg capsule,delayed release 40 mg PO DAILY #60 caps 07/16/23 [Rx Last Taken Unknown] Allergy/AdvReac Type Severity Reaction Status Date / Time No Known Allergies Allergy Verified 07/16/23 10:47 Family History Other Asthma COPD (chronic obstructive pulmonary disease) CVA (cerebral vascular accident) Diabetes Hypertension Myocardial infarction Surgical History History of appendectomy History of hydrocelectomy Social History Smoking Status: Current every day smoker tobacco type: cigarettes ROS ROS ED Constitutional Constitutional ED: Denies chills, fever(s) or sweats Eyes Eyes: Denies blurry vision or change in vision ENT ENT ED: Denies ear pain or sore throat Cardiovascular Cardiovascular: Denies chest pain, palpitations or racing heartbeat Respiratory/Chest Respiratory/Chest: Denies cough, dyspnea or sputum Gastrointestinal Gastrointestinal: Denies abdominal pain, constipation, diarrhea, nausea or vomiting Genitourinary Genitourinary ED: Denies dysuria, hematuria or urinary frequency Musculoskeletal Musculoskeletal: Reports other Details: Left leg swelling ; Denies arthralgias, myalgias or neck pain Integumentary Denies abscess, Abrasions or rash Neurologic Neurologic: Denies headache(s), paresthesias or weakness Psychiatric Psychiatric: Denies anxiety, depression, suicidal ideation or suicidal thoughts Endocrine Endocrinology: Denies polydipsia or polyuria EXAM Physical Exam Const Vital Signs: 07/16/23 10:45 07/16/23 10:54 07/16/23 12:45 Temperature 95.7 F L Temperature Source Temporal Pulse Rate 100 100 Respiratory Rate 18 16 Respiratory Effort Normal Respiratory Pattern Normal Blood Pressure 171/75 H 170/68 H Blood Pressure Mean 107 102 Pulse Ox 100 98 Oxygen Delivery Method Room Air Room Air Positive well nourished General Appearance ED: NAD HEENT Reports moist mucous membranes Eyes PERRL and EOMs intact bilaterally Resp normal respiratory effort Cardio regular rate and regular rhythm Extremity Extremity Narrative: Walking boot in place. Dressings clean dry and intact. Mild lower extremity edema. Neuro oriented x3 Psych mental status grossly normal MDM MDM MDM Narrative Medical decision making narrative: Patient presenting with DVT. This is in the solea's region. No other DVT is identified. Physical exam notable for some swelling. Patient has recent surgery and nonhealing pressure ulcer. He follows with Dr. Omalley and Dr. Da Silva. Discussed the case with Dr. Pablo who is on-call he recommended patient placed on Eliquis for DVT. We also discussed that the patient is admittedly an alcoholic and drinks regularly. We discussed precautions for this as well. I spoke with the patient at length regarding his alcoholism and the risk for GI bleed on Eliquis if he continues to drink. He also was counseled against NSAIDs while he is on Eliquis. Patient was given all precautions necessary. He states he will take the Eliquis.. Patient will limit his alcohol, tobacco use. Patient will be put on omeprazole 40 mg p.o. daily as well. Return precautions discussed. Impression: 1. Left soleal DVT 2. history of EtOH abuse Lab Data Attestation: I reviewed the patient's lab results. Discharge Plan Triage Chief Complaint: Abn Labs ED Provider: Matt Loyloa Dx/Rx/DC Orders Clinical Impression: DVT (deep venous thrombosis) Instructions: ED Deep Vein Thrombosis (DVT) Prescriptions: New omeprazole 40 mg capsule,delayed release(DR/EC) 40 mg PO DAILY Qty: 60 0RF Eliquis DVT-PE Treat 30D Start 5 mg (74 tabs) tablets,dose pack 5 mg PO BID Qty: 74 0RF Rx Instructions: 10 mg p.o. twice daily x 1 week then 5 mg p.o. twice daily Primary Care Provider: Natasha Dubon Referrals: Haroon Da Silva DPM [Med Staff - Active Staff] - 3-5 Days Pasquale Omalley MD [Med Staff - Active Staff] - 3-5 Days Natasha Dubon MD [Primary Care Provider] - Disposition Disposition: Home, Self Care What to do if you have Problems For any increased pain, shortness of breath, bleeding, nausea or vomiting, chestpain, or any unexpected problems, contact your Primary Care Provider. Call [facility] ([phone]) or report to the closest Emergency Room. Call 911 if necessary. 07/16/23 1258 <Electronically signed by Matt Loyola DO> Cosigner Signature (if applicable): CC: Dr. Natasha Dubon MD ~ Signed [facility] Work Phone: Evaluation noteNo assessment information available [facility] Work Phone: Evaluation note* Diagnosis Onset Date Resolution Status Displaced fracture of lateral malleolus of left fibula acute Non-pressure chronic ulcer o f other part of left foot with fat layer exposed chronic [facility] Work Phone: Evaluation note* Diagnosis Onset Date Resolution Status Displaced fracture of lateral malleolus of left fibula acute Non-pressure chronic ulcer o f other part of left foot with fat layer exposed chronic Displaced fracture of lateral malleolus of left fibula acute Peripheral vascular disease, unspecified acute 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 [facility] Work Phone: Evaluation note* Diagnosis Onset Date Resolution Status Displaced fracture of lateral malleolus of left fibula acute Non-pressure chronic ulcer o f other part of left foot with fat layer exposed chronic Displaced fracture of lateral malleolus of left fibula acute Peripheral vascular disease, unspecified acute 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 Displaced fracture of lateral malleolus of left fibula acute Peripheral vascular disease, unspecified acute 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 Displaced fracture of lateral malleolus of left fibula acute Peripheral vascular disease, unspecified acute 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 [facility] Work Phone: Evaluation note* Diagnosis Onset Date Resolution Status Displaced fracture of lateral malleolus of left fibula acute Non-pressure chronic ulcer o f other part of left foot with fat layer exposed chronic Displaced fracture of lateral malleolus of left fibula acute Peripheral vascular disease, unspecified acute 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 Displaced fracture of lateral malleolus of left fibula acute Peripheral vascular disease, unspecified acute 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 Displaced fracture of lateral malleolus of left fibula acute Peripheral vascular disease, unspecified acute 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 Displaced fracture of lateral malleolus of left fibula acute Peripheral vascular disease, unspecified acute 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 [facility] Work Phone: Evaluation note* Diagnosis Onset Date Resolution Status Displaced fracture of lateral malleolus of left fibula acute Non-pressure chronic ulcer o f other part of left foot with fat layer exposed chronic Displaced fracture of lateral malleolus of left fibula acute 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 Peripheral vascular disease, unspecified chronic Displaced fracture of lateral malleolus of left fibula acute 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 Peripheral vascular disease, unspecified chronic Displaced fracture of lateral malleolus of left fibula acute 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 Peripheral vascular disease, unspecified chronic Peripheral vascular disease, unspecified chronic Displaced fracture of lateral malleolus of left fibula acute 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 Peripheral vascular disease, unspecified chronic [facility] Work Phone: Evaluation note* Diagnosis Onset Date Resolution Status Displaced fracture of lateral malleolus of left fibula acute 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 Peripheral vascular disease, unspecified chronic Displaced fracture of lateral malleolus of left fibula acute 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 Peripheral vascular disease, unspecified chronic Displaced fracture of lateral malleolus of left fibula acute 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 Peripheral vascular disease, unspecified chronic Peripheral vascular disease, unspecified chronic Displaced fracture of lateral malleolus of left fibula acute 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 Peripheral vascular disease, unspecified chronic [facility] Work Phone: Evaluation note* Diagnosis Onset Date Resolution Status Displaced fracture of lateral malleolus of left fibula acute 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 Peripheral vascular disease, unspecified chronic Displaced fracture of lateral malleolus of left fibula acute 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 Peripheral vascular disease, unspecified chronic Displaced fracture of lateral malleolus of left fibula acute 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 Peripheral vascular disease, unspecified chronic Peripheral vascular disease, unspecified chronic Displaced fracture of lateral malleolus of left fibula acute 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 Peripheral vascular disease, unspecified chronic Fracture of lateral malleolu s of left fibula at syndesmosis acute Painful orthopaedic hardware acute Syndesmotic disruption of left ankle acute [facility] Work Phone: Evaluation note* Diagnosis Onset Date Resolution Status Displaced fracture of lateral malleolus of left fibula acute 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 Peripheral vascular disease, unspecified chronic Displaced fracture of lateral malleolus of left fibula acute 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 Peripheral vascular disease, unspecified chronic Displaced fracture of lateral malleolus of left fibula acute 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 Peripheral vascular disease, unspecified chronic Peripheral vascular disease, unspecified chronic Displaced fracture of lateral malleolus of left fibula acute 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 Peripheral vascular disease, unspecified chronic Fracture of lateral malleolu s of left fibula at syndesmosis acute Painful orthopaedic hardware acute Syndesmotic disruption of left ankle acute Other hereditary and idiopathic neuropathies acute Other specified peripheral vascular diseases acute Painful orthopaedic hardware acute Syndesmotic disruption of left ankle acute 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 [facility] Work Phone: Evaluation note* Diagnosis Onset Date Resolution Status Displaced fracture of lateral malleolus of left fibula acute 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 Peripheral vascular disease, unspecified chronic Displaced fracture of lateral malleolus of left fibula acute 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 Peripheral vascular disease, unspecified chronic Displaced fracture of lateral malleolus of left fibula acute 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 Peripheral vascular disease, unspecified chronic Peripheral vascular disease, unspecified chronic Displaced fracture of lateral malleolus of left fibula acute 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 Peripheral vascular disease, unspecified chronic Fracture of lateral malleolu s of left fibula at syndesmosis acute Painful orthopaedic hardware acute Syndesmotic disruption of left ankle acute Other hereditary and idiopathic neuropathies acute Other specified peripheral vascular diseases acute Painful orthopaedic hardware acute Syndesmotic disruption of left ankle acute 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 Da Silva would like to see you in the office this afternoon. Please call his office when you leave here for an appointment time.[facility] Work Phone: Hospital Discharge instructions Additional Instructions Keep dressing clean, dry and intact until follow up in 1 week remain NWB on left assisted by walker elevate left lower extremity above level of heart ice behind knee 3 times/day for 15 minutes take prescriptions as directedWCleveland Clinic [facility] Work Phone: Hospital Discharge instructions Additional Instructions Keep dressing clean dry and intact till follow-up. Maintain nonweightbearing left lower extremity until follow-up. Elevate left lower extremity above level heart at rest. Ice behind knee 3 times a day. Any strikethrough to dressing or signs or symptoms of infection contact our office or present to ED. [facility] Work Phone: Chief Complaint and Reason for Visit Chief Complaint left ankle Chief Complaint left ankle pre-op screening- LABS AND XRAY Chief Complaint left ankle pre-op screening- LABS AND XRAY Reason for Visit Displaced fracture o f lateral malleolus of left fibula Non-pressure chronic ulcer of other part of left foot with fat layer exposed Chief Complaint left ankle pre-op screening- LABS AND XRAY PERIPHERAL VASCULAR DISEASE wound LEG ULCER Reason for Visit Displaced fracture o f lateral malleolus of left fibula Non-pressure chronic ulcer of other part of left foot with fat layer exposed Displaced fracture of lateral malleolus of left fibula Peripheral vascular disease, unspecified Non-pressure chronic ulcer of left ankle with fat layer exposed Chief Complaint left ankle pre-op screening- LABS AND XRAY PERIPHERAL VASCULAR DISEASE LEG ULCER wound CONSULT-ER F/U wound Reason for Visit Displaced fracture o f lateral malleolus of left fibula Non-pressure chronic ulcer of other part of left foot with fat layer exposed Displaced fracture of lateral malleolus of left fibula Peripheral vascular disease, unspecified Non-pressure chronic ulcer of left ankle with fat layer exposed Displaced fracture of lateral malleolus of left fibula Peripheral vascular disease, unspecified Non-pressure chronic ulcer of left ankle with fat layer exposed Displaced fracture of lateral malleolus of left fibula Peripheral vascular disease, unspecified Non-pressure chronic ulcer of left ankle with fat layer exposed Chief Complaint left ankle pre-op screening- LABS AND XRAY PERIPHERAL VASCULAR DISEASE LEG ULCER wound CONSULT-ER F/U wound I73.9 PVD LEFT ANKLE wound Reason for Visit Displaced fracture o f lateral malleolus of left fibula Non-pressure chronic ulcer of other part of left foot with fat layer exposed Displaced fracture of lateral malleolus of left fibula Peripheral vascular disease, unspecified Non-pressure chronic ulcer of left ankle with fat layer exposed Displaced fracture of lateral malleolus of left fibula Peripheral vascular disease, unspecified Non-pressure chronic ulcer of left ankle with fat layer exposed Displaced fracture of lateral malleolus of left fibula Peripheral vascular disease, unspecified Non-pressure chronic ulcer of left ankle with fat layer exposed Displaced fracture of lateral malleolus of left fibula Peripheral vascular disease, unspecified Non-pressure chronic ulcer of left ankle with fat layer exposed Chief Complaint left ankle pre-op screening- LABS AND XRAY PERIPHERAL VASCULAR DISEASE LEG ULCER wound CONSULT-ER F/U wound I73.9 PVD LEFT ANKLE wound ABN LAB Reason for Visit Displaced fracture o f lateral malleolus of left fibula Non-pressure chronic ulcer of other part of left foot with fat layer exposed Displaced fracture of lateral malleolus of left fibula Peripheral vascular disease, unspecified Non-pressure chronic ulcer of left ankle with fat layer exposed Displaced fracture of lateral malleolus of left fibula Peripheral vascular disease, unspecified Non-pressure chronic ulcer of left ankle with fat layer exposed Displaced fracture of lateral malleolus of left fibula Peripheral vascular disease, unspecified Non-pressure chronic ulcer of left ankle with fat layer exposed Displaced fracture of lateral malleolus of left fibula Peripheral vascular disease, unspecified Non-pressure chronic ulcer of left ankle with fat layer exposed Chief Complaint PERIPHERAL VASCULAR DISEASE LEG ULCER wound CONSULT-ER F/U wound I73.9 PVD LEFT ANKLE ABN LAB DISCUSS RESULTS wound Reason for Visit Displaced fracture o f lateral malleolus of left fibula Non-pressure chronic ulcer of other part of left foot with fat layer exposed Displaced fracture of lateral malleolus of left fibula Non-pressure chronic ulcer of left ankle with fat layer exposed Peripheral vascular disease, unspecified Displaced fracture of lateral malleolus of left fibula Non-pressure chronic ulcer of left ankle with fat layer exposed Peripheral vascular disease, unspecified Displaced fracture of lateral malleolus of left fibula Non-pressure chronic ulcer of left ankle with fat layer exposed Peripheral vascular disease, unspecified Peripheral vascular disease, unspecified Displaced fracture of lateral malleolus of left fibula Non-pressure chronic ulcer of left ankle with fat layer exposed Peripheral vascular disease, unspecified Chief Complaint PERIPHERAL VASCULAR DISEASE LEG ULCER wound CONSULT-ER F/U wound I73.9 PVD LEFT ANKLE ABN LAB DISCUSS RESULTS wound Reason for Visit Displaced fracture o f lateral malleolus of left fibula Non-pressure chronic ulcer of left ankle with fat layer exposed Peripheral vascular disease, unspecified Displaced fracture of lateral malleolus of left fibula Non-pressure chronic ulcer of left ankle with fat layer exposed Peripheral vascular disease, unspecified Displaced fracture of lateral malleolus of left fibula Non-pressure chronic ulcer of left ankle with fat layer exposed Peripheral vascular disease, unspecified Peripheral vascular disease, unspecified Displaced fracture of lateral malleolus of left fibula Non-pressure chronic ulcer of left ankle with fat layer exposed Peripheral vascular disease, unspecified Chief Complaint PERIPHERAL VASCULAR DISEASE LEG ULCER wound CONSULT-ER F/U wound I73.9 PVD LEFT ANKLE ABN LAB DISCUSS RESULTS wound Left ankle hardware removal with syndesmotic stabi Reason for Visit Displaced fracture o f lateral malleolus of left fibula Non-pressure chronic ulcer of left ankle with fat layer exposed Peripheral vascular disease, unspecified Displaced fracture of lateral malleolus of left fibula Non-pressure chronic ulcer of left ankle with fat layer exposed Peripheral vascular disease, unspecified Displaced fracture of lateral malleolus of left fibula Non-pressure chronic ulcer of left ankle with fat layer exposed Peripheral vascular disease, unspecified Peripheral vascular disease, unspecified Displaced fracture of lateral malleolus of left fibula Non-pressure chronic ulcer of left ankle with fat layer exposed Peripheral vascular disease, unspecified Fracture of lateral malleolus of left fibula at syndesmosis Painful orthopaedic hardware Syndesmotic disruption of left ankle Chief Complaint PERIPHERAL VASCULAR DISEASE LEG ULCER wound CONSULT-ER F/U wound I73.9 PVD LEFT ANKLE ABN LAB DISCUSS RESULTS wound Left ankle hardware removal with syndesmotic stabi ANKLE- BOTH WOUND Reason for Visit Displaced fracture o f lateral malleolus of left fibula Non-pressure chronic ulcer of left ankle with fat layer exposed Peripheral vascular disease, unspecified Displaced fracture of lateral malleolus of left fibula Non-pressure chronic ulcer of left ankle with fat layer exposed Peripheral vascular disease, unspecified Displaced fracture of lateral malleolus of left fibula Non-pressure chronic ulcer of left ankle with fat layer exposed Peripheral vascular disease, unspecified Peripheral vascular disease, unspecified Displaced fracture of lateral malleolus of left fibula Non-pressure chronic ulcer of left ankle with fat layer exposed Peripheral vascular disease, unspecified Fracture of lateral malleolus of left fibula at syndesmosis Painful orthopaedic hardware Syndesmotic disruption of left ankle Other hereditary and idiopathic neuropathies Other specified peripheral vascular diseases Painful orthopaedic hardware Syndesmotic disruption of left ankle Non-pressure chronic ulcer of left ankle with fat layer exposed Chief Complaint LEG ULCER wound CONSULT-ER F/U wound I73.9 PVD LEFT ANKLE ABN LAB DISCUSS RESULTS wound Left ankle hardware removal with syndesmotic stabi ANKLE- BOTH WOUND WOUND Reason for Visit Displaced fracture o f lateral malleolus of left fibula Non-pressure chronic ulcer of left ankle with fat layer exposed Peripheral vascular disease, unspecified Displaced fracture of lateral malleolus of left fibula Non-pressure chronic ulcer of left ankle with fat layer exposed Peripheral vascular disease, unspecified Displaced fracture of lateral malleolus of left fibula Non-pressure chronic ulcer of left ankle with fat layer exposed Peripheral vascular disease, unspecified Peripheral vascular disease, unspecified Displaced fracture of lateral malleolus of left fibula Non-pressure chronic ulcer of left ankle with fat layer exposed Peripheral vascular disease, unspecified Fracture of lateral malleolus of left fibula at syndesmosis Painful orthopaedic hardware Syndesmotic disruption of left ankle Other hereditary and idiopathic neuropathies Other specified peripheral vascular diseases Painful orthopaedic hardware Syndesmotic disruption of left ankle Non-pressure chronic ulcer of left ankle with fat layer exposed Other hereditary and idiopathic neuropathies Other specified peripheral vascular diseases Painful orthopaedic hardware Syndesmotic disruption of left ankle Non-pressure chronic ulcer of left ankle with fat layer exposed Advance Directives No Advanced Directives Records Found Advance Directive Response Recorded Date/ Time Living Will No March 23, 023 9:52am Power of Bench Manager No March 23, 2023 9:52am Advance Directive Response Recorded Date/ Time Living Will No March 31, 023 9:15am Power of Bench Manager No March 31, 2023 9:15am Advance Directive Response Recorded Date/ Time Living Will No March 31, 023 10:15am Power of Bench Manager No March 31, 2023 10:15am Advance Directive Response Recorded Date/ Time Living Will No July 16, 2023 10:54am Power of Bench Manager No July 15 10:54am Advance Directive Response Recorded Date/ Time Living Will No August 04, 2023 2:10pm Power of Bench Manager No August 03 2:10pm Family History No Family History Records Found Relationship Condition Age at Onset Recorded Date/T kaylene Not Specified Diabetes mellitus Unknown Myocardial infarction Unknown Chronic obstructive pulmonary disease Unk nown Hypertension Unknown Cerebrovascular accident (CVA) Unknown Asthma Unknown Summary Purpose Additional Source Comments Source Comments (unrecognize d section and content) In the event this informatio n is protected by the Federal Confidentiality of Alcohol and Drug Abuse Patient Records regulations: The Federal rules restrict any use of the information to criminally investigate or prosecute any alcohol or drug abuse patient.[facility] the event this information is protected by the Federal Confidentiality of Alcohol and Drug Abuse Patient Records regulations: The Federal rules restrict any use of the information to criminally investigate or prosecute any alcohol or drug abuse patient.[facility] the event this information is protected by the Federal Confidentiality of Alcohol and Drug Abuse Patient Records regulations: The Federal rules restrict any use of the information to criminally investigate or prosecute any alcohol or drug abuse patient.[facility] the event this information is protected by the Federal Confidentiality of Alcohol and Drug Abuse Patient Records regulations: The Federal rules restrict any use of the information to criminally investigate or prosecute any alcohol or drug abuse patient.[facility] the event this information is protected by the Federal Confidentiality of Alcohol and Drug Abuse Patient Records regulations: The Federal rules restrict any use of the information to criminally investigate or prosecute any alcohol or drug abuse patient.[facility] the event this information is protected by the Federal Confidentiality of Alcohol and Drug Abuse Patient Records regulations: The Federal rules restrict any use of the information to criminally investigate or prosecute any alcohol or drug abuse patient.[facility] the event this information is protected by the Federal Confidentiality of Alcohol and Drug Abuse Patient Records regulations: The Federal rules restrict any use of the information to criminally investigate or prosecute any alcohol or drug abuse patient.[facility] the event this information is protected by the Federal Confidentiality of Alcohol and Drug Abuse Patient Records regulations: The Federal rules restrict any use of the information to criminally investigate or prosecute any alcohol or drug abuse patient.[facility] the event this information is protected by the Federal Confidentiality of Alcohol and Drug Abuse Patient Records regulations: The Federal rules restrict any use of the information to criminally investigate or prosecute any alcohol or drug abuse patient.[facility] the event this information is protected by the Federal Confidentiality of Alcohol and Drug Abuse Patient Records regulations: The Federal rules restrict any use of the information to criminally investigate or prosecute any alcohol or drug abuse patient.[facility] the event this information is protected by the Federal Confidentiality of Alcohol and Drug Abuse Patient Records regulations: The Federal rules restrict any use of the information to criminally investigate or prosecute any alcohol or drug abuse patient.[facility] the event this information is protected by the Federal Confidentiality of Alcohol and Drug Abuse Patient Records regulations: The Federal rules restrict any use of the information to criminally investigate or prosecute any alcohol or drug abuse patient.[facility] the event this information is protected by the Federal Confidentiality of Alcohol and Drug Abuse Patient Records regulations: The Federal rules restrict any use of the information to criminally investigate or prosecute any alcohol or drug abuse patient.[facility] the event this information is protected by the Federal Confidentiality of Alcohol and Drug Abuse Patient Records regulations: The Federal rules restrict any use of the information to criminally investigate or prosecute any alcohol or drug abuse patient.[facility] the event this information is protected by the Federal Confidentiality of Alcohol and Drug Abuse Patient Records regulations: The Federal rules restrict any use of the information to criminally investigate or prosecute any alcohol or drug abuse patient.[facility]In the event this information is protected by the Federal Confidentiality of Alcohol and Drug Abuse Patient Records regulations: The Federal rules restrict any use of the information to criminally investigate or prosecute any alcohol or drug abuse patient.[facility] HospitalIn the event this information is protected by the Federal Confidentiality of Alcohol and Drug Abuse Patient Records regulations: The Federal rules restrict any use of the information to criminally investigate or prosecute any alcohol or drug abuse patient.[facility] Reason for Visit (unrecogniz ed section and content) Reason Comments Outpatient Colonoscopy Reason Comments Outside [id number] Ordered Reason Comments Outside Imaging Reason Comments outside imaging Reason Comments ER Summary Imaging Reason Comments Ext / Op Report & XRays\ Reason Comments Results [facility] Reason Comments Ext / Xrays Reason Comments Outside Image Reason Comments Ext / Labs Reason Comments Results Lab Reason Comments Ext / XRay Reason Comments Results, Lab [facility] Reason Comments Results Outside results - H - US Care Teams (unrecognized sec tion and content) Interventional Sale Consultant Relationship Specialty Start Date End Date Natasha Dubon MD [address] [place] [address] PCP - General Family Practice 06/18/17 Team Status: Active Member Role Status Dates Dr. Natasha Dubon MD Family Provider Active Dr. Natasha Dubon MD Primary Care Provider Active Team Status: Inactive Member Role Status Dates Dr. Natasha Dubon MD Primary Care Provider Active Dr. Prabha Mckeon MD Emergency Provider Active Interventional Sale Consultant Relationship Specialty Start Date End Date Natasha Dubon MD [address] [place], [place] [id number] PCP - General Family Medicine 06/18/17 Team Status: Inactive Member Role Status Dates Dr. Natasha Dubon MD Primary Care Provider Active Dr. Prabha Mckeon MD Attending Provider, Emergency Provider Active Team Status: Inactive Member Role Status Dates Dr. Doris Conner MD Attending Provider, Referring P wendy Active Dr. Natasha Dubon MD Primary Care Provider Active Team Status: Inactive Member Role Status Dates Dr. Natasha Dubon MD Primary Care Provider Active Dr. Haroon Da Silva DPM Attending Provider, Referring Provider Active Team Status: Active Member Role Status Dates Dr. Natasha Dubon MD Primary Care Provider Active Dr. Pasquale Omalley MD Attending Provider Active Team Status: Active Member Role Status Dates Dr. Natasha Dubon MD Primary Care Provider Active Dr. Haroon Da Silva DPM Attending Provider, Referring Provider Active Team Status: Active Member Role Status Dates Dr. Natasha Dubon MD Primary Care Provider Active Dr. Pasquale Omalley MD Attending Provider Active Dr. Haroon Da Silva DPM Referring Provider Active Team Status: Inactive Member Role Status Dates Dr. Natasha Dubon MD Primary Care Provider, Referri ng Provider Active SHAMIR Blanton Attending Provider Active Team Status: Inactive Member Role Status Dates Dr. Natasha Dubon MD Primary Care Provider Active SHAMIR Blanton Attending Provider, Referring Provid er Active Team Status: Inactive Member Role Status Dates Dr. Natasha Dubon MD Primary Care Provider Active Dr. Matt Loyola DO Emergency Provider Active Interventional Sale Consultant Relationship Specialty Start Date End Date Natasha Dubon MD [address] [place], [place] [id number] PCP - General Family Medicine 06/18/17 Team Status: Inactive Member Role Status Dates Dr. Natasha Dubon MD Primary Care Pro vider, Referring Provider Active Dr. Pasquale Omalley MD Attending Provider Active Dr. Haroon Da Silva DPM Active Sta rt: July 06, 2023 Team Status: Inactive Member Role Status Dates Dr. Natasha Dubon MD Primary Care Provider Active Dr. Matt Loyola DO Attending Provider, Emergency Provider Active Team Status: Inactive Member Role Status Dates Dr. Natasha Dubon MD Primary Care Provider Active Dr. Trevon Reeves MD Attending Provider Active Interventional Sale Consultant Relationship Specialty Start Date End Date Natasha Dubon MD [address] [place], [place] [id number] PCP - General Family Medicine 06/18/17 Team Status: Active Member Role Status Dates Dr. Natasha Dubon MD Primary Care Provider Active Dr. Haroon Da Silva DPM Attending Provider Active Team Status: Inactive Member Role Status Dates Dr. Natasha Dubon MD Primary Care Provider Active Dr. Haroon Da Silav DPM Attending Provider Active Team Status: Active Member Role Status Dates Dr. Natasha Dubon MD Primary Care Provider, Referri ng Provider Active Dr. Haroon Da Silva DPM Attending Provider Active Interventional Sale Consultant Relationship Specialty Start Date End Date Natasha Dubon MD [address] [place], [place] [address] PCP - General Family Medicine 06/18/17 Interventional Sale Consultant Relationship Specialty Start Date End Date Natasha Dubon MD [address] [place], [place] [id number] PCP - General Family Medicine 06/18/17 Goals (unrecognized section and content) Goals may be documented in a n alternate sectionGoals may be documented in an alternate sectionGoals may be documented in an alternate section (unrecognized sect ion and content) No Status Records FoundNo Status Records Found INFORMATION SOURCE (unrecogn ized section and content) DATE CREATED AUTHOR 12/30/2023 [facility] DATE CREATED AUTHOR 'S TESSIZ ATION 03/06/2025 [facility] FOR RECORDS PERTAINING TO PATIENTS WHO ARE [...] BE BASED ON THE PRIMARY CLINICAL RECORDS. [facility] [employer] [facility]. provides no warranty or guarantee of the accuracy or completeness of information in this document.
== END | disposition home or self-care (01) ==
PROVIDERS: Referring Provider Podiatrist Foot & Ankle Surgery; Visit Provider Podiatrist Foot & Ankle Surgery
DX: S91.302A Unspecified open wound, left foot, initial encounter (principal)
CPT/HCPCS: 87070; 87075; 87077; 87186; 87205

== ENCOUNTER 2025-05-02 15:05 | Emergency (ER) | payer OTHER, SELFPAY ==
[2025-05-02] VITALS (9 sets, daily range): BP systolic 111–166; BP diastolic 60–77; PULSE 71–88; RESP 16–20; TEMP 36.2–36.7; O2SAT 94–100; BMI 30.7
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
--- NOTE | 2025-05-02 15:10 | EKG12_ITS ---
Test Reason : Blood Pressure : */* mmHG Vent. Rate : 59 BPM Atrial Rate : 59 BPM P-R Int : 204 ms QRS Dur : 152 ms QT Int : 456 ms P-R-T Axes : 33 71 2 degrees QTcB Int : 451 ms Sinus bradycardia with Premature atrial complexes in a pattern of bigeminy Left bundle branch block Abnormal ECG Confirmed by Manfred Salgado ([id number]), publishing editor REINALDO WOOD ([id number]) on 05/07/2025 9:08:51 AM Referred By: BRYAN Confirmed By: Manfred Salgado
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
[2025-05-02 15:24] LABS: Hematocrit 43.2 % (40-54); Hemoglobin 15.1 g/dL (13.0-16.5); Immature Granulocytes Count 0.190 X10^3/uL (0.0-0.0); Mean Corp Hgb Conc 35.0 g/dL (32-36); Mean Corpuscular Volume 94.7 fL (80-94); Mean Platelet Vol. 9.0 fl (6.2-12.0); NRBC Flagged by Analyzer 0 % (0-5); Platelet Count 285 K/mm3 (150-450); RBC Distribution Width CV 13.4 % (11.6-14.6); RBC Distribution Width SD 46.6 fl (35.1-43.9); Red Blood Count 4.56 M/mm3 (4.6-6.2); White Blood Count 12.2 K/mm3 (4.4-11.0)
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
[2025-05-02 15:38] LABS: Troponin T High Sensitivity 11 ng/L (<=22)
[2025-05-02 15:39] LABS: Prothrombin Time (Protime)PT. 13.2 SECONDS (11.7-14.9)
[2025-05-02 15:40] LABS: Partial Thromboplast Time 24.6 Seconds (24.1-36.2)
[2025-05-02 15:41] LABS: AST(SGOT) 45 U/L (<=37); Alanine Aminotransfer ALT/SGPT 29 U/L (<=46); Albumin, Serum 3.5 g/dL (3.4-4.8); Alkaline Phosphatase 100 U/L (40-129); Anion Gap 11 (7-18); BUN 6 mg/dL (4-19); BUN/Creat Ratio 9.4 RATIO (10-20); Calcium,Total 8.6 mg/dL (7.6-11.0); Carbon Dioxide 20.0 mmol/L (20.0-29.0); Chloride 98 mmol/L (96-106); Estimated Creatinine Clearance 135.40 ml/min (50-250); Globulin 3.5 g/dL (2.2-4.2); Glucose 88 mg/dL (70-99); Potassium 3.8 mmol/L (3.5-5.1)
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
--- OUTSIDE RECORDS SUMMARY | 2025-05-02 16:26 | XMS RPT_ITS | CCD ---
Author Organization [facility] CliniSyct Care Team Providers Care Rabbit Fancier Name Role Phone Natasha Dubon MD Primary Care Provider [phone] Dr. Natasha Dubon Primary Care Provider Dr. Pasquale Omalley Attending Provider 1([facility])[phone] Haroon Da Silva Referring Provider Dr. Natasha Dubon Referring Provider 1([facility])[phone] SHAMIR Tyson Attending Provider 1([facility])59 10 Natasha Dubon MD Primary Care Provider 1([facility] )[phone] Dr. Natasha Dubon Primary Care Provider Dr. Pasquale Omalley Attending Provider 1([facility])[address] Haroon Da Silva Referring Provider Dr. Natasha Dubon Referring Provider 1([facility])[phone] SHAMIR Tyson Attending Provider 1([facility])57 10 Natasha Dubon MD Primary Care Provider 1([facility] )[phone] Dr. Natasha Dubon Primary Care Provider Dr. Pasquale Omalley Attending Provider 1([facility])[address] Haroon Da Silva Referring Provider Natasha Dubon MD Primary Care Provider [phone] Brice Friend Attending Unavailable Natasha Dubon Primary Care Unavailable Brice Friend Referring Unavailable Medications Current Medications Medication Drug Class(es) Dates Sig (Normalized) Sig (Original) [id number] 200 actuat albuterol 0.09 mg/actuat metered dose [...] Comment on above: Take 1 capsule by [facility] once daily. oxyCODONE hydrochloride 5 mg oral [...] Interpretation Reference Range Facility Culture, Anaerobic Any [facility] dimitri 03-04-2025 CUAN TIBIAL LEFT ANKLE LEFT ANKLE Studies have confirmed that Anaerobic Gram Positive Cocci are routinely SUSCEPTABLE to Penicillin and generally susceptible to Beta-lactams and Beta-lactamase inhibitors, Cephalosporins, Carbapenems and Metronidazole. They are showing increased RESISTANCE to Clindamycin Anaerobic cocci Normal [facility] Comment on above: Performed By: #### M 100.2000, M100.3000, M100.4001 #### [facility] [address] [place], [address] Wound Cultureon 03-03-2025 WC FIBULAR [...] S Vancomycin Islt ANUSHA 1 S Normal [facility] Comment on above: Performed By: #### M 100.2000, M100.3000, M100.4001 #### [facility] [address] [place], [address] Gram Stainon 02-28-2025 GS FIBULAR LEFT ANKLE LEFT ANKLE Gram Stain No organisms seen Normal [facility] Comment on above: Performed By: #### M 100.2000, M100.3000, M100.4001 #### [facility] [address] [place], [address] CNCOon 11-22-2023 [facility]CO Letter Text Normal [facility] Basophil percentageOrdered B y: Aleksandar Reno on 07-29-2023 Bilirubin [Mass/Vol] 0.30 mg/dL 0.20-1.[address] [facility] Comment on above: For patients on eltr ombopag therapy, use of Dimension [place] TBIL is not recommended. Chloride [Moles/Vol] 102 mmol/L 98-[address] [facility] Glucose [Mass/Vol] 74 mg/dL 74-106 [facility] Hemoglobin (Bld) [Mass/Vol] 15.6 g/dL 13.0-16.5 [facility] Potassium [Moles/Vol] 3.9 mmol/L 3.5-5.1 [facility] Protein [Mass/Vol] 7.9 g/dL 6.4-8.2 [facility] Sodium [Moles/Vol] 133 mmol/L 136-145 [facility] WBC (Bld) [#/Vol] 7.6 10*3/uL 4.4-11.0 [facility] Determination of erythrocyte mean corpuscular volume (MCV)Ordered By: Aleksnadar Reno on 07-29-2023 MCV (RBC) [Entitic vol] 96.2 fL 80-94 [facility] Erythrocyte distribution wid th ratioOrdered By: Aleksandar Reno on 07-29-2023 Erythrocyte distribution width (RBC) [Ratio] 13.5 % 11.6-14.6 [facility] Erythrocyte distribution wid th standard deviationOrdered By: Aleksandar Reno on 07-29-2023 Erythrocyte distribution width (RBC) [Entitic vol] 48.4 fL 35.1-43.9 [facility] Hematocrit Auto (Bld) [Volum e fraction]Ordered By: Aleksandar Reno on 07-29-2023 Hematocrit (Bld) [Volume fraction] 45.8 % 40-54 [facility] - Chemistry and C hemistry - challengeOrdered By: Aleksandar Reno on 07-29-2023 Albumin/Globulin [Mass ratio] 0.5 {ratio} 0.9-2.4 [facility] ALP [Catalytic activity/Vol] 89 U/L 45-117 [facility] ALT [Catalytic activity/Vol] 16 U/L 16-61 [facility] CO2 [Moles/Vol] 24.0 mmol/L 21.0-32.0 [facility] Globulin (S) [Mass/Vol] 5.1 g/dL 2.2-4.2 [facility] Urea nitrogen/Creatinine [Mass ratio] 8.8 mg/mg 10-20 [facility] - Hematology and Cell countsOrdered By: Aleksandar Reno on 07-29-2023 MCH (RBC) [Entitic mass] 32.8 pg 27.0-32.0 [facility] MCHC (RBC) [Mass/Vol] 34.1 g/dL 32-36 [facility] Platelet mean volume (Bld) [Entitic vol] 9.3 fL 6.2-12.0 [facility] Platelets (Bld) [#/Vol] 320 10*3/uL 150-450 [facility] No Panel InformationOrdered By: Aleksandar Reno on 07-29-2023 Estimated GFR (MDRD) Amer 153 mL/min >60 [facility] Comment on above: GFR Calc Estimated GFR (MDRD) Non-Af Amer 126 mL/min >60 [facility] Comment on above: Non- GFR Calc RBC Auto (Bld) [#/Vol]Ordere d By: Aleksandar Reno on 07-29-2023 RBC (Bld) [#/Vol] 4.76 10*6/uL 4.6-6.2 [facility] Serum or plasma calcium liza urement (mass/volume)Ordered By: Aleksandar Reno on 07-29-2023 Calcium [Mass/Vol] 8.8 mg/dL 8.5-10.1 [facility] Serum or plasma creatinine m easurement (mass/volume)Ordered By: Aleksandar Reno on 07-29-2023 Creatinine [Mass/Vol] 0.68 mg/dL 0.70-1.30 [facility] Comment on above: The validity of the calculated GFR & GFRAA in patients over 70 years has not been determined. Clinical correlation is essential. Serum or plasma urea nitroge n measurement (mass/volume)Ordered By: Aleksandar Reno on 07-29-2023 Urea nitrogen [Mass/Vol] 6 mg/dL 7-18 [facility] Thin prep Papanicolaou smear with manual screeningOrdered By: Aleksandar Reno on 07-29-2023 Thin prep Papanicolaou smear with manual screening 2.8 g/dL 3.2-5.0 [facility] Thin prep Papanicolaou smear with manual screening 17 U/L 15-37 [facility] Thin prep Papanicolaou smear with manual screening 7 5-15 [facility] Anaerobic cultureOrdered By: Haroon Da Silva on 04-16-2023 Bacteria identified Anaer cx Nom (Unsp spec) No anaerobic bacteria isolated. [facility] Bacteria identified Anaer cx Nom (Unsp spec) No anaerobic bacteria isolated. [facility] Bacteria identified Cx Nom ( Wound)Ordered By: Haroon Da Silva on 04-16-2023 Wound Culture Enterobacter cloacae complex [facility] Wound Culture Enterobacter cloacae complex [facility] Gram stain for investigation of transfusion reactionOrdered By: Haroon Da Silva on 04-16-2023 Microscopic observation Gram stain Nom (Unsp spec) [facility] Microscopic observation Gram stain Nom (Unsp spec) [facility] Absolute lymphocyte countOrd ered By: Doris Conner on 03-26-2023 Lymphocytes Auto (Unsp spec) [#/Vol] 1.65 10*3/uL 0.83-4.51 [facility] Basophil percentageOrdered B y: Doris Conner on 03-26-2023 Basophils/100 WBC (Bld) 0.9 % 0-1 [facility] Bilirubin [Mass/Vol] 0.60 mg/dL 0.20-1.[address] [facility] Comment on above: For patients on eltr ombopag therapy, use of Dimension [place] TBIL is not recommended. Chloride [Moles/Vol] 98 mmol/L 98-[address] [facility] Eosinophils/100 WBC (Bld) 2.2 % 0-5 [facility] Glucose [Mass/Vol] 71 mg/dL 74-106 [facility] Neutrophils (Bld) [#/Vol] 5.0 10*3/uL 2.0-7.7 [facility] Neutrophils/100 WBC (Bld) 66.0 % 47-70 [facility] Potassium [Moles/Vol] 4.2 mmol/L 3.5-5.1 [facility] Protein [Mass/Vol] 8.1 g/dL 6.4-8.2 [facility] Sodium [Moles/Vol] 132 mmol/L 136-145 [facility] WBC (Bld) [#/Vol] 7.6 10*3/uL 4.4-11.0 [facility] Blood erythrocytes count (nu mber/volume)Ordered By: Doris Conner on 03-26-2023 RBC (Bld) [#/Vol] 4.89 10*6/uL 4.6-6.2 [facility] Blood hemoglobin measurement (mass/volume)Ordered By: Doris Conner on 03-26-2023 Hemoglobin (Bld) [Mass/Vol] 16.5 g/dL 13.0-16.5 [facility] Blood lymphocytes/100 leukoc ytesOrdered By: Doris Conner on 03-26-2023 Lymphocytes/100 WBC (Bld) 21.7 % 19-41 [facility] Blood monocytes/100 leukocyt esOrdered By: Doris Conner on 03-26-2023 Monocytes/100 WBC (Bld) 8.9 % 0-10 [facility] Blood platelet mean volumeOr dered By: Doris Conner on 03-26-2023 Platelet mean volume (Bld) [Entitic vol] 9.5 fL 6.2-12.0 [facility] Determination of erythrocyte mean corpuscular volume (MCV)Ordered By: Doris Conner on 03-26-2023 MCV (RBC) [Entitic vol] 98.0 fL 80-94 [facility] Hematocrit Auto (Bld) [Volum e fraction]Ordered By: Doris Conner on 03-26-2023 Hematocrit (Bld) [Volume fraction] 47.9 % 40-54 [facility] - Chemistry and C hemistry - challengeOrdered By: Doris Conner on 03-26-2023 ALP [Catalytic activity/Vol] 89 U/L 45-117 [facility] ALT [Catalytic activity/Vol] 21 U/L 16-61 [facility] CO2 [Moles/Vol] 26.0 mmol/L 21.0-32.0 [facility] Globulin (S) [Mass/Vol] 5.0 g/dL 2.2-4.2 [facility] Urea nitrogen/Creatinine [Mass ratio] 10.7 mg/mg 10-20 [facility] - Hematology and Cell countsOrdered By: Doris Conner on 03-26-2023 Erythrocyte distribution width (RBC) [Entitic vol] 46.5 fL 35.1-43.9 [facility] Erythrocyte distribution width (RBC) [Ratio] 13.0 % 11.6-14.6 [facility] Immature granulocytes/100 WBC (Bld) 0.300 % 0.0-0.9 [facility] Comment on above: IG% - Immature Granu locytes (promyelocytes, myelocytes and metamyelocytes) > 1% indicates that a LEFT SHIFT is Present. MCH (RBC) [Entitic mass] 33.7 pg 27.0-32.0 [facility] Nucleated RBC/100 WBC (Bld) [Ratio] 0 % 0-5 [facility] Auto ([facility]BC) [Mass/Vol]Or dered By: Doris Conner on 03-26-2023 MCHC (RBC) [Mass/Vol] 34.4 g/dL 32-36 [facility] No Panel InformationOrdered By: Doris Conner on 03-26-2023 Estimated GFR (MDRD) Amer 161 mL/min >60 [facility] Comment on above: GFR Calc Estimated GFR (MDRD) Non-Af Amer 133 mL/min >60 [facility] Comment on above: Non- GFR Calc Platelets bldOrdered By: Doris Conner on 03-26-2023 Platelets (Bld) [#/Vol] 296 10*3/uL 150-450 [facility] Serum or plasma albumin liza urement (mass/volume)Ordered By: Doris Conner on 03-26-2023 Albumin [Mass/Vol] 3.1 g/dL 3.2-5.0 [facility] Serum or plasma albumin/glob ulin mass ratioOrdered By: Doris Conner on 03-26-2023 Albumin/Globulin [Mass ratio] 0.6 {ratio} 0.9-2.4 [facility] Serum or plasma calcium liza urement (mass/volume)Ordered By: Doris Conner on 03-26-2023 Calcium [Mass/Vol] 8.5 mg/dL 8.5-10.1 [facility] Serum or plasma creatinine m easurement (mass/volume)Ordered By: Doris Conner on 03-26-2023 Creatinine [Mass/Vol] 0.65 mg/dL 0.70-1.30 [facility] Comment on above: The validity of the calculated GFR & GFRAA in patients over 70 years has not been determined. Clinical correlation is essential. Serum or plasma urea nitroge n measurement (mass/volume)Ordered By: Doris Conner on 03-26-2023 Urea nitrogen [Mass/Vol] 7 mg/dL 7-18 [facility] Thin prep Papanicolaou smear with manual screeningOrdered By: Doris Conner on 03-26-2023 Thin prep Papanicolaou smear with manual screening 22 U/L 15-37 [facility] Thin prep Papanicolaou smear with manual screening 8 5-15 [facility] Vital Signs Date Time Vital Sign Value Performing Clinician Mireya noely 09-07-2023 09:33-0400 Body temperature 96.7 [degF] Dr. Natasha Dubon Work Phone: [facility] 09-07-2023 09:33-0400 Diastolic blood pressure 77 mm[Hg] Dr. Natasha Dubon Work Phone: [facility] 09-07-2023 09:33-0400 Heart rate 78 /min Dr. Natasha Dubon Work Phone: [facility] 09-07-2023 09:33-0400 Respiratory rate 18 /min Dr. Natasha Dubon Work Phone: [facility] 09-07-2023 09:33-0400 Systolic blood pressure 144 mm[Hg] Dr. Natasha Dubon Work Phone: 5(947)262-385261 [place] [address] 08-31-2023 09:35-0400 Body temperature 96.9 [degF] Dr. Natasha Dubon Work Phone: 1(932)003-521361 [place] [address] 08-31-2023 09:35-0400 Diastolic blood pressure 77 mm[Hg] Dr. Natasha Dubon Work Phone: 5(184)892-428761 [place] [address] 08-31-2023 09:35-0400 Heart rate 85 /min Dr. Natasha Dubon Work Phone: [facility] 08-31-2023 09:35-0400 Systolic blood pressure 172 mm[Hg] Dr. Natasha Dubon Work Phone: [facility] 08-24-2023 09:34-0400 Body temperature 97.4 [degF] Dr. Natasha Dubon Work Phone: [facility] 08-24-2023 09:34-0400 Diastolic blood pressure 99 mm[Hg] Dr. Natasha Dubon Work Phone: [facility] 08-24-2023 09:34-0400 Heart rate 86 /min Dr. Natasha Dubon Work Phone: [facility] 08-24-2023 09:34-0400 Respiratory rate 18 /min Dr. Natasha Dubon Work Phone: 9(024)290-658361 [place] [address] 08-24-2023 09:34-0400 Systolic blood pressure 179 mm[Hg] Dr. Natasha Dubon Work Phone: 4(795)638-946761 [place] [address] 08-13-2023 12:10-0400 Body temperature 98.2 [degF] Dr. Natasha Dubon Work Phone: 0(446)328-219861 [place] [address] 08-13-2023 12:10-0400 Diastolic blood pressure 83 mm[Hg] Dr. Natasha Dubon Work Phone: 4(050)047-362761 [place] [address] 08-13-2023 12:10-0400 Heart rate 81 /min Dr. Natasha Dubon Work Phone: 4(205)420-065061 [place] [address] 08-13-2023 12:10-0400 Respiratory rate 16 /min Dr. Natasha Dubon Work Phone: 8(008)972-594161 [place] [address] 08-13-2023 12:10-0400 SaO2% (BldA) [Mass fraction] 99 % Dr. Natasha Dubon Work Phone: 7(029)917-410861 [place] [address] 08-13-2023 12:10-0400 Systolic blood pressure 166 mm[Hg] Dr. Natasha Dubon Work Phone: 2(001)056-097761 [place] [address] 08-13-2023 08:41-0400 Body height 177.[address] Natasha Dubon Work Phone: 9(273)785-810261 [place] [address] 08-13-2023 08:41-0400 Body mass index (BMI) [Ratio] 26.6 kg/m2 Dr. Natasha Dubon Work Phone: 1(471)450-095261 [place] [address] 08-13-2023 08:41-0400 Body weight 84.[address] Natasha Dubon Work Phone: [facility] 07-27-2023 09:27-0400 Body temperature 96.1 [degF] Dr. Natasha Dubon Work Phone: [facility] 07-27-2023 09:27-0400 Diastolic blood pressure 83 mm[Hg] Dr. Natasha Dubon Work Phone: 0(551)607-221961 [place] [address] 07-27-2023 09:27-0400 Heart rate 88 /min Dr. Natasha Dubon Work Phone: [facility] 07-27-2023 09:27-0400 Respiratory rate 16 /min Dr. Natasha Dubon Work Phone: [facility] 07-27-2023 09:27-0400 Systolic blood pressure 170 mm[Hg] Dr. Natasha Dubon Work Phone: 7(271)716-298019 [place] [address] 07-22-2023 14:41-0400 Body temperature 97.7 [degF] Dr. Natasha Dubon Work Phone: 8(108)194-130819 [place] [address] 07-22-2023 14:41-0400 Body weight 84.[address] Natasha Dubon Work Phone: 4(944)621-129161 [place] [address] 07-22-2023 14:41-0400 Diastolic blood pressure 80 mm[Hg] Dr. Natasha Dubon Work Phone: 5(864)315-118919 [place] [address] 07-22-2023 14:41-0400 Heart rate 93 /min Dr. Natasha Dubon Work Phone: 3(606)752-362961 [place] [address] 07-22-2023 14:41-0400 Respiratory rate 16 /min Dr. Natasha Dubon Work Phone: 9(045)574-816861 [place] [address] 07-22-2023 14:41-0400 SaO2% (BldA) [Mass fraction] 100 % Dr. Natasha Dubon Work Phone: 9(437)452-956361 [place] [address] 07-22-2023 14:41-0400 Systolic blood pressure 157 mm[Hg] Dr. Natasha Dubon Work Phone: 5(394)250-611161 [place] [address] 07-16-2023 12:57-0400 Body temperature 97.9 [degF] Dr. Natasha Dubon Work Phone: 9(254)310-370661 [place] [address] 07-16-2023 12:57-0400 Diastolic blood pressure 68 mm[Hg] Dr. Natasha Dubon Work Phone: 7(730)739-408761 [place] [address] 07-16-2023 12:57-0400 Heart rate 100 /min Dr. Natasha Dubon Work Phone: 5(252)364-200661 [place] [address] 07-16-2023 12:57-0400 Respiratory rate 118 /min Dr. Natasha Dubon Work Phone: 3(342)426-401019 [place] [address] 07-16-2023 12:57-0400 SaO2% (BldA) [Mass fraction] 98 % Dr. Natasha Dubon Work Phone: 5(764)384-552519 [place] [address] 07-16-2023 12:57-0400 Systolic blood pressure 170 mm[Hg] Dr. Natasha Dubon Work Phone: 9(146)183-295219 [place] [address] 07-16-2023 10:45-0400 Body height 177.[address] Natasha Dubon Work Phone: 0(826)988-409819 [place] [address] 07-16-2023 10:45-0400 Body mass index (BMI) [Ratio] 26.9 kg/m2 Dr. Natasha Dubon Work Phone: 2(483)718-805219 [place] [address] 07-16-2023 10:45-0400 Body weight 84.[address] Natasha Dubon Work Phone: 4(796)597-444419 [place] [address] 07-13-2023 09:33-0400 Body temperature 96.9 [degF] Dr. Natasha Dubon Work Phone: 8(554)692-453961 [place] [address] 07-13-2023 09:33-0400 Diastolic blood pressure 70 mm[Hg] Dr. Natasha Dubon Work Phone: 8(941)940-724361 [place] [address] 07-13-2023 09:33-0400 Heart rate 89 /min Dr. Natasha Dubon Work Phone: 3(607)448-757961 [place] [address] 07-13-2023 09:33-0400 Respiratory rate 18 /min Dr. Natasha Dubon Work Phone: 8(258)641-630061 [place] [address] 07-13-2023 09:33-0400 Systolic blood pressure 174 mm[Hg] Dr. Natasha Dubon Work Phone: 1(687)051-145619 [place] [address] 06-29-2023 09:27-0500 Body temperature 96.9 [degF] Dr. Natasha Dubon Work Phone: 0(859)468-520919 [place] [address] 06-29-2023 09:27-0500 Diastolic blood pressure 63 mm[Hg] Dr. Natasha Dubon Work Phone: 7(608)062-47[address] [place] [address] 06-29-2023 09:27-0500 Heart rate 94 /min Dr. Natasha Dubon Work Phone: 9(866)123-173019 [place] [address] 06-29-2023 09:27-0500 Respiratory rate 18 /min Dr. Natasha Dubon Work Phone: 7(102)201-369319 [place] [address] 06-29-2023 09:27-0500 Systolic blood pressure 147 mm[Hg] Dr. Natasha Dubon Work Phone: 1(412)209-925219 [place] [address] 06-16-2023 10:08-0500 Body temperature 98.2 [degF] Dr. Natasha Dubon Work Phone: 8(592)861-640019 [place] [address] 06-16-2023 10:08-0500 Body weight 83.[address] Natasha Dubon Work Phone: 6(014)072-417519 [place] [address] 06-16-2023 10:08-0500 Diastolic blood pressure 76 mm[Hg] Dr. Natasha Dubon Work Phone: 7(449)464-219119 [place] [address] 06-16-2023 10:08-0500 Heart rate 94 /min Dr. Natasha Dubon Work Phone: 5(342)590-764819 [place] [address] 06-16-2023 10:08-0500 SaO2% (BldA) [Mass fraction] 99 % Dr. Natasha Dubon Work Phone: 4(420)953-415919 [place] [address] 06-16-2023 10:08-0500 Systolic blood pressure 156 mm[Hg] Dr. Natasha Dubon Work Phone: 5(779)863-206119 [place] [address] 06-01-2023 09:45-0500 Body temperature 96.7 [degF] Dr. Natasha Dubon Work Phone: 1(676)088-808419 [place] [address] 06-01-2023 09:45-0500 Diastolic blood pressure 73 mm[Hg] Dr. Natasha Dubon Work Phone: [facility] 06-01-2023 09:45-0500 Heart rate 117 /min Dr. Natasha Dubon Work Phone: [facility] 06-01-2023 09:45-0500 Respiratory rate 18 /min Dr. Natasha Dubon Work Phone: [facility] 06-01-2023 09:45-0500 Systolic blood pressure 183 mm[Hg] Dr. Natasha Dubon Work Phone: 6(236)449-829361 [place] [address] 05-18-2023 09:37-0500 Body temperature 97.8 [degF] Dr. Natasha Dubon Work Phone: [facility] 05-18-2023 09:37-0500 Diastolic blood pressure 73 mm[Hg] Dr. Natasha Dubon Work Phone: 9(712)070-000061 [place] [address] 05-18-2023 09:37-0500 Heart rate 91 /min Dr. Natasha Dubon Work Phone: 7(584)152-525461 [place] [address] 05-18-2023 09:37-0500 Respiratory rate 18 /min Dr. Natasha Dubon Work Phone: [facility] 05-18-2023 09:37-0500 Systolic blood pressure 159 mm[Hg] Dr. Natasha Dubon Work Phone: [facility] 04-01-2023 16:15-0500 Body temperature 98 [degF] [facility] 04-01-2023 16:15-0500 Diastolic blood pressure 69 mm[Hg] [facility] 04-01-2023 16:15-0500 Heart rate 88 /min [facility] 04-01-2023 16:15-0500 Respiratory rate 18 /min [facility] 04-01-2023 16:15-0500 SaO2% (BldA) [Mass fraction] 100 % [facility] 04-01-2023 16:15-0500 Systolic blood pressure 134 mm[Hg] [facility] 04-01-2023 11:57-0500 Body height 185.42 cm [facility] 04-01-2023 11:57-0500 Body mass index (BMI) [Ratio] 19.8 kg/m2 [facility] 04-01-2023 11:57-0500 Body weight 68.03 kg [facility] 03-23-2023 11:00-0500 Diastolic blood pressure 75 mm[Hg] [facility] 03-23-2023 11:00-0500 Heart rate 85 /min [facility] 03-23-2023 11:00-0500 Inhaled oxygen flow rate 4 L/min [facility] 03-23-2023 11:00-0500 Respiratory rate 22 /min [facility] 03-23-2023 11:00-0500 Systolic blood pressure 143 mm[Hg] [facility] 03-23-2023 10:52-0500 SaO2% (BldA) [Mass fraction] 100 % [facility] 03-23-2023 09:52-0500 Body height 185.42 cm [facility] 03-23-2023 09:52-0500 Body mass index (BMI) [Ratio] 23.2 kg/m2 [facility] 03-23-2023 09:52-0500 Body temperature 97.9 [degF] [facility] 03-23-2023 09:52-0500 Body weight 79.9 kg [facility] Encounters Encounter Date Encounter Type Care Provider Facility Start: 02-27-2025 End: 02-27-2025 ambulatory [facility] Facility:[facility] Start: 12-29-2023 End: 12-29-2023 Chart abstracting Natasha Dubon MD Work Phone: [facility] Comment on above: Outside Imaging Start: 12-28-2023 End: 12-28-2023 Chart abstracting Thomas Mcrae MA [facility] Comment on above: Results (Outside res ults - [facility] [place] ) Start: 11-22-2023 Chart abstracting Thomas Mcrae MA [facility] Comment on above: Results, Lab ([facility] [facility] ) Start: 10-14-2023 Chart abstracting Natasha walsh MD Work Phone: [facility] Comment on above: Ext / XRay Start: 10-04-2023 Chart abstracting Thomas Mcrae MA [facility] Comment on above: Results (Lab ) Start: 10-01-2023 Chart abstracting Natasha walsh MD Work Phone: [facility] [place] Comment on above: Ext / Labs Start: 09-30-2023 Chart abstracting Ntaasha walsh MD Work Phone: [facility] [place] Comment on above: Outside Maol-Vbv-YJT Ordered Start: 09-07-[address] Chris Dubon Work Phone: [facility] Work Phone: Start: 09-06-2023 Chart abstracting Natasha walsh MD Work Phone: [facility] [place] Comment on above: Outside Image Start: 09-03-2023 End: 09-03-[address] Natasha Dubon Work Phone: [facility] Work Phone: Start: 09-03-2023 End: 09-03-[address] Natasha Dubon Work Phone: [facility] Work Phone: Start: 08-31-2023 End: 08-31-[address] Natasha Dubon Work Phone: [facility] Work Phone: Start: 08-31-2023 End: 08-31-[address] Natasha Dubon Work Phone: [facility] Work Phone: Start: 08-24-[address] Chris Dubon Work Phone: [facility] Work Phone: Start: 08-23-2023 Chart abstracting Natasha walsh MD Work Phone: [facility] Comment on above: Ext / Xrays Start: 08-20-2023 End: 08-20-[address] Natasha Dubon Work Phone: [facility] Work Phone: Start: 08-20-2023 End: 08-20-[address] Natasha Dubon Work Phone: [facility] Work Phone: Start: 08-16-2023 Chart abstracting Natasha walsh MD Work Phone: [facility] Comment on above: Ext / Op Report & XR ays\ Results ([facility] ) Start: 08-13-2023 End: 08-13-2023 Admission to same day surgery center Dr. Natasha Dubon Work Phone: [facility] Start: 08-13-2023 End: 08-13-[address] Natasha Dubon Work Phone: [facility] Work Phone: Start: 07-29-2023 End: 07-29-[address] Natasha Dubon Work Phone: [facility] Work Phone: Start: 07-29-2023 End: 07-29-[address] Natasha Dubon Work Phone: [facility] Start: 07-27-2023 End: 07-27-[address] Natasha Dubon Work Phone: [facility] Work Phone: Start: 07-27-2023 End: 07-27-[address] Natasha Dubon Work Phone: [facility] Work Phone: Start: 07-22-2023 End: 07-22-[address] Natasha Dubon Work Phone: [facility] Work Phone: Start: 07-19-2023 Chart abstracting Natasha walsh MD Work Phone: [facility] Comment on above: ER Summary (Imaging) Start: 07-16-2023 End: 07-16-2023 Emergency department patient visit Dr. Natasha Dubon Work Phone: [facility] Work Phone: Start: 07-16-2023 Non-patient / Non-visit Dr. Sylvester Dubon Work Phone: [facility] Start: 07-16-[address] Chris Dubon Work Phone: [facility] Work Phone: Start: 07-13-2023 Chart abstracting Natasha walsh MD Work Phone: [facility] Comment on above: outside imaging Start: 07-13-[address] Chris Dubon Work Phone: [facility] Work Phone: Start: 07-09-2023 Chart abstracting Natasha walsh MD Work Phone: [facility] Comment on above: Outside Imaging Start: 07-09-2023 End: 07-09-[address] Natasha Dubon Work Phone: [facility] Work Phone: Start: 07-09-2023 End: 07-09-[address] Natasha Dubon Work Phone: [facility] Work Phone: Start: 07-08-2023 End: 07-08-[address] Natasha Dubon Work Phone: [facility] Work Phone: Start: 07-08-2023 End: 07-08-[address] Natasha Dubon Work Phone: [facility] Work Phone: Start: 06-29-2023 End: 07-01-[address] Natasha Dubon Work Phone: [facility] Work Phone: Start: 06-29-2023 End: 07-01-[address] Natasha Dubon Work Phone: [facility] Work Phone: Start: 06-16-2023 End: 06-16-[address] Natasha Dubon Work Phone: [facility] Work Phone: Start: 06-01-2023 End: 06-02-[address] Natasha Dubon Work Phone[facility] Work Phone: Start: 05-18-2023 End: 05-18-[address] Natasha Dubon Work Phone: [facility] Work Phone: Start: 05-18-2023 End: 05-18-[address] Natasha Dubon Work Phone: [facility] Work Phone: Start: 05-18-[address] Chirs Dubon Work Phone: [facility] Work Phone: Start: 05-12-2023 Non-patient / Non-visit Dr. Sylvester Dubon Work Phone: [facility] Start: 05-12-2023 End: 05-12-[address] Natasha Dubon Work Phone: [facility] Work Phone: Start: 05-12-2023 End: 05-12-[address] Natasha Dubon Work Phone: [facility] Work Phone: Start: 04-16-2023 End: 04-16-2023 ambulatory [facility] Work Phone: Start: 04-16-2023 End: 04-16-2023 Patient encounter procedure [facility]Labor[facility], Specimen Work Phone: Start: 04-01-2023 End: 04-01-2023 Admission to same day surgery center [facility] Start: 04-01-2023 End: 04-01-2023 ambulatory [facility] Work Phone: Start: 03-29-2023 Chart abstracting Natasha walsh MD Work Phone: [facility] [place] Comment on above: Outside Pvxz-Llx-ASB Ordered Start: 03-26-2023 End: 03-26-2023 ambulatory [facility] Work Phone: Start: 03-26-2023 End: 03-26-2023 Patient encounter procedure [facility] [place] Work Phone: Start: 03-23-2023 End: 03-23-2023 Emergency department patient visit [facility] Work Phone: Start: 10-30-2021 Telephone encounter Natasha Dubon MD Work Phone: General Surgery Comment on above: Outpatient [place] [facility] Start: 05-01-2021 Patient encounter status Chris Dubon MD Work Phone: [facility] Work Phone: Procedures Date Procedure Procedure Detail Performing Clinician Start: 09-03-[address] Daquan Dubon Work Phone: Start: 08-20-[address] Daquan Dubon Work Phone: Start: 08-13-2023 Radiography of [...] Start: 03-23-2023 Radiography of ankle Start: 12-17-2017 [facility] Natasha walsh MD Work Phone: Start: 06-18-2017 Adult depression scr eening assessment Natasha Dubon MD Work Phone: Start: 05-20-2016 Lipid 1996 panel - S laura or Plasma Natasha Dubon MD Work Phone: Plan of Treatment Date Care Activity Detail Author Start: 12-18-2027 Urine microalbumin profile [facility] Start: 08-13-2023 Anes open proc bones lower leg/ankle/foot nos ANESTH LOWER LEG BONE SURG [facility] Start: 08-13-2023 Application uniplane external fixation system APPL UNIPLN UNI EXT FIXJ SYS [facility] Start: 08-13-2023 Open tx distal fibular fracture lat malleolus TREATMENT OF ANKLE FRACTURE [facility] Start: 08-13-2023 Catheterization of vein [facility] Start: 08-13-2023 Neurovascular assessment [facility] Start: 08-13-2023 Patient discharge [facility] Start: 08-13-2023 Procedure discontinued [facility] Start: 08-13-2023 Vital signs measurements [facility] Start: 08-13-2023 [facility] Start: 08-13-2023 Radiography of ankle Ankle 2 Views [facility] Start: 08-13-2023 XR Ankle 2 Views [facility] Start: 2023 RSV Vaccine (1 - 1-dose 60+ series) RSV Vaccine (1 - 1-dose 60+ series) [facility] Start: 07-16-2023 [facility] Start: 05-03-2023 Behavioral Health Screening Behavioral Health Screening [facility] Start: 05-03-2023 Depression Assessment Depression Assessment [facility] Start: 04-01-2023 Patient discharge [facility] Start: 04-01-2023 Anes open proc bones lower leg/ankle/foot nos ANESTH LOWER LEG BONE SURG [facility] Start: 04-01-2023 Anibal skn sub grft t/a/l area/100sq cm /<1st 25 SKIN SUB GRAFT TRNK/ARM/LEG [facility] Start: 04-01-2023 Dbrdmt fx&/dislc subq t/m/f bone CHRISTINE SKIN BONE AT FX SITE [facility] Start: 04-01-2023 Injection aa&/strd sciatic nerve NJX AA&/STRD SCIATIC NRV IMG [facility] Start: 04-01-2023 Open tx distal fibular fracture lat malleolus TREATMENT OF ANKLE FRACTURE [facility] Start: 03-23-2023 Cltx dstl fibular fx lat malls w/manj TREATMENT OF ANKLE FRACTURE [facility] Start: 03-23-2023 [facility] Start: 01-01-2023 Covid-19 Vaccine ( season) Covid-19 Vacc[address] () [facility] Start: 05-03-2022 Depression Assessment Depression Assessment [facility] Start: 05-01-2022 ANNUAL PCP TEAM CHRONIC DISEASE VISIT ANNUAL PCP TEAM CHRONIC DISEASE VISIT [facility] Start: 05-30-2021 DIABETES SCREEN DIABETES SCREEN [facility] Start: 05-30-2021 Diabetes Screening Diabetes Screening [facility] Start: 05-20-2021 Lipid 1996 panel - Serum or Plasma Lipid Screening [facility] Start: 05-20-2021 Lipid panel Lipid Screening [facility] Start: 05-20-2021 [address] L[address] SCREEN [facility] Start: 12-17-[address] [facility] Start: 12-17-2018 COLORECTAL CANCER SCREENING COLORECTAL CANCER SCREENING [facility] Start: 12-17-2018 Screening for malignant neoplasm of colon [facility] Start: 08-06-2018 PROSTATE CANCER SCREENING DISCUSSION PROSTATE CANCER SCREENING DISCUSSION [facility] Start: 08-06-2018 Prostate specific antigen measurement Prostate Cancer Screening Discussion [facility] Start: 06-18-2018 Adult depression screening assessment DEPRESSION SCREENING [facility] Start: 08-06-2013 SHINGRIX VACCINE (1 of 2) SHINGRIX VACCINE (1 of 2) [facility] Start: 08-06-2008 COLOGUARD (FIT-DNA) COLOGUARD (FIT-DNA) [facility] Start: 08-06-[address] [facility] Start: 08-06-2008 FECAL OCCULT BLOOD FECAL OCCULT BLOOD [facility] Start: 08-06-2008 Screening for malignant neoplasm of colon [facility] Start: 08-06-[address] [facility] Start: 08-06-1993 Zoledronic acid therapy Alpha-[address] [facility] Start: 08-06-1981 Anxiety Screening Anxiety Screening [facility] Start: 08-06-1981 Depression Screening Depression Screening [facility] Start: 08-06-1981 HEPATITIS C SCREENING HEPATITIS C SCREENING [facility] Start: 08-06-1981 Hepatitis C screening Hepatitis C Screening [facility] Start: 08-06-1969 PNEUMOCOCCAL (1 - PCV) PNEUMOCOCCAL (1 - PCV) [facility] Start: 08-06-1969 Pneumococcal vaccination [facility] Start: 02-06-1964 COVID-19 VACCINE (#1) COVID-19 VACCINE (#1) [facility] CT of abdominal aort a with contrast [facility] Patient Education [facility] Work Phone: Patient referral [facility] Work Phone: Immunizations Immunization Date Immunization Notes Care Provider Gaby boyd 12-17-2017 tetanus toxoid, redu moraima diphtheria toxoid, and acellular pertussis vaccine, adsorbed Natasha Dubon MD Work Phone: [facility] Payers Date Payer Category Payer Self-pay [id number] 2025 Unknown [id number] Unknown [id number] Social History Date Type Detail Facility Start: 05-20-2016 End: 06-18-2017 Tobacco smoking status NHIS Smokes tobacco daily [facility] Work Phone: History of tobacco use Cigarette Smoker [facility] Work Phone: Start: 05-20-2016 End: 04-07-2020 Cigarettes smoked current (pack per day) - Reported 0.3 [facility] Start: 05-20-2016 End: 06-18-2017 Tobacco use and exposure Smokeless tobacco non-user [facility] Work Phone: Start: 05-01-2021 End: 08-16-2023 Alcohol intake Current drinker of alcohol (finding) [facility] Start: 05-20-2016 History SDOH Alcohol Comment at supper daily; sometimes more on social events [facility] Start: 1965 Sex Assigned At Not on file [facility] Start: 03-23-2023 End: 08-04-2023 Tobacco smoking status NHIS Unknown if ever smoked [facility] Start: 1965 Sex Assigned At Male [facility] Start: 04-07-2020 End: 05-01-[address] [facility] National Score (1-10 0), lower number is lower risk Not on file [facility] Medical Equipment Procedure Code Equipment Code [...] 4CM FDA Start : 04-01-2023 ORIF, ankle ([id number]) ()[id number] FDA Start: 04-01-2023 ORIF, ankle ([id number]) ()[id number] FDA Start: 04-01-2023 ORIF, ankle ([id number]) ()[id number] FDA Start: 04-01-2023 ORIF, ankle ([id number]) ()[id number] FDA Start: 04-01-2023 ORIF, ankle ([id number]) ()[id number] FDA Start: 04-01-2023 ORIF, ankle BIOSKIN, [...] Result Facility 08-13-2023 Cognitive function Awake;Alert;Appropriat e [facility] Work Phone: 07-16-2023 Cognitive function Level Of Cons ciousness Awake;Alert;Appropriate [facility] Work Phone: 04-01-2023 Cognitive function Voice/Name [facility] Work Phone: 03-23-2023 Cognitive function Awake;Alert;A ppropriate;Follow s Commands [facility] Work Phone: Clinical Notes 11-04-2021 to 12-29-2023 Remi Castro LPN - 12/29/2023 8:00 AM Thomas Shook MA - 12/28/2023 10:31 AM Thomas Shook MA - 11/22/2023 2:29 PM Mo Pennington LPN - 10/14/2023 9:59 AM EDT Note Date & Type Note Facility 12-29-2023 Note HNO ID: [id number] Author: REMI CASTRO LPN Service: ? Author Type: LICENSED NURSE Type: Progress Notes Filed: 12/29/2023 08:00 Note Text: Scan on 12/28/2023 5:01 PM by Amauri Jamison PA-C: Ultrasound Scan on 12/28/2023 5:04 PM by Amauri Jamison PA-C: Ultrasound [facility] 12-29-2023 History of Present illness Narrative Scan on 12/28/2023 5:01 PM by Amauri Jamison PA-C: Ultrasound Scan on 12/28/2023 5:04 PM by Amauri Jamison PA-C: Ultrasound documented in this encounter [facility] 12-28-2023 Note HNO ID: [id number] Author: THOMAS MCRAE MA Service: ? Author Type: Examination Supervisor Type: Progress Notes Filed: 12/28/2023 10:32 Note Text: Scan on 12/27/2023 2:10 PM by Amauri Jamison PA-C: Ultrasound WC - Venous doppler. Patient has not been seen since 04/2021 for physical. Thomas Mcrae MA [facility] 12-28-2023 History of Present illness Narrative Scan on 12/27/2023 2:10 PM by Amauri Jamison PA-C: Ultrasound WC - Venous doppler. Patient has not been seen since 04/2021 for physical. Thomas Mcrae MA documented in this encounter [facility] 11-22-2023 Note HNO ID: [id number] Author: THOMAS MCRAE MA Service: ? Author Type: Examination Supervisor Type: Progress Notes Filed: 11/24/2023 01:11 Note [...] out to help schedule. Thomas Mcrae MA [facility] 11-22-2023 History of Present illness Narrative [...] Thomas Mcrae MA documented in this encounter [facility] 10-14-2023 Note HNO ID: [id number] Author: MO JOHNSTON LPN Service: ? Author Type: LICENSED NURSE Type: Progress Notes Filed: 10/14/2023 09:59 Note Text: Scan on 10/13/2023 4:50 AM by Amauri Jamison PA-C: X-ray Mo Johnston LPN [facility] 10-14-2023 History of Present illness Narrative Scan on 10/13/2023 4:50 AM by Amauri Jamison PA-C: X-ray Mo Johnston LPN documented in this encounter [facility] 10-04-2023 Note HNO ID: [id number] Author: THOMAS MCRAE MA Service: ? Author Type: Examination Supervisor Type: Progress Notes Filed: 10/04/2023 16:22 Note Text: Scan on 10/02/2023 10:35 AM by Amauri Jamison PA-C: Kevin Mcrae MA [facility] 10-04-2023 History of Present illness Narrative Scan on 10/02/2023 10:35 AM by Amauri Jamison PA-C: Kevin Mcrae MA documented in this encounter [facility] 10-01-2023 Note HNO ID: [id number] Author: MO JOHNSTON LPN Service: ? Author Type: LICENSED NURSE Type: Progress Notes Filed: 10/01/2023 12:49 Note Text: Scan on 10/01/2023 11:10 AM by Amauri Jamison PA-C: Microbiology Mo Johnston LPN [facility] 10-01-2023 History of Present illness Narrative Scan on 10/01/2023 11:10 AM by Provider, External, PA-C: Microbiology Mo Johnston LPN documented in this encounter [facility] 09-30-2023 Note HNO ID: [id number] Author: SONNY CAMARGO LPN Service: ? Author [...] AM by Provider, External, PA-C: Miscellaneous Lab [facility] 09-30-2023 History of Present illness Narrative [...] PA-C: Miscellaneous Lab documented in this encounter [facility] 09-30-2023 Note HNO ID: [id number] Author: MO JOHNSTON LPN Service: ? Author Type: LICENSED NURSE Type: Progress Notes Filed: 09/30/2023 12:02 Note Text: Scan on 09/30/2023 8:35 AM by Provider, External, PA-C: Miscellaneous Lab Scan on 09/30/2023 7:35 AM by Amauri Jamison PA-C: Miscellaneous Lab Scan on 09/30/2023 7:07 AM by Amauri Jamison PA-C: Microbiology Mo Johnston LPN [facility] 09-30-2023 History of Present illness Narrative Scan on 09/30/2023 8:35 AM by Amauri Jamison PA-C: Miscellaneous Lab Scan on 09/30/2023 7:35 AM by Amauri Jamison PA-C: Miscellaneous Lab Scan on 09/30/2023 7:07 AM by Amauri Jamison PA-C: Microbiology Mo Johnston LPN documented in this encounter [facility] 09-06-2023 Note HNO ID: [id number] Author: SONNY CAMARGO LPN Service: ? Author Type: LICENSED NURSE Type: Progress Notes Filed: 09/06/2023 11:45 Note Text: Scan on 09/04/2023 1:57 PM by Amauri Jamison PA-C: X-ray [facility] 09-06-2023 History of Present illness Narrative Scan on 09/04/2023 1:57 PM by Amauri Jamison PA-C: X-ray documented in this encounter [facility] 08-31-2023 Progress note Note Date/Time August 31, 2023 10:29am [facility] [address] [place] [address] Progress Note - Wound Care 08/31/23 1027 MR#: [id number] Acct: [id number] Name: WERNER MCLAIN Rep #:[id number] : 1965 58 From: Haroon Da Silva [...] service Follow-up Visit Follow-up Visit Follow-up Visit (Physician/TIER LIFT TRUCK OPERATOR (Physician/TIER LIFT TRUCK OPERATOR (Physician/TIER LIFT TRUCK OPERATOR ) ) ) Arrival Mode Ambulatory Ambulatory [...] Amt Large (67-100%) Medium (34-66%) -Granulation Quality [place] -Slough/Fibrin No Yes -Necrosis Amt None Present [...] Amt Large (67-100%) Small (1-33%) -Granulation Quality [place] -Slough/Fibrin No -Necrosis Amt Large (67-100%) -Necrotic [...] Cosigner Signature (if applicable): CC: ~ Signed [facility] Work Phone: 1(146) 289-935604-23-2024 Progress note Author Haroon Da Silva [facility] August 24, 2023 10:28am Note Date/Time August 24, 2023 10: 28am [facility] [address] [place] [id number] Progress Note - Wound Care 08/24/23 1025 MR#: [id number] Acct: [id number] Name: WERNER MCLAIN Rep #:[id number] : 1965 58 From: Haroon Da Silva [...] Type of service Follow-up Visit Follow-up Visit (Physician/TIER LIFT TRUCK OPERATOR (Physician/TIER LIFT TRUCK OPERATOR ) ) Arrival Mode Ambulatory Ambulatory Transfer [...] Attached -Granulation Amt Large (67-100%) -Granulation Quality [place] -Slough/Fibrin No -Necrosis Amt None Present (0 [...] Attached -Granulation Amt Large (67-100%) -Granulation Quality [place] -Slough/Fibrin No -Structure Exposed N/A -Texture (Clement-wound [...] to alcoholism, smoking status, arterial disease, compliance. [place] removed. Medial incisions healed. Some lateral ankle [...] Cosigner Signature (if applicable): CC: ~ Signed [facility] Work Phone: 1(941) 389-959704-22-2024 NoteHNO ID: [id number] Author: MO JOHNSTON LPN Service: ? Author Type: LICENSED NURSE Type: Progress Notes Filed: 08/23/2023 10:51 Note Text: Scan on 08/21/2023 5:36 PM by Amauri Jamisno PA-C: X-ray Scan on 08/20/2023 2:19 PM by Amauri Jamison PA-C: [facility] History of Present illness Narrative* Mo Johnston LPN - 08/23/2023 10:50 AM EDT Scan on 08/21/2023 5:36 PM by Amauri Jamison PA-C: X-ray Scan on 08/20/2023 2:19 PM by Amauri Jamison PA-C: X-ray Mo Johnston [facility]PN [facility] Progress note Author Haroon Da Silva [facility] August 17, 2023 9:51am Note Date/Time August 17, 2023 9:5 1am [facility] [address] [place] [id number] Progress Note - Wound Care 08/17/23 0947 MR#: [id number] Acct: [id number] Name: WERNER MCLAIN Rep #:[id number] : 1965 58 From: Haroon Da Silva [...] noted to the lateral ankle incisional site. [place] were removed from the site to this [...] Visit Information Type of service Follow-up Visit (Physician/TIER LIFT TRUCK OPERATOR ) Arrival Mode Ambulatory Transfer Assistance None [...] Attached -Granulation Amt Large (67-100%) -Granulation Quality [place] -Slough/Fibrin No -Necrosis Amt None Present (0 [...] Attached -Granulation Amt Large (67-100%) -Granulation Quality [place] -Slough/Fibrin No -Structure Exposed N/A -Texture (Clement-wound [...] Cosigner Signature (if applicable): CC: ~ Signed [facility] Work Phone: 1(333) 752-815304-15-2024 NoteHNO ID: [id number] Author: THOMAS MCRAE MA Service: ? Author Type: Examination Supervisor Type: Progress Notes Filed: 08/16/2023 11:38 Note Text: Scan on 08/13/2023 12:16 PM by Provider, External, PA-C: Miscellaneous Clinical Documents Scan on 08/13/2023 12:20 PM by Amauri Jamison PA-C: X-ray Scan on 08/13/2023 6:11 PM by Amauri Jamison PA-C: X-ray Thomas Mcrae MA Patient has not been seen since [facility]04-15-2024 History of Present illness Narrative* Thomas Mcrae MA - 08/16/2023 11:36 AM EDT Scan on 08/13/2023 12:16 PM by Amauri Jamison PA-C: Miscellaneous Clinical Documents Scan on 08/13/2023 12:20 PM by Amauri Jamison PA-C: X-ray Scan on 08/13/2023 6:11 PM by Amauri Jamison PA-C: X-ray Thomas Mcrae MA Patient has not been seen since 04/2021 [facility] NoteHNO ID: [id number] Author: MO JOHNSTON LPN Service: ? Author Type: LICENSED NURSE Type: Progress Notes Filed: 08/16/2023 11:12 Note Text: Scan on 08/13/2023 12:16 PM by Amauri Jamison PA-C: Miscellaneous Clinical Documents Scan on 08/13/2023 12:16 PM by Amauri Jamison PA-C: Miscellaneous Clinical Documents Scan on 08/13/2023 6:11 PM by Amauri Jamison PA-C: X-ray [facility] [facility] History of Present illness Narrative* Mo Johnston LPN - 08/16/2023 11:11 AM EDT Scan on 08/13/2023 12:16 PM by Amauri Jamison PA-C: Miscellaneous Clinical Documents Scan on 08/13/2023 12:16 PM by Amauri Jamison PA-C: Miscellaneous Clinical Documents Scan on 08/13/2023 6:11 PM by Amauri Jamison PA-C: X-ray Mo Johnston LPN documented in this encounterSt. [facility]04-12-2024 Procedure [facility]03-26-2024 Progress note Author Haroon Da Silva [facility] July 27, 2023 9:59am Note Date/Time July 27, 2023 10: 00am [facility] [address] [place] [address] Progress Note - Wound Care 07/27/23957 MR#: [id number] Acct: [id number] Name: WERNER MCLAIN Rep #:[id number] : 1965 57 From: Haroon Da Silva [...] service Initial Visit Follow-up Visit Follow-up Visit (Physician/TIER LIFT TRUCK OPERATOR (Physician/TIER LIFT TRUCK OPERATOR ) ) Arrival Mode Ambulatory Ambulatory Ambulatory [...] Visit Information Type of service Follow-up Visit (Physician/TIER LIFT TRUCK OPERATOR ) Arrival Mode Ambulatory Patient Identification Verified [...] Attached -Granulation Amt Medium (34-66%) -Granulation Quality [place] -Slough/Fibrin Yes -Necrosis Amt Medium (34-66%) -Necrotic [...] Desktop 07/13/23 10:14 RB Document 07/20/23 10:06 [employer] Desktop 07/20/23 10:07 KW 07/06/23 07/13/23 07/20/23 [...] Cosigner Signature (if applicable): CC: ~ Signed [facility] Work Phone: 1(467) 441-882603-19-2024 Progress note Author Haroon Da Silva [facility] July 20, 2023 10:43am Note Date/Time July 20, 2023 10: 44am [facility] Medical Records Department [address] [place] [address] Progress Note 07/20/23 1042 MR#: [id number] Acct: [id number] Name: WERNER MCLAIN A Rep #:[id number] : 1965 57 From: Haroon Da Silva [...] above the knee. Ordering Physician: Haroon Da Silva Referring Physician: Doris Conner M.D. Performed By: [...] Cosigner Signature (if applicable): CC: ~ Signed [facility] Work Phone: 1(593) 711-245403-18-2024 Miscellaneous Notes* Addendum Note - Natasha Dubon MD - 07/19/2023 11:22 AM EDTAddended by: NATASHA DUBON on: 07/19/2023 11:22 AM Modules accepted: Orders documented in this encounterSt. Anthony'S Hospital03-18-2024 NoteHNO ID: [id number] Author: REMI CASTRO LPN Service: ? Author Type: LICENSED NURSE Type: Progress Notes Filed: 07/19/2023 14:39 Note Text: Scan on 07/16/2023 1:03 PM by Amauri Jamison PA-C: Consultation - Emergency Medicine Scan on 07/19/2023 1:27 PM by Amauri Jamison PA-C: [facility] History of Present illness Narrative* Remi Castro LPN - 07/19/2023 11:05 AM EDT Scan on 07/16/2023 1:03 PM by Amauri Jamison PA-C: Consultation - Emergency Medicine Scan on 07/19/2023 1:27 PM by Amauri Jamison PA-C: Ultrasound documented in this encounterSt. Anthony'S Hospital03-12-2024 NoteHNO ID: [id number] Author: SONNY CAMARGO LPN Service: ? Author Type: LICENSED NURSE Type: Progress Notes Filed: 07/13/2023 14:41 Note Text: Scan on 07/10/2023 4:27 PM by ProviderAmauri PA-C: [facility] History of Present illness Narrative* Sonny Camargo LPN - 07/13/2023 2:41 PM EDT Scan on 07/10/2023 4:27 PM by ProviderAmauri PA-C: X-ray documented in this encounterSt. Anthony'S Hospital03-12-2024 Progress note Author Haroon Da Silva [facility] July 13, 2023 9:57am Note Date/Time July 13, 2023 9:5 7am [facility] [address] [place] [address] Progress Note - Wound Care 07/13/23 0955 MR#: [id number] Acct: [id number] Name: WERNER MCLAIN Rep #:[id number] : 1965 57 From: Haroon Da Silva [...] Type of service Initial Visit Follow-up Visit (Physician/TIER LIFT TRUCK OPERATOR ) Arrival Mode Ambulatory Ambulatory Patient Identification [...] Attached -Granulation Amt Medium (34-66%) -Granulation Quality [place] -Slough/Fibrin Yes -Necrosis Amt Medium (34-66%) -Necrotic [...] Cosigner Signature (if applicable): CC: ~ Signed [facility] Work Phone: 1(578) 107-542703-08-2024 NoteHNO ID: [id number] Author: REMI CASTRO LPN Service: ? Author Type: LICENSED NURSE Type: Progress Notes Filed: 07/09/2023 12:14 Note Text: Scan on 07/09/2023 9:25 AM by Provider, External, PA-C: [facility] History of Present illness Narrative* Remi Castro LPN - 07/09/2023 12:12 PM EST Scan on 07/09/2023 9:25 AM by ProviderAmauri PA-C: CT Scan documented in this encounterSt. Anthony'S Hospital03-05-2024 Progress note Author Haroon Da Silva [facility] July 06, 2023 10:14am Note Date/Time July 06, 2023 10:1 4am [facility] [address] [place] [address] Progress Note - Wound Care 07/06/23 1011 MR#: [id number] Acct: [id number] Name: WERNER MCLAIN Rep #:[id number] : 1965 57 From: Haroon Da Silva [...] Date Recorded By Document 07/06/23 09:38 KW Flight Steward 07/06/23 09:47 07/06/23 09:38 WC - Today's [...] Date Recorded By Document 07/06/23 09:38 ANA Flight Steward 07/06/23 09:47 07/06/23 09:38 Wound Center Nurse [...] Cosigner Signature (if applicable): CC: ~ Signed [facility] Work Phone: 1(508) 625-223402-27-2024 Progress note Author Haroon Da Silva [facility] June 29, 2023 9:50am Note Date/Time June 29, 2023 9:50am [facility] [address] [place] [address] Progress Note - Wound Care 06/29/23 0948 MR#: [id number] Acct: [id number] Name: WERNER MCLAIN Rep #:[id number] : 1965 57 From: Haroon Da Silva [...] DL 06/08/23 06/15/23 06/22/23 09:33 09:27 09:31 [facility] Today's Visit Information Type of service Follow-up Visit Follow-up Visit Follow-up Visit (Physician/TIER LIFT TRUCK OPERATOR (Physician/TIER LIFT TRUCK OPERATOR (Physician/TIER LIFT TRUCK OPERATOR ) ) ) Arrival Mode Ambulatory Ambulatory [...] Pain Free? Yes Yes Yes 06/29/23 09:27 [facility] Today's Visit Information Type of service Follow-up Visit (Physician/TIER LIFT TRUCK OPERATOR ) Arrival Mode Ambulatory Transfer Assistance Patient [...] (1-33%) Medium (34-66%) -Granulation Quality [place] -Slough/Fibrin Yes -Necrosis Amt Small (1-33%) Large [...] Date 01/02/28 01/02/28 02/01/28 -Product Lot Number [id number] -Percent Used 100 100 100 -Lot number of Saline Used [id number] -Bleeding Controlled with Pressure Pressure Pressure -Treatment [...] Epifix -Expiration Date 03/03/28 -Product Lot Number [id number] -Percent Used 100 -Lot number of Saline Used [id number] -Bleeding Controlled with Pressure -Treatment Response Procedure [...] Date Recorded By Document 06/08/23 10:44 DL [id number] 06/08/23 10:47 DL Document 06/15/23 10:15 [facility] Desktop 06/15/23 10:16 BMF Document 06/22/23 [...] Cosigner Signature (if applicable): CC: ~ Signed [facility] Work Phone: 1(300) 749-146402-20-2024 Progress note Author Haroon Da Silva [facility] June 22, 2023 9:53am Note Date/Time June 22, 2023 9:53am [facility] [address] [place] [address] Progress Note - Wound Care 06/22/23 0950 MR#: [id number] Acct: [id number] Name: WERNER MCLAIN Rep #:[id number] : 1965 57 From: Haroon Da Silva [...] service Follow-up Visit Follow-up Visit Follow-up Visit (Physician/TIER LIFT TRUCK OPERATOR (Physician/TIER LIFT TRUCK OPERATOR (Physician/TIER LIFT TRUCK OPERATOR ) ) ) Arrival Mode Ambulatory Ambulatory [...] (1-33%) Medium (34-66%) -Granulation Quality [place] -Slough/Fibrin Yes -Necrosis Amt Small (1-33%) Large [...] Recorded Date Recorded By Document 06/08/23 10:03 [employer] 06/08/23 10:07 Document 06/15/23 09:57 Laptop [...] Date 01/02/28 01/02/28 02/01/28 -Product Lot Number [id number] 004 -Percent Used 100 100 100 -Lot number of Saline Used [id number] -Bleeding Controlled with Pressure Pressure Pressure -Treatment [...] Date Recorded By Document 06/08/23 10:44 DL [id number] 06/08/23 10:47 DL Document 06/15/23 10:15 [facility] Desktop 06/15/23 10:16 [facility] 06/08/23 06/15/23 10:44 10:15 Wound Care [...] Cosigner Signature (if applicable): CC: ~ Signed [facility] Work Phone: 1(957) 798-655002-13-2024 Progress note Author Haroon Da Silva [facility] June 15, 2023 10:23am Note Date/Time June 15, 2023 10:23am [facility] [address] [place] [address] [place] [address] Progress Note - Wound Care 06/15/23 1022 MR#: [id number] Acct: [id number] Name: WERNER MCLAIN Rep #:[id number] : 1965 57 From: Haroon Da Silva [...] Type of service Follow-up Visit Follow-up Visit (Physician/TIER LIFT TRUCK OPERATOR (Physician/TIER LIFT TRUCK OPERATOR ) ) Arrival Mode Ambulatory Ambulatory Transfer [...] Recorded Date Recorded By Document 06/08/23 10:03 [employer] 06/08/23 10:07 Document 06/15/23 09:57 Laptop [...] -Expiration Date 01/02/28 01/02/28 -Product Lot Number [id number] -Percent Used 100 100 -Lot number of Saline Used [id number] -Bleeding Controlled with Pressure Pressure -Treatment Response [...] Date Recorded By Document 06/08/23 10:44 DL [id number] 06/08/23 10:47 DL Document 06/15/23 10:15 [facility] Desktop 06/15/23 10:16 [facility] 06/08/23 06/15/23 10:44 10:15 Wound Care [...] Cosigner Signature (if applicable): CC: ~ Signed [facility] Work Phone: 1(325) 193-686602-06-2024 Progress note Author Haroon Da Silva [facility] June 08, 2023 10:10am Note Date/Time June 08, 2023 1 0:10am [facility] [address] [place] [address] Progress Note - Wound Care 06/08/23 1009 MR#: [id number] Acct: [id number] Name: WERNER MCLAIN Rep #:[id number] : 1965 57 From: Haroon Da Silva [...] Visit Information Type of service Follow-up Visit (Physician/TIER LIFT TRUCK OPERATOR ) Arrival Mode Ambulatory Transfer Assistance None [...] Mesh -Expiration Date 01/02/28 -Product Lot Number [id number] -Percent Used 100 -Lot number of Saline Used [id number] -Bleeding Controlled with Pressure -Treatment Response Procedure [...] Cosigner Signature (if applicable): CC: ~ Signed [facility] Work Phone: 1(451) 459-137001-17-2024 NoteHNO ID: [id number] Author: REMI CASTRO LPN Service: ? Author Type: LICENSED NURSE Type: Progress Notes Filed: 05/19/2023 09:33 Note Text: Scan on 05/18/2023 3:10 PM by ProviderAmauri PA-C: [facility]01-10-2024 NoteHNO ID: [id number] Author: REMI CASTRO LPN Service: ? Author Type: LICENSED NURSE Type: Progress Notes Filed: 05/12/2023 13:47 Note Text: Scan on 05/12/2023 12:34 PM by Provider, Amauri, PA-C: [facility]12-18-2023 NoteHNO ID: [id number] Author: Sonny Camargo LPN Service: ? Author Type: ? Type: Progress Notes Filed: 04/19/2023 4:31 PM Note Text: Scan on 04/18/2023 10:08 AM by Provider, External, PA-C: Microbiology Scan on 04/18/2023 7:11 AM by Provider, External, PA-C: Microbiology Scan on 04/17/2023 3:07 PM by Provider, External, PA-C: Microbiology Scan on 04/17/2023 10:35 AM by Provider, External, PA-C: [facility]12-01-2023 NoteHNO ID: [id number] Author: Remi Castro LPN Service: ? Author Type: ? Type: Progress Notes Filed: 04/02/2023 5:09 PM Note Text: Scan on 04/01/2023 3:56 PM by Provider, External PA-C: X-ray Scan on 04/01/2023 4:20 PM by Provider External PA-C: Miscellaneous ProceduresDo[facility]11-30-2023 Procedure [facility]11-27-2023 NoteHNO ID: [id number] Author: Sonny Camargo LPN Service: ? Author Type: ? Type: Progress Notes Filed: 03/29/2023 11:20 AM Note Text: Scan on 03/26/2023 6:12 PM by Provider, External, PA-C: Chemistry Scan on 03/26/2023 5:38 PM by Provider External, PA-C: Hematology Scan on 03/26/2023 8:13 PM by Provider, External, PA-C: [facility]11-27-2023 History of Present illness Narrative* Sonny Camargo LPN - 03/29/2023 11:20 AM EST Scan on 03/26/2023 6:12 PM by Provider, External, PA-C: Chemistry Scan on 03/26/2023 5:38 PM by Provider, External, PA-C: Hematology Scan on 03/26/2023 8:13 PM by Provider, External, PA-C: X-ray documented in this encounterSt. Anthony'S Hospital07-05-2022 Miscellaneous Notes* Telephone Encounter - Shanon [...] scheduleoffice consult Urban Olsen documented in this encounterSt. Anthony'S HospitalDischarge summary Author Matt Loyola [facility] July 16, 2023 12:58pm Note Date/Time July 16, 2023 11: 36am [facility] Medical Records Department [address] [place] [address] Emergency Department Summary 07/16/23 MR#: [id number] Acct: [id number] Name: WERNER MCLAIN Rep #:[id number] : 1965 57 From: Matt Loyola DO [...] Chief Complaint: Abn Labs ED Provider: Matt Loyola Dx/Rx/DC Orders Clinical Impression: DVT (deep venous [...] your Primary Care Provider. Call [facility] ([phone]) or report to the closest Emergency Room. Call 911 if necessary. 07/16/23 1258 <Electronically signed by Matt Loyola DO> Cosigner Signature (if applicable): CC: Dr. Natasha Dubon MD ~ Signed [facility] Work Phone: Evaluation noteNo assessment information available [facility] Work Phone: Evaluation note* Diagnosis Onset Date Resolution Status Displaced fracture of lateral malleolus of left fibula acute Non-pressure chronic ulcer o f other part of left foot with fat layer exposed chronic [facility] Work Phone: Evaluation note* Diagnosis Onset Date Resolution Status Displaced fracture of lateral malleolus of left fibula acute Non-pressure chronic ulcer o f other part of left foot with fat layer exposed chronic Displaced fracture of lateral malleolus of left fibula acute Peripheral vascular disease, unspecified acute 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 [facility] Work Phone: Evaluation note* Diagnosis Onset [...] left ankle with fat layer exposed chronic [facility] Work Phone: Evaluation note* Diagnosis Onset [...] left ankle with fat layer exposed chronic [facility] Work Phone: Evaluation note* Diagnosis Onset [...] exposed chronic Peripheral vascular disease, unspecified chronic [facility] Work Phone: Evaluation note* Diagnosis Onset [...] exposed chronic Peripheral vascular disease, unspecified chronic [facility] Work Phone: Evaluation note* Diagnosis Onset [...] acute Syndesmotic disruption of left ankle acute [facility] Work Phone: Evaluation note* Diagnosis Onset [...] left ankle with fat layer exposed chronic [facility] Work Phone: Evaluation note* Diagnosis Onset [...] left ankle with fat layer exposed chronic [facility] Work Phone: Hospital Discharge instructions Additional Instructions Dr. Da Silva would like to see you in the office this afternoon. Please call his office when you leave here for an appointment time.[facility] Work Phone: Hospital Discharge instructions Additional Instructions Keep dressing clean, dry and intact until follow up in 1 week remain NWB on left assisted by walker elevate left lower extremity above level of heart ice behind knee 3 times/day for 15 minutes take prescriptions [facility]WM[facility] Work Phone: Hospital Discharge instructions Additional Instructions Keep dressing clean dry and intact till follow-up. Maintain nonweightbearing left lower extremity until follow-up. Elevate left lower extremity above level heart at rest. Ice behind knee 3 times a day. Any strikethrough to dressing or signs or symptoms of infection contact our office or present to ED. [facility] Work Phone: Chief Complaint and Reason [...] No March 23, 023 9:52am Power of Revit Drafter No March 23, 2023 9:52am Advance Directive Response Recorded Date/ Time Living Will No March 31, 023 9:15am Power of Revit Drafter No March 31, 2023 9:15am Advance Directive Response Recorded Date/ Time Living Will No March 31, 023 10:15am Power of Revit Drafter No March 31, 2023 10:15am Advance Directive Response Recorded Date/ Time Living Will No July 16, 2023 10:54am Power of Revit Drafter No July 15 10:54am Advance Directive Response Recorded Date/ Time Living Will No August 04, 2023 2:10pm Power of Revit Drafter No August 03 2:10pm Family History No [...] or prosecute any alcohol or drug abuse patient.[facility] HospitalIn the event this information is protected by the Federal Confidentiality of Alcohol and Drug Abuse Patient Records regulations: The Federal rules restrict any use of the information to criminally investigate or prosecute any alcohol or drug abuse patient.[facility] HospitalIn the event this information is protected by the Federal Confidentiality of Alcohol and Drug Abuse Patient Records regulations: The Federal rules restrict any use of the information to criminally investigate or prosecute any alcohol or drug abuse patient.[facility] HospitalIn the event this information is protected by the Federal Confidentiality of Alcohol and Drug Abuse Patient Records regulations: The Federal rules restrict any use of the information to criminally investigate or prosecute any alcohol or drug abuse patient.[facility] HospitalIn the event this information is protected by the Federal Confidentiality of Alcohol and Drug Abuse Patient Records regulations: The Federal rules restrict any use of the information to criminally investigate or prosecute any alcohol or drug abuse patient.[facility] HospitalIn the event this information is protected by the Federal Confidentiality of Alcohol and Drug Abuse Patient Records regulations: The Federal rules restrict any use of the information to criminally investigate or prosecute any alcohol or drug abuse patient.[facility] HospitalIn the event this information is protected by the Federal Confidentiality of Alcohol and Drug Abuse Patient Records regulations: The Federal rules restrict any use of the information to criminally investigate or prosecute any alcohol or drug abuse patient.[facility] HospitalIn the event this information is protected by the Federal Confidentiality of Alcohol and Drug Abuse Patient Records regulations: The Federal rules restrict any use of the information to criminally investigate or prosecute any alcohol or drug abuse patient.[facility] HospitalIn the event this information is protected by the Federal Confidentiality of Alcohol and Drug Abuse Patient Records regulations: The Federal rules restrict any use of the information to criminally investigate or prosecute any alcohol or drug abuse patient.[facility] HospitalIn the event this information is protected by the Federal Confidentiality of Alcohol and Drug Abuse Patient Records regulations: The Federal rules restrict any use of the information to criminally investigate or prosecute any alcohol or drug abuse patient.[facility] HospitalIn the event this information is protected by the Federal Confidentiality of Alcohol and Drug Abuse Patient Records regulations: The Federal rules restrict any use of the information to criminally investigate or prosecute any alcohol or drug abuse patient.[facility] HospitalIn the event this information is protected by the Federal Confidentiality of Alcohol and Drug Abuse Patient Records regulations: The Federal rules restrict any use of the information to criminally investigate or prosecute any alcohol or drug abuse patient.[facility] HospitalIn the event this information is protected by the Federal Confidentiality of Alcohol and Drug Abuse Patient Records regulations: The Federal rules restrict any use of the information to criminally investigate or prosecute any alcohol or drug abuse patient.[facility] HospitalIn the event this information is protected by the Federal Confidentiality of Alcohol and Drug Abuse Patient Records regulations: The Federal rules restrict any use of the information to criminally investigate or prosecute any alcohol or drug abuse patient.[facility] HospitalIn the event this information is protected by the Federal Confidentiality of Alcohol and Drug Abuse Patient Records regulations: The Federal rules restrict any use of the information to criminally investigate or prosecute any alcohol or drug abuse patient.[facility] HospitalIn the event this information is protected by the Federal Confidentiality of Alcohol and Drug Abuse Patient Records regulations: The Federal rules restrict any use of the information to criminally investigate or prosecute any alcohol or drug abuse patient.[facility] HospitalIn the event this information is protected by the Federal Confidentiality of Alcohol and Drug Abuse Patient Records regulations: The Federal rules restrict any use of the information to criminally investigate or prosecute any alcohol or drug abuse patient.[facility] Reason for Visit (unrecogniz ed section and content) Reason Comments Outpatient Colonoscopy Reason Comments Outside [id number] Ordered Reason Comments Outside Imaging Reason Comments [...] Care Teams (unrecognized sec tion and content) Rabbit Fancier Relationship Specialty Start Date End Date Natasha Dubon MD [address] [place] [address] PCP - General Family Practice 06/18/17 Team Status: Active Member Role Status Dates Dr. Natasha Dubon MD Family Provider Active Dr. Natasha Dubon MD Primary Care Provider Active Team Status: Inactive Member Role Status Dates Dr. Natasha Dubon MD Primary Care Provider Active Dr. Prabha Mckeon MD Emergency Provider Active Rabbit Fancier Relationship Specialty Start Date End Date Natasha Dubon MD [address] [place], [place] [id number] PCP - General Family Medicine 06/18/17 Team [...] Dr. Matt Loyola DO Emergency Provider Active Rabbit Fancier Relationship Specialty Start Date End Date Natasha Dubon MD [address] [place], [place] [id number] PCP - General Family Medicine 06/18/17 Team [...] Dr. Trevon Reeves MD Attending Provider Active Rabbit Fancier Relationship Specialty Start Date End Date Natasha Dubon MD [address] [place], [place] [id number] PCP - General Family Medicine 06/18/17 Team Status: Active Member Role Status Dates Dr. Natasha Dubon MD Primary Care Provider Active Dr. Haroon Da Silva DPM Attending Provider Active Team Status: Inactive Member Role Status Dates Dr. Natasha Dubon MD Primary Care Provider Active Dr. Haroon Da Silva DPM Attending Provider Active Team Status: Active Member Role Status Dates Dr. Natasha Dubon MD Primary Care Provider, Referri ng Provider Active Dr. Haroon Da Silva DPM Attending Provider Active Rabbit Fancier Relationship Specialty Start Date End Date Natasha Dubon MD [address] [place], [place] [id number] PCP - General Family Medicine 06/18/17 Rabbit Fancier Relationship Specialty Start Date End Date Natasha Dubon MD [address] [place], [place] [address] PCP - General Family Medicine 06/18/17 Goals (unrecognized section and content) Goals may be documented in a n alternate sectionGoals may be documented in an alternate sectionGoals may be documented in an alternate section (unrecognized sect ion and content) No Status Records FoundNo Status Records Found INFORMATION SOURCE (unrecogn ized section and content) DATE CREATED AUTHOR 12/30/2023 [facility] DATE CREATED AUTHOR 'S TESSIZ ATION 03/06/2025 [facility] FOR RECORDS PERTAINING TO PATIENTS WHO ARE [...] BE BASED ON THE PRIMARY CLINICAL RECORDS. [facility] [email or web address] [facility] provides no warranty or guarantee of the accuracy or completeness of information in this document.
[2025-05-02 17:03] LABS: Mucous, Urine 0 SEEN /hpf (<or=2+); Squamous Epithelial Cells - UA 0 SEEN /hpf (0-5)
[2025-05-02 17:10] LABS: Color, Urine Straw (Yellow); Glucose, Dipstick Normal (Normal); Ketone-Dipstick Negative (Negative); Leukocyte Esterase-Dipstick Negative /ul (Negative); Nitrite-Dipstick Negative (Negative); Occult Blood-Urine 10 /ul (Negative); Protein-Dipstick 15 mg/dl (Negative); Specific Gravity, Urine 1.010 (1.002-1.030); Urine Bilirubin Dipstick Negative (Negative)
[2025-05-02 17:45] LABS: Troponin T High Sens 2 HR 31 ng/L (<=22)
[2025-05-02 17:48] LABS: Red Blood Cells-Urine 0-5 SEEN /hpf (0-5)
--- NOTE | 2025-05-02 18:28 | ED.RN ---
this RN called report to [facility] ER
== END 2025-05-02 18:55 | disposition short-term general hospital (02) ==
LOC: ED 16:24
PROVIDERS: Emergency Provider Emergency Medicine; Visit Provider Emergency Medicine
DX: S22.42XA Multiple fractures of ribs, left side, initial encounter for closed fracture (principal); S00.81XA Abrasion of other part of head, initial encounter; S20.219A Contusion of unspecified front wall of thorax, initial encounter; S05.12XA Contusion of eyeball and orbital tissues, left eye, initial encounter; S00.03XA Contusion of scalp, initial encounter; S06.0X9A Concussion with loss of consciousness of unspecified duration, initial encounter; S27.329A Contusion of lung, unspecified, initial encounter; V48.5XXA Car driver injured in noncollision transport accident in traffic accident, initial encounter; Z23 Encounter for immunization; Z71.85 Encounter for immunization safety counseling
CPT/HCPCS: 70450; 70486; 71260; 72125; 74177; 80053; 81001; 84484; 85025; 85610; 85730; 90471; 90715; 93005; 94640; 96374; 96375; 96376; 99285; Q9967; A4216; J2405